=== PATIENT | female | born 1990 | race Hispanic/Latino ===

== ENCOUNTER 2020-07-18 09:59 | Emergency (ER) | payer OTHER, SELFPAY ==
--- OUTSIDE RECORDS SUMMARY | 2020-07-18 10:01 | XMS REPORT | Summary of Care ---
:1990 Author Organization [facility] - Health Address [address] [place] [address] Care Team Providers Name Role Phone Pcp, Patient Does Not Have A Primary Care Provider [id number] Encounter Details Date Type Department Care Team Description 06/30/2020 Orders Only [facility] Doctor Unassigned, No [address] [facility] Name [place] [id number] [address] [place] [phone] Allergies No Known Allergiesdocumented as of this encounter (statuses as of 06/30/2020) Medications No known medicationsdocumented as of this encounter (statuses as of 06/30/2020) Active Problems Not on filedocumented as of this encounter (statuses as of 06/30/2020) Social History Tobacco Use Types Packs/Day Years Used Date Never Assessed Sex Assigned at Date Recorded Not on file documented as of this encounter Last Filed Vital Signs Not on filedocumented in this encounter Plan of Treatment Date Type Specialty Care Team Description 06/30/2020 [facility] Visit [facility] [address] [place], [place] [address] [phone] Health Maintenance Due Date Last Done Comments VARICELLA VACCINES (1 of 2 - 1991 2-dose childhood series) Depression Screening 2002 DTaP,Tdap,and Td Vaccines (1 - 2009 Tdap) PAP SMEAR 2011 INFLUENZA VACCINE (#1) 2020 PNEUMOCOCCAL 0-64 YEARS COMBINED Aged Out No longer eligible based on SERIES patient's age to complete this topic documented as of this encounter Procedures Procedure Name Priority Date/Time Associated Diagnosis Comme nts ASSIGNMENT OF BENEFITS Routine 06/30/2020 2:23 PM CDT documented in this encounter Results Not on filedocumented in this encounter Insurance Payer Benefit Plan Subscriber ID Effective Phone Address Typ e / Group Dates [facility] [place] [id number] 2020-Prese [phone] Medicaid WOMEN nt [address] [place] [address] documented as of this encounter
--- OUTSIDE RECORDS SUMMARY | 2020-07-18 10:02 | XMS REPORT | Summary of Care ---
:1990 Author Organization [facility] Address [address] [place] [id number] Care Team Providers Name Role Phone [facility] [phone] Reason for Visit Reason Comments TRICHOMONIASIS BACTERIAL VAGINOSIS Encounter Details Date Type Department Care Team Description 07/02/2020 Telephone [facility]- Claudia Mendez CHOMONIASIS; Sanjay Rousseau [facility] BACTERIAL VAGINOSIS [address] [facility] [address] [place], [place] [phone] Allergies No Known Allergiesdocumented as of this encounter (statuses as of 07/02/2020) Medications Medication Sig Dispensed Refills Start Date End Date Status metroNIDAZOLE 500 mg Take 4 tablets 4 tablet 0 07/02/202010/2020 Active tabletIndications: by mouth once Trichomonal now for 1 dose. vulvovaginitis, BV (bacterial vaginosis) documented as of this encounter (statuses as of 07/02/2020) Active Problems Problem Noted Date Trichomonal vulvovaginitis 07/02/2020 Bacterial vaginosis 07/02/2020 Well woman exam 06/30/2020 Other general counseling and advice for contraceptive management 06/30/2020 History of tubal ligation 06/30/2020 Tobacco use disorder 06/30/2020 Over weight 06/30/2020 documented as of this encounter (statuses as of 07/02/2020) Social History Tobacco Use Types Packs/Day Years Used Date Current Some Day Smoker 0.1 Smokeless Tobacco: Never Used Alcohol Use Drinks/Week oz/Week Comments Not Currently Sex Assigned at Date Recorded Not on file COVID-19 Exposure Response Date Recorded In the last month, have you been in contact with No / Unsure 06/30/2020 2:54 PM CDT someone who was confirmed or suspected to have Coronavirus / COVID-19? documented as of this encounter Last Filed Vital Signs Not on filedocumented in this encounter Miscellaneous Notes Telephone Encounter - Marc Welsh RN - 07/02/2020 11:16 AM CDTCalled patient, no answer. Left vm. MARC WELSH RN 07/02/2020 11:17 AM Telephone Encounter - Claudia Mendez WHCNP - 07/02/2020 9:26 AM CDT Please notify the patient of her positive STI results. Trich/bv.Please notify the patient her medication has been sent to her pharmacy on file. She should complete the entire course.Please advise her on safe sex practices and to remain abstinent for at least 1-2 weeks post treatment. Her partner can be treated and tested per protocol. If she is not she will need a ANTHONY in 3 months, and adviseher on HIV testing if she has not recently been tested. JUDY Clemons 07/02/2020 9:26 AM documented in this encounter Plan of Treatment Health Maintenance Due Date Last Done Comments PNEUMOCOCCAL 0-64 YEARS COMBINED 02/04/1996 SERIES (1 of 1 - PPSV23) INFLUENZA VACCINE (#1) 2020 DTaP,Tdap,and Td Vaccines (1 - 06/30/2021 P ostponed from 2009 Tdap) (Alternative Chas delines) Depression Screening 06/30/2021 06/30/2020 VARICELLA VACCINES (1 of 2 - 06/30/2021 Pos tponed from 1991 2-dose childhood series) (Altern ative Guidelines) PAP SMEAR 06/30/2023 06/30/2020 documented as of this encounter Results Not on filedocumented in this encounter Visit Diagnoses Diagnosis Trichomonal vulvovaginitis - Primary BV (bacterial vaginosis) Vaginitis and vulvovaginitis, unspecifie d documented in this encounter Insurance Payer Benefit Plan Subscriber ID Effective Phone Address Typ e / Group Dates [facility] [id number] 2020-Rochelle [phone] Medicaid WOMEN nt [address] [place] [address] documented as of this encounter
--- OUTSIDE RECORDS SUMMARY | 2020-07-18 10:02 | XMS REPORT | Summary of Care ---
:1990 Author Organization [facility] Address [address] [place] [id number] Care Team Providers Name Role Phone [facility] Reason for Visit Reason Comments Well Woman Exam Encounter Details Date Type Department Care Team Description 06/30/2020 Office Visit [facility]- Claudia Mendez Ot er general counseling and advice for contraceptive management (Primary Dx); JUDY Dinero History of tubal ligation; [address] [place] [address] Well woman exam; Street [address] A Tobacco use disorder; [place], [place] [address] Over weight; [id number] Vaginal discharge [phone] Allergies No Known Allergiesdocumented as of this encounter (statuses as of 06/30/2020) Medications No known medicationsdocumented as of this encounter (statuses as of 06/30/2020) Active Problems Problem Noted Date Well woman exam 06/30/2020 Other general counseling [...] of this encounter Last Filed Vital Signs Vital Sign Reading Time Taken Comments Blood Pressure 99/70 06/30/2020 2:54 PM CDT Pulse 76 06/30/2020 2:54 PM CDT Temperature 37.2 C (98.9 F) 06/30/2020 2:54 PM CDT Respiratory Rate 16 06/30/2020 2:54 PM CDT Oxygen Saturation - - Inhaled Oxygen Concentration - - Weight 73.1 kg (161 lb 4 oz) 06/30/2020 2:54 PM CDT Height 160 cm (5' 3") 06/30/2020 2:54 PM CDT Body Mass Index 28.56 06/30/2020 2:54 PM CDT documented in this encounter Patient Instructions Patient InstructionsRosalina Davidson LVN - 06/30/2020 2:45 PM CDT Patient Education Clinical Breast Exam Many health organizations recommend a yearly clinical breast exam. This exam may be done by a park warden, family healthcare provider, nurse practitioner, nurse net lead developer, or specially trained nurse. Yearly breast exams help tomake surethat breast conditions are found early. Your healthcare providers role A healthcare professional knows the tests and follow-up care needed if a problem is found. Your clinical exam is also a great time to ask questions about breast self-exams. You can find out if yourechecking your breasts in the best way. Or you may want to ask how , breast implants, or breast reduction surgery affect the way you should check your breasts. Diagnostic tests If a clinical exam reveals a breast change, you may have other tests to find out more. These tests may include: Mammography. A low-dose X-ray of your breast tissue. Ultrasound. An imaging test that uses sound waves to create images of your breast. Biopsy. A small amount of breast tissue is removed by needle or by a cut (incision). The tissue is then checked under a microscope. Guidelines for having clinical breast exams The [place] [employer] recommends that starting at age 29, you should have a clinical breast exam every 1 to 3 years. After age 40, have a clinical breast exam each year. If youre at higher risk for breast cancer, you may need exams more often. Risk factors for breast cancer may include: Being over 50 or postmenopausal Having a family history of breast cancer Having the BRCA1 or BRCA2 gene mutation or certain other gene mutations Having more menstrual periods due to starting menstruation early(before age 12) or having a late menopause (after age 55) Having no pregnancies Having a first after age 30 Being obese Having a history of radiation treatment to your chest area Exposure to CONSTANZA during your mother's Not being active Drinking too much alcohol Having dense breast tissue Taking hormone therapy after menopause Other health organizations have different recommendations. Talk with your healthcare provider about what is best for you. [employer] reviewed this educational content on 06/21/201719995155-1557 [employer]. [address] [place] [address]. All rights reserved. This information is not intended as a substitute for professional medical care. Always follow your healthcare professional's instructions. Patient Education Breast Health: Breast Self-Awareness What is breast self-awareness? Breast self-awareness is knowing how your breasts normally look and feel. Your breasts change as yougo through different stages of your life. So its important to learn what is normal for your breasts. Knowing about your breasts helps you spot any changes in them right away. Tell your healthcare provider about any changes. Why is breast self-awareness important? Many experts now say that women should focus on breast self-awareness instead of doing a breast self-examination (BSE). These experts include the [place] [employer] and the [place] [employer]. Some experts even advise not teaching women to do a BSE. Thats because research hasnt shown a clear benefit to doing BSEs. Breast self-awareness is different than a BSE. It isnt about following a certain method and schedule. Its about knowing what's normal for your breasts. That way you can spot even small changes right away. If you see any changes, tell your healthcare provider. Changes to look for Call your healthcare provider if you find any changes in your breasts that worry you. These changes may be: A lump Nipple discharge other than breastmilk, especially if it's bloody Swelling A change in size or shape Skin changes, such as redness, thickening, or dimpling of the skin Swollen lymph nodes in the armpit Nipple problems, such as pain or redness If you find a lump Call your provider if you find lumpiness in one breast. Also call if you feel something different inthe tissue or feel a definite lump. Sometimes lumpiness may be due to menstrual changes. But there may be reason for concern. Your provider may want to see you right away if you have: Nipple discharge that is bloody Skin changes on your breast, such as dimpling or puckering Its okay to be upset if you find a lump. Be sure to call your provider right away. Remember that most breast lumps are benign. This means they are not cancer. [employer] last reviewed this educational content on 06/21/201719995811-1800 [employer]. [address] [place] [address], [place] [address]. All rights reserved. This information is not intended as a substitute for professional medical care. Always follow your healthcare professional's instructions. Patient Education Prevention Guidelines,Women Ages 18 to 39 Screening tests and vaccines are an important part of managing your health. A screening test is doneto find possible disorders or diseases in people who don't have any symptoms. The goal is to find a disease early so lifestyle changes can be made and you can be watched more closely to reduce the riskof disease, or to detect it early enough to treat it most effectively. Screening tests are not considered diagnostic, but are used to determine if more testing is needed. Health counseling is essential, too. Below are guidelines for these, for women ages 18 to 39. Talk with your healthcare provider tomake sure youre up-to-date on what you need. Screening Who needs it How often Alcohol misuse All women in this age group At routine exams Blood pressure All women in this age group Yearly checkup if your blood pressure is normal Normal blood pressure is less than 120/80 mm Hg If your blood pressure reading is higher than normal, follow the advice of your healthcare provider Breast cancer All women in this age group should talk with their healthcare providers about the needfor clinical breast exams (CBE)1 Clinical breast exam every 3 years1 Cervical cancer Women ages 21 and older Women between ages 21 and 29 should have a Pap test every 3 years; women between ages 30 and 65 are advised to have a Pap test plus an HPV test every 5 years Chlamydia Sexually active women ages 25 and younger, and women at increased risk for infection (suchas having multiple sex partners) Every year if you're at risk or have symptoms Depression All women in this age group At routine exams Type 2 diabetes, prediabetes All women with no symptoms who are overweight or obese and have 1 or more other risk factors for diabetes At least every 3 years. Also, testing for diabetes during after the 24th week. Type 2 diabetes, prediabetes All women diagnosed with gestational diabetes Lifelong testing every 3 years Type 2 diabetes All women with prediabetes Every year Gonorrhea Sexually active women at increased risk for infection At routine exams Hepatitis C Anyone at increased risk At routine exams HIV All women should be tested at least once for HIV between the ages of 13 and 64 At routine exams.Those with risk factors for HIV should be tested at least annually. Obesity All women in this age group At routine exams Syphilis Women at increased risk for infection should talk with their healthcare provider At routineexams Tuberculosis Women at increased risk for infection should talk with their healthcare provider Ask your healthcare provider Vision All women in this age group At least 1 complete exam in your 20s, and 2 in your 30s Vaccine2 Who needs it How often Chickenpox (varicella) All women in this age group who have no record of this infection or vaccine 2doses; the second dose should be given 4 to 8 weeks after the first dose Hepatitis A Women at increased risk for infection should talk with their healthcare provider 2 dosesgiven at least 6 months apart Hepatitis B Women at increased risk for infection should talk with their healthcare provider 3 dosesover 6 months; second dose should be given 1 month after the first dose; the third dose should be given at least 2 months after the second dose and at least 4 months after the first dose Haemophilus influenzaeType B (HIB) Women at increased risk for infection should talk with their healthcare provider 1 to 3 doses Human papillomavirus (HPV) All women in this age group up to age 26 3 doses; the second dose should be given 1 to 2 months after the first dose and the third dose given 6 months after the first dose Influenza (flu) All women in this age group Once a year Measles, mumps, rubella (MMR) All women in this age group who have no record of these infections or vaccines 1 or 2 doses Meningococcal Women at increased risk for infection should talk with their healthcare provider 1 or more doses Pneumococcal conjugate vaccine (PCV13)and pneumococcal polysaccharidevaccine(PPSV23) Women at increased risk for infection should talk with their healthcare provider PCV13: 1 dose ages 19 to 65 (protects against 13 types of pneumococcal bacteria) PPSV23: 1 to2 doses through age 64, or 1 dose at 65 or older (protects against 23 types of pneumococcal bacteria) Tetanus/diphtheria/pertussis (Td/Tdap) booster All women in this age group Td every 10 years, or a one-time dose of Tdap instead of a Td booster after age 18, then Td every 10 years Counseling Who needs it How often BRCA gene mutation testing for breast and ovarian cancer susceptibility Women with increased risk for having gene mutation When your risk is known Breast cancer and chemoprevention Women at high risk for breast cancer When your risk is known Diet and exercise Women who are overweight or obese When diagnosed, and then at routine exams Domestic violence Women at the age in which they are able to have children At routine exams Sexually transmitted infection prevention Women who are sexually active At routine exams Skin cancer Prevention of skin cancer in fair-skinned adults At routine exams Use of tobacco and the health effects it can cause All women in this age group Every visit 1 According to the ACS, women ages 20 to 39 years should have a clinical breast exam (CBE) as part of their routine health exam every 3 years. Breast self-exams are an option for women starting in their 20s.But the USPSTF does not recommend CBE. [employer] last reviewed this educational content on 08/21/201719995249-2674 [employer]. [address] [place] [address]. All rights reserved. This information is not intended as a substitute for professional medical care. Always follow your healthcare professional's instructions. Patient Education Understanding STIs When it comes to sex, nothing is risk-free. Any sexual contact with the penis, vagina, anus, or mouth can spread a sexually transmitted infection (STI). These include chlamydia, gonorrhea, herpes, HIV,and genital warts. STIs are also known as sexually transmitted diseases (STDs). The only sure way toprevent STIs is not having sex (abstinence). But there are ways to make sex safer. Use a latex condom each time you have sex. And choose your partner wisely. Use condoms for safer sex If you have sex, latex condoms provide the best protection against STIs. Latex condoms stop the exchange of body fluids that carry certain STIs. They also limit contact with affected skin. Be aware that a condom doesnt cover all skin. So affected skin that isn't covered can still transfer disease. But youre safer with a condom than without one. Use a condom even if you use other control. control methods such as the pill or IUD help prevent , but they don't protect against STIs. Choose the right condom Condoms made of latex prevent disease best. If youre allergic to latex, use polyurethane condoms instead. Male condoms fit over the penis. Female condoms line the vagina. Before buying a condom, read the label to be sure it prevents disease. Some novelty condoms dont. The right lubricant helps Buy lubricated condoms or use lubricant. This provides greater comfort and reduces the risk for condom breakage. Use only water-based lubricants. Dont use oil, lotion, or petroleum jelly. They can weaken the condom, causing breakage. Also, you may want to choose lubricants without nonoxynol-9. This spermicide may cause irritation. It can raise the risk for certain STIs. Use condoms correctly For condoms to work, they must be used the right way. Keep these tips in mind: Use a new latex condom each time you have sex. Slip the condom on the penis before any contact ismade. When ready to withdraw, hold the rim of the condom as the penis pulls out. This prevents the condom from slipping off. Check the expiration date before using a condom. Dont store condoms in places that can get hot, such as a car or a wallet that is carried in a back pocket. Get to know your partner Safer sex is a process. It involves getting to know your partner and making informed choices. Ask each other how many partners you have had in the past, and how many you have now. Find out if either ofyou has HIV or any other STI. If you decide to have sex, use a condom each time. Dont stop using condoms unless youre sure neither of you has other partners and youve both been tested to confirm you dont have HIV or other STIs. Then stay free of disease by having sex only with each other (monogamy). Keep your cool Dont let alcohol or drugs cloud your judgment. They could lead you to have sex with someone you wouldnt have chosen if you were sober. Or you might forget to use a condom. If you do plan to have sex, keep a latex condom with you. Dont wait until youre in the heat of passion to try to find one. Consider abstinence The only way to be sure you wont get an STI is to abstain from sex. Abstinence is a choice that many people make at some point in their life. Maybe you want to wait until you are sure youre readybefore you have sex. Maybe youd like a break from the responsibilities of sex for a while. Or maybe you just want to know your partner better before taking the next step. Abstinence is a choice you can make now to protect your future. [employer] last reviewed this educational content on 10/21/201819999092-7216 [employer]. [address] [place] [address], [place] [address]. All rights reserved. This information is not intended as a substitute for professional medical care. Always follow your healthcare professional's instructions. Patient Education Understanding HIV and AIDS It's important to know how HIV can get into your body and what happens once its there. Then youll be better prepared to protect yourself or others against this virus. A person with HIV can look and feel perfectly healthy. But that person can give HIV to others as soon as he or she is infected with the virus. Having unsafe or unprotected sex or sharing needles puts you at risk for HIV. Talk with your healthcare provider about ways to protect yourself or a loved one from getting HIV. How HIV infection progresses After HIV enters the body, it attacks the immune system in the stages below. A person with HIV can infect others once the virus gets into the blood. HIV with no symptoms. A person with HIV may have no symptoms for years. The only sign of infection may be a positive blood test for HIV 2 weeks to 3 months or later after HIV enters the body. HIV with symptoms. Some people develop an illness similar to mono (mononucleosis) 2 to 4 weeks after the virus enters the body. This is called acute retroviral syndrome. Symptoms may include swollen lymph glands, chills, fever, night sweats, weakness, weight loss, skin rashes, mouth ulcers, or sore t hroat. Symptoms may be mild or the person can feel quite sick. Even without treatment the symptoms almost always go away in a few days or up to 2 to 3 weeks. Then the person has no symptoms, often for years. But over time the immune system starts to get weaker and symptoms start appearing. People at this stage may have a yeast infection in the mouth (oral thrush), shingles, skin problems, pneumonia, diarrhea that keeps coming back, or weight loss. AIDS. AIDS is the most advanced stage of HIV infection, when the immune system is severely weakened.Certain rare diseases and cancers that normally would not occur, now can occur because the body can no longer fight them well enough. It is often these diseases that cause in people with AIDS. HIV may also directly attack the brain and nervous system. This causes seizures and loss of memory and body movement. It also affects many other parts of the body. This leads to problems such as anemia, low white blood cell count, diarrhea, belly pain, skin problems, and many others. How HIV enters the body HIV is carried in semen, vaginal fluid, blood, and breastmilk. During sex, HIV can enter the body. It gets in through the fragile tissue and linings, sores, or cuts in or around the vagina, penis, anus, and mouth. During drug use, tattooing, or body piercing, the virus can enter the blood through an infected needle. A mother who has HIV can infect her child during , childbirth, and . [employer] last reviewed this educational content on 04/21/201919998440-5054 [employer]. [address] [place] [address], [place] [address]. All rights reserved. This information is not intended as a substitute for professional medical care. Always follow your healthcare professional's instructions. Patient Education Eating Heart-Healthy Foods Eating has a big impact on your heart health. In fact, eating healthier can improve several of your heart risks at once. For instance, it helps you manage weight, cholesterol, and blood pressure. Here are ideas to help you make heart- healthy changes without giving up allthe foods and flavors you love. Getting started Talk with your healthcare provider about eating plans, such as the DASH or Mediterranean diet. You may also be referred to a dietitian. Change a few things at a time. Give yourself time to get used to a few eating changes before adding more. Work to create a tasty, healthy eating plan that you can stick to for the rest of your life. Goals for healthy eating Below are some tips to improve your eating habits: Limit saturated fats and trans fats. Saturated fats raise your levels of cholesterol, so keep these fats to a minimum. They are found in foods such as fatty meats, whole milk, cheese, and palm and coconut oils. Avoid trans fats because they lower good cholesterol as well as raise bad cholesterol. Trans fats are most often found in processed foods. Reduce sodium (salt) intake. Eating too much salt may increase your blood pressure. Limit your sodium intake to 2,300 milligrams (mg) per day(the amount in 1 teaspoon of salt), or less if your healthcare provider recommends it. Dining out less often and eating fewer processed foods are two great ways to decrease the amount of salt you consume. Managing calories. A calorie is a unit of energy. Your body darnell calories for fuel, but if you eat more calories than your body darnell, the extras are stored as fat. Your healthcare provider can help you create a diet plan to manage your calories. This will likely include eating healthier foods as well as exercising regularly. To help you track your progress, keep a diary to record what you eat and how often you exercise. Choose the right foods Aim to make these foods benny of your diet. If you have diabetes, you may have different recommendations than what is listed here: Fruits and vegetables provide plenty of nutrients without a lot of calories. At meals, fill half your plate with these foods. Split the other half of your plate between whole grains and lean protein. Whole grains are high in fiber and rich in vitamins and nutrients. Good choices include whole-wheat bread, pasta, and brown rice. Lean proteins give you nutrition with less fat. Good choices include fish, skinless chicken, and beans. Low-fat or nonfat dairy provides nutrients without a lot of fat. Try low-fat or nonfat milk, cheese, or yogurt. Healthy fats can be good for you in small amounts. These are unsaturated fats, such as olive oil,nuts, and fish. Try to have at least 2 servings per week of fatty fish, such as salmon, sardines, mackerel, rainbow trout, and albacore tuna. These contain omega-3 fatty acids, which are good for your heart. Flaxseed is another source of a heart-healthy fat. More on heart-healthy eating Read food labels Healthy eating starts at the grocery store. Be sure to pay attention to food labels on packaged foods. Look for products that are high in fiber and protein, and low in saturated fat, cholesterol, and sodium. Avoid products that contain trans fat. And pay close attention to serving size. For instance, if you plan to eat two servings, double all the numbers on the label. Prepare food right A alan part of healthy cooking is cutting down on added fat and salt. Look on the internet for lower-fat, lower-sodium recipes. Also, try these tips: Remove fat from meat and skin from poultry before cooking. Skim fat from the surface of soups and sauces. Broil, boil, bake, steam, grill, and microwave food without added fats. Choose ingredients that spice up your food without adding calories, fat, or sodium. Try these items: horseradish, hot sauce, lemon, mustard, nonfat salad dressings, and vinegar. For salt-free herbs and spices, try basil, cilantro, cinnamon, pepper, and ranjan. [employer] last reviewed this educational content on 08/21/201719991283-6555 [employer]. [address] [place] [address]. All rights reserved. This information is not intended as a substitute for professional medical care. Always follow your healthcare professional's instructions. Patient Education Understanding USDA MyPlate The USDA (U.S. Department of Agriculture) has guidelines to help you make healthy food choices. These are called MyPlate. MyPlate shows the food groups that make up healthy meals using the image of a place setting. Before you eat, think about the healthiest choices for what to put onto your plate or into your cup or bowl. To learn more about building a healthy plate, visit www.choosemyplate.gov. The food groups Fruits. Any fruit or 100% fruit juice counts as part of the Fruit Group. Fruits may be fresh, canned, frozen, or dried, and may be whole, cut-up, or pureed. Make half your plate fruits and vegetables. Vegetables. Any vegetable or 100% vegetable juice counts as a member of the Vegetable Group. Vegetables may be fresh, frozen, canned, or dried. They can be served raw or cooked and may be whole, cut-up, or mashed. Make half your plate fruits and vegetables. Grains. All foods made from grains are part of the Grains Group. These include wheat, rice, oats,cornmeal, and barley such as bread, pasta, oatmeal, cereal, tortillas, and grits. Grains should be no more than a quarter of your plate. At least half of your grains should be whole grains. Protein. This group includes meat, poultry, seafood, beans and peas, eggs, processed soy products(like tofu), nuts (including nut butters), and seeds. Make protein choices no more than a quarter ofyour plate. Meat and poultry choices should be lean or low fat. Dairy. All fluid milk products and foods made from milk that contain calcium, like yogurt and cheese, are part of the Dairy Group. (Foods that have little calcium, such as cream, butter, and cream cheese, are not part of the group.) Most dairy choices should be low-fat or fat-free. Oils. These are fats that are liquid at room temperature. They include canola, corn, olive, soybean, and sunflower oil. Foods that are mainly oil include mayonnaise, certain salad dressings, and soft margarines. You should have only 5 to 7 teaspoons of oils a day. You probably already get this muchfrom the food you eat. [employer] last reviewed this educational content on 06/21/201719999033-2118 [employer]. [address] [place] [address]. All rights reserved. This information is not intended as a substitute for professional medical care. Always follow your healthcare professional's instructions. documented in this encounter Progress Notes Claudia Mendez WHALYSSIA - 06/30/2020 2:45 PM CDT Chief complaint: Chief Complaint Patient presents with Well Woman Exam [employer] Exam Patient is here for well woman visit. The patient's primary symptoms include vaginal discharge. Thisis a new problem. The current episode started more than 1 month ago. The problem occurs constantly. The problem has been unchanged. The patient is experiencing no pain. She is not . She wears cotton underwear. The vaginal discharge was white. The vaginal bleeding is none. Nothing aggravates the symptoms. She has tried nothing for the symptoms. It is unknown whether or not her partner has an STD. She uses tubal ligation for contraception. Patient reports that prior to today's visit, her form of control was sterilization. After this visit, patient's form of control will be sterilization. Her menstrual history has been regular. Patient reports not sexually active. HPI: the patient is here for WWE and contraceptive management. She reports she is doing well for themost part. She declines the need for STI testing today reporting she has not been sexual active in about 6 months. She does reports vaginal discharge for the past 3 months, associated symptoms include vaginal odor. She reports tubal ligation for control and is pleased with her method. Pt (denies) current or past physical, sexual or emotional abuse. Histories OB History Para Term AB Living 3 3 3 3 SAB TAB Ectopic Multiple Live Births 3 # Outcome Date GA Lbr Tyrese/2nd Weight Sex Delivery Anes PTL Lv 3 Term 05/20/16 40w0d 8 lb (3.629 kg) M CS-Unspec SARITA 2 Term 07/02/14 39w0d 7 lb 2 oz (3.232 kg) F NORMAL SPONT N SARITA 1 Term 05/11/11 39w0d 6 lb 2 oz (2.778 kg) M NORMAL SPONT SARITA Past Medical History: Diagnosis Date Anemia 1998 not on iron Anxiety 2010 not on meds Genital warts 2014 TCA treatment per pt report Family History Problem Relation Age of Onset Diabetes Mother Family Status Relation Name Status Mo Alive Fa Alive Past Surgical History: Procedure Laterality Date ABDOMEN SURGERY PROC UNLISTED 2014 removed benign tumor laproscopically SECTION 2016 TUBAL LIGATION 2016 Social History Socioeconomic History Marital status: Single Spouse name: Not on file Number of children: Not on file Years of education: Not on file Highest education level: Not on file Occupational History Not on file Social Needs Financial resource strain: Not on file Food insecurity Worry: Not on file Inability: Not on file Transportation needs Medical: Not on file Non-medical: Not on file Tobacco Use Smoking status: Current Some Day Smoker Packs/day: 0.10 Smokeless tobacco: Never Used Substance and Sexual Activity Alcohol use: Not Currently Drug use: Not Currently Sexual activity: Yes control/protection: Surgical Comment: Last intecourse 6+ months ago Lifestyle Physical activity Days per week: Not on file Minutes per session: Not on file Stress: Not on file Relationships Social connections Talks on phone: Not on file Gets together: Not on file Attends faith service: Not on file Active member of club or organization: Not on file Attends meetings of clubs or organizations: Not on file Relationship status: Not on file Intimate partner violence Fear of current or ex partner: Not on file Emotionally abused: Not on file Physically abused: Not on file Forced sexual activity: Not on file Other Topics Concern Not on file Social History Narrative Patient lives with roommate, patient feels safe at home. Social History Substance and Sexual Activity Sexual Activity Yes control/protection: Surgical Comment: Last intecourse 6+ months ago Labs Labs are pending. and No visits with results within 1 Month(s) from this visit. Latest known visit with results is: Admission on 12/04/2018, Discharged on 12/05/2018 Component Date Value Streptococcus pyogenes (* 12/04/2018 Negative Influenza A 12/04/2018 Negative Influenza B 12/04/2018 Negative APPEARANCE 12/04/2018 Slightly Cloudy* COLOR 12/04/2018 Yellow PH 12/04/2018 6.0 SP GRAVITY 12/04/2018 1.020 GLU U QUAL 12/04/2018 Negative BLOOD 12/04/2018 Small* KETONES 12/04/2018 Negative PROTEIN 12/04/2018 Negative UROBILIN 12/04/2018 0.2 mg/dL BILIRUBIN 12/04/2018 Negative NITRITE 12/04/2018 Positive* LEUK MICHELLE 12/04/2018 Trace* RBC/HPF 12/04/2018 3-5* WBC/HPF 12/04/2018 10-20* BACTERIA 12/04/2018 Many* SQ EPITH 12/04/2018 Few* Throat Culture 12/04/2018 No Beta-Hemolytic Streptococcus isolated URINE CULTURE 12/04/2018 >100,000 CFU/mL Escherichia coli POCT PREG 12/05/2018 negative On board controls accept* 12/05/2018 yes POCT PREG LOT # 12/05/2018 [id number] POCT PREG TEST DA* 12/05/2018 07/21/2020 NA 12/05/2018 138 K 12/05/2018 3.5 CL 12/05/2018 105 CO2 TOTAL 12/05/2018 23 AGAP 12/05/2018 10 BUN 12/05/2018 7 GLUCOSE 12/05/2018 101 CREATININE 12/05/2018 0.60 TOTAL BILI 12/05/2018 0.5 CALCIUM 12/05/2018 9.1 T PROTEIN 12/05/2018 7.1 ALBUMIN 12/05/2018 4.1 ALK PHOS 12/05/2018 79 ALT(SGPT) 12/05/2018 17 AST(SGOT) 12/05/2018 16 eGFR Calculation (Non-Af* 12/05/2018 119.0 eGFR Calculation (Kimberly* 12/05/2018 144.3 WBC 12/05/2018 12.43* RBC 12/05/2018 4.51 HGB 12/05/2018 13.3 HCT 12/05/2018 39.4 MCV 12/05/2018 87.4 MCH 12/05/2018 29.5 MCHC 12/05/2018 33.8 RDW-SD 12/05/2018 38.8* RDW-CV 12/05/2018 12.0 PLT 12/05/2018 271 MPV 12/05/2018 10.4 NRBC/100 WBC 12/05/2018 0.0 NRBC x10^3 12/05/2018 <0.01 GRAN MAT (NEUT) % 12/05/2018 83.0 IMM GRAN % 12/05/2018 0.30 LYMPH % 12/05/2018 11.1 MONO % 12/05/2018 4.4 EOS % 12/05/2018 0.6 BASO % 12/05/2018 0.6 GRAN MAT x10^3(ANC) 12/05/2018 10.31* IMM GRAN x10^3 12/05/2018 0.04 LYMPH x10^3 12/05/2018 1.38 MONO x10^3 12/05/2018 0.55 EOS x10^3 12/05/2018 0.08 BASO x10^3 12/05/2018 0.07 Radiology No new radiology. Allergies Miller has No Known Allergies. Medications Miller currently has no medications in their medication list. Review of Systems Constitutional: Negative. HENT: Negative. Eyes: Negative. Respiratory: Negative. Breasts: Negative. Cardiovascular: Negative. Gastrointestinal: Negative. Genitourinary: Positive for vaginal discharge. Musculoskeletal: Negative. Skin: Negative. Neurological: Negative. Psychiatric/Behavioral: Negative. Endocrine: Endocrine negative BP 99/70 (BP Location: Right arm, Patient Position: Sitting, BP CUFF SIZE: Adult Medium) | Pulse 76 | Temp 37.2 C (98.9 F) (Oral) | Resp 16 | Ht 5' 3" (1.6 m) | Wt 161 lb 4 oz (73.1 kg) | LMP05/28/2020 (Approximate) | BMI 28.56 kg/m Pregravid BMI: Could not be calculated Physical Exam Vitals reviewed. Constitutional: She is oriented to person, place, and time. She appears well- developed. Her body habitus is normal. Neck: No tenderness and no mass. No thyroid nodules and no thyromegaly palpated. No neck adenopathy. Cardiovascular: Regular rate and rhythm. No gallop, no friction rub and no murmur auscultated. No peripheral edema present. Pulmonary/Chest: Breath sounds clear to auscultation. Normal inspiratory effort. Abdominal: Abdomen is soft. No mass palpated. No tenderness present. There is no hepatosplenomegaly,splenomegaly or hepatomegaly. There is no rigidity. No hernia palpated or inspected. Neuro/Psychiatric: She has a normal mood and affect. She is oriented to person, place, and time. Skin: No lesion, no rash and no ulceration present. Lymphadenopathy: No neck adenopathy present. No axillary adenopathy present. No inguinal adenopathy present. Breast: Right breast exhibits no mass, no nipple discharge and no tenderness. Left breast exhibits no mass, no nipple discharge and no tenderness. Breasts are symmetrical. Normal left breast and normalright breast Rectal: Rectal exam with normal anal tone. No mass, no external hemorrhoid and no internal hemorrhoid palpated or inspected. External genitalia: Normal external genitalia appropriate for age. Normal hair distribution. No labial lesion. Urethral meatus: Normal urethral meatus size, location and no lesion. No prolapse present. Normal urethral meatus Urethra: Normal urethra. No urethral tenderness, no mass and no urethral scarring palpated. Bladder: Bladder has no fullness, no mass palpated and no tenderness. Normal bladder Vagina:Normal vagina. No lesion inspected. Normal estrogen effect. Normal support. No abnormal vaginal discharge found. No lesions in the vagina. Cervix: Normal cervix. No lesion. No tenderness and no discharge present. Uterus: Uterus is normal size, normal contour, normal position and non-tender. Normal uterus Adnexa: Right adnexa without tenderness, ovary enlargement or mass. Left adnexa without tenderness, ovary enlargement or mass. Normal left adnexa and normal right adnexa Anus/perineum: Normal perineum and normal anus. Assessment/Plan Return to clinic in 1 year for WWE or sooner as needed Rubella/VZV: pending BMI: 28 Td: pending Pap Smear; today Gardasil: na Mammogram/Guaiac/Colonoscopy:na Other general counseling and advice for contraceptive management (primary encounter diagnosis) History of tubal ligation Comment: pleased Plan: as needed mgmt Well woman exam Comment: routine Plan: PAP Smear-Liquid Based, HIGH RISK HPV-THIN PREP Tobacco use disorder Comment: reports Plan: smoking cessation encouraged Over weight Comment: see bmi Plan: BMI discussed, appropriate weight gain, sensible diet, and exercise, increased fiber and waterintake and protein low in fat. Encouraged exercise for 30 min everyday; begin regimen with caution to prevent injury. Encouraged to decrease BMI to <25. Vaginal discharge Comment: repots Plan: [facility] ONLY - VAGINAL PATHOGENS BY NUCLEIC ACID TESTING This visit did not involve counseling and coordination that comprised more than 50% of the visit time JUDY Clemons 06/30/2020 3:59 PM . Marc Welsh RN - 06/30/2020 2:45 PM CDT30 year old presents to the clinic for wwe. 1) Previous BCM: BTL 2) Desired BCM: BTL 3) LMP: 05/28/2020 4) Last [place]: 6+ months 5) Last Pap: 4+ years Results: negative 6) Tdap: N/A 7) Gardasil: N/A 8) C/O: Patient denies any complaints 9) Patient denies history of physical, emotional, or sexual abuse. Patient states that she currently feels safe at home. MARC WELSH RN 06/30/2020 3:14 PM documented in this encounter Plan of Treatment Name Type Priority Associated Diagnoses Order S chedule PAP Smear-Liquid Based LAB Routine Well woman exam Ex pected: 06/30/2020, Expires: 2020 HIGH RISK HPV-THIN PREP LAB Routine Well woman exam E xpected: 06/30/2020, Expires: 2020 [facility] ONLY - VAGINAL LAB Routine Vaginal discharge Ord ered: 06/30/2020 PATHOGENS BY NUCLEIC ACID TESTING Health Maintenance Due Date Last Done Comments INFLUENZA VACCINE (#1) 2020 DTaP,Tdap,and Td Vaccines (1 - 06/30/2021 P ostponed from 2009 Tdap) (Alternative Chas delines) Depression Screening 06/30/2021 06/30/2020 VARICELLA VACCINES (1 of 2 - 06/30/2021 Pos tponed from 1991 2-dose childhood series) (Altern ative Guidelines) PAP SMEAR 06/30/2023 06/30/2020 PNEUMOCOCCAL 0-64 YEARS COMBINED Aged Out No longer eligible based on SERIES patient's age to complete this topic documented as of this encounter Results Not on filedocumented in this encounter Visit Diagnoses Diagnosis Other general counseling and advice for contraceptive management - Primary History of tubal ligation Tubal ligation status Well woman exam Routine general medical examination at a health care facility Tobacco use disorder Over weight Overweight Vaginal discharge Leukorrhea, not specified as infective documented in this encounter Insurance Payer Benefit Plan Subscriber ID Effective Phone Address Typ e / Group Dates [facility] [id number] 2020-Prese [phone] [address] Medicaid WOMEN nt 00 [id number] [place] [address] Guarantor Name Account Type Relation to Date of Phone Billing Address Patient Miller Ferguson [facility] Self 1990 [address] (Home) [address] [place], [place] [address] documented as of this encounter
--- OUTSIDE RECORDS SUMMARY | 2020-07-18 10:02 | XMS REPORT | Summary of Care ---
:1990 Author Organization [facility] Address [address] [place] [address] Care Team Providers Name Role Phone Claudia Mendez [facility] Primary [facility] Provider [phone] Reason for Visit Reason Comments TRICHOMONIASIS BACTERIAL VAGINOSIS Encounter Details Date Type Department Care Team Description 07/02/2020 Telephone [facility]- Claudia Mendez CHOMONIASIS; Sanjay Rousseau [facility] BACTERIAL VAGINOSIS [address] [facility] [place] [address] [place], [place] [phone] Allergies No Known [...] Encounter - Marc Welsh RN - 07/02/2020 3:50 PM CDTCalled patient, no answer. Left vm to clarify preference for flagyl. MARC WELSH RN 07/02/2020 3:50 PM Telephone Encounter - Claudia Mendez WHCNP - 07/02/2020 2:59 PM CDTThe flagyl sent to the pharmacy should treat both, if she desires the 7 day treatment i can send that JUDY Clemons 07/02/2020 3:00 PM Telephone Encounter - Rosalina Davidson LVN - 07/02/2020 2:50 PM CDTNotified the patient of her positive STI results trichomonas. Notified the patient her medication has been sent to her pharmacy on file. Educated patient she should complete the entire course, advised patient to practice safe sex practices and to remain abstinent for at least 1-2 weeks post treatment. Patient declines partner at this time. Informed patient of results for BV, verbalized understanding. elephone Encounter - Marc Welsh RN - 07/02/2020 [...] Address Typ e / Group Dates [facility] [id number] 2020-Prese [phone] Medicaid WOMEN nt [address] [place] [address] documented as of this encounter
--- OUTSIDE RECORDS SUMMARY | 2020-07-18 10:02 | XMS REPORT | Summary of Care ---
:1990 Author Organization [facility] Address [address] [place] [address] Care Team Providers Name Role Phone Claudia Mendez [facility] Primary Care Provider [phone] Reason for Visit Reason Comments Well Woman Exam Encounter Details Date Type Department Care Team Description 06/30/2020 Office Visit [facility]- Claudia Mendez Ot er general counseling and advice for contraceptive management (Primary Dx); JUDY Dinero History of tubal ligation; [address] Well woman exam; [address] Tobacco use disorder; [place], [place] [address] Over weight; [id number] Vaginal discharge [phone] Allergies No Known Allergiesdocumented as of this [...] This exam may be done by a material spreader, family healthcare provider, nurse practitioner, nurse comic book artist, or specially trained nurse. Yearly breast exams [...] Guidelines for having clinical breast exams The [place] [employer]nec[employer] recommends that [...] provider about what is best for you. [employer] reviewed this educational content on 06/21/201719993684-7263 [employer]. [address] [place] [address]. All rights reserved. This information is not [...] breast self-examination (BSE). These experts include the [place] [employer] and the [place] [employer]ians and Gynecologists. Some experts [...] benign. This means they are not cancer. [employer] last reviewed this educational content on 06/21/201719994981-2725 [employer]. [address] [place] [address], [place] [address]. All rights reserved. This information is not [...] 20s.But the USPSTF does not recommend CBE. [employer] last reviewed this educational content on 08/21/201719999476-0453 [employer]. [address] [place] [address]. All rights reserved. This information is not [...] can make now to protect your future. [employer] last reviewed this educational content on 10/21/201819996089-3276 [employer]. [address] [place] [address], [place] [address]. All rights reserved. This information is not [...] her child during , childbirth, and . [employer] last reviewed this educational content on 04/21/201919996792-7821 [employer]. [address] [place] [address], [place] [address]. All rights reserved. This information is not [...] try basil, cilantro, cinnamon, pepper, and ranjan. [employer] last reviewed this educational content on 08/21/201719991301-2503 [employer]. [address] [place] [address]. All rights reserved. This information is not [...] get this muchfrom the food you eat. [employer] last reviewed this educational content on 06/21/201719992973-0689 [employer]. [address] [place] [address]. All rights reserved. This information is not intended as a substitute for professional medical care. Always follow your healthcare professional's instructions. documented in this encounter Progress Notes Claudia Mendez WHALYSSIA - 06/30/2020 2:45 PM CDT Chief complaint: Chief Complaint Patient presents with Well Woman Exam [employer] Exam Patient is here for well woman [...] file Gets together: Not on file Attends jewish service: Not on file Active member of [...] 12/05/2018 yes POCT PREG LOT # 12/05/2018 [id number] POCT PREG TEST DA* 12/05/2018 07/21/2020 NA [...] BCM: BTL 3) LMP: 05/28/2020 4) Last [place]: 6+ months 5) Last Pap: 4+ years [...] Address Typ e / Group Dates [facility] [id number] 2020-Prese [phone] Medicaid WOMEN nt 00 [id number] [place] [address] Guarantor Name Account Type Relation to Date of Phone Billing Address Patient Miller Ferguson [facility] Self 1990 [address] ([address]) [address] [place], [place] [address] documented as of this encounter
--- OUTSIDE RECORDS SUMMARY | 2020-07-18 10:02 | XMS REPORT | Summary of Care ---
:1990 Author Organization [facility] Address [address] [place] [address] Care Team Providers Name Role Phone [facility] Primary [facility] Provider [phone] Reason for Visit Reason Comments TRICHOMONIASIS BACTERIAL VAGINOSIS Encounter Details Date Type Department Care Team Description 07/02/2020 Telephone [facility]- Claudia Mendez CHOMONIASIS; Sanjay Rousseau [facility] BACTERIAL VAGINOSIS [address] [facility] [place] [address] [place], [place] [phone] Allergies No Known [...] this encounter Miscellaneous Notes Telephone Encounter - Rosalina Davidson LVN - [...] Address Typ e / Group Dates [facility] [id number] 2020-Prese [phone] [address] Medicaid WOMEN nt [address] [place] [address] documented as of this encounter
--- OUTSIDE RECORDS SUMMARY | 2020-07-18 10:02 | XMS REPORT | Summary of Care ---
:1990 Author Organization [facility] Address [address] [place] [address] Care Team Providers Name Role Phone Claudia Mendez [facility] Primary Care Provider [phone] Reason for Visit Reason Comments TRICHOMONIASIS BACTERIAL VAGINOSIS Encounter Details Date Type Department Care Team Description 07/02/2020 Telephone [facility]- Claudia Mendez CHOMONIASIS; Sanjay Rousseau [facility] BACTERIAL VAGINOSIS 110[address] [facility] [address] [place], [place] [phone] Allergies No Known [...] this encounter Miscellaneous Notes Telephone Encounter - Claudia Mendez WHCNP - [...] Address Typ e / Group Dates [facility] [id number] 2020-Prese [phone] [address] Medicaid WOMEN nt [address] [place] [address] documented as of this encounter
--- OUTSIDE RECORDS SUMMARY | 2020-07-18 10:02 | XMS REPORT | Summary of Care ---
:1990 Author Organization [facility] Address [address] [place] [address] Care Team Providers Name Role Phone Claudia Mendez [facility] Primary Care Provider Reason for Visit Reason Comments Well Woman Exam Encounter Details Date Type Department Care Team Description 06/30/2020 Office Visit [facility]- Claudia Mendez Ot er general counseling and advice for contraceptive management (Primary Dx); JUDY Dinero History of tubal ligation; [address] Well woman exam; Street ADELINA A Tobacco use disorder; [place], [place] [address] Over weight; [address] Vaginal discharge [phone] Allergies No Known Allergiesdocumented as of this [...] This exam may be done by a search engine optimization analyst, family healthcare provider, nurse practitioner, nurse director of testing, or specially trained nurse. Yearly breast exams [...] Guidelines for having clinical breast exams The [place] [employer]stetricians and Gynecologists recommends that [...] provider about what is best for you. [employer] reviewed this educational content on 06/21/201719999625-7502 [employer]. [address] [place] [address]. All rights reserved. This information is not [...] breast self-examination (BSE). These experts include the [place] [employer] and the [place] Congress of Obstetricians and Gynecologists. Some experts [...] benign. This means they are not cancer. [employer] last reviewed this educational content on 06/21/201719994247-1034 [employer]. [address] [place] [address], [place] [address]. All rights reserved. This information is not [...] 20s.But the USPSTF does not recommend CBE. [employer] last reviewed this educational content on 08/21/201719993642-0511 [employer]. [address] [place] [address]. All rights reserved. This information is not [...] can make now to protect your future. [employer] last reviewed this educational content on 10/21/201819990427-7211 [employer]. [address] [place] [address], [place] [address]. All rights reserved. This information is not [...] her child during , childbirth, and . [employer] last reviewed this educational content on 04/21/201919998373-2005 [employer]. [address] [place] [address], [place] [address]. All rights reserved. This information is not [...] try basil, cilantro, cinnamon, pepper, and ranjan. [employer] last reviewed this educational content on 08/21/201719996676-8555 [employer]. [address] [place] [address]. All rights reserved. This information is not [...] get this muchfrom the food you eat. [employer] last reviewed this educational content on 06/21/201719992659-5700 [employer]. [address] [place] [address]. All rights reserved. This information is not intended as a substitute for professional medical care. Always follow your healthcare professional's instructions. 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 Patient states that she currently feels safe at home. MARC WELSH RN 06/30/2020 3:14 PM documented in this encounter Plan of Treatment Name Type Priority Associated Diagnoses Date/Ti me PAP Smear-Liquid Based LAB Routine Well woman exam 4:28 PM CDT HIGH RISK HPV-THIN PREP LAB Routine Well woman exam 0 06/30/2020 4:28 PM CDT GALV ONLY - VAGINAL LAB Routine Vaginal discharge 08/2020 4:28 PM CDT PATHOGENS BY NUCLEIC ACID TESTING Name Type Priority Associated Diagnoses Order S chedule PAP Smear-Liquid Based LAB Routine Well woman exam Ex pected: 06/30/2020, Expires: 2020 HIGH RISK HPV-THIN PREP LAB Routine Well woman exam E xpected: 06/30/2020, Expires: 2020 Health Maintenance Due Date Last Done Comments [...] Address Typ e / Group Dates [facility] [id number] 2020-Prese [phone] Medicaid WOMEN nt [address] [place] [address] Guarantor Name Account Type Relation to Date of Phone Billing Address Patient Miller Ferguson [facility] Self 1990 [address] [place] [address] documented as of this encounter
--- OUTSIDE RECORDS SUMMARY | 2020-07-18 10:02 | XMS REPORT | Summary of Care ---
:1990 Author Organization [facility] Address [address] [place] [address] Care Team Providers Name Role Phone Claudia Mendez [facility] Primary Care Provider [phone] Reason for Visit Reason Comments Assessment Encounter Details Date Type Department Care Team Description 07/02/2020 [facility] Claud[facility]bar[facility], Assessment [address] [place] [address] [phone] ADELINA A [place], [place] [address] [phone] Allergies No Known Allergiesdocumented as of this [...] Encounter - Rosalina Davidson LVN - 07/02/2020 2:44 PM CDTDuplicate encounter. elephone Encounter - Orquidea Sheehan - 07/02/2020 2:15 PM CDTGleomarcial Ferguson is a 30 year old female Wants to speak to nurse about test results documented in this encounter Plan of Treatment [...] Address Typ e / Group Dates [facility] [id number] 2020-Prese [phone] [address] Medicaid WOMEN nt [address] [place] [address] documented as of this encounter
--- OUTSIDE RECORDS SUMMARY | 2020-07-18 10:02 | XMS REPORT | Summary of Care ---
:[address] [facility] Address [address] [place] [address] Care Team Providers Name Role Phone Claudia [facility]endez [facility] Primary Care Provider [phone] Reason for Visit Reason Comments TRICHOMONIASIS BACTERIAL VAGINOSIS Encounter Details Date Type Department Care Team Description 07/02/2020 Telephone [facility]- Claudia Mendez CHOMONIASIS; Sanjay Rousseau [facility] BACTERIAL VAGINOSIS [address] [facility] [place] [address] [place], [place] [phone] Allergies No Known [...] flagyl sent to the pharmacy should treat both. JUDY Clemons 07/02/2020 3:00 PM Telephone Encounter [...] Phone Address Typ e / Group Dates [facility] [id number] 2020-Prese [phone] [address] Medicaid WOMEN nt [address] [place] [address] documented as of this encounter
--- OUTSIDE RECORDS SUMMARY | 2020-07-18 10:03 | XMS REPORT | Summary of Care ---
:1990 Author Organization [facility] Address [address] [place] [address] Care Team Providers Name Role Phone [facility] Primary Care Provider Reason for Visit Reason Comments TRICHOMONIASIS BACTERIAL VAGINOSIS Encounter Details Date Type Department Care Team Description 07/02/2020 Telephone [facility]- Claudia Mendez CHOMONIASIS; Sanjay Rousseau [facility] BACTERIAL VAGINOSIS [address] [facility] [place] [address] [place], [place] [phone] Allergies No Known Allergiesdocumented as of this encounter (statuses as of 07/03/2020) Medications Medication Sig Dispensed Refills Start Date End Date Status metroNIDAZOLE 500 mg Take 4 tablets 4 tablet 0 07/02/202010/2020 tabletIndications: by mouth once Trichomonal now for 1 dose. vulvovaginitis, BV (bacterial vaginosis) documented as of this encounter (statuses as of 07/03/2020) Active Problems Problem Noted Date Trichomonal vulvovaginitis 07/02/2020 Bacterial vaginosis 07/02/2020 Well woman exam 06/30/2020 Other general counseling and advice for contraceptive management 06/30/2020 History of tubal ligation 06/30/2020 Tobacco use disorder 06/30/2020 Over weight 06/30/2020 documented as of this encounter (statuses as of 07/03/2020) Social History Tobacco Use Types Packs/Day Years [...] Telephone Encounter - Rosalina Davidson LVN - 07/03/2020 1:26 PM CDTGeloy Ferguson is a 30 year old female Informed patient of options for treatment, stated she would do 1 dose treatment. Informed medicationwas already at pharmacy, verbalized understanding. Telephone Encounter - Marc Welsh RN - 07/03/2020 9:17 AM CDT2nd attempt to call patient, no answer. Left vm. MARC WELSH RN 07/03/2020 9:18 AM Telephone Encounter - Marc Welsh RN - [...] Phone Address Typ e / Group Dates [facility] [id number] 2020-Prese [phone] [address] Medicaid WOMEN nt [address] [place] [address] documented as of this encounter
--- OUTSIDE RECORDS SUMMARY | 2020-07-18 10:03 | XMS REPORT | Summary of Care ---
:1990 Author Organization [facility] Address [address] [place] [address] Care Team Providers Name Role Phone Claudia Mendez [facility] Primary Care Provider [phone] Reason for Visit Reason Comments ABNORMAL PAP Encounter Details Date Type Department Care Team Description 07/11/2020 [facility] Claudia Ibarra, ABNORMAL PAP [address] [place] [address] [phone] ADELINA A [place], [place] [address] [phone] Allergies No Known Allergiesdocumented as of this encounter (statuses as of 07/15/2020) Medications Medication Sig Dispensed Refills Start Date End Date Status metroNIDAZOLE 500 mg Take 4 4 tablet 0 07/11/2020 07/11/20 20 Discontinued tabletIndications: tablets by Trichomonal mouth once vulvovaginitis now for 1 dose. documented as of this encounter (statuses as of 07/15/2020) Active Problems Problem Noted Date HGSIL (high grade squamous intraepithelial lesion) on Pap smear of cervix 07/11/2020 Overview: +hpv Trichomonal vulvovaginitis 07/02/2020 Bacterial vaginosis 07/02/2020 Well woman exam 06/30/2020 Other general counseling and advice for contraceptive management 06/30/2020 History of tubal ligation 06/30/2020 Tobacco use disorder 06/30/2020 Over weight 06/30/2020 documented as of this encounter (statuses as of 07/15/2020) Social History Tobacco Use Types Packs/Day Years [...] Telephone Encounter - Marc Welsh RN - 07/15/2020 9:14 AM CDTPatient scheduled for colpo on 08/14/2020 @ 10 am. Called patient, no answer. Left vm. MARC WELSH RN 07/15/2020 9:16 AM Telephone Encounter - Claudia Mendez WHCNP - 07/11/2020 4:44 PM CDT Called and notifed the patient of her pap results, called transferred to nurse to schedule for colp clinic Please notify the patient her pap results are HGSIL +hpv JUDY Clemons 07/11/2020 4:51 PM' documented in this encounter Plan of Treatment Date Type Specialty Care Team Description 08/14/2020 Office Visit [facility] Health Maintenance Due Date Last Done Comments PNEUMOCOCCAL 0-64 YEARS 02/04/1996 COMBINED SERIES (1 of 1 - PPSV23) INFLUENZA VACCINE (#1) 2020 DTaP,Tdap,and Td Vaccines (1 06/30/2021 Pos tponed from 2009 - Tdap) (Alternative Chas delines) Depression Screening 06/30/2021 06/30/2020 VARICELLA VACCINES (1 of 2 - 06/30/2021 Pos tponed from 1991 2-dose childhood series) (Altern ative Guidelines) PAP SMEAR 06/30/2023 06/30/2020, 06/30/2020 documented as of this encounter Results Not on filedocumented in this encounter Visit Diagnoses Diagnosis Trichomonal vulvovaginitis - Primary documented in this encounter Insurance Payer Benefit Plan Subscriber ID Effective Phone Address Typ e / Group Dates [facility] [id number] 2020-Prese [phone] [address] Medicaid WOMEN nt [address] [place] [address] documented as of this encounter
--- OUTSIDE RECORDS SUMMARY | 2020-07-18 10:03 | XMS REPORT | Summary of Care ---
:1990 Author Organization [facility] Address [address] [place] [address] Care Team Providers Name Role Phone Claudia Mendez [facility] Primary Care Provider [phone] Reason for Visit Reason Comments ABNORMAL PAP Encounter Details Date Type Department Care Team Description 07/11/2020 [facility], ABNORMAL PAP [address] [place] [address] [address] [phone] ADELINA A [place], [place] [address] [phone] Allergies No Known Allergiesdocumented as of this encounter (statuses as of 07/14/2020) Medications Medication Sig Dispensed Refills Start Date End Date Status metroNIDAZOLE 500 mg Take 4 4 tablet 0 07/11/2020 07/11/20 20 Discontinued tabletIndications: tablets by Trichomonal mouth once vulvovaginitis now for 1 dose. documented as of this encounter (statuses as of 07/14/2020) Active Problems Problem Noted Date HGSIL (high grade squamous intraepithelial lesion) on Pap smear of cervix 07/11/2020 Overview: +hpv Trichomonal vulvovaginitis 07/02/2020 Bacterial vaginosis 07/02/2020 Well woman exam 06/30/2020 Other general counseling and advice for contraceptive management 06/30/2020 History of tubal ligation 06/30/2020 Tobacco use disorder 06/30/2020 Over weight 06/30/2020 documented as of this encounter (statuses as of 07/14/2020) Social History Tobacco Use Types Packs/Day Years [...] Address Typ e / Group Dates [facility] [id number] 2020-Prese [phone] [address] Medicaid WOMEN nt [address] [place] [address] documented as of this encounter
--- OUTSIDE RECORDS SUMMARY | 2020-07-18 10:03 | XMS REPORT | Summary of Care ---
:1990 Author Organization [facility] Address [address] [place] [address] Care Team Providers Name Role Phone Claudia Mendez [facility] Primary Care Provider [phone] Reason for Visit Reason Comments ABNORMAL PAP Encounter Details Date Type Department Care Team Description 07/11/[address], ABNORMAL PAP [address] [place] [address] [phone] ADELINA A [place], [place] [address] [phone] Allergies No Known Allergiesdocumented as of this encounter (statuses as of 07/11/2020) Medications Medication Sig Dispensed Refills Start Date End Date Status metroNIDAZOLE 500 mg Take 4 4 tablet 0 07/11/2020 07/11/20 20 Discontinued tabletIndications: tablets by Trichomonal mouth once vulvovaginitis now for 1 dose. documented as of this encounter (statuses as of 07/11/2020) Active Problems Problem Noted Date HGSIL (high grade squamous intraepithelial lesion) on Pap smear of cervix 07/11/2020 Overview: +hpv Trichomonal vulvovaginitis 07/02/2020 Bacterial vaginosis 07/02/2020 Well woman exam 06/30/2020 Other general counseling and advice for contraceptive management 06/30/2020 History of tubal ligation 06/30/2020 Tobacco use disorder 06/30/2020 Over weight 06/30/2020 documented as of this encounter (statuses as of 07/11/2020) Social History Tobacco Use Types Packs/Day Years [...] Address Typ e / Group Dates [facility] [id number] 2020-Prese [phone] [address] Medicaid WOMEN nt [address] [place] [address] documented as of this encounter
--- OUTSIDE RECORDS SUMMARY | 2020-07-18 10:03 | XMS REPORT | Summary of Care ---
:1990 Author Organization [facility] Address [address] [place] [address] Care Team Providers Name Role Phone [facility] Primary Care Provider [phone] Reason for Visit Reason Comments TRICHOMONIASIS BACTERIAL VAGINOSIS Encounter Details Date Type Department Care Team Description 07/02/2020 Telephone [facility]- Claudia Mendez CHOMONIASIS; Sanjay Rousseau [facility] BACTERIAL VAGINOSIS [address] [facility] [place] [address] [place], [place] [phone] Allergies No Known [...] Typ e / Group Dates [facility] [id number] 2020-Prese [phone] [address] Medicaid WOMEN nt [address] [place] [address] documented as of this encounter
--- OUTSIDE RECORDS SUMMARY | 2020-07-18 10:03 | XMS REPORT | Summary of Care ---
:1990 Author Organization [facility] Address [address] [place] [address] Care Team Providers Name Role Phone Claudia Mendez [facility] Primary Care Provider [phone] Reason for Visit Reason Comments ABNORMAL PAP Encounter Details Date Type Department Care Team Description 07/11/2020 [facility], ABNORMAL PAP [address] [place] [address] [phone] ADELINA A [place], [place] [address] [phone] Allergies No Known Allergiesdocumented as of this [...] am. Called patient, no answer. Left vm. Patient needs financial screening appointment in [place], route to [facility] when patient calls back. MARC WELSH RN 07/15/2020 9:16 AM Telephone [...] Description 08/14/2020 Office Visit [facility]ell[facility]-Colpo/[facility], [facility] Health Maintenance Due Date Last Done Comments [...] Phone Address Typ e / Group Dates [facility] [id number] 2020-Prese [phone] [address] Medicaid WOMEN nt [address] [place] [address] documented as of this encounter
--- OUTSIDE RECORDS SUMMARY | 2020-07-18 10:04 | XMS REPORT | Continuity of Care Document ---
:1990 Author Organization [facility] Address [address] [place] [address] Care Team Providers Name Role Phone Soham Garcia Attending Clinician Problems This patient has no known problems. Allergies, Adverse Reactions, Alerts This patient has no known allergies or adverse reactions. Medications This patient has no known medications. Procedures This patient has no known procedures. Encounters Start End Encounter Admission Attending Care Care Encounter Source Date/Time Date/Time Type Type Clinicians Facility Department ID 2020-07-11 2020-07-11 Telephone MARISEL Mendez [id number] 00:00:00 00:00:00 Claudia Rousseau EXTRACTION OPERATOR [id number] [facility] [id number] MATERNAL [id number] & CHILD [address] [place] [address] Results This patient has no known results.
--- OUTSIDE RECORDS SUMMARY | 2020-07-18 10:04 | XMS REPORT | Summary of Care ---
:1990 Author Organization [facility] Address [address] [place] [address] Care Team Providers Name Role Phone Claudia Mendez [facility] Primary Care Provider [phone] Reason for Visit Reason Comments ABNORMAL PAP Encounter Details Date Type Department Care Team Description 07/11/2020 [facility]phone [facility] Claudia [facility]bar[facility], ABNORMAL PAP [address] [place] [address] [phone] ADELINA A [place], [place] [address] [phone] Allergies No Known Allergiesdocumented as of this [...] Encounter - Marc Welsh RN - 07/15/2020 11:46 AM CDTCalled patient, advised apt scheduled for colpo. Encounter routed to front staff for financial screening. MARC WELSH RN 07/15/2020 11:47 AM Telephone Encounter - Marc Welsh RN - 07/15/2020 9:14 AM CDTPatient scheduled for colpo on 08/14/2020 @ 10 am. Called patient, no answer. Left vm. Patient needs financial screening appointment in [place], route to [facility] when patient calls back. MARC WELSH RN [...] Description 08/14/2020 Office Visit [facility] Health Maintenance Due Date Last Done Comments [...] Address Typ e / Group Dates [facility] [id number] 2020-[place] [phone] [address] Medicaid WOMEN nt [address] [place] [address] documented as of this encounter
[2020-07-18] MEDS ORDERED: KETOROLAC 30 MG/ML INJ ONE (10:32)
[2020-07-18] MEDS ORDERED: DIAZEPAM 10 MG/2 ML INJ SYRINGE ONE (10:32)
[2020-07-18 10:49] LABS: Urine Blood NEGATIVE (NEG); Urine Glucose NEGATIVE (NEG); Urine Protein NEGATIVE (NEG); Urine Specific Gravity 1.025 (1.005-1.030); Urine pH 5.5 (5.0-7.0)
--- NOTE | 2020-07-18 10:55 | RAD REPORT ---
EXAM DESCRIPTION: CT - Neck Angio - 07/18/2020 10:42 am CLINICAL HISTORY: left sided neck pain, arm weakness TECHNIQUE: During dynamic enhancement using nonionic IV contrast, axial 2 mm thick images of the nec k were obtained. Sagittal and axial reconstruction images were generated using MIP technique and revi ewed. All CT scans are performed using dose optimization technique as appropriate and may include automated exposure control or mA/KV adjustment according to patient size. COMPARISON: None FINDINGS: No aneurysm or vascular malformation identified. No carotid or vertebral dissection. No aortic arch or great vessel origin abnormality seen. Vertebral artery origins unremarkable as well . No stenosis, vasculitis or other significant carotid artery finding. No focal abnormality of either vertebral artery. Basilar artery is normal. Soft tissues of the neck show no mass or hematoma. No abnormal lymphadenopathy. Parotid, submandibula r and thyroid gland tissues without suspicious finding. No acute bone finding identified. Central can al detail is inherently limited. No gross evidence for cervical disc herniation. IMPRESSION: No dissection or other acute vascular finding. CT angio neck examination shows no significant or suspicious finding.
--- NOTE | 2020-07-18 11:17 | EDPHYS ---
Physician Documentation [facility] Name: Miller Ferguson Age: 30 yrs Sex: Female : 1990 Arrival Date: 07/18/2020 Time: 10:02 Bed 6 Private MD: None, None ED Physician Antonio Washburn HPI: 07/18 10:13 This 30 yrs old Female presents to ER via Ambulatory with complaints of Neck jmm Problem. 10:13 The patient or guardian complains of pain, that is acute. Onset: The symptoms/episode jmm began/occurred acutely, just prior to arrival. This is a 30 year old female with no chronic medical conditions that presents to the ED with complaints of acute onset left sided neck pain with arm weakness which occurred after attempting to crack her neck. . 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 - Social history:: Smoking status: Patient denies any tobacco usage or history of. ROS: 10:13 Constitutional: Negative for fever, chills, and weight loss, Cardiovascular: Negative jmm for chest pain, palpitations, and edema, Respiratory: Negative for shortness of breath, cough, wheezing, and pleuritic chest pain. 10:13 Neck: Positive for pain with movement. 10:13 All other systems are negative. Exam: 10:13 Constitutional: This is a well developed, well nourished patient who is awake, alert, jmm and in no acute distress. Head/Face: atraumatic. Eyes: EOMI, no conjunctival erythema appreciated ENT: Moist Mucus Membranes 10:13 Chest/axilla: Normal chest wall appearance and motion. Cardiovascular: Regular rate and rhythm. No edema appreciated Respiratory: Normal respirations, no respiratory distress appreciated Abdomen/GI: Non distended, soft Back: Normal ROM Skin: General appearance color normal MS/ Extremity: Moves all extremities, no obvious deformities appreciated, no edema noted to the lower extremities Neuro: Awake and alert, normal gait Psych: Behavior is normal, Mood is normal, Patient is cooperative and pleasant 10:13 Neck: ROM/movement: pain, that is moderate, with any movement, left paraspinal tenderness. Vital Signs: 10:06 Weight 73.03 kg; Height 5 ft. 2 in. (157.48 cm); Pain 6/10; ss 10:12 Temp 98.5(TE); ss 10:12 BP 121 / 60; Pulse 79; Resp 17; Pulse Ox 99% on R/A; tw2 11:23 BP 114 / 83; Pulse 82; Resp 17; Pulse Ox 99% on R/A; tw2 10:06 Body Mass Index 29.45 (73.03 kg, 157.48 cm) ss MDM: 10:11 Patient medically screened. [facility] 11:12 Data reviewed: vital signs, nurses notes. Counseling: I had a detailed discussion with jacquelyn the patient and/or guardian regarding: the historical points, exam findings, and any diagnostic results supporting the discharge/admit diagnosis, radiology results, the need for outpatient follow up, to return to the emergency department if symptoms worsen or persist or if there are any questions or concerns that arise at home. ED course: imaging studies negative. patient advised to follow up with pcp and otherwise given strict return precautions. patient understood and agrees with the plan of care. . 07/18 10:36 Order name: Urine Dipstick--Ancillary (enter results); Complete Time: 10:55 07/18 10:36 Order name: Urine --Ancillary (enter results); Complete Time: 10:55 07/18 10:13 Order name: Saline Lock; Complete Time: 10:29 [facility] 07/18 10:13 Order name: Neck Angio CT; Complete Time: 10:57 [facility] 07/18 10:13 Order name: Urine Test (obtain specimen); Complete Time: 10:29 [facility] Administered Medications: 10:29 Drug: Valium 5 mg Route: IVP; Site: right antecubital; hb 10:53 Follow up: Response: No adverse reaction hb 10:29 Drug: Ketorolac 30 mg Route: IVP; Site: right antecubital; hb 10:52 Follow up: Response: No adverse reaction hb Disposition: 12:02 Co-signature as Attending Physician, Antonio Washburn MD I agree with the assessment and kdr plan of care. Disposition: 07/18/20 11:16 Discharged to Home. Impression: Strain of muscle, fascia and tendon at neck level. - Condition is Stable. - Discharge Instructions: Muscle Strain. - Prescriptions for Zanaflex 4 mg Oral Tablet - take 1 tablet by ORAL route every 8 hours As needed; 20 tablet. - Medication Reconciliation Form, Thank You Letter, Antibiotic Education, Prescription Opioid Use, Work release form form. - Follow up: Private Physician; When: 2 - 3 days; Reason: Recheck today's complaints, Continuance of care, Re-evaluation by your physician. Signatures: Dispatcher [employer] EDMS Antonio Washburn MD MD kdr Mickail, Joel, PA PA jmm Smirch, Shelby, RN RN Sharon Salguero RN RN hb Wise, Tara, RN RN tw2 Corrections: (The following items were deleted from the chart) 11:16 11:12 ED course: imaging studies negative. patient advised to follow up with pcp and jmm otherwise given strict. wesley 11:24 11:16 07/18/2020 11:16 Discharged to Home. Impression: Strain of muscle, fascia and tw2 tendon at neck level. Condition is Stable. Forms are Work release form, Medication Reconciliation Form, Thank You Letter, Antibiotic Education, Prescription Opioid Use. Follow up: Private Physician; When: 2 - 3 days; Reason: Recheck today's complaints, Continuance of care, Re-evaluation by your physician. wesley 11:57 11:24 07/18/2020 11:16 Discharged to Home. Impression: Strain of muscle, fascia and hb tendon at neck level. Condition is Stable. Discharge Instructions: Muscle Strain. Prescriptions for Zanaflex 4 mg Oral Tablet - take 1 tablet by ORAL route every 8 hours As needed; 20 tablet. and Forms are Work release form, Medication Reconciliation Form, Thank You Letter, Antibiotic Education, Prescription Opioid Use. Follow up: Private Physician; When: 2 - 3 days; Reason: Recheck today's complaints, Continuance of care, Re-evaluation by your physician. tw2
--- NOTE | 2020-07-18 11:17 | ER ---
Nurse's Notes [facility] Name: Mliler Ferguson Age: 30 yrs Sex: Female : 1990 Arrival Date: 07/18/2020 Time: 10:02 Bed 6 Private MD: None, None Diagnosis: Strain of muscle, fascia and tendon at neck level Presentation: 07/18 10:06 Chief complaint: Patient states: neck pain that began this morning upon waking up. ss Coronavirus screen: Client denies travel out of the [place] in the last 14 days. Ebola Screen: Patient denies exposure to infectious person. Patient denies travel to an Ebola-affected area in the 21 days before illness onset. Initial Sepsis Screen: Does the patient meet any 2 criteria? No. Patient's initial sepsis screen is negative. Does the patient have a suspected source of infection? No. Patient's initial sepsis screen is negative. Risk Assessment: Do you want to hurt yourself or someone else? Patient reports no desire to harm self or others. Onset of symptoms was July 18, 2020. 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 - Social history:: Smoking status: Patient denies any tobacco usage or history of. Screenin:09 Abuse screen: Denies threats or abuse. Nutritional screening: No deficits noted. tw2 Tuberculosis screening: No symptoms or risk factors identified. Fall Risk None identified. Assessment: 10:11 General: Appears in no apparent distress. Behavior is calm, cooperative, appropriate tw2 for age. Pain: Complains of pain in neck, left side. Neuro: Level of Consciousness is awake, alert, obeys commands, Oriented to person, place, time, situation. Cardiovascular: Capillary refill < 3 seconds Patient's skin is warm and dry. Respiratory: Airway is patent Respiratory effort is even, unlabored, Respiratory pattern is regular, symmetrical, Breath sounds are clear bilaterally. GI: No signs and/or symptoms were reported involving the gastrointestinal system. : No signs and/or symptoms were reported regarding the genitourinary system. EENT: No signs and/or symptoms were reported regarding the EENT system. Derm: No signs and/or symptoms reported regarding the dermatologic system. Musculoskeletal: Circulation, motion, and sensation intact. Range of motion: limited in "turning to the left side". 11:23 Reassessment: Patient appears in no apparent distress at this time. Patient and/or tw2 family updated on plan of care and expected duration. Pain level reassessed. Patient is alert, oriented x 3, equal unlabored respirations, skin warm/dry/pink. Patient states feeling better. 11:29 Reassessment: Discharge ordered, awaiting transportation at this time. hb Vital Signs: 10:06 Weight 73.03 kg; Height 5 ft. 2 in. (157.48 cm); Pain 6/10; ss 10:12 Temp 98.5(TE); ss 10:12 BP 121 / 60; Pulse 79; Resp 17; Pulse Ox 99% on R/A; tw2 11:23 BP 114 / 83; Pulse 82; Resp 17; Pulse Ox 99% on R/A; tw2 10:06 Body Mass Index 29.45 (73.03 kg, 157.48 cm) ED Course: 10:02 Patient arrived in ED. mr 10:03 None, None is Private Physician. mr 10:03 Hayden Colvin PA is PHCP. [facility] 10:03 Antonio Washburn MD is Attending Physician. [facility] 10:09 Triage completed. ss 10:09 Matilde Hilliard, CANDELARIA is Primary Nurse. tw2 10:09 Arm band placed on. tw2 10:09 Arm band placed on right wrist. ss 10:09 Bed in low position. Call light in reach. tw2 10:28 Inserted saline lock: 20 gauge in right antecubital area, using aseptic technique. hb Blood collected. 10:[address] In Process Unspecified. EDMS 11:23 No provider procedures requiring assistance completed. IV discontinued, intact, tw2 bleeding controlled, No redness/swelling at site. Pressure dressing applied. Administered Medications: 10:29 Drug: Valium 5 mg Route: IVP; Site: right antecubital; hb 10:53 Follow up: Response: No adverse reaction hb 10:29 Drug: Ketorolac 30 mg Route: IVP; Site: right antecubital; hb 10:52 Follow up: Response: No adverse reaction hb Outcome: 11:16 Discharge ordered by . wesley 11:23 Discharged to home ambulatory. tw2 11:23 Condition: stable 11:23 Discharge instructions given to patient, Instructed on discharge instructions, follow up and referral plans. no drinking with medication, no driving heavy equipment, medication usage, Demonstrated understanding of instructions, follow-up care, medications, Prescriptions given X 1. 11:24 Patient left the ED. tw2 11:57 Patient left the ED. hb Signatures: Dispatcher [employer] EDMS Hayden Colvin PA PA jmm Rivera, Mary mr Linda Pitt, RN RN Sharon Salguero RN RN hb Wise, Tara, RN RN tw2
[2020-07-22 10:51] VITALS: TEMP 98.5; O2SAT 99
[2020-07-22 10:52] VITALS: BP 114/83
== END 2020-07-18 11:57 | disposition home or self-care (01) ==
LOC: ER 09:59
DX: S16.1XXA Strain of muscle, fascia and tendon at neck level, initial encounter (principal); Z88.8 Allergy status to other drugs, medicaments and biological substances
CPT/HCPCS: 70498; 81003; 81025; 82565; 96374; 96375; 99284; J3360; Q9967

== ENCOUNTER 2020-07-21 17:06 | Emergency (ER) | payer SELFPAY ==
--- OUTSIDE RECORDS SUMMARY | 2020-07-21 17:10 | XMS REPORT | Continuity of Care Document ---
:1990 Author Organization [facility] t Address [address] [place] [address] [address] [place] [address] Care Team Providers Name Role Phone Soham [...] 2020-07-11 2020-07-11 Telephone MARISEL Mendez [id number] 00:00:00 00:00:00 Claudia Rousseau HIGH FREQUENCY MILL OPERATOR [id number] [facility] [id number] MATERNAL [phone] & CHILD [address] [place] [address] Results This patient has no known results.
[2020-07-21] MEDS ORDERED: dexAMETHasone 10 MG/ML VIAL ONE (17:41)
[2020-07-21] MEDS ORDERED: LIDOCAINE 4% PATCH ONE (17:42)
[2020-07-21] MEDS ORDERED: KETOROLAC 30 MG/ML INJ ONE (17:42)
[2020-07-21] MEDS ORDERED: HYDROCODONE/APAP 10/325 TAB ONE (18:39)
--- NOTE | 2020-07-21 18:56 | ER ---
Nurse's Notes [facility] Name: Miller Ferguson Age: 30 yrs Sex: Female : 1990 Arrival Date: 07/21/2020 Time: 17:07 Bed 19 Private MD: Diagnosis: Strain of muscle, fascia and tendon at neck level Presentation: 07/21 17:12 Chief complaint: Patient states: "I came here for neck pain and it was getting better aa5 but today I was taking a shower to get ready for work and I felt a sharp pain on my neck and now it's going down my left arm and I can't move my left arm". Coronavirus screen: Client denies travel out of the [place] in the last 14 days. At this time, the client does not indicate any symptoms associated with coronavirus-19. Ebola Screen: Patient negative for fever greater than or equal to 101.5 degrees Fahrenheit, and additional compatible Ebola Virus Disease symptoms. Initial Sepsis Screen: Does the patient meet any 2 criteria? No. Patient's initial sepsis screen is negative. Does the patient have a suspected source of infection? No. Patient's initial sepsis screen is negative. Risk Assessment: Do you want to hurt yourself or someone else? Patient reports no desire to harm self or others. Onset of symptoms was July 21, 2020. 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 - Social history:: Smoking status: Patient reports the use of cigarette tobacco products, denies chronic smoking, but will smoke occasionally. Screenin:17 Abuse screen: Denies threats or abuse. Nutritional screening: No deficits noted. tw2 Tuberculosis screening: No symptoms or risk factors identified. Fall Risk None identified. Assessment: 17:19 Reassessment: provider at bedside. tw2 17:20 General: Appears in no apparent distress. uncomfortable, Behavior is calm, cooperative, tw2 appropriate for age. Pain: Complains of pain in neck and left shoulder blade area. Neuro: Level of Consciousness is awake, alert, obeys commands, Oriented to person, place, time, situation. Cardiovascular: Patient's skin is warm and dry. Respiratory: Airway is patent Respiratory effort is even, unlabored, Respiratory pattern is regular, symmetrical. GI: No signs and/or symptoms were reported involving the gastrointestinal system. Abdomen is flat. : No signs and/or symptoms were reported regarding the genitourinary system. EENT: No signs and/or symptoms were reported regarding the EENT system. Derm: No signs and/or symptoms reported regarding the dermatologic system. Musculoskeletal: Circulation, motion, and sensation intact. Range of motion: limited in left arm and left side of neck. 18:24 Reassessment: Patient appears in no apparent distress at this time. No changes from tw2 previously documented assessment. Patient and/or family updated on plan of care and expected duration. Pain level reassessed. Patient is alert, oriented x 3, equal unlabored respirations, skin warm/dry/pink. provider notified. Patient states symptoms have not improved. Vital Signs: 17:12 BP 107 / 80; Pulse 95; Resp 18 S; Temp 98.5(O); Pulse Ox 100% on R/A; Weight 73.03 kg aa5 (R); Height 5 ft. 2 in. (157.48 cm) (R); Pain 7/10; 18:24 BP 119 / 84; Pulse 96; Resp 17; Pulse Ox 100% on R/A; tw2 17:12 Body Mass Index 29.45 (73.03 kg, 157.48 cm) aa5 ED Course: 17:07 Patient arrived in ED. ag5 17:12 Arm band placed on. aa5 17:13 Triage completed. aa5 17:16 Kendall Parham NP is PHCP. pm1 17:16 Kirill Aranda MD is Attending Physician. pm1 17:16 Matilde Hilliard RN is Primary Nurse. tw2 17:17 Bed in low position. Call light in reach. tw2 19:00 Report given to CANDELARIA Reese. tw2 19:17 No provider procedures requiring assistance completed. Patient did not have IV access mt2 during this emergency room visit. Administered Medications: 17:32 Drug: Decadron 10 mg Route: IM; Site: right ventrogluteal; tw2 18:24 Follow up: Response: No adverse reaction tw2 17:33 Drug: TORadol 60 mg Route: IM; Site: left ventrogluteal; tw2 18:24 Follow up: Response: No adverse reaction; No change in condition; Pain is unchanged, tw2 physician notified 17:37 Drug: Lidoderm 5 % (700 mg/patch) 1 patches Route: Topical; Site: affected area; tw2 18:31 Drug: [place] 10 mg-325 mg 1 tabs Route: PO; tw2 19:07 Follow up: Response: No adverse reaction; Pain is decreased; RASS: Alert and Calm (0) tw2 Outcome: 18:55 Discharge ordered by MD. pm1 19:17 Discharged to home ambulatory. mt2 19:17 Condition: good 19:17 Discharge instructions given to patient, Instructed on discharge instructions, follow up and referral plans. medication usage, Demonstrated understanding of instructions, follow-up care, medications, Prescriptions given X 3. 19:18 Patient left the ED. mt2 Signatures: Corrie Angela RN RN aa5 Kendall Parham FOREIGN EXCHANGE TRADER FOREIGN EXCHANGE TRADER pm1 Matilde Hilliard RN RN tw2 Anitha Beck ag5 Mary Ann Gilbert RN RN mt2 Corrections: (The following items were deleted from the chart) 17:14 17:12 Pulse 95bpm; Resp 18bpm; Spontaneous; Pulse Ox 100% RA; Temp 98.5F Oral; 73.03 kg aa5 Reported; Height 5 ft. 2 in. Reported; BMI: 29.4; Pain 7/10; aa5
--- NOTE | 2020-07-21 18:56 | EDPHYS ---
Physician Documentation [facility] Name: Miller Ferguson Age: 30 yrs Sex: Female : 1990 Arrival Date: 07/21/2020 Time: 17:07 Bed 19 Private MD: ED Physician Kirill Aranda HPI: 07/21 17:42 This 30 yrs old Female presents to ER via Ambulatory with complaints of Neck pm1 Pain, >24Hrs Old, Left Arm Pain. 17:42 The patient or guardian complains of pain. The symptoms are located on the left pm1 trapezius. 17:42 Onset: The symptoms/episode began/occurred 3 day(s) ago. Context: The problem was pm1 sustained at home, at a Patient was seen here three days ago for the same complaint. Patient reports that her neck pain has been improving since being seen here 3 days ago. However, as she was reaching for a towel with her left hand after showering, her neck pain returned. Associated signs and symptoms: Pertinent negatives: fever, headache, numbness, tingling, weakness. Modifying factors: The symptoms are alleviated by remaining still, the symptoms are aggravated by movement. Severity of symptoms: in the emergency department the symptoms have improved. The patient has not experienced similar symptoms in the past. The patient has been recently seen at the [facility] Emergency Department, for similar complaints Neck Angio CT performed and discharged home with zanaflex. 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 - Social history:: Smoking status: Patient reports the use of cigarette tobacco products, denies chronic smoking, but will smoke occasionally. ROS: 17:42 Constitutional: Negative for fever, chills, and weight loss. pm1 17:42 Cardiovascular: Negative for chest pain, palpitations, and edema, Respiratory: Negative for shortness of breath, cough, wheezing, and pleuritic chest pain, Abdomen/GI: Negative for abdominal pain, nausea, vomiting, diarrhea, and constipation, Back: Negative for injury and pain, MS/Extremity: Negative for injury and deformity, Skin: Negative for injury, rash, and discoloration. 17:42 Neck: Positive for pain with movement. 17:42 Neuro: Negative for headache, numbness, tingling, weakness. Exam: 17:42 Constitutional: This is a well developed, well nourished patient who is awake, alert, pm1 and in no acute distress. Head/Face: Normocephalic, atraumatic. 17:42 Chest/axilla: Normal chest wall appearance and motion. Nontender with no deformity. No lesions are appreciated. 17:42 Back: No spinal tenderness. No costovertebral tenderness. Full range of motion. Skin: Warm, dry with normal turgor. Normal color with no rashes, no lesions, and no evidence of cellulitis. MS/ Extremity: Pulses equal, no cyanosis. Neurovascular intact. Full, normal range of motion. 17:42 Neck: tenderness present to left trapezius muscle insertion points. left occipital, left scapular area, and left mid back.. 17:42 Cardiovascular: Exam negative for acute changes, Rate: normal, Rhythm: regular, Pulses: no pulse deficits are appreciated. 17:42 Respiratory: Exam negative for acute changes, respiratory distress, shortness of breath. 17:42 Neuro: Exam negative for acute changes, Orientation: is normal, Motor: is normal, moves all fours. Vital Signs: 17:12 BP 107 / 80; Pulse 95; Resp 18 S; Temp 98.5(O); Pulse Ox 100% on R/A; Weight 73.03 kg aa5 (R); Height 5 ft. 2 in. (157.48 cm) (R); Pain 7/10; 18:24 BP 119 / 84; Pulse 96; Resp 17; Pulse Ox 100% on R/A; tw2 17:12 Body Mass Index 29.45 (73.03 kg, 157.48 cm) aa5 MDM: 17:16 Patient medically screened. pm1 18:54 Data reviewed: vital signs. Data interpreted: Pulse oximetry: on room air is 100 %. pm1 Interpretation: normal. Counseling: I had a detailed discussion with the patient and/or guardian regarding: the historical points, exam findings, and any diagnostic results supporting the discharge/admit diagnosis, the need for outpatient follow up, to return to the emergency department if symptoms worsen or persist or if there are any questions or concerns that arise at home. 07/21 17:24 Order name: Sling; Complete Time: 17:52 pm1 Administered Medications: 17:32 Drug: Decadron 10 mg Route: IM; Site: right ventrogluteal; tw2 18:24 Follow up: Response: No adverse reaction tw2 17:33 Drug: TORadol 60 mg Route: IM; Site: left ventrogluteal; tw2 18:24 Follow up: Response: No adverse reaction; No change in condition; Pain is unchanged, tw2 physician notified 17:37 Drug: Lidoderm 5 % (700 mg/patch) 1 patches Route: Topical; Site: affected area; tw2 18:31 Drug: [place] 10 mg-325 mg 1 tabs Route: PO; tw2 19:07 Follow up: Response: No adverse reaction; Pain is decreased; RASS: Alert and Calm (0) tw2 Disposition: 07/22 07:12 Co-signature as Attending Physician, Kirill Aranda MD. rn Disposition: 07/21/20 18:55 Discharged to Home. Impression: Strain of muscle, fascia and tendon at neck level. - Condition is Stable. - Discharge Instructions: Muscle Strain. - Prescriptions for Diclofenac Sodium 75 mg Oral Tablet Sustained Release - take 1 tablet by ORAL route 2 times per day; 30 tablet. Medrol (Saw) 4 mg Oral Tablets, Dose Pack - take 1 tablet by ORAL route as directed - follow package instructions; 1 packet. Tylenol- Codeine #3 300-30 mg Oral Tablet - take 2 tablets by ORAL route every 6 hours As needed; 20 tablet. - Medication Reconciliation Form, Thank You Letter, Antibiotic Education, Prescription Opioid Use, Work release form form. - Follow up: Emergency Department; When: As needed; Reason: Worsening of condition. Follow up: Private Physician; When: 2 - 3 days; Reason: Recheck today's complaints, Continuance of care, Re-evaluation by your physician. - Problem is new. - Symptoms have improved. Signatures: Kirill Aranda MD MD rn Calderon, Audri, RN RN aa5 Kendall Parham, CONFERENCE RESERVATIONIST CONFERENCE RESERVATIONIST pm1 Matilde Hilliard RN RN tw2 Mary Ann Gilbert RN RN mt2 Corrections: (The following items were deleted from the chart) 07/21 19:18 18:55 07/21/2020 18:55 Discharged to Home. Impression: Strain of muscle, fascia and mt2 tendon at neck level. Condition is Stable. Forms are Work release form, Medication Reconciliation Form, Thank You Letter, Antibiotic Education, Prescription Opioid Use. Follow up: Emergency Department; When: As needed; Reason: Worsening of condition. Follow up: Private Physician; When: 2 - 3 days; Reason: Recheck today's complaints, Continuance of care, Re-evaluation by your physician. Problem is new. Symptoms have improved. pm1
== END 2020-07-21 19:18 | disposition home or self-care (01) ==
LOC: ER 17:06
DX: S16.1XXA Strain of muscle, fascia and tendon at neck level, initial encounter (principal); F17.210 Nicotine dependence, cigarettes, uncomplicated; Z88.8 Allergy status to other drugs, medicaments and biological substances
CPT/HCPCS: 96372; 99283; J1100

== ENCOUNTER 2020-10-21 17:55 | Emergency (ER) | payer SELFPAY ==
--- OUTSIDE RECORDS SUMMARY | 2020-10-21 18:09 | XMS REPORT | Continuity of Care Document ---
:1990 Author Organization [facility] t Address [address] [place] [address] Rodney. [address] [place] [address] Care Team Providers Name Role Phone Garrett CROOK Attending Clinician Eben Ashley Attending Clinician Problems This patient has no known problems. Allergies, Adverse Reactions, Alerts This patient has no known allergies or adverse reactions. Medications This patient has no known medications. Procedures This patient has no known procedures. Encounters Start End Encounter Admission Attending Care Care Encounter Source Date/Time Date/Time Type Type Clinicians Facility Department ID 2020-09-22 2020-09-22 Case Garrett JÚNIORARTI [id number] 00:00:00 00:00:00 Management [facility] [id number] [facility] [id number] 2020-09-11 2020-09-11 Office MARISEL Monterroso [id number] 13:31:39 13:46:39 Visit Cassy Treadwell [employer]ECH COMMUNICATION PROFESS[employer] [id number] [facility] [id number] MATERNAL [id number] & CHILD [facility] Results This patient has no known results.
--- OUTSIDE RECORDS SUMMARY | 2020-10-21 18:10 | XMS REPORT | Summary of Care ---
:1990 Author Organization [facility] - Health Address [address] [place] [address] Care Team Providers Name Role Phone Claudia Mendez [facility] Primary Care Provider [phone] Encounter Details Date Type Department Care Team Description 08/08/2020 Orders Only [facility] Doctor Unassigned, No 301 [facility] Name [place] [id number] [address] [place] [id number] Allergies No Known Allergiesdocumented as of this encounter (statuses as of 08/11/2020) Medications No known medicationsdocumented as of this encounter (statuses as of 08/11/2020) Active Problems Problem Noted Date HGSIL (high grade squamous intraepithelial lesion) on Pap smear of cervix 07/11/2020 Overview: +hpv Trichomonal vulvovaginitis 07/02/2020 Bacterial vaginosis 07/02/2020 Well woman exam 06/30/2020 Other general counseling and advice for contraceptive management 06/30/2020 History of tubal ligation 06/30/2020 Tobacco use disorder 06/30/2020 Over weight 06/30/2020 documented as of this encounter (statuses as of 08/11/2020) Social History Tobacco Use Types Packs/Day Years Used Date Current Some Day Smoker 0.1 Smokeless Tobacco: Never Used Alcohol Use Drinks/Week oz/Week Comments Not Currently Sex Assigned at Date Recorded Not on file documented as of this encounter Last Filed Vital Signs Not on filedocumented in this encounter Plan of Treatment Date Type Specialty Care Team Description 08/14/2020 Office Visit [facility] Res-Colpo/Leep, [facility] Health Maintenance Due Date [...] 06/30/2020, 06/30/2020 documented as of this encounter Procedures Procedure Name Priority Date/Time Associated Diagnosis Comme nts BCCS-RELATED Routine 08/08/2020 12:01 AM DOCUMENTATION CDT documented in this encounter Results Not on filedocumented in this encounter Insurance Payer Benefit Plan Subscriber ID Effective Phone Address Typ e / Group Dates [facility] [id number] 2020-Prese [phone] Medicaid WOMEN nt [address] [place] [address] documented as of this encounter
--- OUTSIDE RECORDS SUMMARY | 2020-10-21 18:10 | XMS REPORT | Summary of Care ---
:1990 Author Organization [facility] Address [address] [place] [address] Care Team Providers Name Role Phone Claudia Mendez [facility] Primary Care Provider [phone] Reason for Referral (Routine) Status Reason Specialty Diagnoses / Referred By Referred To Procedures Contact Contact New Request Diagnoses examination or test, negative result Teresa Garrett, Procedures CONIZATION CERVIX,LOOP ELECTRD [facility] [address] [facility] [id number] [place] [address] Reason for Visit Reason Comments ABNORMAL PAP Encounter Details Date Type Department Care Team Description 08/14/2020 Office Visit [facility] Jerome Tinajero MD [address] [place] [address] Papanicolaou smear of cervix with high g rade squamous intraepithelial lesion (HGSIL) (Primary Dx); [facility] Res-Colpo/Leep, [facility] Exposure to SARS-associated coronavirus; [facility] Clinics examination or brett t, negative result [address], [address] [place] [address] Allergies No Known Allergiesdocumented as of this encounter (statuses as of 09/05/2020) Medications Medication Sig Dispensed Refills Start Date End Date Status ibuprofen 200 mg Take 3 tablets 0 08/14/2020 020 tabletIndications: by mouth every 6 examination (six) hours as or test, negative needed for Pain result (scale 4-6) for up to 3 days. documented as of this encounter (statuses as of 09/05/2020) Active Problems Problem Noted Date HGSIL (high grade squamous intraepithelial lesion) on Pap smear of cervix 07/11/2020 Overview: +hpv 08/14/2020 LEEP Trichomonal vulvovaginitis 07/02/2020 Bacterial vaginosis 07/02/2020 Well woman exam 06/30/2020 Other general counseling and advice for contraceptive management 06/30/2020 History of tubal ligation 06/30/2020 Tobacco use disorder 06/30/2020 Over weight 06/30/2020 documented as of this encounter (statuses as of 09/05/2020) Social History Tobacco Use Types Packs/Day Years Used Date Current Some Day Smoker 0.1 Smokeless Tobacco: Never Used Alcohol Use Drinks/Week oz/Week Comments Not Currently Sex Assigned at Date Recorded Not on file COVID-19 Exposure Response Date Recorded In the last month, have you been in contact with No / Unsure 08/14/2020 8:51 AM CDT someone who was confirmed or suspected to have Coronavirus / COVID-19? documented as of this encounter Last Filed Vital Signs Vital Sign Reading Time Taken Comments Blood Pressure 115/64 08/14/2020 8:50 AM CDT Pulse 82 08/14/2020 8:50 AM CDT Temperature 36.7 C (98.1 F) 08/14/2020 8:50 AM CDT Respiratory Rate 18 08/14/2020 8:50 AM CDT Oxygen Saturation - - Inhaled Oxygen Concentration - - Weight 72.8 kg (160 lb 8 oz) 08/14/2020 8:50 AM CDT Height 157.5 cm (5' 2") 08/14/2020 8:50 AM CDT Body Mass Index 29.36 08/14/2020 8:50 AM CDT documented in this encounter Progress Notes Teresa Garrett, BEP - 08/14/2020 10:00 AM CDT30 year old No LMP recorded. using btl for contraception presents for evaluation of abnormalpap. Her last pap was 06/30/2020 and was HGSIL Other complaints: none LEEP CONIZATION PROCEDURE NOTE Preoperative Diagnoses: hgsil The risks, benefits and alternatives were discussed. The patient voiced her understanding. She wished to proceed and an informed consent was obtained. Patient has been identified by name and and will be undergoing a LEEP. Patient, procedure and site have been confirmed by the following clinicians: JUDY MCLAUGHLIN. Timeout performed by JUDY MCLAUGHLIN at 1015. Procedure: The patient was placed into dorsal lithotomy position in the procedure room. The grounding pad is placed on her thigh. A speculum was inserted into the vagina to visualize the cervix. The vacuum tubing was secured. The cervix was sprayed with acetic acid solution and the lesion identified.The cervix was sprayed with Hurricane spray then infiltrated with xylocaine 25 with epinephrine in a circumferential fashion creating a wheal under the mucosa. The correct size loop electrode was selected and a sweeping motion was used to remove the entire circumference of lesion and squamocolumnar junction of the cervix. The specimen was removed and submitted to the lab. For hemostasis, the ball tip electrode was then attached and the unit set to coagulate and the base of the cervix and endocervixwere cauterized. Additional hemostasis was provided with application of Monsel's solution to the cervix. The patient had all instruments removed and was returned to the upright position. The patient tolerated the procedure well and there were no complications. Post-procedure instructions given. Patient verbalized understanding. Findings Suspect SHIRA 2 Plan Papanicolaou smear of cervix with high grade squamous intraepithelial lesion (HGSIL) (primary encounter diagnosis) Comment: satisfactory colpo. Large white lesion 5-7 Plan: LEEP today, surg path, ibuprofen Exposure to SARS-associated coronavirus Comment: Plan: COVID-19 (ID NOW RAPID TESTING), COVID-19 (ID NOW RAPID TESTING) examination or test, negative result Comment: Plan: POCT TEST, SURGICAL PATHOLOGY EXAM, CONIZATION CERVIX,LOOP ELECTRD, ibuprofen 200 mg tablet Return to [facility] in 4 weeks for os check and 6 months for cotesting. . Discussed treatment options. Medications as ordered. Reviewed patient instructions and provided printed copy. JUDY Mclaughlin 08/14/2020 12:36 PM documented in this encounter Plan of Treatment Date Type Specialty Care Team Description 09/11/2020 Office Visit [facility] Cassy Monterroso, [employer] [address] [place], [place] [address] [phone] 02/17/2021 Office Visit [facility] Cassy Monterroso, [employer] [address] [place], [place] [address] [phone] Name Type Priority Associated Diagnoses Order S chedule CONIZATION CERVIX,LOOP PROCEDURES Routine examinat ion Ordered: 08/14/2020 ELECTRD or test, negative result Health Maintenance Due Date Last Done Comments [...] Name Priority Date/Time Associated Diagnosis Comme nts SURGICAL PATHOLOGY Routine 08/14/2020 12:08 PM Re sults for this EXAM CDT examination or test, procedu re are in negative result the results section. COVID-19 (ID NOW STAT 08/14/2020 8:49 AM Exposure to Resu lts for this RAPID TESTING) CDT SARS-associated procedure are in coronavirus the results section. POCT TEST Routine 08/14/2020 Results for this examination or test, procedu re are in negative result the results section. documented in this encounter Results SURGICAL PATHOLOGY EXAM (08/14/2020 12:08 PM CDT) Case Report Surgical Pathology Case: [id number] [facility] Authorizing Provider: Teresa Giordano WHCNP Collected: 08/14/2020 1208 SERVICES Ordering Location: [facility] Received: 08/14/2020 1326 [facility] Pathologist: Stacie Muro MD Specimens: A) - ENDOCERVI ADRIANO B) - CERV IX, LEEP Final Diagnosis [facility] Electroni chloe A. ENDOCERVIX, CURETTAGE: SERVICES si gned by Bhaskar, - FRAGMENTS OF BENIGN ENDOCERVICAL GLANDULAR EPIT HELIUM MD Stacie on 08/19/2020 at 3 :38 B. CERVIX, LOOP EXCISION: PM - FOCAL HIGH GRADE SQUAM OUS INTRAEPITHELIAL LESION (SHIRA II) IN A BACKGROUND OF EXTENSIVE LOW GRADE DYSPLASIA (SHIRA I) - FOLLICULAR CERVICITIS - LOW GRADE DYSPLASIA PRESENT AT THE ECTOCERVICAL RESECTION MARGIN - ADDITIONAL LEVELS EXAMINED MD Gayathri Sanchez, DO Stacie Muro MD 08/19/2020 3:37 PM I have personally reviewed a ll specimens/slides and agree with all statements made by residents, fellows or pathologist assistants whose name(s) may appear on this report. Clinical Clinical History: 30 [facility] Information year-old with HGSIL SERVICES Gross Description Specimen A is received in [facility] labelled with the patient s name, number "endocervical and consists of an aggregate of multiple hemorrhagic miller-pink mucinous irregular soft tissue fragments ( [facility] 1.0 x 1.0 x 0.1 cm in aggreg ate). The specimen is filtered through a biopsy bag and entirely submitted in toto in A1. SERVICES Specimen B is received in [facility] labeled with the patient's name, number, "LEEP" and consists of an unoriented miller-pink opened LEEP specimen (1.5 x 1.2 x 0.5 cm). The ectocervix is miller and granula r with an eccentrically plac ed slit-like os (0.6 cm in diameter). The specimen is quadrisected and each quadrant is radially sectioned to reveal miller-pink, homogenous cut surfaces. Also in the containe r is an irregular pink-miller L EEP fragment (1.5 x 1.0 x 0.7 cm). The specimen is entirely and sequentially submitted on edge in B1-B9. Ink Code: Blue - endocervical resection margin. Black - ectocervical resection margin. Section Code: B1-B2: One quadrant, radially sectioned, entirely B3-B4: One quadrant, radially sectioned, entirely B5-B6: One quadrant, radially sectioned, entirely B7-B9: LEEP fragment, serially sectioned, entirely RUFINO De Leon Embedded Images [facility] SERVICES Specimen Tissue - CERVIX Tissue specimen (specimen) - CERVIX Performing Organization Address City/[facility]/Zipcode Phone Number [facility] CLIA: [id number] [place] [address] [phone] 301 [facility] COVID-19 (ID NOW RAPID TESTING) (08/14/2020 8:49 AM CDT) SARS-CoV-2 Rapid ID Not Detected Not Detected [facility] NOW SERVICES Specimen Swab - NASOPHARYNGEAL SWAB Narrative Performed At ID NOW COVID-19 Assay is an isothermal nucleic acid [facility] amplification test intended for the qualitative detect ion of nucleic acid from SARS-CoV-2 viral RNA in nasopharynge al (BROADCAST METEOROLOGIST) specimens. It is used under Emergency Use Authori zation (EUA) by FDA. The limit of detection (LOD) of the assa y is 125 Genome Equivalents/mL. A positive result is indicative of the presence of SARS-CoV-2 RNA. Clinical correlation with patient hi story and other diagnostic information is necessary to deter mine patient infection status. A negative (Not Detected) result does not preclude SARS-CoV-2 infection. In patients with clinical sympto ms and other tests that are consistent with SARS-CoV-2 infect ion, negative results should be treated as presumptive nega tive and a new specimen should be tested with alternative P CR molecular test. Invalid: Please collect a new specimen for repeat thomas ent testing if clinically indicated. Performing Organization Address City/[facility]/Zipcode Phone Number [facility] CLIA: [id number] [place] [address] [place] [address] POCT TEST (08/14/2020) Pathologist Sig nature POCT PREG Negative On board controls acceptable Yes with C Line POCT PREG LOT # POCT PREG TEST DATE Specimen Urine - URINE, CLEAN CATCH documented in this encounter Visit Diagnoses Diagnosis Papanicolaou smear of cervix with high g rade squamous intraepithelial lesion (HGSIL) - Primary Exposure to SARS-associated coronavirus examination or test, negative result documented in this encounter Additional Health Concerns Infection Onset Date Last Indicated Resolved Time COVID-19 Rule Out 08/14/2020 08/14/202008/1408/14/2020 9: 36 AM CDT documented as of this encounter
--- OUTSIDE RECORDS SUMMARY | 2020-10-21 18:10 | XMS REPORT | Summary of Care ---
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 cervix with high grade [address] [place] lesion (HGSIL) (Primary [place], [place] Dx) [id number] [phone] Allergies No Known Allergiesdocumented as of this encounter (statuses as of 09/11/2020) Medications No known medicationsdocumented as of this encounter (statuses as of 09/11/2020) Active Problems Problem Noted Date HGSIL (high grade squamous intraepithelial lesion) on Pap smear of cervix 07/11/2020 Overview: +hpv 08/14/2020 LEEP Trichomonal vulvovaginitis 07/02/2020 Bacterial vaginosis 07/02/2020 Well woman exam 06/30/2020 Other general counseling and advice for contraceptive management 06/30/2020 History of tubal ligation 06/30/2020 Tobacco use disorder 06/30/2020 Over weight 06/30/2020 documented as of this encounter (statuses as of 09/11/2020) Social History Tobacco Use Types Packs/Day Years Used Date Current Some Day Smoker 0.1 Smokeless Tobacco: Never Used Alcohol Use Drinks/Week oz/Week Comments Not Currently Sex Assigned at Date Recorded Not on file COVID-19 Exposure Response Date Recorded In the last month, have you been in contact with No / Unsure 09/11/2020 1:37 PM CDT someone who was confirmed or suspected to have Coronavirus / COVID-19? documented as of this encounter Last Filed Vital Signs Vital Sign Reading Time Taken Comments Blood Pressure 109/79 09/11/2020 1:38 PM CDT Pulse 80 09/11/2020 1:38 PM CDT Temperature 37.1 C (98.8 F) 09/11/2020 1:38 PM CDT Respiratory Rate 16 09/11/2020 1:38 PM CDT Oxygen Saturation - - Inhaled Oxygen Concentration - - Weight 73.1 kg (161 lb 3.2 oz) 09/11/2020 1:38 PM CDT Height 157.5 cm (5' 2") 09/11/2020 1:38 PM CDT Body Mass Index 29.48 09/11/2020 1:38 PM CDT documented in this encounter Progress Notes Cassy Monterroso, ARMAAN - 09/11/2020 1:15 PM CDT Chief complaint: Chief Complaint Patient presents with Follow-up HPI Patient present for follow up from [facility] on 08/14/2020 . Patient denies any complaint presently. Patient report she was bleeding heavy after procedure. Patient has BTL for BCM. Provider followed planof care from note 08/14/2020. Histories OB History Para Term AB Living [...] SARITA Past Medical History: Diagnosis Date Anemia 1997 not on iron Anxiety 2010 not on meds Genital warts 2013 TCA treatment per pt report HGSIL (high grade squamous intraepithelial lesion) on Pap smear of cervix 07/11/2020 Trichomonal vulvovaginitis 07/02/2020 Family History Problem Relation Age of Onset Diabetes Mother Family Status Relation Name Status Mo Alive Fa Alive Past Surgical History: Procedure Laterality Date ABDOMEN SURGERY PROC UNLISTED 2015 removed benign tumor laproscopically SECTION 2016 CONIZATION CERVIX,LOOP ELECTRD 08/14/2020 TUBAL LIGATION 2016 Social History Socioeconomic History [...] file Gets together: Not on file Attends quaker service: Not on file Active member of [...] Comment: Last intecourse 6+ months ago Labs No new labs Radiology No new radiology. Allergies Miller has No Known Allergies. Medications Miller currently has no medications in their medication list. Review of Systems Constitutional: Negative for activity change, appetite change, fatigue, unexpected weight change, weight gain and weight loss. HENT: Negative for sore throat. Eyes: Negative for visual disturbance. Respiratory: Negative for cough and shortness of breath. Breasts: Negative for discharge, mass, pain and unequal size. Cardiovascular: Negative for chest pain, palpitations and leg swelling. Gastrointestinal: Negative. Negative for abdominal pain, anal bleeding, blood in stool, constipation, diarrhea, nausea, rectal pain and vomiting. Genitourinary: Negative for bladder incontinence, dysuria, urgency, flank pain, vaginal bleeding, vaginal discharge, genital sores, vaginal pain and pelvic pain. Skin: Negative for color change and rash. Neurological: Negative. Negative for dizziness, syncope and headaches. Psychiatric/Behavioral: Negative for confusion, self-injury and sleep disturbance. The patient is not nervous/anxious. Hematological: Negative for cold intolerance and heat intolerance. Endocrine: Negative for hair loss, cold intolerance, heat intolerance, weight gain and weight loss. BP 109/79 (BP Location: Right arm, Patient Position: Sitting, BP CUFF SIZE: Adult Medium) | Pulse 80 | Temp 37.1 C (98.8 F) (Oral) | Resp 16 | Ht 5' 2" (1.575 m) | Wt 161 lb 3.2 oz (73.1 kg) | BMI 29.48 kg/m Pregravid BMI: Could not be calculated Physical Exam Vitals reviewed. Constitutional: She is oriented to person, place, and time. She appears well- developed and well-nourished. Her body habitus is normal. Cardiovascular: Regular rate and rhythm. No peripheral edema present. Pulmonary/Chest: Normal inspiratory effort. Neuro/Psychiatric: Inappropriate mood and affect. She is oriented to person, place, and time. Skin: Skin normal. No lesion, no rash and no ulceration present. Assessment/Plan Papanicolaou smear of cervix with high grade squamous intraepithelial lesion (HGSIL) (primary encounter diagnosis) Comment: Os check done today Plan: Return to [facility] in 4 weeks for os check (Done 09/11/2020) and 6 months for cotesting(01/2021) [er note on 08/14/2020. Return to clinic in 4-5 months or PRN. Discussed treatment options. Medications as ordered. Reviewed patient instructions and provided printed copy. This visit did not involve counseling and coordination that comprised more than 50% of the visit time. ARMAAN Ho 09/11/2020 1:51 PM documented in this encounter Plan of Treatment Date Type Specialty Care Team Description 02/17/2021 Office Visit [facility] Cassy Monterroso FNP [address] [place] [address] [phone] Health Maintenance Due Date Last Done Comments [...] filedocumented in this encounter Visit Diagnoses Diagnosis Papanicolaou smear of cervix with high g rade squamous intraepithelial lesion (HGSIL) - Primary documented in this encounter Insurance Payer Benefit Plan Subscriber ID Effective Phone Address Typ e / Group Dates [facility] [id number] 2020-Prese [phone] Medicaid WOMEN nt 00 [id number] [place] [address] Guarantor Name Account Type Relation to Date of Phone Billing Address Patient MartyMiller [facility] Self 1990 [address] ([place]) [address] [place], [place] [address] documented as of this encounter
--- OUTSIDE RECORDS SUMMARY | 2020-10-21 18:10 | XMS REPORT | Summary of Care ---
:1990 Author Organization [facility] Address [address] [place] [address] Care Team Providers Name Role Phone Claudia Mendez [facility] Primary Care Provider [phone] Reason for Referral (Routine) Status Reason Specialty Diagnoses / Referred By Referred To Procedures Contact Contact New Request Diagnoses examination or test, negative result Teresa Garrett, Procedures CONIZATION CERVIX,LOOP ELECTRD [facility] [address] [facility] PH5438 [place] [address] Reason for Visit Reason Comments ABNORMAL PAP Encounter Details Date Type Department Care Team Description 08/14/2020 Office Visit [facility] Jerome Tinajero MD [address] [place] [address] Papanicolaou smear of cervix with high g rade squamous intraepithelial lesion (HGSIL) (Primary Dx); [facility] Res-Colpo/Leep, [facility] Exposure to SARS-associated coronavirus; [facility] Clinics examination or brett t, negative result [address], 7[address] [place] [address] Allergies No Known Allergiesdocumented as of this encounter (statuses as of 08/14/2020) Medications Medication Sig Dispensed Refills Start Date End Date Status ibuprofen 200 mg Take 3 tablets by 0 08/14/202007/23 Active tabletIndications: mouth every 6 examination (six) hours as or test, negative needed for Pain result (scale 4-6) for up to 3 days. documented as of this encounter (statuses as of 08/14/2020) Active Problems Problem Noted Date HGSIL (high grade squamous intraepithelial lesion) on Pap smear of cervix 07/11/2020 Overview: +hpv 08/14/2020 LEEP Trichomonal vulvovaginitis 07/02/2020 Bacterial vaginosis 07/02/2020 Well woman exam 06/30/2020 Other general counseling and advice for contraceptive management 06/30/2020 History of tubal ligation 06/30/2020 Tobacco use disorder 06/30/2020 Over weight 06/30/2020 documented as of this encounter (statuses as of 08/14/2020) Social History Tobacco Use Types Packs/Day Years [...] ELECTRD, ibuprofen 200 mg tablet Return to [facility] in 4 weeks for os check and 6 months for cotesting. . Discussed treatment options. Medications as ordered. Reviewed patient instructions and provided printed copy. JUDY Mclaughlin 08/14/2020 12:36 PM documented in this encounter Plan of Treatment Date Type Specialty Care Team Description 09/11/2020 Office Visit [facility] Cassy Monterroso, ACQUISITION PROFESSIONAL [address] [place], [place] [address] [phone] Name Type Priority Associated Diagnoses Order S [facility] SURGICAL PATHOLOGY LAB Routine examination Ordered: 08/14/2020 EXAM or test, negative result CONIZATION CERVIX,LOOP PROCEDURES Routine examinat ion Ordered: [...] Name Priority Date/Time Associated Diagnosis Comme nts COVID-19 (ID NOW STAT 08/14/2020 8:49 AM Exposure to Resu lts for this RAPID TESTING) CDT SARS-associated procedure are in coronavirus the results section. POCT TEST Routine 08/14/2020 Results for this examination or test, procedu re are in negative result the results section. documented in this encounter Results COVID-19 (ID NOW RAPID TESTING) (08/14/2020 8:49 AM CDT) SARS-CoV-2 Rapid ID Not Detected Not Detected [facility] NOW SERVICES Specimen Swab - NASOPHARYNGEAL SWAB Narrative Performed At ID NOW COVID-19 Assay is an isothermal nucleic acid [facility] SERVICES amplification test intended for the qualitative detect ion of nucleic acid from SARS-CoV-2 viral RNA in nasopharynge al (CIRCULATION CREW LEADER) specimens. It is used under Emergency Use [...] testing if clinically indicated. Performing Organization Address City/State/Zipcode Phone Number [facility] CLIA: [id number] [place] [address] [place] [address] POCT TEST (08/14/2020) Pathologist Sig nature POCT [...] Indicated Resolved Time COVID-19 Rule Out 08/14/2020 08/14/2020 08/14/2020 9: 36 AM CDT documented as of this encounter
--- OUTSIDE RECORDS SUMMARY | 2020-10-21 18:10 | XMS REPORT | Summary of Care ---
:1990 Author Organization [address] [address] Care Team Providers Name Role Phone Claudia Mendez [facility] Primary Care Provider [phone] Reason for Visit Reason Comments Follow-up Forms Encounter Details Date Type Department Care Team Description 09/22/[address] [facility] Tita Tucker FN P Follow-up; Forms [facility] [place], [place] [id number] [address], 7th floor [phone] [place] [address] Allergies No Known Allergiesdocumented as of this encounter (statuses as of 09/22/2020) Medications No known medicationsdocumented as of this encounter (statuses as of 09/22/2020) Active Problems Problem Noted Date HGSIL (high grade squamous intraepithelial lesion) on Pap smear of cervix 07/11/2020 Overview: +hpv 08/14/2020 LEEP Trichomonal vulvovaginitis 07/02/2020 Bacterial vaginosis 07/02/2020 Well woman exam 06/30/2020 Other general counseling and advice for contraceptive management 06/30/2020 History of tubal ligation 06/30/2020 Tobacco use disorder 06/30/2020 Over weight 06/30/2020 documented as of this encounter (statuses as of 09/22/2020) Social History Tobacco Use Types Packs/Day Years [...] Signs Not on filedocumented in this encounter Progress Notes Aleena Cobb, RN - 09/22/2020 4:31 PM CSTPatient was informed of dysplasia results on 08/19/20 via MyChart by provider by. F/U appointment scheduled for 02/17/21. D19C and D24 completed and taken to first front ventilator for processing. 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 documented in this encounter Plan of Treatment Date Type Specialty Care Team Description 02/17/2021 Office Visit [facility] Cassy Monterroso, HEALTH CENTER MANAGER [address] [place] [address] [phone] Health Maintenance Due Date Last Done Comments PNEUMOCOCCAL 0-64 YEARS 09/29/2020 Postpone d from 02/04/1996 COMBINED SERIES (1 of 1 - ([place] Guidelines) PPSV23) INFLUENZA VACCINE (#1) 2021 Postponed from 07/22/2020 (Refused) DTaP,Tdap,and Td Vaccines (1 06/30/2021 Pos tponed [...] Address Typ e / Group Dates [facility] [id number] 2020-Prese [phone] [address] Medicaid WOMEN nt [address] [place] [address] documented as of this encounter
--- OUTSIDE RECORDS SUMMARY | 2020-10-21 18:10 | XMS REPORT | Summary of Care ---
:1990 Author Organization [facility] Address [address] [place] [address] Care Team Providers Name Role Phone Claudia Mendez [facility] Primary Care Provider [phone] Reason for Referral (Routine) Status Reason Specialty Diagnoses / Referred By Referred To Procedures Contact Contact New Request Diagnoses examination or test, negative result Teresa Garrett, Procedures CONIZATION CERVIX,LOOP ELECTRD [facility] [address] [facility] [address] [place] [address] Reason for Visit Reason Comments ABNORMAL PAP Encounter Details Date Type Department Care Team Description 08/14/2020 Office Visit [facility] Jerome Tinajero MD [address] [place] [address] Papanicolaou smear of cervix with high g rade squamous intraepithelial lesion (HGSIL) (Primary Dx); [facility] Res-Colpo/Leep, [facility] Exposure to SARS-associated coronavirus; [facility] Clinics examination or brett t, negative result [address], [address]th [place] [address] Allergies No Known Allergiesdocumented as [...] ELECTRD, ibuprofen 200 mg tablet Return to [facility] in 4 weeks for os check and 6 months for cotesting. . Discussed treatment options. Medications as ordered. Reviewed patient instructions and provided printed copy. JUDY Mclaughlin 08/14/2020 12:36 PM documented in this encounter Plan of Treatment Date Type Specialty Care Team Description 09/11/2020 Office Visit [facility] Cassy Monterroso, GIFT MANAGER [address] [place], [place] [address] [phone] Name Type Priority Associated Diagnoses Order S [facility] SURGICAL PATHOLOGY LAB Routine examination Ordered: 08/14/2020 [...] SARS-CoV-2 Rapid ID Not Detected Not Detected [facility] NOW SERVICES Specimen Swab - NASOPHARYNGEAL SWAB Narrative Performed At [facility] NOW COVID-19 Assay is an isothermal nucleic acid [facility] amplification test intended for the qualitative detect ion of nucleic acid from SARS-CoV-2 viral RNA in nasopharynge al (KNOCKOUT MAN) specimens. It is used under Emergency Use [...] indicated. Performing Organization Address City/State/Zipcode Phone Number [facility] CLIA: [id number] [place] [address] [place] [address] POCT TEST (08/14/2020) Pathologist Sig nature POCT [...]
--- OUTSIDE RECORDS SUMMARY | 2020-10-21 18:10 | XMS REPORT | Summary of Care ---
:[address] [facility] Address [address] [place] [address] Care Team Providers Name Role Phone Claudia Mendez [facility] Primary Care Provider [phone] Reason for Visit Reason Comments Follow-up Encounter Details Date Type Department Care Team Description 09/11/2020 Office Visit [facility] RMP- Cassy Monterroso Papan icolaou smear of Sare[place] R, LATHE MECHANIC cervix with high grade [address] [place] [address] [place] lesion (HGSIL) (Primary [place], [place] Dx) [id number] [phone] Allergies No Known Allergiesdocumented as of this [...] HPI Patient present for follow up from [facility] on 08/14/2020 . Patient denies any [...] file Gets together: Not on file Attends yarsanism service: Not on file Active member of [...] Os check done today Plan: Return to [facility] in 4 weeks for os check (Done [...] [facility] Cassy Monterroso FNP [address] [place] [address] [phone] Health Maintenance Due Date Last Done Comments [...] Typ e / Group Dates [facility] [id number] 2020-Prese [phone] [address] Medicaid WOMEN nt [address] [id number] [place] [address] Guarantor Name Account Type Relation to Date of Phone Billing Address Patient MartyMiller [facility] Self 1990 [address] ([place]) [address] [place], [place] [address] documented as of this encounter
--- OUTSIDE RECORDS SUMMARY | 2020-10-21 18:10 | XMS REPORT | Summary of Care ---
:1990 Author Organization [facility] Address [address] [place] [address] Care Team Providers Name Role Phone Claudia Mendez [facility] Primary Care Provider [phone] Reason for Visit Reason Comments Appointment Encounter Details Date Type Department Care Team Description [facility]/29[facility], [facility] [address] [place] [address] [phone] [address] [place], [place] [address] [phone] Allergies No Known Allergiesdocumented as of this encounter (statuses as of 09/01/2020) Medications No known medicationsdocumented as of this encounter (statuses as of 09/01/2020) Active Problems Problem Noted Date HGSIL (high grade squamous intraepithelial lesion) on Pap smear of cervix 07/11/2020 Overview: +hpv 08/14/2020 LEEP Trichomonal vulvovaginitis 07/02/2020 Bacterial vaginosis 07/02/2020 Well woman exam 06/30/2020 Other general counseling and advice for contraceptive management 06/30/2020 History of tubal ligation 06/30/2020 Tobacco use disorder 06/30/2020 Over weight 06/30/2020 documented as of this encounter (statuses as of 09/01/2020) Social History Tobacco Use Types Packs/Day Years [...] this encounter Miscellaneous Notes Telephone Encounter - Emelyn Persaud - 09/01/2020 3:36 PM CDTCalled, no answer. Left message to call back to schedule appointment. elephone Encounter - Rosalina Davidson LVN - 09/01/2020 9:02 AM CDPrasanthmarcial Ferguson is a 30 year old female Patient informed of recommendations, stated she would like to have an appointment. Informed pss willcall to schedule appointment, ER warnings given, verbalized understanding. elephone Encounter - Wanda Franklin RN - 08/29/2020 2:38 PM CDTGleomarcial Ferguson is a 30 year old female Attempted to call patient, to provider her with an appointment, patient not available. Left message on voicemail. elephone Encounter - Cristi Leal RN - 08/29/2020 2:35 PM CDT Sugey Taylor RN You 54 minutes ago (1:40 PM) irregular bleeding is very common after the LEEP, sounds like shes not having anymore heavy bleedingwhich is good. I would have her schedule an appointment with a provider to check for BV or infection Routing comment Telephone Encounter - Cristi Leal RN - 08/29/2020 11:48 AM CDTPt states she had LEEP procedure 08/14/2020. She states on 08/16/2020 she started spotting. Then, shestarted bleeding like a heavy period. She was changing her pad every 45 minutes to 1 hour and passing silver dollar size clots that last 2 days and resolved by Tuesday08/18/2020. Then patient started bleeding again 08/28/2020 and is changing a pad every 2 hours, has vaginal discharge with strong odor and mild cramping. Pt denies fever and denies abdominal pain. Please advise. documented in this encounter Plan of Treatment Date Type Specialty Care Team Description 09/11/2020 Office Visit OB Cassy Mccormick, ARMAAN [address] [place], [place] [address] [phone] 02/17/2021 Office Visit OB Cassy Mccormick FNP [address] [place], [place] [address] [phone] Health Maintenance Due Date Last Done Comments [...] Typ e / Group Dates [facility] [place] [facility] [id number] 2020-Prese [phone] [address] Medicaid WOMEN nt [address] [place] [address] documented as of this encounter
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
== END 2020-10-21 20:53 | disposition home or self-care (01) ==
LOC: ER 17:55
DX: S00.83XA Contusion of other part of head, initial encounter (principal); W50.0XXA Accidental hit or strike by another person, initial encounter; Y93.89 Activity, other specified; Y92.009 Unspecified place in unspecified non-institutional (private) residence as the place of occurrence of the external cause; Z88.8 Allergy status to other drugs, medicaments and biological substances; F17.210 Nicotine dependence, cigarettes, uncomplicated
CPT/HCPCS: 70486; 76377; 99282

== ENCOUNTER 2022-02-28 14:06 | Emergency (ER) | payer SELFPAY ==
--- OUTSIDE RECORDS SUMMARY | 2022-02-28 14:10 | XMS REPORT | Continuity of Care Document ---
:1990 Author Organization [facility] t Address [address] [place] [address] Dr. [address] [place] [address] Care Team Providers Name Role Phone Eben MCCALL Attending Clinician Unavailable Singer BLACK Attending Clinician Garrett SKELP PROCESSOR Attending Clinician Cal CROOK R Attending Clinician Res-Colpo/Leep Attending Clinician Unavailable Lior MARTI W Attending Clinician Akinsipe WHCNP, C Attending Clinician AKINBERTHA C Attending Clinician Unavailable Doctor Unassigned, Name Attending Clinician Unavailable Payers Payer Name Policy Type Policy Number Effective Date Expiration Date S ource Problems Condition Condition Condition Status Onset Resolution Last Treating Co mments Source Name Details Category Date Date Treatment Clinician Date 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 (high 8-21 +hpv9/24/ ity of grade grade 00:00: 2019 LEEP [place] squamous squamous 00 Medica l intraepith intraepith Br anch elial elial lesion) on lesion) on Pap smear Pap smear of cervix of cervix Trichomona Trichomona Disease Active 2020- U nivers l l 8-12 ity of vulvov[place] [facility] [place] Bacterial Bacterial Disease Active 2020-0 Uni vers vaginosis vaginosis 8-12 ity of 00:00: [place] [address] Medical Branch Other Other Disease Active 2020-0 [facility] general general 8-10 ity of counseling counseling [place] and advice and advice 00 Me dical for for Branch contracept contracept ese ese management management History of History of Disease Active U nivers tubal tubal 8-10 ity of ligation ligation 00:00: [address] Tobacco Tobacco Disease Active Univers use use 8-10 ity of disorder disorder 00:00: [place] [facility] Over Over Disease Active Univers weight weight 8-10 ity of 00:00: [place] [facility] Allergies, Adverse Reactions, Alerts Allergy Allergy Status Severity Reaction(s) Onset Inactive Treating Comm ents Source Name Type Date Date Clinician NO KNOWN Drug Active Univers ALLERGIE Class ity of S [facility] Social History Social Habit Start Date Stop Date Quantity Comments Source Sex Assigned At [facility] y of [facility] Exposure to Not sure [facility] SARS-CoV-2 (event) [facility] Cigarettes smoked 2020-08-14 2020-08-14 Univers ity of current (pack per 00:00:00 00:00:00 ) - Reported [place] Tobacco use and 2020-08-14 2020-08-[address] [facility] y of exposure 00:00:00 00:00:00 [facility] Alcohol intake 2020-08-14 2020-08-14 Ex-drinker [facility] 00:00:00 00:00:00 (finding) [facility] Smoking Status Start Date Stop Date Source Unknown if ever smoked [facility] Current some day smoker 2020-08-14 00:00:00 [facility] Medications Ordered Filled Start Stop Current Ordering Indication Dosage Frequency Signature Comments Components Source Medication Medication Date Date Medication? Clinician (SIG) Name Name chlorhexidi 2019-11 Yes [id number] 15mL Swish and Univers ne 0.12 % 2-04 spit out ity of mouthwash 00:00: 15 mL 2 (two) Medical times [place] daily. methylPREDN 2019-11 Yes [id number] Take by Univers ISolone 2-04 mouth ity of (MEDROL, 00:00: SEE-INSTRU [place] as NITO,) 4 mg 00 CTIONS. Medica l tablets follow [place] package directions acetaminoph 2019-11 Yes [id number] 1{tbl} Take 1 Un shilo en-codeine 2-04 tablet by ity of (TYLENOL-CO 00:00: mouth [place] DEINE #3) 00 every 4 Medical 300-30 mg (four) Branch tablet hours as needed for Pain (scale 7-10). Indication s: acute pain ondansetron 2019- Yes [id number] 4mg Take 1 Univers 4 mg 2-04 tablet by ity of disintegrat 00:00: mouth [place] ing tablet 00 every 8 Medica l (eight) Branch hours as needed for Nausea and Vomiting (N/V). clindamycin 2019-11 2020- No [id number] 300mg Take 2 Univers 150 mg 2-04 12-12 capsules ity of capsule 00:00: 05:59 by mouth 4 [place] as 00 :00 (four) Medical times Branch daily for 7 days. ibuprofen 2020- No [id number] 600mg Take 3 Univers 200 mg 9-24 09-28 tablets by ity of tablet 00:00: 04:59 mouth [place] 00 :00 every 6 Medical (six) Branch hours as needed for Pain (scale 4-6) for up to 3 days. ibuprofen 2019- 2020- No [id number] 600mg Take 3 Univers 200 mg 9-24 09-28 tablets by ity of tablet 00:00: 04:59 mouth [place] 00 :00 every 6 Medical (six) Branch hours as needed for Pain (scale 4-6) for up to 3 days. ibuprofen 2020- No [id number] 600mg Take 3 Univers 200 mg 9-24 09-28 tablets by ity of tablet 00:00: 04:59 mouth [place] 00 :00 every 6 Medical (six) Branch hours as needed for Pain (scale 4-6) for up to 3 days. metroNIDAZO 2019-0 2020- No [id number] 2000mg Take 4 Univers LE 500 mg 8-21 08-21 tablets by ity of tablet 00:00: 00:00 [place] 00 [place] now for 1 Medical dose. Branch metroNIDAZO 2020-0 2020- No [id number] 2000mg Take 4 Univers LE 500 mg 8-21 08-21 tablets by ity of tablet 00:00: 00:[place] 00 [place] now for 1 Medical dose. Branch metroNIDAZO 2019-0 2020- No [id number] 2000mg Take 4 Univers LE 500 mg 8-21 08-21 tablets by ity of tablet 00:00: 00:[place] now for 1 Medical dose. Branch metroNIDAZO 2019-0 2020- No [id number] 2000mg Take 4 Univers LE 500 mg 8-21 08-21 tablets by ity of tablet 00:00: 00:[place] now for 1 Medical dose. Branch metroNIDAZO 2019- No [id number] 2000mg Take 4 Univers LE 500 mg 8-21 08-21 tablets by ity of tablet 00:00: 00:[place] 00 [place] now for 1 Medical dose. Branch metroNIDAZO 2019-2019- No [id number] 2000mg Take 4 Univers LE 500 mg 8-12 08-13 tablets by ity of tablet 00:00: 04:59 [place] now for 1 Medical dose. Branch metroNIDAZO 2019- No [id number] 2000mg Take 4 Univers LE 500 mg 8-12 08-13 tablets by ity of tablet 00:00: 04:59 [place] 00 :[place] now for 1 Medical dose. Branch metroNIDAZO 2019- No [id number] 2000mg Take 4 Univers LE 500 mg 8-12 08-13 tablets by ity of tablet 00:00: 04:59 [place] 00 :[place] now for 1 Medical dose. Branch metroNIDAZO 2019- No [id number] 2000mg Take 4 Univers LE 500 mg 8-12 08-13 tablets by ity of tablet 00:00: 04:59 [place] 00 [place] now for 1 Medical dose. Branch metroNIDAZO 2019-0 2019- No [id number] 2000mg Take 4 Univers LE 500 mg 8-12 08-13 tablets by ity of tablet 00:00: 04:59 [place] 00 :[place] now for 1 Medical dose. Branch metroNIDAZO 2020-2019- No [id number] 2000mg Take 4 Univers LE 500 mg 8-12 08-13 tablets by ity of tablet 00:00: 04:59 [place] 00 :[place] now for 1 Medical dose. Branch metroNIDAZO 2020-2019- No [id number] 2000mg Take 4 Univers LE 500 mg 8-12 08-13 tablets by ity of tablet 00:00: 04:59 [place] 00 :[place] now for 1 Medical dose. Branch metroNIDAZO 2020- No [id number] 2000mg Take 4 Univers LE 500 mg 07-02 tablets by ity of tablet 00:00: 04:59 [place] 00 :[place] now for 1 Medical dose. Branch No known No Univers medications ity of [facility] No known No Univers medications ity of [facility] No known No Univers medications ity [facility] No known No Univers medications ity [facility] No known No Univers medications ity [facility] No known No Univers medications [facility] No known No Univers medications ity [facility] No known No Univers medications [facility] No known No Univers medications [facility] Vital Signs Vital Name Observation Time Observation Value Comments Source Systolic blood 2020-10-24 17:27:00 119 mm[Hg] Univer sity of [facility] Diastolic blood 2020-10-24 17:27:00 80 mm[Hg] [facility] Heart rate 2020-10-24 17:25:00 87 [facility] Body temperature 2020-10-24 17:25:00 36.56 Peggy [facility] Respiratory rate 2020-10-24 17:25:00 18 /min [facility] Body weight 2020-10-24 17:25:00 72.576 [facility] BMI 2020-10-24 17:25:00 29.26 kg/m2 General acute hospital Oxygen saturation in 2020-10-24 17:25:00 100 /min [facility] Arterial blood by [facility] Pulse oximetry Branch Systolic blood 2020-09-11 18:38:00 109 mm[Hg] Univer sity of [facility] Diastolic blood 2020-09-11 18:38:00 79 mm[Hg] [facility] rate 2020-09-11 18:38:00 80 /min Universi ty [facility] Body temperature 2020-09-11 18:38:00 37.11 Peggy [facility] Respiratory rate 2020-09-11 18:38:00 16 /min [facility] Body height 2020-09-11 18:38:00 157.5 cm Universi ty of [place] [facility] Body weight 2020-09-11 18:38:00 73.12 kg Universi ty of [place] [facility] BMI 2020-09-11 18:38:00 29.48 kg/m2 Universi ty of [place] [facility] Systolic blood 2020-09-11 18:38:00 109 mm[Hg] Univer sity of pressure [place] [facility] Diastolic blood 2020-09-11 18:38:00 79 mm[Hg] Unive rsity of pressure [place] [facility] Heart rate 2020-09-11 18:38:00 80 /min Universi ty of [place] [facility] Body temperature 2020-09-11 18:38:00 37.11 Peggy Univ ersity of [place] [facility] Respiratory rate 2020-09-11 18:38:00 16 /min Univ ersity of [place] [facility] Body height 2020-09-11 18:38:00 157.5 cm Universi ty of [place] [facility] Body weight 2020-09-11 18:38:00 73.12 kg Universi ty of [place] [facility] BMI 2020-09-11 18:38:00 29.48 kg/m2 Universi ty of [place] [facility] Systolic blood 2020-08-14 13:50:00 115 mm[Hg] Univer sity of pressure [place] [facility] Diastolic blood 2020-08-14 13:50:00 64 mm[Hg] Unive rsity of pressure [place] [facility] Heart rate 2020-08-14 13:50:00 82 /min Universi ty of [place] [facility] Body temperature 2020-08-14 13:50:00 36.72 Pgegy Univ ersity of [place] [facility] Respiratory rate 2020-08-14 13:50:00 18 /min Univ ersity of [place] [facility] Body height 2020-08-14 13:50:00 157.5 cm Universi ty [facility] [place] [facility] Body weight 2020-08-14 13:50:00 72.802 kg Universi ty [facility] [place] [facility] BMI 2020-08-14 13:50:00 29.36 kg/m2 Universi ty [facility] [place] [facility] Systolic blood 2020-06-30 19:54:00 99 mm[Hg] Univer sity of pressure [place] [facility] Diastolic blood 2020-06-30 19:54:00 70 mm[Hg] Unive rsity of pressure [place] [facility] Heart rate 2020-06-30 19:54:00 76 /min General acute hospital Body temperature 2020-06-30 19:54:00 37.17 Peggy [facility] Respiratory rate 2020-06-30 19:54:00 16 /min [facility] Body height 2020-06-30 19:54:00 160 cm General acute hospital Body weight 2020-06-30 19:54:00 73.143 kg General acute hospital BMI 2020-06-30 19:54:00 28.56 kg/m2 General acute hospital Procedures Procedure Date / Time Performing Clinician Source Performed [place] [facility] MOUTH/TONG 2020-10-24 17:58:00 Matthew Rivera [facility] INTRA,SUBMANDIBULAR Medical Bran ch NOTICE OF PRIVACY 2020-10-24 16:55:13 Doctor Unassigned, No [facility] PRACTICES Name [facility] CONSENT/REFUSAL FOR 2020-10-24 16:54:59 Doctor Unassigned, No [facility] DIAGNOSIS AND TREATMENT Name [facility] SURGICAL PATHOLOGY EXAM 2020-08-14 17:08:00 Teresa Garrett [facility] COVID-19 (ID NOW RAPID 2020-08-14 13:49:00 Teresa Garrett [facility] TESTING) [facility] POCT TEST 2020-08-14 00:00:00 Teresa Garrett [facility] acute hospital BCCS-RELATED 2020-08-08 05:01:00 Doctor Unassigned, No [facility] DOCUMENTATION Name [facility] ASSIGNMENT OF BENEFITS 2020-06-30 19:23:29 Doctor Unassigned, No [facility] Name [facility] Branch Encounters Start End Encounter Admission Attending Care Care Encounter Source Date/Time Date/Time Type Type Clinicians Facility Department ID 2021-09-19 Emergency [facility] [id number] Univers 09:16:00 [facility] 2021-02-26 2021-02-26 Outpatient R [facility] [id number] Univers 11:40:00 11:40:00 [id number] [facility] 2021-02-17 2021-02-17 Outpatient R CAL [facility] [id number] Univers 10:15:00 10:15:00 JARVIS [id number] ity o f [facility] 2021-02-17 2021-02-17 Outpatient R MCCALL, [facility] [id number] Univers 10:15:00 10:15:00 FELIZA ity o f [facility] 2020-10-24 2020-10-24 Emergency [facility] [id number] Univers 11:27:00 12:28:00 Matthewedmund Grace [id number] i ty of [place] [id number] [facility] 084 Branch 2020-09-22 2020-09-22 JÚNIOR ChildersIT [id number] 00:00:00 00:00:00 Management [facility] HEALTH [id number] CLINICS 4.2.7.2.686 [id number] [facility] 2020-09-22 2020-09-22 Arnulfo Tucker [facility] [id number] Univers 00:00:00 00:00:00 Management [facility] HEALTH [id number] ity of CL[place] [phone] [facility] 113 Branch 2020-09-11 2020-09-11 Office Cal [facility] [id number] 13:31:39 13:46:39 Visit Wendyjosé miguela R COAL MINE INSPECTOR [id number] REGIONAL 4.2.7.2.686 MATERNAL [id number] & CHILD 107 [facility] 2020-09-11 2020-09-11 Office [facility] [id number] Univers 13:31:39 13:46:39 Visit Wendyjosé miguela R COAL MINE INSPECTOR [id number] ity of REGIONAL 4.2.7.2.686 [place] MATERNAL [phone] Med ical & CHILD 107 [facility] 2020-09-11 2020-09-11 Outpatient Eben MCCALL [facility] [id number] Univers 13:15:00 13:15:00 JARVIS [id number] ity o f [facility] 2020-09-11 2020-09-11 Outpatient R CAL [facility] [id number] Univers 13:15:00 13:15:00 JARVIS ity o f [facility] 2020-08-14 2020-09-05 Office Res-Colpo/Leep, [facility] UNIVERSI T [id number] Univers 08:30:54 10:31:26 Visit Abraham Tinajeroo [facility] [id number] ity of CLINICS [place] [id number] [address] 2020-08-29 2020-08-29 Telephone [facility] [id number] Univers 00:00:00 00:00:00 Claudia Rousseau COAL MINE INSPECTOR [id number] [facility] 4.2.7.2.686 [place] MATERNAL [phone] Med ical & CHILD [address] [place] [address] 2020-08-14 2020-08-14 Outpatient R [facility] [id number] Univers 10:00:00 10:00:00 [id number] ity of [facility] 2020-08-14 2020-08-14 Outpatient R [facility] [id number] Univers 10:00:00 10:00:00 ity of [facility] 2020-08-08 2020-08-08 Outpatient R [facility] [id number] Univers 14:30:00 14:30:00 CLAUDIA bruno [facility] 2020-08-08 2020-08-08 Outpatient R [facility] [id number] Univers 10:00:00 10:00:00 [id number] ity of [facility] 2020-08-08 2020-08-08 Outpatient R [facility] [id number] Univers 10:00:00 10:00:00 ity of [facility] 2020-08-08 2020-08-08 Orders Doctor RICK [id number] Univers 00:00:00 00:00:00 Only Unassigned, GIOVANA 350.1.13.10 ity of [place] [facility] 4.2.7.2.686 [place] [phone] [address] 2020-07-11 2020-07-11 Telephone [facility] [id number] Univers 00:00:00 00:00:00 Claudia C COAL MINE INSPECTOR 350.1.13.10 ity of REGIONAL 4.2.7.2.686 [place] MATERNAL [phone] [facility] & CHILD [address] [place] [address] 2020-07-02 2020-07-02 Telephone [facility] [id number] Univers 00:00:00 00:00:00 Caludia C COAL MINE INSPECTOR 350.1.13.10 ity of REGIONAL 4.2.7.2.686 [place] MATERNAL [phone] [address] 2020-07-02 2020-07-02 Telephone [facility] 1.2.840.114 [id number] Univers 00:00:00 00:00:00 Claudia C COAL MINE INSPECTOR 350.1.13.10 ity of REGIONAL 4.2.7.2.686 [place] MATERNAL [phone] [facility] & CHILD [address] [place] [address] 2020-06-30 2020-06-30 Office [facility] [id number] Univers 14:34:13 16:28:45 Visit Claudia C COAL MINE INSPECTOR 350.1.13.10 ity of REGIONAL 4.2.7.2.686 [place] MATERNAL [id number] [facility] & [address] 2020-06-30 2020-06-30 Outpatient R AKINSIPE, [facility] [id number] Univers 14:45:00 14:45:00 CLAUDIA ity o f [facility] 2020-06-30 2020-06-30 [facility] [id number] Univers 14:45:00 14:45:00 CLAUDIA ity o f [facility] 2020-06-30 2020-06-30 Orders Doctor RICK [id number] Univers 00:00:00 00:00:00 Only Unassigned, GIOVANA 350.1.13.10 ity of [facility] 4.2.7.2.686 [place] [phone] Medi hali 009 Branch Results Test Description Test Time Test Comments Results Result [facility] e Comments Incision and Matthew Rivera DO ? U niversity of Drainage 4 ? 10/24/2020 12:04 Jairo Barker edical 17:58:00 PMIncision and Branch DrainagePerformed by: Matthew Rivera DOAuthorized by: Matthew Rivera DO Consent: ?Consent obtained: ?Verbal ?Consent given by: ?Patient ?Risks discussed: ?Bleeding, incomplete drainage, infection and pain ?Alternatives discussed: ?No treatmentLocation: ?Type: ?Abscess ?Location: ?Mouth ?Mouth location: ?Submandibular spaceAnesthesia (see MAR for exact dosages): ?Anesthesia method: ?Nerve block ?Block location: ?Inferior alveolar, lingual , long buccal. ?Block needle gauge: ?27 G ?Block anesthetic: ?Lidocaine 1% WITH epi and bupivacaine 0.5% w/o epi ?Block injection procedure: ?Anatomic landmarks identified, introduced needle, negative aspiration for blood and incremental injection ?Block outcome: ?Anesthesia achievedProcedure type: ?Complexity: ?ComplexProcedure details: ?Incision types: ?Stab incision ?Incision depth: ?Submucosal ?Scalpel blade: ?11 ?Wound management: ?Probed and deloculated ?Drainage: ?Purulent ?Drainage amount: ?Moderate ?Wound treatment: ?Wound left open ?Packing materials: ?NonePost-procedure details: ?Patient tolerance of procedure: ?Tolerated well, no immediate complications SURGICAL PATHOLOGY EXAM 2020-08-19 20:38:00 Test Item Value Reference Range Interpretation Comme [facility] Case Report (test code = [id number]) Surgical Pathology ?Case: [id number] ? Authorizing Provider: ?Teresa Garrett WHCNP ? ? Collected: ? 08/14/2020 1208 ?Ordering Location: ? ? [facility] ?Received: ?08/14/2020 1326 ? [facility] ?Pathologist: ? Stacie Muro MD ? Specimens: ? A) - ENDOCERVICAL ? B) - CERVIX, LEEP ? Final Diagnosis (test code = [id number] [facility] [id number]) ZEyMClducHwWUpms3VcD7UxFuEsCZdqgwUkEOQcZi ybccafWSGeGGF2ppAlVAJeZKxsXQHqAOeeLn3rcOM nfOawHnHbLDEmn4muuuFTprbmzRc7n1sgHDUsCyJ4 qPRcCBgcO0sskyFyvGAxBDCxZQw1aY25UKYzvX1kv BJhTExgzzDkEKjzyoPceyOeJms0GJLdF0nlGHTgKB IlV6LbTK1hCLJaEry1JVA6VBU6nTfyv3X5lQUwaYX ypVlvTlEsQxKsPTRXj8UfOLu1yOneX2GeUSXxEqO8 lKYlOBGzWSbkRIEcWDOeyaS0yA87ZNxemhY8jNQfa 0Okr44mu236fV6euEDaENX0ISLwAMWhiUEdGZAiAR X3VCZxrSPnH6yhSJhvDT9oupueNTM8TJifWWLhhMj gMFmgUHApCwCdoOCuJWOxzVlzBDtuc476JTB3OoCr FX7hY8Gsa4Z1vU2nrRLiQCNgxEGwIdQhCVBfqt2yj MBpEUsfs5EbCRC6snE6rTTxwPBtRJQgAV05Kcpjg5 MeGptsWCX0FHYexwSwu1Mue6emQoFuzqExE9eaE8P uUQXtQDLqDVIzTdGdfqFmc6Vwh4PrtLWkbMb5p5zo VFJiHRWgjHtcl6bfNQY0GSRtJ3I7pIUxe8hnJAdwJ URbfML1qqQhBABcuSZmQ3AmqN7aNCcsBO4efdn4q9 zlLlRyQF5smjknb2jmOQeaOLByWXM1SmByBHVim3F ztpfoSpMgn7LmhYWrLXigY52xh247FXExlsLpO0qe bGFpblxwbGFpblxmMFxmczIyXHFsXHBsYWluXGYwX RDcVbEeyUmqnD5wPcIkOtOkXEguOU9mWDBeR4kilE TpGFEtJVSrL8rtGmUbaQ5mbTwsSIacjgLdQECuczY HGbUAQwHHF7FWWiyPDDFQAKDXRSDIX7P1XPYmseHx LZRqAY8wAzQAA65KEpHSOE6UDJPZEktIQcHPUbPZA 5UAGidOFObxC8hERkPNWUIXWAAOLETHABtBER4lsD JjAIComvUKAuFBEKFCDMomXLqOS5DfQGtKAPYFR88 2JZIjhunlsA1lCfIaaWjaAaMisCzvuV6gDuKgWlOd UounpOApdiytSQokaoGvEGhwjgqdHFNcWQvtO5yhY eXdGRDhcAlnNXkms6NyMWDwVOReYxAlHDBfKE2sEi 6DOKteIYiYSQJWHdIDXZAZHVJLSM2ONaYHShPELHH IVJBYMPbBRVuhOFNUIB7EGDjAGU2qNPnrRBlOWTOz ZuCEI2vMO8UBPNWVZjecJKCcRVAfMZPyWMyGZV1ME VZFIExPVyBHUkFERSBEWVNQTEFTSUEgKENJTiBJKV xwYXJccGFyZFxwbGFpblxmMFxmczIyXHBsYWluXGY xXGZzMjBcbGFuZzEwMzNcaGljaFxmMVxkYmNoXGYx JQerM9jhPbPiZzPpBTCkMAYxZWQMN0rBRRBULIHXR NIOZtEGF5zORHCaoHMvZLDyILSoQDqOZgTCRhFCTG SGKYXQRGYURNYyFSMYY2BPAFRULULUMPVgCYWXY3C KEvQGR6MWPMOIC1LRUWqMPoEDBOGCKU1wOHBbsfRa BHIrVIAXHLCCDRgBNjZHRWjUAbNFGjQYGOQTGG1WU FxwYXJccGFyXHFsXHBsYWluXGYwXGZzMjJccGxhaW 5cZjFcZnMyMiBYaWFvdGFuZyBEdSwgTUQgXHBsYWl uXGYxXGZzMjBcbGFuZzEwMzNcaGljaFxmMVxkYmNo [file] WvyhfRJslwqmTzpoyiZ6QCyboxguRLNkPLhbC9fxE oUhRMVqgAqrEfuyr7XoNPHnXLRlMxailBXasZ1= Clinical Information (test code = Clinical History: 30 year-old wi [facility] [id number]) Gross Description (test code = [id number]Qpw9pyIVAr bGFuZ [id number]) eQcLnEfVeOrStgobBPpVTJlIkKax0apf784bMFsv1 kfRZPtYsO9tEEdKVFnlDTzP533CPOaLDsmh8dnb6N aMGBrbUUpn4V6YZAGdxsqpAl2uKgzZ65st2P9Jqla Y7zfEKNtCVcfSRWzZPkirZUyFYQ3RDVqZJZ2XCorz aFwyzQ1PKlzmKFqGiY7XJj7q0edqSywXBBoEKR5w0 sdEGqowhCoKA0jhv8axTe0x3nqvgBwVFUxHHHewWW REJGjJ2AutSdtSb3kgHq8pQifMmdnXAZ6Bha1DQ4y if92spe9cAhxSLXrjzfdShI5ARlyVGKgcskfDTt1C KnhHTLxqUHaZIIdlOOoB5FeMQrbWI3xedr5VfUuOW 5yuqeyCLmwEJWdKBL4MdNrSAAkm5ItrufiIvWmio1 zoi52FMB9o1YjsGxdOJD8YZQ5LnWyOs7qoYLyZYWs OY1kCtAzeQBfWLSzda16bMpaTVtbnhEbxX8qSbAeM QIraYGdMAWmXX4nnJIcFBAhgX8szkfxERKrTzMnta dzBNCtuRhkwlBkUk9ogEioDHV5MTvpV1qsqI0pRqX 1EEfjD6zjbI5cAXj7OYgcuQH2ZCErbQ1wKP2oypnk v4oeQWD3SCmwTBWnhcI1jlFbTXUyvHSgX6RbsC93B vFvtEHiM6IilR0lPBikQAAbsdo6MpFgSz7znKWxgD P8PBqbWiwbQFxrPDOrjrHsedGypXcaWGTqCMXvBHm tPTYeYAxgGQRwBQSiWrHbz8MiSDNma5ogBiRlv6dx sEy7FIschKuhcNGvyedtRPjwvjVnGLUyWUlrACRxC JNaPdIdU1ZjD8ftCA1hIRDhfuGaDTSpqQPkUUTsbe Pqb3VkDJxzseAjBZLupYjdLMP2wLQqZTMzMIHzLYY wIA88IYJjPMabMICiKCBnGgQszPbkTMkkIPo9Pdxe bGFpblxmMVxmczIwIHMgbmFtZSwgVUggbnVtYmVyI MGtycXzK0ThgxbqANsmyOtfzS2dYsDtXxEyPGf3AI EaVYQpTbm6EXXhNXqwTUCgPSDfOvRnTQEqIRMvn59 lcPY7jpBeZuIdiiQfH4ciWIkohEUjy9RgrOZoxIvo oFIijSZcs3TycJGmfCLucDDxIHBnzenorSSoxB3vc ALitFWrQTz9vGJzWOAgNtZpbCleg4DuIEBvLRirIR 05mqGjRS7tYTypCB7oNTzhXQ2bXXJpPEmsAWYrR8D yB8G2QTnnSGDcTIWsvODpwZ3iemTkusSskLj2CGCr SQF7vOWzbNtlUJYnGhrjbOK7IBIlArVmgmKhFM69m XNmzNmtw6DliRh9pJKgHQutIQFmeB7vaF8kWBZgSR FjyxnnHKDcQUFuLLpfGNHyCZInCvHsmMzalM2dJuF gMkReOLWIxPZhoA7tunOCNNymFFDlC8TitwZnXHpz MYTfqf8rhIadTUutLjFkZRRbt7t0eJF9lLSlrGE2l IOiuRklCG9eoFAbKZMDYG90bNDpamxgQtuGQYPaUS XvAUQtk01ovOD9rsIyFxVearG4ek1rvETskMQpLJZ szc2saI4rWM8cYP6cYALRKEFJDCSxYICagQWwBAwg NnBlcBElYjRcbGLwRyCaE12yTrCzRVykZCAejW0dZ SS6nNodwYQwnCAjGMHpEKTuenYwuFpqkfV4iSNcWY PpDEWvP7NhpZXaP0QhqUrhuPceN1AlSOHwcOJqgKh cQHQbezImYA39FBAqOZcmVVNqCB1hvWCaEA4lIDTa QNMawCYcnM8angZfffNgzEUcavvfQEX3VZZyXP3yC PTxC1xdmAOhVJGhvmLjbDHwoeFszJMnwLzfj3NybY dkenZyTPHpHGYnqwKvtWH0UB8loXliaohtcX1eg2y twh67vqAdzMHzr1DgQfAhIZNeZWEZsKLuCPhqOWAm GXAes979KPsmPNBzgUPkDI1eoTOoVZn8tDNyJDRzd pbpgDShVVdQLKJoKsEjY60ytbCuTYAuKQY4ROWhYA E3BUSsGqWveFqqXZYtNMVxtCKzmS2vfbJnarAxqvO dpaCtuJWqvrOav4DrnVYweWnpdAn7EGP4Sv2wdHVa XCSbyaSsJKurXZqmBNWqTYY7PnafNXRhqRKhEHnen tECu3MyKlhkRPAmInl0KIJfHCAsRQ1jOSG5vCEdnB PiPQCiB1Bcd62qcXPmV2mnVajjYPUmXnwlJ2djJMV hC4SyD9LwejlmVVdmsuSlGVB4aX7xDF7mlhnhbs6o qIAxQDXoilWYZKX1yV5qCZVrEBO7ICSihzXQLT8HX lrbKZAKboJrqZNiXBQwrwYgWONeWKscqIq4FWUxQ1 Mex66jZFcqFM28tQUnsMzbaWObTZCgDQT3FzJeTZ1 gDLGypOWhtkCfmDishrZhePJcsUldi5SogYsgoiFa XUCowfCcktOioPaoXJVjAyXzBdY6SRIPbhTegUPqN SSqtfPyPYYpYUrtxQf9QJYyN9Fcz00xRHryLO70cZ WsqRjfpYGtILV3OFR5RdRXQVFCQNWtDJbrTS50QOH fMYQsZPcwpZRdALH1mB5vZDIwQFBjnNesXIg4MPAd kzclSRTwOkZqaWRyEGHNsKvbsmZ7FNSOVRoatMCeh myaKJsstcXbKWfyyjrcLUGgTCcgY8xeKiJjWBJohC jcJXzzv0AiWPCpOXOjUHeyckApDSK4aKAvBEIgkas wbGFpblxmMVxmczIwXHBhclxwbGFpblxmMVxmczIy TVofwmmpMZBvUXtrU5uzNmWxEDAokWxxGUija4OaQ SIlGQUrUKzichCjCTSmksvzSLUuiLymhY3oMfHoOe CuKThjUU2tUAPiE4hnqZNeQXRpPROeK6yrWfLifF1 jaFxmMVxjZjFcZnMyMFxiXHBhclxwbGFpblxmMVxm ppZoJZcyxnutDUJkGOlaK0gjVjZaIEYumKeeBUouc 8ZxARYcZGRqKNwbosYjACH6cSZoOYTscmsgsEfrdH FpblxmMFxmczIwXHBsYWluXGYxXGZzMjBccGFyfQ= = Embedded Images (test code = 6391797061) [facility]2020-08-14 14:36:00 Test Item Value Reference Range Interpretation Comments SARS-CoV-2 Rapid ID NOW Not Detected Not Detected (test code = 51530-4) VIRGEN (test code = VIRGEN) ID NOW COVID-19 Assay is an isothermal nucleic acid amplification test intended for the qualitative detection of nucleic acid from SARS-CoV-2 viral RNA in nasopharyngeal (PRIVATE BRANCH EXCHANGE OPERATOR) specimens. It is used under Emergency Use Authorization (EUA) by FDA. The limit of detection (LOD) of the assay is 125 Genome Equivalents/mL. A positive result is indicative of the presence of SARS-CoV-2 RNA. ?Clinical correlation with patient history and other diagnostic information is necessary to determine patient infection status. A negative (Not Detected) result does not preclude SARS-CoV-2 infection. In patients with clinical symptoms and other tests that are consistent with SARS-CoV-2 infection, negative results should be treated as presumptive negative and a new specimen should be tested with alternative PCR molecular test. Invalid: Please collect a new specimen for repeat patient testing if clinically indicated. Lab Interpretation Normal (test code = 45927-8) [facility]2020-08-14 14:36:00 Test Item Value Reference Range Interpretation Comments SARS-CoV-2 Rapid ID NOW Not Detected Not Detected (test code = 27420-5) VIRGEN (test code = VIRGEN) ID NOW COVID-19 Assay is an isothermal nucleic acid amplification test intended for the qualitative detection of nucleic acid from SARS-CoV-2 viral RNA in nasopharyngeal (PRIVATE BRANCH EXCHANGE OPERATOR) specimens. It is used under Emergency Use Authorization (EUA) by FDA. The limit of detection (LOD) of the assay is 125 Genome Equivalents/mL. A positive result is indicative of the presence of SARS-CoV-2 RNA. ?Clinical correlation with patient history and other diagnostic information is necessary to determine patient infection status. A negative (Not Detected) result does not preclude SARS-CoV-2 infection. In patients with clinical symptoms and other tests that are consistent with SARS-CoV-2 infection, negative results should be treated as presumptive negative and a new specimen should be tested with alternative PCR molecular test. Invalid: Please collect a new specimen for repeat patient testing if clinically indicated. Lab Interpretation Normal (test code = 83623-6) [facility]2020-08-14 14:36:00 Test Item Value Reference Range Interpretation Comments SARS-CoV-2 Rapid ID NOW Not Detected Not Detected (test code = 71959-9) VIRGEN (test code = VIRGEN) ID NOW COVID-19 Assay is an isothermal nucleic acid amplification test intended for the qualitative detection of nucleic acid from SARS-CoV-2 viral RNA in nasopharyngeal (PRIVATE BRANCH EXCHANGE OPERATOR) specimens. It is used under Emergency Use Authorization (EUA) by FDA. The limit of detection (LOD) of the assay is 125 Genome Equivalents/mL. A positive result is indicative of the presence of SARS-CoV-2 RNA. ?Clinical correlation with patient history and other diagnostic information is necessary to determine patient infection status. A negative (Not Detected) result does not preclude SARS-CoV-2 infection. In patients with clinical symptoms and other tests that are consistent with SARS-CoV-2 infection, negative results should be treated as presumptive negative and a new specimen should be tested with alternative PCR molecular test. Invalid: Please collect a new specimen for repeat patient testing if clinically indicated. Lab Interpretation Normal (test code = 51127-0) [facility] [id number] 13:53:00 Test Item Value Reference Range Interpretation Comments POCT PREG (test code = 1605) Negative On board controls acceptable with C Yes Line (test code = 3574) POCT PREG LOT # (test code = 3575) POCT PREG TEST DATE (test code = 3576) Lab Interpretation (test code = Normal 55935-0) [facility] [id number] 13:53:00 Test Item Value Reference Range Interpretation Comments POCT PREG (test code = 1605) Negative On board controls acceptable with C Yes Line (test code = 3574) POCT PREG LOT # (test code = 3575) POCT PREG TEST DATE (test code = 3576) Lab Interpretation (test code = Normal 73279-5) [facility] [id number] 13:53:00 Test Item Value Reference Range Interpretation Comments POCT PREG (test code = 1605) Negative On board controls acceptable with C Yes Line (test code = 3574) POCT PREG LOT # (test code = 3575) POCT PREG TEST DATE (test code = 3576) Lab Interpretation (test code = Normal 74586-0) [facility]
[2022-02-28 16:43] LABS: Urine Blood Trace-intact (Negative); Urine Glucose Negative (Negative); Urine Protein Negative (Negative); Urine Specific Gravity 1.015 (1.005-1.030)
[2022-02-28 16:54] LABS: Urine Bacteria >50 /HPF (<20); Urine RBC <5 /HPF (NONE SEEN)
[2022-02-28] MEDS ORDERED: CEFTRIAXONE 1000 MG/VIAL ONE (17:39)
[2022-02-28] MEDS ORDERED: NA CHLORIDE 0.9% 100 ML IV ONE (17:40)
[2022-02-28] MEDS ORDERED: ONDANSETRON 4 MG/2 ML VIAL ONE (17:44)
[2022-02-28 18:03] LABS: Absolute Lymphocytes (CBC) 0.9 K/uL (0.7-4.9); Hematocrit 41.2 % (36.0-45.0); Lymphocytes % 7.1 % (15.3-44.8); MPV 8.8 fL (7.6-11.3); RBC Red Blood Cell Count 4.66 M/uL (3.86-4.86)
--- NOTE | 2022-02-28 18:14 | RAD REPORT ---
EXAM DESCRIPTION: CTAbdomen Pelvis W Contrast - 02/28/2022 6:01 pm CLINICAL HISTORY: ABD PAIN COMPARISON: CT ABD PELVIS W CONTRAST dated 03/28/2015 TECHNIQUE: CT of the abdomen and pelvis was performed. All CT scans are performed using dose optimization technique as appropriate and may include automated exposure control or mA/KV adjustment according to patient size. FINDINGS: Lower chest: No acute abnormality. Liver: No acute abnormality or suspicious lesions. Biliary: No biliary ductal dilatation. Stomach: No significant focal abnormality. Duodenum: No significant focal abnormality. Pancreas: No significant abnormality. Spleen: No significant abnormality. Adrenal: No suspicious lesions. Kidney/ureter: No hydronephrosis. No renal calculi. Faint striated nephrogram. No abscess Retroperitoneum: No retroperitoneal adenopathy. Vascular: No aneurysm. Bowel: No significant focal abnormality. Normal appendix. Peritoneum: No ascites or free air. Bladder: Grossly unremarkable. Reproductive: No adnexal masses. Bones: No acute fracture. Other: n/a IMPRESSION: Faint bilateral renal striations could reflect pyelonephritis. No abscess or hydronephro sis.
[2022-02-28 18:16] LABS: ALT/SGPT 13 U/L (12-78); AST/SGOT 12 U/L (15-37); Albumin 3.8 g/dL (3.4-5.0); Alkaline Phosphatase 85 U/L (45-117); BUN Blood Urea Nitrogen 6 mg/dL (7-18); Bicarbonate 25 mmol/L (21-32); Bilirubin Total 0.6 mg/dL (0.2-1.0); Glucose Level 97 mg/dL (74-106); Lipase 94 U/L (73-393); Potassium 3.5 mmol/L (3.5-5.1); Protein, Total 7.9 g/dL (6.4-8.2); Sodium Level 137 mmol/L (136-145)
--- NOTE | 2022-02-28 18:28 | ER ---
Nurse's Notes [facility] Name: Miller Ferguson Age: 32 yrs Sex: Female : 1990 Arrival Date: 02/28/2022 Time: 14:08 Bed 4 Private MD: Diagnosis: Pyelonephritis acute Presentation: 02/28 14:12 Chief complaint: Patient states: R lower back pain for 2 days. Foul smelling urine, but ll1 no dysuria. Bright red blood in stool for 2 days. No fever. No N/V/D. Coronavirus screen: Vaccine status: Patient reports being unvaccinated. Client denies travel out of the [place] in the last 14 days. At this time, the client does not indicate any symptoms associated with coronavirus-19. Ebola Screen: Patient denies travel to an Ebola-affected area in the 21 days before illness onset. Initial Sepsis Screen: Does the patient meet any 2 criteria? No. Patient's initial sepsis screen is negative. Does the patient have a suspected source of infection? Yes: Dysuria/Frequency/Urgency/UTI. Risk Assessment: Do you want to hurt yourself or someone else? Patient reports no desire to harm self or others. Onset of symptoms was February 27, 2022. 14:12 Method Of Arrival: Ambulatory ll1 14:12 Acuity: ADELITA 3 ll1 Triage Assessment: 14:17 General: Appears in no apparent distress. Behavior is calm, cooperative, appropriate ll1 for age. Pain: Complains of pain in R lower back Quality of pain is described as aching. GI: Reports bloody stool. : Reports foul smelling urine. Historical: - Allergies: 14:14 Lamisil; ll1 14:14 terbinafine HCl; ll1 - PMHx: 14:14 cyst removed from ovary; ll1 - PSHx: 14:14 section; ll1 - Immunization history:: Client reports having NOT received the Covid vaccine. Flu vaccine is not up to date. - Social history:: Smoking status: Patient denies any tobacco usage or history of. Screenin:55 Abuse screen: Denies threats or abuse. Nutritional screening: No deficits noted. vg1 Tuberculosis screening: No symptoms or risk factors identified. Fall Risk No fall in past 12 months (0 pts). No secondary diagnosis (0 pts). IV access (20 points). Ambulatory Aid- None/Bed Rest/Nurse Assist (0 pts). Gait- Normal/Bed Rest/Wheelchair (0 pts) Mental Status- Oriented to own ability (0 pts). Total Duarte Fall Scale indicates No Risk (0-24 pts). Assessment: 17:52 General: Appears in no apparent distress. uncomfortable, Behavior is calm, cooperative. vg1 Pain: Complains of pain in right lower quadrant and lower back Pain currently is 10 out of 10 on a pain scale. Pain began 1 day ago. Neuro: Level of Consciousness is awake, alert, obeys commands, Oriented to person, place, time, situation. Cardiovascular: Patient's skin is warm and dry. Respiratory: Airway is patent Respiratory effort is even, unlabored. GI: Abdomen is flat, Last BM was February 27, 2022. Reports rectal bleeding, bloody stool, nausea, since yesterday. : Denies burning with urination, urinary frequency. EENT: No signs and/or symptoms were reported regarding the EENT system. Derm: Skin is intact, is healthy with good turgor. Musculoskeletal: Circulation, motion, and sensation intact. 18:52 Reassessment: Patient appears in no apparent distress at this time. No changes from vg1 previously documented assessment. Patient and/or family updated on plan of care and expected duration. Pain level reassessed. Patient is alert, oriented x 3, equal unlabored respirations, skin warm/dry/pink. Vital Signs: 14:12 BP 120 / 71; Pulse 88; Resp 16; Temp 98.4; Pulse Ox 100% ; Weight 60.78 kg; Height 5 ll1 ft. 2 in. (157.48 cm); Pain 8/10; 15:30 BP 127 / 85; Pulse 78; Resp 16; Pulse Ox 100% ; vg1 16:30 BP 106 / 82; Pulse 70; Resp 15; Pulse Ox 98% on R/A; vg1 17:30 BP 94 / 76; Pulse 90; Resp 16; Pulse Ox 99% on R/A; vg1 18:30 BP 98 / 63; Pulse 78; Resp 15; Pulse Ox 100% ; vg1 14:12 Body Mass Index 24.51 (60.78 kg, 157.48 cm) ll1 ED Course: 14:08 Patient arrived in ED. rg4 14:14 Triage completed. ll1 14:16 Arm band placed on. ll1 14:18 Kendall Parham NP is PHCP. pm1 14:18 Roel Baires MD is Attending Physician. pm1 16:44 Urine Microscopic Only Sent. ll1 17:26 Patient placed in an exam room, on a stretcher. ss 17:28 Kelsie Richards, RN is Primary Nurse. vg1 17:45 Initial lab(s) drawn, by me, sent to lab. Inserted saline lock: 20 gauge in right vg1 antecubital area, using aseptic technique. Blood collected. 17:55 Patient has correct armband on for positive identification. Placed in gown. Bed in low vg1 position. Call light in reach. Side rails up X 1. 18:02 CT Abd/Pelvis - IV Contrast Only In Process Unspecified. EDMS 19:06 No provider procedures requiring assistance completed. IV discontinued, intact, vg1 bleeding controlled, No redness/swelling at site. Pressure dressing applied. Administered Medications: 17:48 Drug: Zofran (Ondansetron) 4 mg Route: IVP; Site: right antecubital; vg1 18:55 Follow up: Response: No adverse reaction; Marked relief of symptoms vg1 18:10 Drug: Rocephin (cefTRIAXone) 1 grams Route: IV; Rate: calculated rate; Site: right vg1 antecubital; 18:55 Follow up: IV Status: Completed infusion vg1 18:58 Drug: morphine 4 mg Route: IVP; Site: right antecubital; vg1 19:05 Follow up: Response: No adverse reaction; Medication administered at discharge. vg1 Outcome: 18:28 Discharge ordered by . pm1 19:05 Discharged to home ambulatory, with family. vg1 19:05 Condition: good 19:05 Discharge instructions given to patient, Instructed on discharge instructions, follow up and referral plans. medication usage, Demonstrated understanding of instructions, follow-up care, medications, Prescriptions given X 2. 19:06 Patient left the ED. vg1 Addendum: 03/04/2022 08:38 Addendum: Culture Results: Positive urine culture. No further action required. Bacteria i w sensitive to prescribed antibiotic. Signatures: Dispatcher [employer] EDNC Yoly Copeland RN RN Linda Pitt RN RN Kendall Parham, AUTO CLUB SAFETY PROGRAM COORDINATOR AUTO CLUB SAFETY PROGRAM COORDINATOR pm1 Dariana Richards rg4 Kelsie Richards, RN RN vg1 Ernie Barclay RN RN ll1 Corrections: (The following items were deleted from the chart) 02/28 14:16 14:14 PMHx: None; ll1 ll1
--- NOTE | 2022-02-28 18:29 | EDPHYS ---
Physician Documentation [facility] Name: Miller Ferguson Age: 32 yrs Sex: Female : 1990 Arrival Date: 02/28/2022 Time: 14:08 Bed 4 Private MD: ED Physician Roel Baires HPI: 02/28 14:21 This 32 yrs old Female presents to ER via Ambulatory with complaints of Low pm1 Back Pain, Bloody Stools. 14:21 The patient presents with pain that is acute, with no known mechanism of injury. The pm1 symptoms are located in the low back. The pain does not radiate. The problem was sustained from unknown cause. 14:21 Onset: The symptoms/episode began/occurred 2 day(s) ago. Modifying factors: The patient pm1 symptoms are alleviated by nothing, the patient symptoms are aggravated by nothing. Associated signs and symptoms: Pertinent positives: Bright red blood with bowel movement, wiping. Foul-smelling urine, Pertinent negatives: dysuria, fever. Severity of symptoms: in the emergency department the symptoms are actually worse. The patient has not experienced similar symptoms in the past. The patient has not recently seen a physician. Historical: - Allergies: 14:14 Lamisil; ll1 14:14 terbinafine HCl; ll1 - PMHx: 14:14 cyst removed from ovary; ll1 - PSHx: 14:14 section; ll1 - Immunization history:: Client reports having NOT received the Covid vaccine. Flu vaccine is not up to date. - Social history:: Smoking status: Patient denies any tobacco usage or history of. ROS: 14:21 Constitutional: Negative for fever, chills, and weight loss, Cardiovascular: Negative pm1 for chest pain, palpitations, and edema, Respiratory: Negative for shortness of breath, cough, wheezing, and pleuritic chest pain. 14:21 : Negative for injury, bleeding, discharge, and swelling, MS/Extremity: Negative for injury and deformity, Skin: Negative for injury, rash, and discoloration. 14:21 Neuro: Negative for headache, weakness, numbness, tingling, and seizure. 14:21 Abdomen/GI: Positive for rectal bleeding, Negative for abdominal pain, nausea, vomiting, and diarrhea, constipation. 14:21 Back: Positive for of the left low back and right low back, pain. 14:21 All other systems are negative. Exam: 14:21 Constitutional: This is a well developed, well nourished patient who is awake, alert, pm1 and in no acute distress. Head/Face: Normocephalic, atraumatic. 14:21 Skin: Warm, dry with normal turgor. Normal color with no rashes, no lesions, and no evidence of cellulitis. MS/ Extremity: Pulses equal, no cyanosis. Neurovascular intact. Full, normal range of motion. 14:21 Eyes: Exam is negative for acute changes, Periorbital structures: appear normal, Extraocular movements: no acute changes, Conjunctiva: no acute changes, no injection. 14:21 ENT: Exam is negative for acute changes, Mouth: no acute changes, Lips: normal, moist, Oral mucosa: normal, pink and intact, moist. 14:21 Cardiovascular: Exam negative for acute changes, Rate: normal, Rhythm: regular, Pulses: no pulse deficits are appreciated, Heart sounds: normal. 14:21 Respiratory: Exam negative for acute changes, respiratory distress, shortness of breath, Breath sounds: are clear throughout. 14:21 Abdomen/GI: Inspection: abdomen appears normal, Palpation: abdomen is soft and non-tender, in all quadrants. 14:21 Back: pain, that is mild, of the left low back and right low back. 14:21 Neuro: Exam negative for acute changes, Orientation: is normal, Mentation: is normal, Motor: moves all fours, Gait: is steady, at a normal pace, without difficulty. Vital Signs: 14:12 BP 120 / 71; Pulse 88; Resp 16; Temp 98.4; Pulse Ox 100% ; Weight 60.78 kg; Height 5 ll1 ft. 2 in. (157.48 cm); Pain 8/10; 15:30 BP 127 / 85; Pulse 78; Resp 16; Pulse Ox 100% ; vg1 16:30 BP 106 / 82; Pulse 70; Resp 15; Pulse Ox 98% on R/A; vg1 17:30 BP 94 / 76; Pulse 90; Resp 16; Pulse Ox 99% on R/A; vg1 18:30 BP 98 / 63; Pulse 78; Resp 15; Pulse Ox 100% ; vg1 14:12 Body Mass Index 24.51 (60.78 kg, 157.48 cm) ll1 MDM: 15:17 Patient medically screened. pm1 18:22 ED course: Patient evaluation of her bright red rectal bleeding. Patient deferred and pm1 informed her that this bright red is present with wiping possibly it is likely a hemorrhoid. Educated patient on labs and CT findings or pyelonephritis. 18:27 Data reviewed: vital signs. Data interpreted: Pulse oximetry: on room air is 100 %. pm1 Interpretation: normal. Counseling: I had a detailed discussion with the patient and/or guardian regarding: the historical points, exam findings, and any diagnostic results supporting the discharge/admit diagnosis, lab results, radiology results, the need for outpatient follow up, to return to the emergency department if symptoms worsen or persist or if there are any questions or concerns that arise at home. 02/28 14:19 Order name: CBC with Diff pm1 02/28 14:19 Order name: CMP; Complete Time: 18:19 pm1 02/28 14:19 Order name: Lipase; Complete Time: 18:19 pm1 02/28 14:19 Order name: Urine Microscopic Only; Complete Time: 17:07 pm1 02/28 16:43 Order name: Urine Dipstick-Ancillary; Complete Time: 16:53 EDDC 02/28 16:57 Order name: Urine Culture [facility] 02/28 14:19 Order name: Urine Dipstick-Ancillary (obtain specimen); Complete Time: 16:44 pm1 02/28 14:19 Order name: Urine Test (obtain specimen); Complete Time: 16:44 pm1 02/28 14:19 Order name: CT Abd/Pelvis - IV Contrast Only; Complete Time: 18:19 pm1 02/28 14:19 Order name: IV Saline Lock; Complete Time: 17:52 pm1 02/28 14:19 Order name: Labs collected and sent; Complete Time: 17:52 pm1 Administered Medications: 17:48 Drug: Zofran (Ondansetron) 4 mg Route: IVP; Site: right antecubital; vg1 18:55 Follow up: Response: No adverse reaction; Marked relief of symptoms vg1 18:10 Drug: Rocephin (cefTRIAXone) 1 grams Route: IV; Rate: calculated rate; Site: right vg1 antecubital; 18:55 Follow up: IV Status: Completed infusion vg1 18:58 Drug: morphine 4 mg Route: IVP; Site: right antecubital; vg1 19:05 Follow up: Response: No adverse reaction; Medication administered at discharge. vg1 Disposition Summary: 02/28/22 18:28 Discharge Ordered Location: Home pm1 Problem: new pm1 Symptoms: have improved pm1 Condition: Stable pm1 Diagnosis - Pyelonephritis acute pm1 Followup: pm1 - With: Emergency Department - When: As needed - Reason: Worsening of condition Followup: pm1 - With: Private Physician - When: 2 - 3 days - Reason: Recheck today's complaints, Continuance of care, Re-evaluation by your physician Discharge Instructions: - Discharge Summary Sheet pm1 - Pyelonephritis, Adult pm1 Forms: - Medication Reconciliation Form pm1 - Thank You Letter pm1 - Antibiotic Education pm1 - Prescription Opioid Use pm1 Prescriptions: - Tylenol-Codeine #3 300 mg-30 mg Oral - take 2 tablet by ORAL route every 6 hours As needed; 20 tablet; Refills: 0, pm1 Product Selection Permitted - Cipro 500 mg Oral Tablet - take 1 tablet by ORAL route every 12 hours for 10 days; 20 tablet; Refills: 0, pm1 Product Selection Permitted Addendum: 03/04/2022 18:37 Co-signature as Attending Physician, Roel Baires MD I agree with the assessment and c cruz plan of care. Signatures: Dispatcher [employer] Roel Asher MD MD cha Marinas, Patrick, PROGRAMMER OPERATOR NUMERICAL CONTROL PROGRAMMER OPERATOR NUMERICAL CONTROL pm1 Kelsie Richards RN RN 1 Ernie Barclay RN RN 1 Corrections: (The following items were deleted from the chart) 02/28 14:16 14:14 PMHx: None; ll1 ll1
[2022-02-28] MEDS ORDERED: MORPHINE 4 MG/ML SYR ONE (19:00)
[2022-02-28 19:40] LABS: Blood Morphology Comment NOT SEEN (NOT SEEN); Platelet Estimate ADEQ; White Blood Cell Scan OK (OK)
[2022-02-28 19:52] VITALS: TEMP 98.4
[2022-02-28 19:58] VITALS: BP 98/63; O2SAT 100
== END 2022-02-28 19:06 | disposition home or self-care (01) ==
LOC: ER 14:06
DX: N10 Acute pyelonephritis (principal); K62.5 Hemorrhage of anus and rectum; Z88.8 Allergy status to other drugs, medicaments and biological substances
CPT/HCPCS: 36415; 74177; 80053; 81003; 81015; 83690; 85025; 87077; 87086; 87088; 87186; 96365; 96375; 99284; J2405; Q9967

== ENCOUNTER 2022-12-08 12:08 | Emergency (ER) | payer SELFPAY ==
--- NOTE | 2022-12-08 12:21 | ER ---
Nurse's Notes [facility] Name: Miller Ferguson Age: 32 yrs Sex: Female : 1990 Arrival Date: 12/08/2022 Time: 12:10 Bed Waiting Private MD: Diagnosis: Unspecified conjunctivitis Presentation: 12/08 12:19 Chief complaint: Patient states: she has been having green discharge from the eyes, ap3 with matting and itching for approx 2 days. Coronavirus screen: At this time, the client does not indicate any symptoms associated with coronavirus-19. Ebola Screen: No symptoms or risks identified at this time. Initial Sepsis Screen: Does the patient meet any 2 criteria? No. Patient's initial sepsis screen is negative. Does the patient have a suspected source of infection? No. Patient's initial sepsis screen is negative. Risk Assessment: Do you want to hurt yourself or someone else? Patient reports no desire to harm self or others. Onset of symptoms was December 06, 2022. 12:19 Method Of Arrival: Ambulatory ap3 12:19 Acuity: ADELITA 4 ap3 Triage Assessment: 12:22 General: Appears in no apparent distress. Behavior is calm, cooperative. Pain: ap3 Complains of pain in right eye and left eye. Neuro: Level of Consciousness is awake, alert, obeys commands, Oriented to person, place, time, situation. Cardiovascular: Patient's skin is warm and dry. Respiratory: Airway is patent Respiratory effort is even, unlabored. AUTOMATIC TRANSMISSION MECHANIC: 12:22 LMP N/A - Irregular menses ap3 Historical: - Allergies: 12:21 Lamisil; ap3 12:21 terbinafine HCl; ap3 - Home Meds: 12:21 None [Active]; ap3 - PMHx: 12:21 cyst removed from ovary; ap3 - PSHx: 12:21 section; ap3 - Immunization history:: Client reports having NOT received the Covid vaccine. Flu vaccine is up to date. - Social history:: Smoking status: Patient denies any tobacco usage or history of. Screenin:22 [facility] ED Fall Risk Assessment (Adult) History of falling in the last 3 months, ap3 including since admission No falls in past 3 months (0 pts). Abuse screen: Denies threats or abuse. Nutritional screening: No deficits noted. Tuberculosis screening: No symptoms or risk factors identified. Vital Signs: 12:19 Pulse 66; Temp 98.5; Pulse Ox 100% ; Weight 67.13 kg; Height 5 ft. 2 in. (157.48 cm); ap3 12:22 BP 108 / 76; ap3 12:19 Body Mass Index 27.07 (67.13 kg, 157.48 cm) ap3 ED Course: 12:10 Patient arrived in ED. rg4 12:11 Altagracia Gonzalez FNP-C is [facility]. kb 12:11 Antonio Washburn MD is Attending Physician. kb 12:21 Triage completed. ap3 12:22 Arm band placed on right wrist. ap3 12:22 Patient has correct armband on for positive identification. ap3 12:22 No provider procedures requiring assistance completed. Patient did not have IV access ap3 during this emergency room visit. Administered Medications: No medications were administered Medication: 12:22 VIS not applicable for this client. ap3 Outcome: 12:21 Discharge ordered by . kb 12:28 Discharged to home ambulatory. ap3 12:28 Condition: good 12:28 Discharge instructions given to patient, Instructed on discharge instructions, follow up and referral plans. medication usage, Demonstrated understanding of instructions, follow-up care, medications, Prescriptions given X 1. 12:29 Patient left the ED. ap3 Signatures: Altagracia Gonzalez FNP-C FNP-Ckb Garcia, Rubi rg4 Jeni Kurtz, RN RN ap3
--- NOTE | 2022-12-08 12:21 | EDPHYS ---
Physician Documentation [facility] Name: Miller Ferguson Age: 32 yrs Sex: Female : 1990 Arrival Date: 12/08/2022 Time: 12:10 Bed Waiting Private MD: ED Physician Antonio Washburn HPI: 12/08 17:41 This 32 yrs old Female presents to ER via Ambulatory with complaints of Eye kb Problem. 17:41 The patient is experiencing matting or discharge, The patient sustained None. to both kb eyes, caused by an unknown mechanism. Onset: The symptoms/episode began/occurred 2 day(s) ago. Duration: the symptoms are continuous. Aggravated by nothing. Alleviated by nothing. Associated signs and symptoms: Pertinent positives: None. Patient does not utilize any form of vision correction. Severity of symptoms: At their worst the symptoms were mild in the emergency department the symptoms are unchanged. The patient has not experienced similar symptoms in the past. The patient has not recently seen a physician. Pt reports matting, itching, and green discharge from both eyes for 2 days. CLINICAL SUPPORT TECH: 12:22 LMP N/A - Irregular menses ap3 Historical: - Allergies: 12:21 Lamisil; ap3 12:21 terbinafine HCl; ap3 - Home Meds: 12:21 None [Active]; ap3 - PMHx: 12:21 cyst removed from ovary; ap3 - PSHx: 12:21 section; ap3 - Immunization history:: Client reports having NOT received the Covid vaccine. Flu vaccine is up to date. - Social history:: Smoking status: Patient denies any tobacco usage or history of. ROS: 17:41 Constitutional: Negative for fever, chills, and weight loss. kb 17:41 Eyes: Positive for discharge, itching, matting. 17:41 All other systems are negative. Exam: 17:41 Constitutional: This is a well developed, well nourished patient who is awake, alert, kb and in no acute distress. Head/Face: Normocephalic, atraumatic. Eyes: Pupils equal round and reactive to light, extra-ocular motions intact. Lids and lashes normal. Conjunctiva and sclera are non-icteric and not injected. Periorbital areas with no swelling, redness, or edema. ENT: Moist Mucous membranes Cardiovascular: Regular rate and rhythm with a normal S1 and S2. No gallops, murmurs, or rubs. No pulse deficits. Respiratory: Respirations even and unlabored. No increased work of breathing. Talking in full sentences Abdomen/GI: Soft, non-tender. No distention Skin: Warm, dry with normal turgor. Normal color. MS/ Extremity: Pulses equal, no cyanosis. Neurovascular intact. Full, normal range of motion. Neuro: Awake and alert, GCS 15, oriented to person, place, time, and situation. Moves all extremities. Normal gait. Vital Signs: 12:19 Pulse 66; Temp 98.5; Pulse Ox 100% ; Weight 67.13 kg; Height 5 ft. 2 in. (157.48 cm); ap3 12:22 BP 108 / 76; ap3 12:19 Body Mass Index 27.07 (67.13 kg, 157.48 cm) ap3 MDM: 12:21 Patient medically screened. kb 17:13 Data reviewed: vital signs, nurses notes. kb 17:40 Differential diagnosis: Corneal abrasion of Foreign body in Counseling: I had a kb detailed discussion with the patient and/or guardian regarding: the historical points, exam findings, and any diagnostic results supporting the discharge/admit diagnosis, the need for outpatient follow up, a family practitioner, to return to the emergency department if symptoms worsen or persist or if there are any questions or concerns that arise at home. 17:42 I considered the following discharge prescriptions or medication management in the emergency department I discussed and recommended Over The Counter medications. Administered Medications: No medications were administered Disposition Summary: 12/08/22 12:21 Discharge Ordered Location: Home Condition: Stable Diagnosis - Unspecified conjunctivitis Followup: kb - With: Emergency Department - When: As needed - Reason: Worsening of condition Followup: kb - With: Private Physician - When: 2 - 3 days - Reason: Recheck today's complaints, Continuance of care, Re-evaluation by your physician Discharge Instructions: - Discharge Summary Sheet kb - Bacterial Conjunctivitis, Adult, [id number] kb Forms: - Medication Reconciliation Form kb - Thank You Letter kb - Antibiotic Education kb - Prescription Opioid Use Prescriptions: - Erythromycin 5 mg/gram (0.5 %) Ophthalmic Ointment - apply 1 centimeter by OPHTHALMIC route 2-3 times daily for 7 days; 1 tube; kb Refills: 0, Product Selection Permitted Signatures: Altagracia Gonzalez, ANELC LICENSED DIRECT ENTRY MIDWIFE-Jeni Mohr, RN RN ap3
[2022-12-08 12:38] VITALS: TEMP 98.5; O2SAT 100
[2022-12-08 12:39] VITALS: BP 108/76
== END 2022-12-08 12:29 | disposition home or self-care (01) ==
LOC: ER 12:08
DX: H10.9 Unspecified conjunctivitis (principal); Z88.8 Allergy status to other drugs, medicaments and biological substances
CPT/HCPCS: 99281

== ENCOUNTER 2023-03-21 16:44 | Emergency (ER) | payer OTHER ==
[2023-03-21] MEDS ORDERED: ONDANSETRON 4 MG/2 ML VIAL ONE (17:41)
[2023-03-21] MEDS ORDERED: KETOROLAC 30 MG/ML INJ ONE (17:41)
[2023-03-21] MEDS ORDERED: NA CHLORIDE 0.9% 1,000 ML ONE (17:41)
--- NOTE | 2023-03-21 18:37 | RAD REPORT ---
EXAM DESCRIPTION: US - Transvaginal Study Probe - 03/21/2023 6:05 pm CLINICAL HISTORY: PAIN COMPARISON: PELVIC COMPLETE dated 03/28/2015; OB Complete dated 02/26/2016 TECHNIQUE: Sonographic grayscale and color flow images of the pelvis were obtained through transva ginal and transabdominal approach. FINDINGS: The uterus is normal in size, measuring 6.2 centimeter in long axis. Uterus is retroverted . No focal myometrial lesion. 1 centimeter rounded hypoechoic region in the cervix. The endometrial stripe measures 8 mm, normal. Endometrial cavity contains trace amount of fluid. Both ovaries are normal in size, shape and echotexture. The right ovary measures 1.8 x 2.1 x 2.6 vivian timeter. The left ovary measures 1.8 x 2.1 x 1.6 centimeter. No ovarian or parovarian lesions, both ovaries demonstrate normal-appearing peripheral foci. No adnexal masses. Normal Doppler blood flow was demonstrated to both ovaries. No significant pelvic ascites. IMPRESSION: Retroverted uterus. Trace fluid within the endometrial cavity. Endometrium is not abnormally thickened. 1 centimeter hypoechoic region in the cervix. Please correlate with biopsy results.
[2023-03-21 18:54] LABS: Specific Gravity 1.008 (1.005-1.030); Urine Bacteria 20-50 /HPF (<20); Urine Bilirubin NEGATIVE (Negative); Urine Blood 3+ (OVER) (Negative); Urine Clarity Clear (Clear); Urine Color Colorless (Yellow); Urine Glucose NEGATIVE (Negative); Urine Mucus Slight /HPF (None Seen); Urine Protein NEGATIVE (Negative); Urine Urobilinogen Normal (Normal); Urine pH 6.5 (5.0-7.0)
[2023-03-21 19:00] LABS: Specific Gravity 1.008 (1.005-1.030)
[2023-03-21 19:02] LABS: Absolute Lymphocytes (CBC) 2.6 K/uL (0.7-4.9); Lymphocytes % 33.4 % (15.3-44.8); MCV 88.5 fL (80-100); MPV 8.7 fL (7.6-11.3); RBC Red Blood Cell Count 4.75 M/uL (3.86-4.86)
[2023-03-21 19:06] LABS: Bilirubin Total 0.3 mg/dL (0.2-1.0); Potassium 3.6 mEq/L (3.5-5.1); Protein, Total 8.2 g/dL (6.4-8.2)
[2023-03-21] MEDS ORDERED: CEFTRIAXONE 1000 MG/VIAL ONE (19:30)
[2023-03-21] MEDS ORDERED: NA CHLORIDE 0.9% 50 ML ONE (19:31)
--- NOTE | 2023-03-21 20:06 | RAD REPORT ---
EXAM DESCRIPTION: CT - Abdomen Pelvis W Contrast - 03/21/2023 7:37 pm CLINICAL HISTORY: ABD PAIN COMPARISON: Abdomen Pelvis W Contrast dated 02/28/2022; CT ABD PELVIS W CONTRAST dated 03/28/2015 TECHNIQUE: Thin cut axial CT imaging of the abdomen and pelvis was performed following intravenous a dministration of 100 mL Isovue 300. Multiplanar reformats were generated and reviewed. All CT scans are performed using dose optimization technique as appropriate and may include automated exposure control or mA/KV adjustment according to patient size. FINDINGS: No suspicious findings in the lung bases. The liver, spleen, and pancreas show no suspicious findings. Gallbladder and biliary tree are also wi thout suspicious finding. Symmetric renal function is seen with no hydronephrosis or suspicious renal mass. No dilated bowel loops or bowel wall thickening. No free air, free fluid or inflammatory stranding. N o hernia, mass or bulky lymphadenopathy. The urinary bladder is suboptimally distended limiting evalu ation, without significant finding. Uterus is retroverted. No suspicious bony findings. Left superior pubic ramus right focus, suggestive of bone island, stable . IMPRESSION: No acute intra-abdominal process. Incidental findings as above.
--- NOTE | 2023-03-21 20:08 | ER ---
Nurse's Notes [facility] Name: Miller Ferguson Age: 33 yrs Sex: Female : 1990 Arrival Date: 03/21/2023 Time: 16:44 Bed 15 Private MD: Diagnosis: Abdominal tenderness;Pelvic and perineal pain-SP COLPOSCOPY;UTI/ Urinary tract infection, site not specified Presentation: 03/21 17:02 Chief complaint: Patient states: "Last I got a colposcopy in [place] at [address], they told me there would be painful and discharge. But this morning I started feeling sharp pains in my pelves, bloody/brown discharge, right side of stomach, and back. It's gotten worse throughout the day.". Coronavirus screen: At this time, the client does not indicate any symptoms associated with coronavirus-19. Ebola Screen: No symptoms or risks identified at this time. Initial Sepsis Screen: Does the patient meet any 2 criteria? No. Patient's initial sepsis screen is negative. Does the patient have a suspected source of infection? No. Patient's initial sepsis screen is negative. Risk Assessment: Do you want to hurt yourself or someone else? Patient reports no desire to harm self or others. Onset of symptoms was March 21, 2023. 17:02 Method Of Arrival: Ambulatory [facility] 17:02 Acuity: ADELITA 3 9 Triage Assessment: 17:05 General: Appears uncomfortable, Behavior is cooperative. Pain: Complains of pain in 9 pelvis Pain radiates to RLQ and right side of back Pain currently is 10 out of 10 on a pain scale. Quality of pain is described as throbbing, Pain began suddenly. Neuro: Level of Consciousness is awake, alert, obeys commands, Oriented to person, place, time, situation, Appropriate for age. Cardiovascular: Patient's skin is warm and dry. GI: Abdomen is flat, Bowel sounds present X 4 quads. Abd is soft Abdomen is tender to palpation in suprapubic area and right lower quadrant. :. Derm: Skin is pink, warm \\T\\ dry. Musculoskeletal: Range of motion: intact in all extremities. 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 - Social history:: Smoking status: Patient denies any tobacco usage or history of. Screenin:[facility] ED Fall Risk Assessment (Adult) Score/Fall Risk Level 0 - 2 = Low Risk. Abuse eh3 screen: Denies threats or abuse. Denies injuries from another. Nutritional screening: No deficits noted. Tuberculosis screening: No symptoms or risk factors identified. Assessment: 17:06 Reassessment: see triage assessment. mb9 18:00 General: Appears in no apparent distress. uncomfortable, Behavior is calm, cooperative, eh3 appropriate for age. Pain: Complains of pain in right upper quadrant and right lower quadrant and suprapubic area. Neuro: Level of Consciousness is awake, alert, obeys commands, Oriented to person, place, time, situation. Cardiovascular: Capillary refill < 3 seconds Patient's skin is warm and dry. Respiratory: Airway is patent Respiratory effort is even, unlabored, Respiratory pattern is regular, symmetrical. GI: Abdomen is round non-distended. : Reports vaginal bleeding that is spotty, due to recent vaginal biopsy. EENT: No signs and/or symptoms were reported regarding the EENT system. Derm: Skin is intact, is healthy with good turgor, Skin is pink, warm \\T\\ dry. Musculoskeletal: Circulation, motion, and sensation intact. 18:30 Reassessment: Patient appears in no apparent distress at this time. Patient and/or eh3 family updated on plan of care and expected duration. Pain level reassessed. Patient is alert, oriented x 3, equal unlabored respirations, skin warm/dry/pink. 19:30 Reassessment: Patient appears in no apparent distress at this time. Patient and/or eh3 family updated on plan of care and expected duration. Pain level reassessed. Patient is alert, oriented x 3, equal unlabored respirations, skin warm/dry/pink. Vital Signs: 17:02 BP 111 / 86; Pulse 86; Resp 18; Temp 98.4; Pulse Ox 100% ; Weight 68.49 kg; Height 5 9 ft. 2 in. ; Pain 10/10; 18:30 BP 103 / 81; Pulse 71; Resp 18; Pulse Ox 100% on R/A; eh3 19:30 BP 94 / 81; Pulse 68; Resp 18; Pulse Ox 100% on R/A; eh3 17:02 Body Mass Index 27.62 (68.49 kg, 157.48 cm) 9 17:02 Pain Scale: Adult 9 ED Course: 16:46 Patient arrived in ED. rg4 16:47 Roel Baires MD is Attending Physician. [facility] 17:04 Triage completed. 9 17:04 Arm band placed on. 9 17:05 No provider procedures requiring assistance completed. 9 17:33 Radiology exam delayed due to lab results not completed at this time. (BUN/Creatinine) jg10 test not completed at this time. IV insertion attempt and/or patient not having appropriate IV at this time. 18:00 Patient has correct armband on for positive identification. Bed in low position. Call eh3 light in reach. Side rails up X2. Pulse ox on. NIBP on. Door closed. Noise minimized. Lights dimmed. Warm blanket given. 18:07 US Transvaginal Study (Probe) In Process Unspecified. EDMS 18:30 Inserted saline lock: 20 gauge in left antecubital area, using aseptic technique. Blood eh3 collected. 19:37 CT Abd/Pelvis - IV Contrast Only In Process Unspecified. EDMS 20:45 IV discontinued, intact, bleeding controlled, No redness/swelling at site. Pressure eh3 dressing applied. Administered Medications: 17:11 CANCELLED (Duplicate Order): morphine IVP or IV 4 mg IVP once over 4 mins [facility] 18:30 Drug: NS 0.9% IV 1000 ml Route: IV; Rate: 1 bolus; Site: left antecubital; eh3 20:00 Follow up: IV Status: Completed infusion; IV Intake: 1000ml 3 18:30 Drug: TORadol - Ketorolac IVP 15 mg Route: IVP; Site: left antecubital; eh3 20:00 Follow up: Response: No adverse reaction 3 18:30 Drug: Ondansetron IVP 4 mg Route: IVP; Site: left antecubital; eh3 20:00 Follow up: Response: No adverse reaction 3 20:00 Drug: Rocephin IV 1 grams Route: IV; Rate: per protocol; Site: left antecubital; 3 20:45 Follow up: Response: No adverse reaction; IV Status: Completed infusion; IV Intake: [id number] Medication: 20:45 VIS not applicable for this client. eh3 Intake: 20:00 IV: 1000ml; Total: 1000ml. eh3 20:45 IV: 50ml; Total: 1050ml. 3 Outcome: 20:07 Discharge ordered by . eugene 20:45 Discharged to home ambulatory. 3 20:45 Condition: stable 20:45 Discharge instructions given to patient, Instructed on discharge instructions, follow up and referral plans. medication usage, Demonstrated understanding of instructions, follow-up care, medications, Prescriptions given X 4. 20:59 Patient left the ED. 3 Signatures: Dispatcher [employer] EDMS Roel Baires MD MD cha Garcia, Rubi rg4 Carmen Deutsch RN RN eh3 Mary Burt, CANDELARIA RN Chante Linares Mary Beth RN RN mb9 Corrections: (The following items were deleted from the chart) 17:05 17:02 Chief complaint: Patient states: "Last I got a colposcopy, they told me mb9 there would be painful and discharge. But this morning I started feeling sharp pains in my pelves, bloody/brown discharge, right side of stomach, and back. It's gotten worse throughout the day." mb9 19:21 19:00 Reassessment: Patient appears in no apparent distress at this time. Patient 3 and/or family updated on plan of care and expected duration. Pain level reassessed. Patient is alert, oriented x 3, equal unlabored respirations, skin warm/dry/pink. 3 21:06 17:31 Mary Burt, RN is Primary Nurse. kc6 3
--- NOTE | 2023-03-21 20:08 | EDPHYS ---
Physician Documentation [facility] Name: Miller Ferguson Age: 33 yrs Sex: Female : 1990 Arrival Date: 03/21/2023 Time: 16:44 Bed 15 Private MD: ED Physician Roel Baires HPI: 03/21 17:12 This 33 yrs old Female presents to ER via Ambulatory with complaints of eugene Abdominal Pain, Back Pain. 17:12 The patient presents with pain that is acute, with no known mechanism of injury. The eugene symptoms are located in the low back. 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 - Social history:: Smoking status: Patient denies any tobacco usage or history of. ROS: 17:12 Constitutional: Negative for fever, chills, and weight loss, Eyes: Negative for injury, eugene pain, redness, and discharge, ENT: Negative for injury, pain, and discharge, Neck: Negative for injury, pain, and swelling, Cardiovascular: Negative for chest pain, palpitations, and edema, Respiratory: Negative for shortness of breath, cough, wheezing, and pleuritic chest pain, Back: Negative for injury and pain, : Negative for injury, bleeding, discharge, and swelling, MS/Extremity: Negative for injury and deformity, Skin: Negative for injury, rash, and discoloration, Neuro: Negative for headache, weakness, numbness, tingling, and seizure, Psych: Negative for depression, anxiety, suicide ideation, homicidal ideation, and hallucinations, Allergy/Immunology: Negative for hives, rash, and allergies, Endocrine: Negative for neck swelling, polydipsia, polyuria, polyphagia, and marked weight changes, Hematologic/Lymphatic: Negative for swollen nodes, abnormal bleeding, and unusual bruising. 17:12 Abdomen/GI: Positive for abdominal pain, of the right upper quadrant and right lower quadrant. Exam: 17:12 Constitutional: This is a well developed, well nourished patient who is awake, alert, eugene and in no acute distress. Head/Face: Normocephalic, atraumatic. Eyes: Pupils equal round and reactive to light, extra-ocular motions intact. Lids and lashes normal. Conjunctiva and sclera are non-icteric and not injected. Cornea within normal limits. Periorbital areas with no swelling, redness, or edema. ENT: Nares patent. No nasal discharge, no septal abnormalities noted. Tympanic membranes are normal and external auditory canals are clear. Oropharynx with no redness, swelling, or masses, exudates, or evidence of obstruction, uvula midline. Mucous membranes moist. Neck: Trachea midline, no thyromegaly or masses palpated, and no cervical lymphadenopathy. Supple, full range of motion without nuchal rigidity, or vertebral point tenderness. No Meningismus. Chest/axilla: Normal chest wall appearance and motion. Nontender with no deformity. No lesions are appreciated. Cardiovascular: Regular rate and rhythm with a normal S1 and S2. No gallops, murmurs, or rubs. Normal PMI, no JVD. No pulse deficits. Respiratory: Lungs have equal breath sounds bilaterally, clear to auscultation and percussion. No rales, rhonchi or wheezes noted. No increased work of breathing, no retractions or nasal flaring. Back: No spinal tenderness. No costovertebral tenderness. Full range of motion. Skin: Warm, dry with normal turgor. Normal color with no rashes, no lesions, and no evidence of cellulitis. MS/ Extremity: Pulses equal, no cyanosis. Neurovascular intact. Full, normal range of motion. Neuro: Awake and alert, GCS 15, oriented to person, place, time, and situation. Cranial nerves II-XII grossly intact. Motor strength 5/5 in all extremities. Sensory grossly intact. Cerebellar exam normal. Normal gait. Psych: Awake, alert, with orientation to person, place and time. Behavior, mood, and affect are within normal limits. 17:12 Abdomen/GI: Inspection: abdomen appears normal, Bowel sounds: normal, Palpation: mild abdominal tenderness, moderate abdominal tenderness, in the right upper quadrant and right lower quadrant, Liver: no appreciated palpable abnormalities, Hernia: not appreciated. 17:12 Back: Exam negative for acute changes, CVA tenderness, decreased ROM, deformity, ecchymosis injury, kyphosis, muscle spasm, pain at rest, painful ROM, scoliosis. Vital Signs: 17:02 BP 111 / 86; Pulse 86; Resp 18; Temp 98.4; Pulse Ox 100% ; Weight 68.49 kg; Height 5 mb9 ft. 2 in. ; Pain 10/10; 18:30 BP 103 / 81; Pulse 71; Resp 18; Pulse Ox 100% on R/A; eh3 19:30 BP 94 / 81; Pulse 68; Resp 18; Pulse Ox 100% on R/A; eh3 17:02 Body Mass Index 27.62 (68.49 kg, 157.48 cm) mb9 17:02 Pain Scale: Adult mb9 MDM: 16:47 Patient medically screened. [facility] 17:15 Differential diagnosis: dysfunctional uterine bleeding, dysmenorrhea, nonspecific eugene abdominal pain, ovarian cyst, Ureterolithiasis pelvic inflammatory disease, uterine fibroids, urinary tract infection. Data reviewed: vital signs, nurses notes, lab test result(s), radiologic studies, CT scan, ultrasound. Consideration of Admission/Observation Escalation of care including admission/observation considered. I considered the following discharge prescriptions or medication management in the emergency department Medications were administered in the Emergency Department. See MAR. Test considered but Not performed: MRI: no mri abd/ pelvis. Historians other than the Patient: Family Member: mom, informed. Care significantly affected by the following chronic conditions: ovarian cyst. Counseling: I had a detailed discussion with the patient and/or guardian regarding: the historical points, exam findings, and any diagnostic results supporting the discharge/admit diagnosis, lab results, radiology results. 03/21 17:10 Order name: CBC with Diff; Complete Time: 19:19 [facility] 03/21 17:10 Order name: CMP; Complete Time: 19:19 [facility] 03/21 17:10 Order name: Lipase; Complete Time: 19:19 [facility] 03/21 17:10 Order name: Test, Urine; Complete Time: 19:19 [facility] 03/21 17:10 Order name: Urinalysis w/ reflexes; Complete Time: 18:59 [facility] 03/21 17:10 Order name: CT Abd/Pelvis - IV Contrast Only [facility] 03/21 17:12 Order name: US Transvaginal Study (Probe); Complete Time: 18:48 [facility] 03/21 17:10 Order name: IV Saline Lock; Complete Time: 18:47 [facility] 03/21 17:10 Order name: Labs collected and sent; Complete Time: 18:47 [facility] Administered Medications: 17:11 CANCELLED (Duplicate Order): morphine IVP or IV 4 mg IVP once over 4 mins [facility] 18:30 Drug: NS 0.9% IV 1000 ml Route: IV; Rate: 1 bolus; Site: left antecubital; 3 20:00 Follow up: IV Status: Completed infusion; IV Intake: 1000ml [facility] 18:30 Drug: TORadol - Ketorolac IVP 15 mg Route: IVP; Site: left antecubital; 3 20:00 Follow up: Response: No adverse reaction [facility] 18:30 Drug: Ondansetron IVP 4 mg Route: IVP; Site: left antecubital; 3 20:00 Follow up: Response: No adverse reaction 3 20:00 Drug: Rocephin IV 1 grams Route: IV; Rate: per protocol; Site: left antecubital; 3 20:45 Follow up: Response: No adverse reaction; IV Status: Completed infusion; IV Intake: [id number] Disposition Summary: 03/21/23 20:07 Discharge Ordered Location: Home [facility] Problem: new [facility] Symptoms: have improved [facility] Condition: Stable [facility] Diagnosis - Abdominal tenderness eugene - Pelvic and perineal pain - SP COLPOSCOPY eugene - UTI/ Urinary tract infection, site not specified [facility] Followup: [facility] - With: Private Physician - When: 2 - 3 days - Reason: Recheck today's complaints, Continuance of care, Re-evaluation by your physician Discharge Instructions: - Discharge Summary Sheet eugene - Abdominal Pain, Adult eugene - Urinary Tract Infection, Adult eugene - Pelvic Pain, Female, [id number] eugene - Abdominal Pain, Adult, [id number] [facility] Forms: - Medication Reconciliation Form [facility] - Thank You Letter [facility] - Antibiotic Education [facility] - Prescription Opioid Use [facility] Prescriptions: - Ibuprofen 600 mg Oral Tablet - take 1 tablet by ORAL route every 6 hours As needed take with food; 30 tablet; [facility] Refills: 0, Product Selection Permitted - Zofran 4 mg Oral Tablet - take 1 tablet by ORAL route every 12 hours As needed; 20 tablet; Refills: 0, [facility] Product Selection Permitted - Bactrim DS 800-160 mg Oral Tablet - take 1 tablet by ORAL route every 12 hours for 7 days; 14 tablet; Refills: 0, eugene Product Selection Permitted - dicyclomine 20 mg Oral Tablet - take 1 tablet by ORAL route 4 times per day; 28 tablet; Refills: 0, Product eugene Selection Permitted Signatures: Dispatcher [employer] Roel Asher MD MD cha Hall, Erin, RN RN eh3 Malia, Roberta Wong RN RN mb9 Corrections: (The following items were deleted from the chart) 17:11 17:10 morphine IVP or IV 4 mg IVP once over 4 mins ordered. eugene knight
[2023-03-21 21:30] VITALS: O2SAT 100
[2023-03-21 21:31] VITALS: TEMP 98.4
[2023-03-21 21:33] VITALS: BP 94/81
== END 2023-03-21 20:59 | disposition home or self-care (01) ==
LOC: ER 16:44
DX: N39.0 Urinary tract infection, site not specified (principal); R10.2 Pelvic and perineal pain; Z98.890 Other specified postprocedural states; Z88.8 Allergy status to other drugs, medicaments and biological substances
CPT/HCPCS: 96365; 96361; 85025; 81001; 36415; 81025; 83690; 80053; 74177; 76830; 96375; 99284; Q9967; J2405; J7030; J0696

== ENCOUNTER 2023-04-01 16:06 | Emergency (ER) | payer OTHER ==
[2023-04-01] MEDS ORDERED: METOCLOPRAMIDE 10 MG/2mL INJ ONE (16:31)
[2023-04-01] MEDS ORDERED: DIPHENHYDRAMINE 50 MG/ML VIAL ONE (16:31)
[2023-04-01] MEDS ORDERED: KETOROLAC 30 MG/ML INJ ONE (16:31)
[2023-04-01] MEDS ORDERED: NA CHLORIDE 0.9% 1,000 ML ONE (16:31)
--- NOTE | 2023-04-01 17:32 | RAD REPORT ---
EXAM DESCRIPTION: CT - [id number] - 04/01/2023 5:26 pm CLINICAL HISTORY: Trauma, head and neck injury. HEADACHE COMPARISON: <Comparisons> TECHNIQUE: Axial 5 mm thick images of the head were obtained. Axial 2 mm thick images of the cervical spine were obtained with sagittal and coronal reconstruction images generated and reviewed. All CT scans are performed using dose optimization technique as appropriate and may include automated exposure control or mA/KV adjustment according to patient size. FINDINGS: CT HEAD WITHOUT CONTRAST: No acute hemorrhage, hydrocephalus or extra-axial collection is identified.No areas of brain edema or midline shift. The paranasal sinuses and mastoids are clear.The calvarium is intact. CT CERVICAL SPINE WITHOUT CONTRAST: No fracture or subluxation.No prevertebral soft tissues swelling is identified. IMPRESSION: No acute intracranial or cervical spine findings.
--- NOTE | 2023-04-01 17:51 | EDPHYS ---
Physician Documentation [facility] Name: Miller Ferguson Age: 33 yrs Sex: Female : 1990 Arrival Date: 04/01/2023 Time: 16:06 Bed 5 Private MD: ED Physician Antonio Washburn HPI: 04/01 16:47 This 33 yrs old Female presents to ER via Ambulatory with complaints of neck kb Pain, Headache. 16:47 The patient complains of pain to the right side of head. The patient describes the kb headache as constant. Onset: The symptoms/episode began/occurred today, at 02:00. Associated signs and symptoms: Pertinent positives: right neck pain, Pertinent negatives: fever. Severity of symptoms: At its worst the pain was moderate, in the emergency department the pain is unchanged. Headache History: The patient has had previous headaches. The symptoms are alleviated by nothing. the symptoms are aggravated by nothing. The patient has experienced similar episodes in the past. The patient has not recently seen a physician. Pt reports she woke up at 0200 with neck pain and headache. States this happens about once a month. Reports similar headaches without the neck pain once per week. Requests CT scan because she was supposed to get one a couple of years ago and didn't. Historical: - Allergies: 16:16 terbinafine HCl; hb 16:16 Lamisil; hb - Home Meds: 16:16 None [Active]; hb - PMHx: 16:16 cyst removed from ovary; hb - PSHx: 16:16 section; hb - Immunization history:: Adult Immunizations up to date. - Social history:: Smoking status: Reported history of juuling and/or vaping. ROS: 16:46 Constitutional: Negative for fever, chills, and weight loss. kb 16:46 Neck: Positive for pain with movement, pain at rest, tenderness. 16:46 Neuro: Positive for headache. 16:46 All other systems are negative. Exam: 16:46 Constitutional: This is a well developed, well nourished patient who is awake, alert, kb and in no acute distress. Head/Face: Normocephalic, atraumatic. Eyes: Pupils equal round and reactive to light, extra-ocular motions intact. Lids and lashes normal. Conjunctiva and sclera are non-icteric and not injected. Cornea within normal limits. Periorbital areas with no swelling, redness, or edema. ENT: Moist Mucous membranes Cardiovascular: Regular rate and rhythm with a normal S1 and S2. No gallops, murmurs, or rubs. No pulse deficits. Respiratory: Respirations even and unlabored. No increased work of breathing. Talking in full sentences Skin: Warm, dry with normal turgor. Normal color. MS/ Extremity: Pulses equal, no cyanosis. Neurovascular intact. Full, normal range of motion. Neuro: Awake and alert, GCS 15, oriented to person, place, time, and situation. Moves all extremities. Normal gait. 16:46 Neck: External neck: tenderness, that is mild, that is moderate, of the right posterior aspect of neck, C-spine: appears grossly normal. Vital Signs: 16:14 BP 109 / 83; Pulse 87; Resp 16; Temp 97.6(TE); Pulse Ox 100% ; Weight 68.49 kg; Height hb 5 ft. 2 in. ; Pain 9/10; 17:00 BP 110 / 83; Pulse 71; Resp 16; Pulse Ox 100% ; bp 18:00 BP 94 / 65; Pulse 66; Resp 16; Pulse Ox 100% ; bp 16:14 Body Mass Index 27.62 (68.49 kg, 157.48 cm) hb 16:14 Pain Scale: Adult hb [place] Coma Score: 17:50 Eye Response: spontaneous(4). Motor Response: obeys commands(6). Verbal Response: kb oriented(5). Total: 15. MDM: 16:08 Patient medically screened. kb 17:49 Data reviewed: vital signs, nurses notes. kb 17:50 Differential diagnosis: cluster headache, migraine, neoplasm, cervical radiculopathy, kb torticollis. Counseling: I had a detailed discussion with the patient and/or guardian regarding: the historical points, exam findings, and any diagnostic results supporting the discharge/admit diagnosis, radiology results, the need for outpatient follow up, a family practitioner, a neurologist, to return to the emergency department if symptoms worsen or persist or if there are any questions or concerns that arise at home. Response to treatment: the patient's symptoms have resolved after treatment. 04/01 16:14 Order name: CT Head C Spine; Complete Time: 17:37 kb 04/01 16:14 Order name: IV Start; Complete Time: 16:40 kb Administered Medications: 16:40 Drug: NS 0.9% IV 1000 ml Route: IV; Rate: 1000 ml; Site: left antecubital; bp 18:19 Follow up: IV Status: Completed infusion; IV Intake: 1000ml bp 16:40 Drug: Ketorolac IVP 15 mg Route: IVP; Site: left antecubital; bp 18:19 Follow up: Response: No adverse reaction bp 16:40 Drug: metoCLOPramide IVP 10 mg Route: IVP; Site: left antecubital; bp 18:18 Follow up: Response: No adverse reaction bp 16:40 Drug: diphenhydrAMINE IVP 12.5 mg Route: IVP; Site: left antecubital; bp 18:18 Follow up: Response: No adverse reaction bp Disposition Summary: 04/01/23 17:51 Discharge Ordered Location: Home kb Condition: Stable kb Diagnosis - Headache kb - Radiculopathy, cervical region kb Followup: kb - With: Emergency Department - When: As needed - Reason: Worsening of condition Followup: kb - With: Private Physician - When: 2 - 3 days - Reason: Recheck today's complaints, Continuance of care, Re-evaluation by your physician Discharge Instructions: - Discharge Summary Sheet kb - General Headache Without Cause, [id number] kb - Cervical Radiculopathy, [id number] kb Forms: - Medication Reconciliation Form kb - Thank You Letter kb - Antibiotic Education kb - Prescription Opioid Use kb Prescriptions: - Diclofenac Sodium 75 mg Oral tablet,delayed release (DR/EC) - take 1 tablet by ORAL route 2 times per day As needed; 30 tablet; Refills: 0, kb Product Selection Permitted Signatures: Dispatcher [employer] Altagracia Ludwig, ARMAAN-C CAMPAIGN CONSULTANT-Sharon Taylor, RN RN Devin Mcclelland, RN RN bp Corrections: (The following items were deleted from the chart) 16:49 16:47 This 33 yrs old Female presents to ER via Ambulatory with complaints of kb Nose Pain, Headache. kb
--- NOTE | 2023-04-01 17:51 | ER ---
Nurse's Notes [facility] Name: Miller Ferguson Age: 33 yrs Sex: Female : 1990 Arrival Date: 04/01/2023 Time: 16:06 Bed 5 Private MD: Diagnosis: Headache;Radiculopathy, cervical region Presentation: 04/01 16:14 Chief complaint: Right sided neck pain since 0200 today. Reports similar episodes hb once/month and headache once/week for the last few months. Coronavirus screen: At this time, the client does not indicate any symptoms associated with coronavirus-19. Ebola Screen: No symptoms or risks identified at this time. Initial Sepsis Screen: Does the patient meet any 2 criteria? No. Patient's initial sepsis screen is negative. Does the patient have a suspected source of infection? No. Patient's initial sepsis screen is negative. Risk Assessment: Do you want to hurt yourself or someone else? Patient reports no desire to harm self or others. Onset of symptoms was April 01, 2023. 16:14 Method Of Arrival: Ambulatory hb 16:14 Acuity: ADELITA 3 hb Triage Assessment: 16:15 Headache History: The patient has had previous headaches and this one is similar to bp previous episodes. General: Appears in no apparent distress. uncomfortable, Behavior is calm, cooperative, appropriate for age. Pain: Complains of pain in right side of head and right posterior aspect of neck Pain currently is 6 out of 10 on a pain scale. Pain began 1 day ago. Also complains of no other associated symptoms. EENT: No deficits noted. Neuro: Level of Consciousness is awake, alert, obeys commands, Oriented to Appropriate for age. Cardiovascular: No deficits noted. Respiratory: No deficits noted. GI: No signs and/or symptoms were reported involving the gastrointestinal system. : No signs and/or symptoms were reported regarding the genitourinary system. Derm: No deficits noted. Musculoskeletal: No deficits noted. Historical: - Allergies: 16:16 terbinafine HCl; hb 16:16 Lamisil; hb - Home Meds: 16:16 None [Active]; hb - PMHx: 16:16 cyst removed from ovary; hb - PSHx: 16:16 section; hb - Immunization history:: Adult Immunizations up to date. - Social history:: Smoking status: Reported history of juuling and/or vaping. Screenin:10 [facility] ED Fall Risk Assessment (Adult) History of falling in the last 3 months, bp including since admission No falls in past 3 months (0 pts). Abuse screen: Denies threats or abuse. Denies injuries from another. Nutritional screening: No deficits noted. Tuberculosis screening: No symptoms or risk factors identified. Assessment: 16:15 General: SEE TRIAGE NOTE. bp Vital Signs: 16:14 BP 109 / 83; Pulse 87; Resp 16; Temp 97.6(TE); Pulse Ox 100% ; Weight 68.49 kg; Height hb 5 ft. 2 in. ; Pain 9/10; 17:00 BP 110 / 83; Pulse 71; Resp 16; Pulse Ox 100% ; bp 18:00 BP 94 / 65; Pulse 66; Resp 16; Pulse Ox 100% ; bp 16:14 Body Mass Index 27.62 (68.49 kg, 157.48 cm) hb 16:14 Pain Scale: Adult hb [place] Coma Score: 17:50 Eye Response: spontaneous(4). Motor Response: obeys commands(6). Verbal Response: kb oriented(5). Total: 15. ED Course: 16:07 Patient arrived in ED. ts1 16:08 Altagracia Gonzalez FNP-C [facility]. kb 16:08 Antonio Washburn MD is Attending Physician. kb 16:16 Triage completed. hb 16:16 Arm band placed on. hb 16:22 Devin Cuellar, RN is Primary Nurse. bp 16:41 Inserted saline lock: 22 gauge in left antecubital area, using aseptic technique. bp 17:10 Patient has correct armband on for positive identification. Bed in low position. Call bp light in reach. Side rails up X2. 17:27 CT Head C Spine In Process Unspecified. EDMS 18:20 No provider procedures requiring assistance completed. IV discontinued, intact, bp bleeding controlled, No redness/swelling at site. Pressure dressing applied. Administered Medications: 16:40 Drug: NS 0.9% IV 1000 ml Route: IV; Rate: 1000 ml; Site: left antecubital; bp 18:19 Follow up: IV Status: Completed infusion; IV Intake: 1000ml bp 16:40 Drug: Ketorolac IVP 15 mg Route: IVP; Site: left antecubital; bp 18:19 Follow up: Response: No adverse reaction bp 16:40 Drug: metoCLOPramide IVP 10 mg Route: IVP; Site: left antecubital; bp 18:18 Follow up: Response: No adverse reaction bp 16:40 Drug: diphenhydrAMINE IVP 12.5 mg Route: IVP; Site: left antecubital; bp 18:18 Follow up: Response: No adverse reaction bp Intake: 18:19 IV: 1000ml; Total: 1000ml. bp Outcome: 17:51 Discharge ordered by . kb 18:21 Discharged to home ambulatory. bp 18:21 Condition: stable 18:21 Discharge instructions given to patient, Instructed on discharge instructions, follow up and referral plans. medication usage, Demonstrated understanding of instructions, follow-up care, medications, Prescriptions given X 1. 18:21 Patient left the ED. bp Signatures: Dispatcher [employer] EDMS Altagracia Gonzalez, Sharon Campos RN RN Devin Mcclelland RN RN bp [place], FIDELINA PAS ts1 Corrections: (The following items were deleted from the chart) 16:16 16:14 BP 148 / 88; Pulse 87bpm; Resp 16bpm; Pulse Ox 100%; Temp 97.6F Temporal; 68.49 hb kg; Height 5 ft. 2 in.; BMI: 27.6; Pain 9/10, Adult; hb
[2023-04-01 18:38] VITALS: TEMP 97.6; O2SAT 100
[2023-04-01 18:41] VITALS: BP 94/65
== END 2023-04-01 18:21 | disposition home or self-care (01) ==
LOC: ER 16:06
DX: M54.12 Radiculopathy, cervical region (principal); Z88.8 Allergy status to other drugs, medicaments and biological substances
CPT/HCPCS: 96361; 70450; 72125; 96375; 96374; 99284; J2765; J1200; J7030

== ENCOUNTER 2024-05-07 21:40 | Emergency (ER) | payer OTHER ==
--- OUTSIDE RECORDS SUMMARY | 2024-05-07 21:44 | XMS REPORT | Continuity of Care Document ---
Author Name Unknown Address [address] [place] [address] [facility] thconnect Address [address] [facility] [place] [address] Care Team Providers Care Dental Service Chief Name Role Phone Ramana Brown Primary Care Physician [phone] Ramana Brown Attending Clinician Unavailable ARIELLE JAMES Attending Clinician Unavailable JOSÉ MIGUEL WICK Attending Clinician JOSÉ MIGUEL Godoy Attending Clinician Laura spears [email or web address]_Kadiyala_S Attending Clinician Unavailstephanie Mendez Claudia CADE Attending Clinician + Eliza Alicia Attending Clinician [phone] ELIZA WINTER Attending Clinician Unavailab le Doctor Unassigned, [place] Attending Clinician U navailable [facility], [facility] Attending Clinician CLAUDIA Mckinnon Attending Clinician Unavail able CHRIS HAYES Attending Clinician Unavailable CASSY MCCALL Attending Clinician Unavailab Matthew Torres DO Attending Clinician [phone] Garrett [employer] C[employer] WORKER, Tita Attending Clinician [phone] Loc TONEYP, Cassy Treadwell Attending Clinician + [phone] Res-Colpo/Leep, [facility] Attending Clinician Un available Jerome Tinajero MD Attending Clinician [phone] [email or web address]_S Admitting Clinician Unavaila ble Payers Payer Name Policy Type Policy Number Effective Date Expirati on Date Source [place] [employer] [id number] 2023 00:00:00 [place] [id number] 2022 00:00:00 Problems Condition Name Condition Details Condition Category Status Onset Date Resolution Date Last Treatment Date Treating Clinician Comments Source Papanicola ou smear of cervix with atypical squamous cells cannot exclude high grade squamous intraepith elial lesion (ASC-H) Papanicola ou smear of cervix with atypical squamous cells cannot exclude high grade squamous intraepith elial lesion (ASC-H) Disease Active 5- 00:00: 00 [facility] Papanicola ou smear of cervix with low grade squamous intraepith elial lesion (LGSIL) Papanicola ou smear of cervix with low grade squamous intraepith elial lesion (LGSIL) Disease Active 5- 00:00: 00 Overview: Formattin g of this note might be different from the original. No SHIRA noted on colposcop y bx. Needs repeat co-testin g in 12 months (07/2023) . [facility] HGSIL (high grade squamous intraepith elial lesion) on Pap smear of cervix HGSIL (high grade squamous intraepith elial lesion) on Pap smear of cervix Disease Active 8- 00:00: 00 Overview: Formattin g of this note might be different from the original. +[id number] LEEP [facility] Trichomona l vulvovagin itis Trichomona l vulvovagin itis Disease Active 8-12 00:00: 00 [facility] Bacterial vaginosis Bacterial vaginosis Disease Active 8-12 00:00: 00 [facility] Other general counseling and advice for contracept ese management Other general counseling and advice for contracept ese management Disease Active 8-10 00:00: 00 [facility] History of tubal ligation History of tubal ligation Disease Active 8-10 00:00: 00 [facility] Tobacco use disorder Tobacco use disorder Disease Active 8-10 00:00: 00 [facility] Over weight Over weight Disease Active 8 00:00: 00 [facility] Allergies, Adverse Reactions, Alerts Allergy Name Allergy Type Status Severity Reaction(s) Onset Date Inactive Date Treating Clinician Comments Source NO KNOWN ALLERGIE S Drug Class Active [facility] Social History Social Habit Start Date Stop Date Quantity Comments Source History of tobacco use Cigarette Smoker [facility] Tobacco use and exposure 2024-04-04 00:00:00 2024-04-04 00:00:00 Smokeless tobacco non-user [facility] Alcoholic beverage intake 2024-04-04 00:00:00 2024-04-04 00:00:00 Ex-drinker (finding) [facility] Alcohol intake 2024-03-19 00:00:00 2024-03-19 00:00:00 Ex-drinker (finding) [facility] History of Social function 2024-03-19 00:00:00 2024-03-19 00:00:00 [facility] Exposure to SARS-CoV-2 (event) 2023-03-07 00:00:00 2023-03-17 10:21:00 Not sure [facility] Cigarettes smoked current (pack per day) - Reported 2022-08-18 00:00:00 2022-08-18 00:00:00 [facility] Sex assigned at 1990 00:00:00 1990 00:00:00 [facility] Smoking Status Start Date Stop Date Source Unknown if ever smoked [facility] Ex-smoker 2024-04-04 00:00:00 2024-04-04 00:00:00 [facility] Occasional tobacco smoker 2020-06-30 00:00:00 [facility] Medications Ordered Medication Name Filled Medication Name Start Date Stop Date Current Medication? Ordering Clinician Indication Dosage Frequency Signature (SIG) Comments Components Source metroNIDAZO LE 500 mg tablet 03-30 00:00: 00 04-07 04:59 :00 Yes [id number] 500mg Take 1 tablet by mouth in the morning and 1 tablet in the evening. Do all this for 7 days. [facility] chlorhexidi ne 0.12 % mouthwash 2019-11 00:00: 03-17 00:00 :00 No [id number] 15mL Swish and spit out 15 mL 2 (two) times daily. [facility] methylPREDN ISolone (MEDROL, NITO,) 4 mg tablets 2019-11 00:00: 03-17 00:00 :00 No [id number] Take by mouth SEE-INSTRU CTIONS. follow package directions [facility] acetaminoph en-codeine (TYLENOL-CO DEINE #3) 300-30 mg tablet 2019-11 00:00: 03-17 00:00 :00 No [id number] 1{tbl} Take 1 tablet by mouth every 4 (four) hours as needed for Pain (scale 7-10). Indication s: acute pain [facility] ondansetron 4 mg disintegrat ing tablet 2019-11 00:00: 03-17 00:00 :00 No [id number] 4mg Take 1 tablet by mouth every 8 (eight) hours as needed for Nausea and Vomiting (N/V). [facility] clindamycin 150 mg capsule 2019-11 00:00: 00 11-01 05:59 :00 No [id number] 300mg Take 2 capsules by mouth 4 (four) times daily for 7 days. [facility] ibuprofen 200 mg tablet 08-14 00:00: 00 08-18 04:59 :00 No [id number] 600mg Take 3 tablets by mouth every 6 (six) hours as needed for Pain (scale 4-6) for up to 3 days. [facility] metroNIDAZO LE 500 mg tablet 07-11 00:00: 00 07-11 00:00 :00 No [id number] 2000mg Take 4 tablets by mouth once now for 1 dose. [facility] metroNIDAZO LE 500 mg tablet 07-02 00:00: 00 07-03 04:59 :00 No [id number] 2000mg Take 4 tablets by mouth once now for 1 dose. [facility] No known medications [facility] No [facility]ilo [facility] No known medications No [facility] No known medications No [facility] No known [facility] No Un shilo [facility] No known [facility] No Un shilo [facility] No known medications No Un shilo [facility] No known medications No Un shilo [facility] Immunizations Ordered Immunization Name Filled Immunization Name Date Status Comments Source HPV9 2023-02-15 00:00:00 Completed [facility] HPV9 2023-02-15 00:00:00 Completed [facility] HPV9 2023-02-15 00:00:00 Completed [facility] HPV9 2023-02-15 00:00:00 Completed [facility] HPV9 2023-02-15 00:00:00 Completed [facility] HPV9 2023-02-15 00:00:00 Completed [facility] HPV9 2023-02-15 00:00:00 Completed [facility] HPV9 2023-02-15 00:00:00 Completed [facility] HPV9 2023-02-15 00:00:00 Completed [facility] HPV9 2023-02-15 00:00:00 Completed [facility] HPV9 2022-09-17 00:00:00 Completed [facility] HPV9 2022-09-17 00:00:00 Completed [facility] HPV9 2022-09-17 00:00:00 Completed [facility] HPV9 2022-09-17 00:00:00 Completed [facility] HPV9 2022-09-17 00:00:00 Completed [facility] HPV9 2022-09-17 00:00:00 Completed [facility] HPV9 2022-09-17 00:00:00 Completed [facility] HPV9 2022-09-17 00:00:00 Completed [facility] HPV9 2022-09-17 00:00:00 Completed [facility] HPV9 2022-09-17 00:00:00 Completed [facility] HPV9 2022-09-17 00:00:00 Completed [facility] HPV9 2022-09-17 00:00:00 Completed [facility] HPV9 2022-09-17 00:00:00 Completed [facility] HPV9 2022-09-17 00:00:00 Completed [facility] HPV9 2022-08-18 00:00:00 Completed [facility] HPV9 2022-08-18 00:00:00 Completed [facility] HPV9 2022-08-18 00:00:00 Completed [facility] HPV9 2022-08-18 00:00:00 Completed [facility] HPV9 2022-08-18 00:00:00 Completed [facility] HPV9 2022-08-18 00:00:00 Completed [facility] HPV9 2022-08-18 00:00:00 Completed [facility] HPV9 2022-08-18 00:00:00 Completed [facility] HPV9 2022-08-18 00:00:00 Completed [facility] HPV9 2022-08-18 00:00:00 Completed [facility] HPV9 2022-08-18 00:00:00 Completed [facility] HPV9 2022-08-18 00:00:00 Completed [facility] HPV9 2022-08-18 00:00:00 Completed [facility] HPV9 2022-08-18 00:00:00 Completed [facility] HPV9 2022-08-18 00:00:00 Completed [facility] HPV9 2022-08-18 00:00:00 Completed [facility] HPV9 2022-08-18 00:00:00 Completed [facility] HPV9 2022-08-18 00:00:00 Completed [facility] HPV9 2022-08-18 00:00:00 Completed [facility] HPV9 Unknown Completed [facility] HPV9 Unknown Completed [facility] HPV9 Unknown Completed [facility] HPV9 Unknown Completed [facility] HPV9 Unknown Completed [facility] HPV9 Unknown Completed [facility] HPV9 Unknown Completed [facility] HPV9 Unknown Completed [facility] HPV9 Unknown Completed [facility] HPV9 Unknown Completed [facility] HPV9 Unknown Completed [facility] HPV9 Unknown Completed [facility] HPV9 Unknown Completed [facility] HPV9 Unknown Completed [facility] HPV9 Unknown Completed [facility] HPV9 Unknown Completed [facility] HPV9 Unknown Completed [facility] HPV9 Unknown Completed [facility] Vital Signs Vital Name Observation Time Observation Value Comments S ource Systolic blood pressure 2024-04-04 20:26:00 110 mm[Hg] [facility] Diastolic blood pressure 2024-04-04 20:26:00 73 mm[Hg] [facility] Heart rate 2024-04-04 20:26:00 78 /min [facility] Respiratory rate 2024-04-04 20:26:00 18 /min [facility] Body height 2024-04-04 20:26:00 157.5 cm [facility] Body weight 2024-04-04 20:26:00 71.215 kg [facility] BMI 2024-04-04 20:26:00 28.72 kg/m2 [facility] Systolic blood pressure 2024-03-19 15:03:00 106 mm[Hg] [facility] Diastolic blood pressure 2024-03-19 15:03:00 73 mm[Hg] [facility] Heart rate 2024-03-19 15:03:00 76 /min [facility] Respiratory rate 2024-03-19 15:03:00 18 /min [facility] Body height 2024-03-19 15:03:00 157.5 cm [facility] Body weight 2024-03-19 15:03:00 71.215 kg [facility] 2024-03-19 15:03:00 28.72 kg/m2 [facility] Systolic blood pressure 2023-03-17 15:21:00 114 mm[Hg] [place] [facility] Diastolic blood pressure 2023-03-17 15:21:00 78 mm[Hg] [facility] Heart rate 2023-03-17 15:21:00 82 /min [facility] Body temperature 2023-03-17 15:21:00 36.5 Peggy [facility] Respiratory rate 2023-03-17 15:21:00 18 /min [facility] Body height 2023-03-17 15:21:00 157.5 cm [facility] Body weight 2023-03-17 15:21:00 68.635 kg [facility] BMI 2023-03-17 15:21:00 27.68 kg/m2 [facility] Body temperature 2023-02-15 13:21:00 36.61 Peggy [facility] Respiratory rate 2023-02-15 13:21:00 18 /min [facility] Body height 2023-02-15 13:21:00 157.5 cm [facility] Body weight 2023-02-15 13:21:00 70.58 kg [facility] BMI 2023-02-15 13:21:00 28.46 kg/m2 [facility] Systolic blood pressure 2022-09-17 13:43:00 117 mm[Hg] [place] [facility] Diastolic blood pressure 2022-09-17 13:43:00 74 mm[Hg] [place] [facility] Heart rate 2022-09-17 13:43:00 83 /min [facility] Body temperature 2022-09-17 13:43:00 36.67 Peggy [facility] Respiratory rate 2022-09-17 13:43:00 20 /min [facility] Body weight 2022-09-17 13:43:00 67.495 kg [facility] BMI 2022-09-17 13:43:00 27.22 kg/m2 [facility] Systolic blood pressure 2022-08-18 19:31:00 129 mm[Hg] [facility] Diastolic blood pressure 2022-08-18 19:31:00 87 mm[Hg] [facility] Heart rate 2022-08-18 19:31:00 77 /min [facility] Body temperature 2022-08-18 19:31:00 36.72 Peggy [facility] Respiratory rate 2022-08-18 19:31:00 18 /min [facility] Body height 2022-08-18 19:31:00 157.5 cm [facility] Body weight 2022-08-18 19:31:00 67.302 kg [facility] BMI 2022-08-18 19:31:00 27.14 kg/m2 [facility] Systolic blood pressure 2020-10-24 17:27:00 119 mm[Hg] [facility] Diastolic blood pressure 2020-10-24 17:27:00 80 mm[Hg] [facility] Heart rate 2020-10-24 17:25:00 87 /min [facility] Body temperature 2020-10-24 17:25:00 36.56 Peggy [facility] Respiratory rate 2020-10-24 17:25:00 18 /min [facility] Body weight 2020-10-24 17:25:00 72.576 kg [facility] BMI 2020-10-24 17:25:00 29.26 kg/m2 [facility] Oxygen saturation in Arterial blood by Pulse oximetry 2020-10-24 17:25:00 100 /min [facility] Systolic blood pressure 2020-09-11 18:38:00 109 mm[Hg] [facility] Diastolic blood pressure 2020-09-11 18:38:00 79 mm[Hg] [facility] Heart rate 2020-09-11 18:38:00 80 /min [facility] Body temperature 2020-09-11 18:38:00 37.11 Peggy [facility] Respiratory rate 2020-09-11 18:38:00 16 /min [facility] Body height 2020-09-11 18:38:00 157.5 cm [facility] 2020-09-11 18:38:00 73.12 kg [facility] BMI 2020-09-11 18:38:00 29.48 kg/m2 [facility] Systolic blood pressure 2020-09-11 18:38:00 109 mm[Hg] [facility] Diastolic blood pressure 2020-09-11 18:38:00 79 mm[Hg] [facility] Heart rate 2020-09-11 18:38:00 80 /min [facility] Body temperature 2020-09-11 18:38:00 37.11 Peggy [facility] Respiratory rate 2020-09-11 18:38:00 16 /min [facility] Body height 2020-09-11 18:38:00 157.5 cm [facility] Body weight 2020-09-11 18:38:00 73.12 kg [facility] BMI 2020-09-11 18:38:00 29.48 kg/m2 [facility] Systolic blood pressure 2020-08-14 13:50:00 115 mm[Hg] [facility] Diastolic blood pressure 2020-08-14 13:50:00 64 mm[Hg] [facility] Heart rate 2020-08-14 13:50:00 82 /min [facility] Body temperature 2020-08-14 13:50:00 36.72 Peggy [facility] Respiratory rate 2020-08-14 13:50:00 18 /min [facility] Body height 2020-08-14 13:50:00 157.5 cm [facility] Body weight 2020-08-14 13:50:00 72.802 kg [facility] BMI 2020-08-14 13:50:00 29.36 kg/m2 [facility] Systolic blood pressure 2020-06-30 19:54:00 99 mm[Hg] [facility] Diastolic blood pressure 2020-06-30 19:54:00 70 mm[Hg] [facility] Heart rate 2020-06-30 19:54:00 76 /min [facility] Body temperature 2020-06-30 19:54:00 37.17 Peggy [facility] Respiratory rate 2020-06-30 19:54:00 16 /min [facility] Body height 2020-06-30 19:54:00 160 cm [facility] Body weight 2020-06-30 19:54:00 73.143 kg [facility] BMI 2020-06-30 19:54:00 28.56 kg/m2 [facility] Procedures Procedure Date / Time Performed Performing Clinician Source POCT TEST 2024-04-04 00:00:00 Arielle James [facility] POCT TEST 2023-03-17 15:24:00 Alfonso Winter [facility] DISCLOSURE AND CONSENT, MEDICAL AND SURGICAL PROCEDURES 2023-03-17 05:01:00 Doctor Unassigned, Tyndall [facility] GARDASIL 9 (HPV 9V) VACCINE 2023-02-15 13:23:58 Claudia Mendez [facility] PATIENT FINANCIAL POLICY 2023-02-15 13:12:13 Doctor Unassigned, Tyndall [facility] GARDASIL 9 (HPV 9V) VACCINE 2022-09-17 13:51:40 Claudia Mendez [facility] GARDASIL 9 (HPV 9V) VACCINE 2022-08-18 19:53:58 Claudia Mendez [facility] ASSIGNMENT OF BENEFITS 2022-08-18 18:52:51 Docto r Unassigned, Tyndall [facility] CA I&D MOUTH/TONG INTRA,SUBMANDIBULAR 2020-10-24 17:58:00 Matthew Rivera [facility] NOTICE OF PRIVACY PRACTICES 2020-10-24 16:55:13 Doctor Unassigned, Tyndall [facility] CONSENT/REFUSAL FOR DIAGNOSIS AND TREATMENT 2020-10-24 16:54:59 Doctor Unassigned, Tyndall [facility] SURGICAL PATHOLOGY EXAM 2020-08-14 17:08:00 Deanna Garrett [facility] COVID-19 (ID NOW RAPID TESTING) 2020-08-14 13:49:00 Teresa Garrett [facility] POCT TEST 2020-08-14 00:00:00 Teresa Garrett [facility] BCCS-RELATED DOCUMENTATION 2020-08-08 05:01:00 Doctor Unassigned, Tyndall [facility] ASSIGNMENT OF BENEFITS 2020-06-30 19:23:29 Docto r Unassigned, Tyndall [facility] Encounters Start Date/Time End Date/Time Encounter Type Admission Type Attending [facility] Facility Care Department Encounter ID Source 2024-04-06 14:13:00 Out[facility] [id number] [facility] 2024-04-02 10:17:00 Outpatient Brown, [facility] [id number] [facility] 2024-02-27 10:32:00 Outpatient Brown, [facility] [id number] [facility] 2023-10-10 11:21:00 Outpatient Brown, [facility] STL[facility] [id number] [facility] 2023-09-16 08:26:00 Outpatient Brown, Ramana [facility] STL[facility] [id number] [facility] 2023-09-14 13:54:00 Outpatient Brown, Ramana [facility] STL[facility] [id number] [facility] 2023-05-09 07:57:00 Outpatient Brown, Ramana [facility] STL[facility] [id number] [facility] 2023-04-19 15:57:01 Outpatient Brown, Ramana [facility] [id number] [facility] 2023-02-07 07:55:01 Outpatient Brown, [facility] STL[facility] [id number] [facility] 2023-01-26 09:34:03 [facility] [id number] [facility] 2021-09-19 09:16:00 Emergency [facility] [id number] [facility] 2024-05-28 15:30:00 2024-05-28 15:30:00 Outpatient R VALE-PAM S, JOSÉ MIGUEL VALE-PAM S, JOSÉ MIGUEL [facility] [id number] [facility] 2024-04-12 00:00:00 2024-05-04 14:48:00 Telephone [facility] 1..840.114 [id number] [facility] 2024-04-04 15:30:00 2024-04-04 15:57:38 Outpatient R ARIELLE [facility] [id number] [facility] 2024-04-04 15:30:00 2024-04-04 15:57:38 Office Visit Arielle James [facility] 1..840.114 [id number] [facility] 2024-03-30 00:00:00 2024-03-30 11:57:36 Refill Arielle James [facility] 1..840.114 [id number] [facility] 2024-03-19 10:00:00 2024-03-19 10:17:55 Outpatient R ARIELLE [facility] [id number] [facility] 2024-03-19 10:00:00 2024-03-19 10:17:55 Office Visit Arielle James [facility] 1..840.114 350.1.13.10 [id number] [facility] 2023-09-22 08:30:00 2023-09-22 08:30:00 Outpatient R VALE-PAM S, JOSÉ MIGUEL VALE-PAM S, JOSÉ MIGUEL [facility] [id number] [facility] 2023-09-21 00:00:00 2023-09-21 00:00:00 Outpatient GC_GCBZW_Ka diyala_S [facility] [id number] [facility] 2023-03-22 00:00:00 2023-03-22 00:00:00 Telephone Claudia Mendez [facility] SPECIALIST [facility] 1..114 350.1.13.10 [id number] [facility] 2023-03-21 00:00:00 2023-03-21 00:00:00 Telephone Eliza Winter [facility] CLAIM SPECIALIST [facility] 1..114 350.1.13.10 [id number] [facility] 2023-03-17 11:00:00 2023-03-17 11:25:46 Outpatient R ELIZA [facility] [id number] [facility] 2023-03-17 11:00:00 2023-03-17 11:25:46 Office Visit Eliza Winter [facility] CLAIM SPECIALIST [facility] ..114 350.1.13.10 [id number] [id number] [facility] 2023-03-17 00:00:00 2023-03-17 00:00:00 Orders Only Doctor Unassigned, [place]dall [facility] ..114 350.1.13.10 4.2.7.2.686 [id number] [id number] [facility] 2023-02-24 10:15:00 2023-02-24 10:15:00 Outpatient [facility] [id number] [facility] 2023-02-15 08:30:00 2023-02-15 08:45:00 Nurse Visit Visit, Ang-Rm[facility] Nurse Claudia Mendez [facility] CLAIM SPECIALIST [facility] & CHILD [facility] 1..840.114 350.1.13.10 4.2.7.2.686 [id number] 107 [id number] [facility] 2023-02-15 08:30:00 2023-02-15 08:30:00 [facility] [id number] [facility] 2023-02-15 08:30:00 2023-02-15 08:30:00 Outpatient R [facility]UDIA [facility] [id number] [facility] 2023-02-15 00:00:00 2023-02-15 00:00:00 Orders Only Doctor Unassigned, Tyndall [facility] .840.114 350.1.13.10 4.2.7.2.686 [id number] [id number] [facility] 2023-01-18 00:00:00 2023-01-18 00:00:00 Telephone Eliza Winter [facility] CLAIM SPECIALIST [facility] CHILD [facility] 1..840.114 350.1.13.10 4.2.7.2.686 [id number] [facility] 2022-11-04 08:30:00 2022-11-04 08:30:00 Outpatient [facility]A [facility] [id number] [facility] 2022-11-04 00:00:00 2022-11-04 00:00:00 Telephone Eliza Winter [facility] CLAIM SPECIALIST [facility] 1..840.114 350.1.13.10 4.2.7.2.686 [id number] [facility] 2022-09-22 10:00:00 2022-09-22 10:00:00 [facility]patient [facility] [id number] [facility] 2022-09-17 09:00:00 2022-09-17 09:00:00 [facility] CLAIM SPECIALIST [facility] & CHILD [facility] 1..840.114 350.1.13.10 4.2.7.2.686 [id number] 107 [id number] [facility] 2022-09-17 09:00:00 2022-09-17 08:50:56 Outpatient R CLAUDIA MENDEZ [facility] [id number] [facility] 2022-09-15 00:00:00 2022-09-15 00:00:00 Telephone Claudia Mendez [facility] CLAIM SPECIALIST [facility] CHILD [facility] ..840.114 350.1.13.10 4.2.7.2.686 [id number] 107 [id number] [facility] 2022-08-26 00:00:00 2022-08-26 00:00:00 Telephone Claudai Mendez [facility] CLAIM SPECIALIST [facility] CHILD [facility] 1..840.114 350.1.13.10 4.2.7.2.686 [id number] 107 [id number] [facility] 2022-08-18 14:30:00 2022-08-18 15:23:06 Outpatient R CLAUDIA MENDEZ [facility] [id number] [facility] 2022-08-18 14:30:00 2022-08-18 15:23:06 Office Visit Claudia Mendez [facility] CLAIM SPECIALIST [facility] & CHILD [facility] 1..840.114 350.1.13.10 4.2.7.2.686 [id number] 107 [id number] [facility] 2022-08-18 00:00:00 2022-08-18 00:00:00 Orders Only Doctor Unassigned, Tyndall [facility] 1.2840.114 350.1.13.10 4.2.7.2.686 [id number] [id number] [facility] 2022-02-15 08:30:00 2022-02-15 08:30:00 [facility] [id number] [facility] 2021-02-17 10:15:00 2021-02-17 10:15:00 Outpatient R CASSY [facility] [id number] [facility] 2020-10-24 11:27:00 2020-10-24 12:28:00 Emergency Matthew Rivera [facility] 1..114 350.1.13.10 4.2.7.2.686 [id number] [facility] 2020-09-22 00:00:00 2020-09-22 00:00:00 Case Management [facility] 1.0.114 350.1.13.10 4.2.7.2.686 [id number] 113 [id number] 2020-09-22 00:00:00 2020-09-22 00:00:00 Case Management [facility] 1.20.114 350.1.13.10 4.2.7.2.686 [id number] 113 [id number] [facility] 2020-09-11 13:31:39 2020-09-11 13:46:39 Office Visit Cassy Mccall [facility] CLAIM SPECIALIST [facility] 1.2840.114 350.1.13.10 4.2.7.2.686 [id number] 107 [id number] 2020-09-11 13:31:39 2020-09-11 13:46:39 Office Visit Cassy Mccall [facility] CLAIM SPECIALIST [facility]ILD [facility] 1.840.114 350.1.13.10 4.2.7.2.686 [id number] [facility] 2020-09-11 13:15:00 2020-09-11 13:15:00 Outpatient R CASSY [facility] [id number] [facility] 2020-08-14 08:30:54 2020-09-05 10:31:26 Office Visit Res-Colpo/L eep, [facility] Jerome Tinajero [facility] 1..114 350.1.13.10 4.2.7.2.686 [id number] 113 [id number] [facility] 2020-08-29 00:00:00 2020-08-29 00:00:00 Telephone Claudia Mendez [facility] CLAIM SPECIALIST [facility] 1.84.114 350.1.13.10 4.2.7.2.686 [id number] 107 [id number] [facility] 2020-08-20 00:00:00 2020-08-20 00:00:00 Patient Secure Msg Doctor Unassigned, Tyndall [facility] 1.114 350.1.13.10 4.2.7.2.686 [id number] [facility] 2020-08-14 10:00:00 2020-08-14 10:00:00 [facility]patient [facility] [id number] [facility] 2020-08-13 00:00:00 2020-08-13 00:00:00 Patient Secure Msg Doctor Unassigned, Tyndall [facility] 1..114 350.1.13.10 4.2.7.2.686 [id number] [facility] 2020-08-08 14:30:00 2020-08-08 14:30:00 Outpatient R AKINSIPE, CLAUDIA [facility] [id number] [facility] 2020-08-08 10:00:00 2020-08-08 10:00:00 Outpatient [facility] [id number] [facility] 2020-08-08 00:00:00 2020-08-08 00:00:00 Orders Only Doctor Unassigned, Tyndall [facility] 1.2840.114 350.1.13.10 4.2.7.2.686 [id number] [facility] 2020-07-14 00:00:00 2020-07-14 00:00:00 Patient Secure Msg Doctor Unassigned, Tyndall [facility] CLAIM SPECIALIST [facility] & CHILD [facility] 1.2840.114 350.1.13.10 4.2.7.2.686 [id number] 107 [id number] [facility] 2020-07-11 00:00:00 2020-07-11 00:00:00 Telephone Claudia Mendez [facility] CLAIM SPECIALIST [facility] & CHILD [facility] 1.840.114 350.1.13.10 4.2.7.2.686 [id number] 107 [id number] [facility] 2020-07-02 00:00:00 2020-07-02 00:00:00 Patient Secure Msg Doctor Unassigned, Tyndall [facility] CLAIM SPECIALIST [facility] CHILD [facility] 1.2840.114 350.1.13.10 4.2.7.2.686 [id number] 107 [id number] [facility] 2020-07-02 00:00:00 2020-07-02 00:00:00 Telephone Claudia eMndez [facility] CLAIM SPECIALIST [facility] & CHILD [facility] 1.2840.114 350.1.13.10 4.2.7.2.686 [id number] 107 [id number] [facility] 2020-07-02 00:00:00 2020-07-02 00:00:00 Telephone Claudia Mendez [facility] CLAIM SPECIALIST [facility] 1.2.840.114 350.1.13.10 4.2.7.2.686 [id number] 107 [id number] [facility] 2020-06-30 14:34:13 2020-06-30 16:28:45 Office Visit Claudia Mendez [facility] CLAIM SPECIALIST [facility] & CHILD [facility] 1.2.840.114 350.1.13.10 4.2.7.2.686 [id number] 107 [id number] [facility] 2020-06-30 14:45:00 2020-06-30 14:45:00 Outpatient R [facility] [id number] [facility] 2020-06-30 00:00:00 2020-06-30 00:00:00 Orders Only Doctor Unassigned, Tyndall [facility] 1.2.840.114 350.1.13.10 4.2.7.2.686 [id number] [facility] Results Test Description Test Time Test Comments Results Result Co mments Source [facility] [id number] 20:28:00* Test Item Value Reference Range Interpretation Comme nts POCT PREG (test code = 1605) Negative On board controls acceptable with C Line (test code = 3574) Yes POCT PREG LOT # (test code = 3575) POCT PREG TEST DATE ( test code = 3576) [facility] [id number] 15:24:00* Test Item Value Reference Range Interpretation Comme nts POCT PREG (test code = 1605) Negative On board controls acceptable with C Line (test code = 3574) Yes POCT PREG LOT # (test code = 3575) POCT PREG TEST DATE ( test code = 3576) [facility] [id number] 15:24:00* Test Item Value Reference Range Interpretation Comme nts POCT PREG (test code = 1605) Negative On board controls acceptable with C Line (test code = 3574) Yes POCT PREG LOT # (test code = 3575) POCT PREG TEST DATE ( test code = 3576) [id number] 15:24:00* Test Item Value Reference Range Interpretation Comme [facility] POCT PREG (test code = 1605) Negative On board controls acceptable with C Line (test code = 3574) Yes POCT PREG LOT # (test code = 3575) POCT PREG TEST DATE ( test code = 3576) [facility] [id number] 17:58:00 Matthew Rivera, DO ? ? 10/24/2020 12:04 PMIncision and DrainagePerformed by: Matthew Rivera DOAuthorized by: Matthew Rivera DO Consent: ?Consent obtained: ?Verbal ?Consent given by: ?Patient ?Risks discussed: ?Bleeding, incomplete drainage, infection and pain ?Alternatives discussed: ?No treatme ntLocation: ?Type: ?Abscess ?Location: ?Mouth ?Mouth location: ?Submandibular [...] management: ?Probed and deloculated ?Drainage: ?Purulent ?Drainage amou nt: ?Moderate ?Wound treatment: ?Wound left open ?Packing materials: ?NonePost- procedure details: ?Patient tolerance of procedure: ?Tolerated well, no immediate complicationsUnSt. Luke's Baptist HospitalSURGICAL PATHOLOGY EXAM 2020-08-19 20:38:00* Test Item Value Reference Range Interpretation Comme [facility] Case Report (test code = 3229481257) Surgical Pathology ?Case: [id number] ? Authorizing Provider: ?Teresa Garrett, WHCNP ? ? Collected: ? 08/14/2020 1208 ?Ordering Location: ? ? [facility] ?Received: ?08/14/2020 1326 ? [facility] ?Pathologist: ? Stacie Muro MD ? Specimens: ? A) - ENDOCERVICAL ? B) - CERVIX, LEEP ? Final Diagnosis (test code = 9105523872) [id number] uZzEwMzNcZnRuYmpcdWMxIH ldvpOrKFmdd1StL8WcRcQmG FxhbnNpXGRlZmxhbmcxMDMz DIB6lvSpPKBmOTvdOOQaAOm vUa4uuHWxiBjfCfPqBPLwp6 uqyxALrlvliPc7j2edJPBxN wH3jEUdSWaiL7ytapMgsYGn MPEaCEz5vR84HGNsiK5xqCQ sIDtccmVkMFxncmVlbjBcYm a7XETfE5iyQFVgJBBzA0TsX S7rCKWpVii6JPI8OHD3oKsz n2D5iNEsnZXlqYawWzNwKlM jRLHMt6KdPUh0uCmqT8MsBW YoGuI9nVMpDYEjPEegRSWwI EQdlwP8jY78EJedifK5gKYj c7Moz28df878fL2ubQOiRII 3YURdWAEhhTZkTMHeNZS7QF IroEBpB2oeHOgbDI0tnzelA EU9XOmbBAOxbBlwFZbnTYMl HkKbnFCeLOExhWblIHkio11 4EUV8NrAuSH7uZ7Gjm9L1wN 9maXRcZGVmdGFiNzIwXGZvc o3eoOEgUMpum1SwSEM8ssU3 lUVozQHnMSIuOM56Xesmd1G zWmmeWBX7KZCpohBrv8Vws1 plMzNiiiGgG3tyO7HnVTYoD KBuYXQaPrFzlzHzp0Nwv4Nm wSTdiLr2p4shUCOrNSRivBz qd0tnVUO4ZFNdK1K8lLYxk4 yzYUqxDWHpgZY1loEcWZVbp WYeN2DlyH9lOPyiSK4jwdr2 e1zwGsKlSC9ftemil5tzROb mLSRvNSZ5GjTuOXTqu6Pzvl qaQhVkx0IoxDUpXZbpI02qc 809AYKiwjEyC5gjcCKkojrc bGFpblxmMFxmczIyXHFsXHB sYWluXGYwXGZzMjJccGxhaW 7hTdXoXuHdNVuzJW2gBNLxD 9pxoQDxGQQgRUQqC2diRsDz vJ0dvJweLRgyumUhSOGtxyI WVqWDXjRFF7JCSznEXLGJLT YWDESNI4T7TXSrbmApZCFvL N3kWgGZD01YKqVVFM3LCHOP WosVSoHHDeAMK3CTGgvSRQa lF9cTQwQEDTNYHWOBKYYHIE oENW9xgWCuOZPdfcPJNaWHM NXONPfaFQkXQ6HxSUuOSXGV L369DAMzasqfjH5kLqYcpVh tWpCgjEfirR8uXaHmYySdMt xwbGFpblxmMVxmczIwXGxhb ggmOZRzKUyfB6cbDyCoULCo uLpxUJnuh1TbBRIhWERcLfI mUSXnPL9lHz0AREbvNYqHQX HBNmPYQRNRFRKODW6YLiDCV lRSQUVQSVRIRUxJQUwgTEVT GE7IPFwOJK6yGPveUPrJNTE qZqVSW4yLZ5LHGORCQnnhDF YiETEmUWCcXWoFVO6NUEIZN ExPVyBHUkFERSBEWVNQTEFT SUEgKENJTiBJKVxwYXJccGF yZFxwbGFpblxmMFxmczIyXH BsYWluXGYxXGZzMjBcbGFuZ zEwMzNcaGljaFxmMVxkYmNo FJOyRKmoS6hgUpBvMyWgGPG fTCEmQKYEL8eIDDOMIWWAJM EFZzACO0vSOEOvoCSfWXRkO CAtIExPVyBHUkFERSBEWVNQ VMPMTIVsQSJQL4WWDRJPLUR BCMMvIYUVM5QSItLCD9JTEB CIU2EBGDrUGtXCIXWAIT1qQ HBhciAgICAgLSBBRERJVElP TkFMIExFVkVMUyBFWEFNSU5 FRFxwYXJccGFyXHFsXHBsYW xgXAErKWYbZtVanYvdfQ8hL jFcZnMyMiBYaWFvdGFuZyBE dSwgTUQgXHBsYWluXGYxXGZ zMjBcbGFuZzEwMzNcaGljaF lyZXquMbVgMHIlZCzkP8lgI oIqVnKrUBdqQFImnHxgtL6n NxDwMcVsWmHWoaq6nqZBjW8 vnB5eyYNzUWWLD1ptERTtFP Sqx7y1UCUswKJxKBRvRPqsv iwgTUQgIDkvMjkvMjAyMCAg RbfxSgLIEFjiBEG4e0hbnEV xXHNzdGVjZjIyMDAwXGFuc2 lcZGVmbGFuZzEwMzNcZnRuY jkbgQMhNKGnNnDuc0fnd686 iDEub8pqHFBoYnF1uIXjFIP reWujlem0bYwgLqOgMHGrg7 lzcyBcZmNoYXJzZXQwIEFya AKrK323VGYmOPtuv5qig2No HPLmdTQvv1G9YRYEJUerOoL uR385r2tpv2udlyRymCO5TG QrNRS9EXfohkTutiA3OLrqq BGvAtB7XKtmeqRuKWgenxWx uoQeJwe3DRNwL342FVH3tSh ga1zaTPX9AYVfYFLrLivaCo 7osJMpQ394GFFkQFKOGHQsn Ru2WEQpknWquaIydYGJb237 S166p9nrQCMucqWumUnMzyu ld7snO715FFWizARdpiKdOs LjKJWwqFAozGR1JLGeEV5aa luuHHybZPyoKRFrsvK0IMFs cHHvI3QoRGMnVD7bjragBCU 2VSlaNIVaALQ2PmSqQDFzm2 Mawrj4CgNlij8svv95XES1a 5BjgVtbOEP6DVG6VnRxEy1z cELdQVNnZF4lWtFklGMoLJT blf41oDjpJTmitpJxuH5bSn MvTVKqcFErKUTiDV8hpVQpI DLbbZ8rvvcwFNRcBbBikeph QTIbxKgnagYwMz3qmHcaSUU 7LOtxH2cggR2hYoX6JSguD3 qkkC2iSNz3APvizHC2DOAue L8aEE2zcsket3gjAJfyZRdb QTQvtbJ2feM4XUWofWSwX1E dxY9tKJMtXF2fanjid0ufBC M0PGazUDMnVQY9PoAeNYGpl 6Iihge0FmEkx2IflGDtIBto R43uf952VNQrofChZ8ksgSY hokdftLLdfklkMPzzltQ8ZE FsXHBsYWluXGYxXGZzMjBcb GFuZzEwMzNcaGljaFxmMVxk MkKiPIMwCHlxX4jqRjRpA6P jBZJbNaZmzGTaKTfavBK9KR XcFKWjc05kxOg4XLCgojygu 5AqDLSkhTLnsROosR1twhOk k1crCVGhBHVtVZFsV7BdEFA 1eRYdGZHhgSDpwZU2EU0ntd PiFD0qRBDvJlaiwlPyvHKcm uLhEZQcAPhll2exNS4qDWVa kHjkxL7nvYK1AQLxe4gdnMY qhXJod6rio6OrdkYrBQlfFK ReJDhoVGYtNJWrRB5bOQXkv LGiqyRrn9Q6UpfowAXuozpp RxtgmkM7IUvpdlmzUFNrVCj sA3npOlSvXMSnoHmaLvjjn8 NoXGYyXGZzMjhccGFyfX0= Clinical Information (test code = [id number]) Clinical History: 30 year-old with HGSIL Gross Description (test code = 1263776726) i6koaQHjWDNzgZItUcAuAAX eCSQqa7yyBLMwfUYvYjObCh NcZnRuYmpcdWMxXGRlZmYwe 7sux675ySGqy9lmCGYtZzT6 dELfZRVcpVAsJ141GLUhCFc wi9jif3DhGTMzdULmd9A5ET IFdrbhwPh0bXkxY23hp4A8M hsfJ5rzNPBuMYhzZJAbETmu hYQlROW6BKYqBWP3IEqmbbK kllJ3LHmvjDGxXyA8LLj6b7 pnaPetTLNaHDU6f3gmNLcqr iZhDR6jyv9hzKo4s8tmojOv UAWzWGLjrAAFUVCeD2PcgCm rCf9xeFo2wBucHbjxTTY4Hf u4AZ8bfj83pmh6xNxtSYXhu minYaN6ZUrtMIAkrmxiWGs1 KUcsPCFpsCZpYPLqvZHiY4Q gPYhlVZ9rizs1JdKfUI4qpb gzECekOCGmFBX2FrBdVPDkj 9GnirxaGdPpmg1wmx43LIS7 p7PyiHkiGAB0IMX7IrRxAz1 rcDVxEDLsRV1yDaXpkBYoXM Afiz17nJafLByhceJkvH7zA eVuABNapMHkQIWbKG9xpCOf MISlnW4imfpaFJQlWlXgbpy hFWLdsSgmccUrGs4hoHdsMZ D3TMblL6iqnK7jBpL4ZEvxT 7disD5bPQm7XDkkfVG1WPCq uZ7bSB0qnqtby6twKYT6VRv bVTHdmzU6syQoRRWkvUGnC7 EujQ97PbLwwHHjG3SxqZ7mH AnhLWKjzfh5IxUgHj2yrSFt yEM8KQflXwemSKmgIMSfybH vbnRccGduZGVjXHBsYWluXH BgCXyoWEUpJORzGnOuk0ZhK SYku3wqBpPxu2wzxLa0PEtw bFxwbGFpblxmMFxmczIwXHB vQZwuUBDpQJVrQrHfW5PpX7 zvRF9bJNRxueTuXWBguDGyC ZVotvRvq1XvSRgxavKlFHKn sYyyZYQ1lUSzHPDvFJXdRQW eRR97ODTpVEmsLVGwAJSlQm UmvYanNUkjTFx0MgniuSRkn lxmMVxmczIwIHMgbmFtZSwg EYnqxsMaOuNcYBDrphOyU5T jgndqLDlvzIdtnG4yVwZrSt NsPEb4JYLkCAJfLru0ZPVwO WluXGYxXGZzMjAgIGFuZCBj h81wwFC3yjOdPiJvlxAjN3i wKWxzqRZpb9NobKXujXfqmI DtiTEyl5ZzhBXkjDRfaZMoA IQdbqwlkCXbfO4zlWWbyNFs LGf4vEYxPGHxCnPwgGwcn2O uIDOaUIihXL34uhKwNG0bUJ fzFE4rVDuqHO8uHOUnDIjoS PEiL4NqI6N0EAyjJMJaHBIq uVNmcG5qyoFzyaShwGv2AEH hNTP1jZYonLnrKJPvBiqyoJ E1ITBbThPspuAyTH15hITlu Jklg3EeoVs5dMArVGddDJMz dN3lbX8nHZPpSZCpnjiaFGB kXHBsYWluXGYwXGZzMjBccG uojI1fYgIvBuHbEBQLiFPug R6fsyJXIExxPNTnN8SrmsVb RIpbXRMsgf5ekVmlWVfnBaA eTLLlt7p5dQK3tKXyrYJ0uC OhmEhnHT0vaDMkJLTAPH66n WJlciwgIkxFRVAiIGFuZCBj k68tgOX9yzTqNdYaoqQ4mb4 ksUFyoTIpYEFeda0dtN5pBL 7mOD6bLPVYXLQUEBSpSZUiz WVuICgxLjUgeCAxLjIgeCAw VyLuC77cSsMeUOjgJMLjhE0 dUDB3vPgtnKNqgYKwNXXjTH ZilxIxcDasuyM7kBKxNYHtS KVnR3ZepAOlP2ZidVoszEkt K5NfEAAybCZrbGhwKHAyumS nJL84FGZcDKvzWQUfAZ7hjJ YlVT2eTHHqQSVniQUxqC9cw wSfrgPhrLFgfhvbNIX8YYZp MC5fSEQmC8hmjUOxKIAdpbJ lvJQnemSfgZBamPkmh4XkdA quclUoOFEdBEKoxeHeaKC5T I8hdUrcxxgreQ5wa9qrvn76 ytYjdGIup0DnDiEoOHIwBAZ PjYUkWXhwJZPmKJKwy306MM rkQXEafLQtKS4hcZKmZRh2p GFyIHBpbmstdGFuIExFRVAg AiApV22wetUcNHJrYZY0ZPV jYDH4BKZfScEahLciJXMaCY UafAFbsI0nmxQvheAmeqPmv tOjpBAwtoPxl2EwuWHwjEsg gQb9XAT7Tb9ixVVhCBVtrvO nVVnlEUhbDAHrWUY5MeiyZC HwlGHcYIaquiIFm8HaZjosC IAtJvz8MPYiMPLuUO7nRCW5 oYHddDZeHZVeB7Cmk88jrIU wL8lmTwahOFQfMjolS0ywOT UuG9NjK3QcrqkbMHhmabHvN PM4eL2aHW1gwxtqwe4wlCAg WWXgvcQDOCE4qN9hEVBpJNV 0OMRrseBEUY3NCrqkBUWDgz UgcXVhZHJhbnQsIHJhZGlhb St8URCxJ9Bdd60zPBgiLI69 bBHaeDugfCVcNKNzEME3LtZ vZS6sLWVsaYBzqyVoqFnevi YnxHEdgMyly5BcoVddkkJfA CBlbnRpcmVseVxwYXIgQjUt OaC9UFOCenJtxGMdZIAyjhJ sEHVpOJvstOg4VBBwZ3Efr9 6zUDekID65mZKjeLcfcAMuL DB5GTB1SxVFHYTIRRIfCJiw OU64AWEdESIpQYtdlBKxZDP 0aH3kVJRtUWXwpQllWCb2QG BhclxwYXIgSnVsaWUgTWNJb VyqkcE8VNRUHIngbXGcbnlr MVxmczIwXGxhbmcxMDMzXGh nW6rzNwIrZXOjnRhlMOhyx1 DpEUNqCLCbZPywpeReLWG4m GVyXHBhclxwbGFpblxmMVxm czIwXHBhclxwbGFpblxmMVx mczIyXGxhbmcxMDMzXGhpY2 glEwNeVUNyrRkwYAzat0VmZ GYxXGNmMVxmczIyXHBhclxw GEZnxAvquG8yElQpWdHsYVa nVU8uZOHvV4xpmHEdEIMcGZ AoR9hoTgJrrE8ruCojNJnzW jFcZnMyMFxiXHBhclxwbGFp blxmMVxmczIwXGxhbmcxMDM cDNkfT5cmHfGoIBIryMyiCX tyy8MtAPCwACDrNXzcpwZwD NT2sCCeQROnnhyhsYancRMe blxmMFxmczIwXHBsYWluXGY xXGZzMjBccGFyfQ== Embedded Images (test code = 8712981726) [facility]2020-08-14 14:36:00* Test Item Value Reference Range Interpretation Comme nts SARS-CoV-2 Rapid ID NOW (test code = 87838-7) Not Detected Not Detected VIRGEN (test code = VIRGEN) ID NOW COVID-19 As say is an isothermal nucleic acid amplification test intended for the qualitative detection of nucleic acid from SARS-CoV-2 viral RNA in nasopharyngeal ([employer]IP[employer]) specimens. It is used under Emergency Use [...] patient testing if clinically indicated. Lab Interpretation (test code = 75918-3) [facility]2020[facility]14 14:36:00* Test Item Value Reference Range Interpretation Comme nts SARS-CoV-2 Rapid ID NOW (test code = 45741-3) Not Detected Not Detected VIRGEN (test code = VIRGEN) ID NOW COVID-19 As say is an isothermal nucleic acid amplification test intended for the qualitative detection of nucleic acid from SARS-CoV-2 viral RNA in nasopharyngeal (SHIPFIT[employer] HEL[employer]) specimens. It is used under Emergency Use [...] patient testing if clinically indicated. Lab Interpretation (test code = 21623-1) [facility]2020-08-14 14:36:00* Test Item Value Reference Range Interpretation Comme nts SARS-CoV-2 Rapid ID NOW (test code = 71476-0) Not Detected Not Detected VIRGEN (test code = VIRGEN) ID NOW COVID-19 As say is an isothermal nucleic acid amplification test intended for the qualitative detection of nucleic acid from SARS-CoV-2 viral RNA in nasopharyngeal (SHIPFITTER HELPER) specimens. It is used under Emergency Use [...] patient testing if clinically indicated. Lab Interpretation (test code = 64830-8) Normal [facility] [id number] 13:53:00* Test Item Value Reference Range Interpretation Comme nts POCT PREG (test code = 1605) Negative On board controls acceptable with C Line (test code = 3574) Yes POCT PREG LOT # (test code = 3575) POCT PREG TEST DATE ( test code = 3576) Lab Interpretation (test cod e = 38103-2) [facility] [id number] 13:53:00* Test Item Value Reference Range Interpretation Comme nts POCT PREG (test code = 1605) Negative On board controls acceptable with C Line (test code = 3574) Yes POCT PREG LOT # (test code = 3575) POCT PREG TEST DATE ( test code = 3576) Lab Interpretation (test cod e = 15619-3) [facility] [id number] 13:53:00* Test Item Value Reference Range Interpretation Comme nts POCT PREG (test code = 1605) Negative On board controls acceptable with C Line (test code = 3574) Yes POCT PREG LOT # (test code = 3575) POCT PREG TEST DATE ( test code = 3576) Lab Interpretation (test cod e = 12721-9) Normal [facility] Notes Date/Time Note Provider Source 2024-04-12 10:56:26 6085-21-04M87:56:26F ormatting of this note might be different from the original.Looks like you sent this to the wrong provider. 83381-1Lxmrnrsrt encounter XcktFY4657-13-02N41:56:41Telep phyllis encounter NoteTXT1.2.840.991474.1.13.104 .2.7.2.835566|[id number] lable for patient psbf85144-5PfewWHMRVUQQHWHAbjo atted C-CDA narrative textOG-OBSTETRICS & GYNECOLOGY STAFFOG-OBSTETRICS & GYNECOLOGY STAFF[address]TX[address] 223289QFVHYYRVMBXTHOFAJTCQBW56 13-04-23T10:56:411.2.840.63061 0.1.72.3.15|1.2.840.410343.1.1 3.104.2.7.2.727879_[id number] OG-OBSTETRICS & GYNECOLOGY STAFF [facility] 2024-04-12 10:43:22 3252-05-02R14:43:22F ormatting of this note might be different from the original.Fax from [facility] office scanned into chart 01585-4Sdyehfcbr encounter DgbqUR8941-55-84V40:46:14Telep phyllis encounter NoteTXT1.2.840.184195.1.13.104 .2.7.2.333795|[id number] lable for patient qzma74978-6DjeuUSONYNNSOTLTzin atted C-CDA narrative [id number] [address] [place]TXTX[address] 802278JLIELJKNKEFTKPOJWSQMFJ83 13-04-23T10:46:141.2.840.91291 0.1.72.3.15|1.2.840.100542.1.1 3.104.2.7.2.727879_[id number] Roberta Cee [facility] 2024-03-30 11:56:50 2692-31-52Z14:56:50F ormatting of this note might be different from the original.[place] [address]-0Qrbfiuhzl encounter KdypPG9708-31-07X59:57:36Telep phyllis encounter NoteTXT1.2.840.563225.1.13.104 .2.7.2.102755|[id number] lable for patient nggp06296-4ZayzRWNCWQSUZCCCbab atted C-CDA narrative text[address] WxauAtaopgttgOecvbaopmILOU0348 780881QDLHIMEQKDLEGFADSTMVKE79 13-04-10:57:361.2.840.68124 0.1.72.3.15|1.2.840.174606.1.1 3.104.2.7.2.727879_[id number] [facility]"
[2024-05-07] MEDS ORDERED: NA CHLORIDE 0.9% 1,000 ML ONE (23:00)
[2024-05-07] MEDS ORDERED: KETOROLAC 30 MG/ML INJ ONE (23:00)
[2024-05-07 23:04] LABS: SARS-CoV-2 Antigen CONTROL BLUE LINE VIS/BG OK; SARS-CoV-2 Antigen Rapid Res Negative (Negative)
[2024-05-07] MEDS ORDERED: CEFTRIAXONE 1000 MG/VIAL ONE (23:10)
--- NOTE | 2024-05-07 23:31 | EDPHYS ---
Physician Documentation [facility] Name: Miller Ferguson Age: 34 yrs Sex: Female : 1990 Arrival Date: 05/07/2024 Time: 21:40 Bed 18 Private MD: ED Physician Cristobal Og HPI: 05/07 23:12 This 34 yrs old Female presents to ER via EMS with complaints of Fever. sb4 23:12 fever, sore throat began this evening. no known sick contacts. no GI symptoms. denies sb4 cough, chest pain, sob. 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 - Infectious Disease History:: Denies. - Social history:: Smoking status: Patient denies any tobacco usage or history of. ROS: 23:12 Cardiovascular: Negative for chest pain, palpitations, and edema, sb4 23:12 Constitutional: Positive for chills, fever, malaise, 23:12 ENT: Positive for sore throat, 23:12 All other systems are negative, Exam: 23:12 Head/Face: Normocephalic, atraumatic. Eyes: Extra-ocular motions intact. Periorbital sb4 areas with no swelling, redness, or edema. 23:12 Respiratory: Lungs have equal breath sounds bilaterally, clear to auscultation and percussion. No rales, rhonchi or wheezes noted. No increased work of breathing, no retractions or nasal flaring. 23:12 Constitutional: The patient appears alert, awake, obviously ill, uncomfortable, 23:12 ENT: Posterior pharynx: Tonsils: bilaterally enlarged, with erythema, 23:12 Cardiovascular: Rate: tachycardic, Rhythm: regular, 23:12 Skin: Appearance: Temperature: warm, Vital Signs: 22:23 BP 114 / 74; Pulse 114; Resp 18 S; Temp 100.5(O); Pulse Ox 99% on R/A; Weight 72.57 kg as6 (R); Height 5 ft. 2 in. (R); Pain 10/10; 23:39 BP 107 / 70; Pulse 89; Resp 16; Temp 99.2(O); Pulse Ox 96% on R/A; kd3 22:23 Body Mass Index 29.26 (72.57 kg, 157.48 cm) as6 22:23 Pain Scale: Adult as6 MDM: 22:25 Patient medically screened. sb4 23:30 Data reviewed: vital signs, nurses notes, lab test result(s), and as a result, I will sb4 discharge patient. Counseling: I had a detailed discussion with the patient and/or guardian regarding the historical points, exam findings, and any diagnostic results supporting the discharge/admit diagnosis, lab results, to return to the emergency department if symptoms worsen or persist or if there are any questions or concerns that arise at home. 05/07 22:29 Order name: SARS RAPID; Complete Time: 23:05 sb4 05/07 22:29 Order name: Flu; Complete Time: 23:22 sb4 05/07 22:29 Order name: Strep; Complete Time: 23:02 sb4 05/07 22:29 Order name: IV Start; Complete Time: 22:59 sb4 Administered Medications: 23:06 Drug: NS 0.9% IV 1000 ml IV at 1 bolus Per protocol; 1000 mL bolus Route: IV; Rate: 1 kd3 bolus; Site: left antecubital; 23:40 Follow up: IV Status: Completed infusion; IV Intake: 700ml kd3 23:06 Drug: Ketorolac IVP 30 mg IVP once Route: IVP; Site: left antecubital; kd3 23:40 Follow up: Response: No adverse reaction; Pain is decreased kd3 23:13 Drug: Rocephin IV 1 grams IV at calculated rate once; Given slow IV push per pharmacy kd3 instructions Route: IV; Rate: calculated rate; Site: left antecubital; 23:40 Follow up: IV Status: Completed infusion kd3 Disposition: 05/08 20:30 Co-signature as Attending Physician, Cristobal Og MD I agree with the assessment sp4 and plan of care. I reviewed the patient's care provided by the Advanced Practice Provider and agree with the diagnosis and treatment plan. Disposition Summary: 05/07/24 23:30 Discharge Ordered Notes: Location: Home sb4 Problem: new sb4 Symptoms: have improved sb4 Condition: Stable sb4 Diagnosis - Streptococcal pharyngitis sb4 Followup: sb4 - With: Emergency Department - When: As needed - Reason: Trouble breathing, Worsening of condition Discharge Instructions: - Discharge Summary Sheet sb4 - Strep Throat, Adult, [id number] sb4 Forms: - Antibiotic Education sb4 - Patient Portal Instructions sb4 - Leadership Thank You Letter sb4 Prescriptions: - Amoxicillin 875 mg Oral Tablet - take 1 tablet ORAL route every 12 hours for 10 days; 20 tablet; Refills: 0, sb4 Product Selection Permitted Signatures: Dispatcher [employer] Rad Cole RN RN as6 Dorita Jack RN RN kd3 Rosetta Means, PAAsaC PASami sb4 Cristobal Og MD MD sp4
--- NOTE | 2024-05-07 23:31 | ER ---
Nurse's Notes [facility] Name: Miller Ferguson Age: 34 yrs Sex: Female : 1990 Arrival Date: 05/07/2024 Time: 21:40 Bed 18 Private MD: Diagnosis: Streptococcal pharyngitis Presentation: 05/07 22:23 Chief complaint: Patient states: fever and generalized not feeling well today. as6 Coronavirus screen: At this time, the client does not indicate any symptoms associated with coronavirus-19. Ebola Screen: No symptoms or risks identified at this time. Initial Sepsis Screen: Does the patient meet any 2 criteria? No. Patient's initial sepsis screen is negative. Does the patient have a suspected source of infection? No. Patient's initial sepsis screen is negative. Risk Assessment: Do you want to hurt yourself or someone else? Patient reports no desire to harm self or others. Onset of symptoms was May 07, 2024. 22:23 Method Of Arrival: EMS: [facility] as6 22:23 Acuity: ADELITA 4 as6 Triage Assessment: 22:25 General: Appears uncomfortable, ill, Behavior is cooperative, restless. Pain: Complains as6 of pain in head. 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 - Infectious Disease History:: Denies. - Social history:: Smoking status: Patient denies any tobacco usage or history of. Screenin:08 [facility] ED Fall Risk Assessment (Adult) History of falling in the last 3 months, kd3 including since admission No falls in past 3 months (0 pts) Confusion or Disorientation No (0 pts) Intoxicated or Sedated No (0 pts) Impaired Gait No (0 pts) Mobility Assist Device Used No (0 pt) Altered Elimination No (0 pt) Score/Fall Risk Level 0 - 2 = Low Risk Oriented to surroundings. Abuse screen: Denies threats or abuse. Denies injuries from another. Nutritional screening: No deficits noted. Tuberculosis screening: No symptoms or risk factors identified. Assessment: 23:07 General: Appears uncomfortable, Behavior is calm, cooperative. General: Pt reports kd3 generalized body aches. Pt administered fluids and ketorolac for pain. Pt had been administered 1000 mg of Tylenol in route from EMS for fever. . Neuro: Level of Consciousness is awake, alert, obeys commands, Oriented to person, place, time, situation. Cardiovascular: Patient's skin is warm and dry. Respiratory: Airway is patent Trachea midline Respiratory effort is even, unlabored, Respiratory pattern is regular, symmetrical. 23:39 Reassessment: Patient and/or family updated on plan of care and expected duration. Pain kd3 level reassessed. Patient is alert, oriented x 3, equal unlabored respirations, skin warm/dry/pink. Patient denies pain at this time. Patient states feeling better. Patient states symptoms have improved. Vital Signs: 22:23 BP 114 / 74; Pulse 114; Resp 18 S; Temp 100.5(O); Pulse Ox 99% on R/A; Weight 72.57 kg as6 (R); Height 5 ft. 2 in. (R); Pain 10/10; 23:39 BP 107 / 70; Pulse 89; Resp 16; Temp 99.2(O); Pulse Ox 96% on R/A; kd3 22:23 Body Mass Index 29.26 (72.57 kg, 157.48 cm) as6 22:23 Pain Scale: Adult as6 ED Course: 22:01 Patient arrived in ED. gm2 22:04 Rosetta Means PA-C [facility]. sb4 22:04 Cristobal Og MD is Attending Physician. sb4 22:24 Triage completed. as6 22:25 Arm band placed on. as6 22:58 Dorita Jack, CANDELARIA is Primary Nurse. kd3 22:59 Inserted saline lock: 20 gauge in left antecubital area, using aseptic technique. bc6 23:08 Patient has correct armband on for positive identification. Provided Education on: kd3 fluids/ medications . Client placed on continuous cardiac and pulse oximetry monitoring. NIBP monitoring applied. 23:39 No provider procedures requiring assistance completed. IV discontinued, intact, kd3 bleeding controlled, No redness/swelling at site. Pressure dressing applied. Administered Medications: 23:06 Drug: NS 0.9% IV 1000 ml IV at 1 bolus Per protocol; 1000 mL bolus Route: IV; Rate: 1 kd3 bolus; Site: left antecubital; 23:40 Follow up: IV Status: Completed infusion; IV Intake: 700ml kd3 23:06 Drug: Ketorolac IVP 30 mg IVP once Route: IVP; Site: left antecubital; kd3 23:40 Follow up: Response: No adverse reaction; Pain is decreased kd3 23:13 Drug: Rocephin IV 1 grams IV at calculated rate once; Given slow IV push per pharmacy kd3 instructions Route: IV; Rate: calculated rate; Site: left antecubital; 23:40 Follow up: IV Status: Completed infusion kd3 Medication: 23:08 VIS not applicable for this client. kd3 Intake: 23:40 IV: 700ml; Total: 700ml. kd3 Outcome: 23:30 Discharge ordered by MD. sb4 23:39 Discharged to home ambulatory, kd3 23:39 Condition: stable 23:39 Discharge instructions given to patient, Instructed on discharge instructions, follow up and referral plans. Demonstrated understanding of instructions, follow-up care, medications, Prescriptions given X 1, 23:40 Patient left the ED. kd3 Signatures: Rad Hargrove RN RN as6 Dorita Jack RN RN kd3 Rosetta Means PA-C PASami sb4 Hoda Mascorro bc6 Liliam Parry gm2
[2024-05-08] VITALS: BP 107/70; TEMP 99.2; O2SAT 96
== END 2024-05-07 23:40 | disposition home or self-care (01) ==
LOC: ER 21:40
DX: J02.0 Streptococcal pharyngitis (principal); Z11.52 Encounter for screening for COVID-19
CPT/HCPCS: 96365; 36415; 87081; 87804 ×2; 96375; 99284; 87811; J7030; J0696

== ENCOUNTER 2024-12-30 15:53 | Emergency (ER) | payer OTHER ==
--- OUTSIDE RECORDS SUMMARY | 2024-12-30 15:57 | XMS REPORT | Continuity of Care Document ---
Author Name Unknown Address [address] [facility] [place] [address] [facility] Address [address] [facility] [address] [place] [address] Care Team Providers Care Directory Compiler Name Role Phone EDA BROWN Primary Care Physician Unavailab Eda Phillips Attending Clinician Unavailable ARIELLE JAMES Attending Clinician Unavailable Arielle James DNP Attending Clinician [phone] Doctor Unassigned, [place] Attending Clinician U JOSÉ MIGUEL Brooks Attending Clinician JOSÉ MIGUEL Godoy Attending Clinician Laura spears Doctor Unassigned, [place] Attending Clinician U navailinna GC_GCBZW_Kadiyala_S Attending Clinician UnavailClaudia Srinivasan Attending Clinician + Eliza Alicia Attending Clinician [phone] ELIZA WINTER Attending Clinician Unavailab Adonis [facility] Nurse Attending Clinician CLAUDIA Mckinnon Attending Clinician Unavail able CHRIS HAYES Attending Clinician Unavailable CASSY MCCALL Attending Clinician Unavailab juan j RiveraMatthew dong DO Attending Clinician [phone] Tita Ro Attending Clinician [phone] Cassy Ashley Attending Clinician + [phone] [facility] Attending Clinician Un available Jerome Tinajero MD Attending Clinician [phone] JULIA RAMOS Admitting Clinician Unavailabl e [email or web address]_Kadiyala_S Admitting Clinician Unavaila ble Payers Payer Name Policy Type Policy Number Effective Date Expirati on Date Source [place] [employer] [id number] 2023 00:00:00 [place] [id number] 2022 00:00:00 Problems Condition Name Condition Details Condition Category Status Onset Date Resolution Date Last Treatment Date Treating Clinician Comments Source Papanicola ou smear of cervix with atypical squamous cells cannot exclude high grade squamous intraepith elial lesion (ASC-H) Papanicola ou smear of cervix with atypical squamous cells cannot exclude high grade squamous intraepith elial lesion (ASC-H) Disease Active 5- 00:00: 00 [facility] Trichomona l vulvovagin itis Trichomona l vulvovagin itis Disease Active 0 8-12 00:00: 00 [facility] Bacterial vaginosis Bacterial vaginosis Disease Active 0 8-12 00:00: 00 [facility] History of tubal ligation History of tubal ligation Disease Active 2020-0 8-10 00:00: 00 [facility] Tobacco use disorder Tobacco use disorder Disease Active 2020-0 8-10 00:00: 00 [facility] Over weight Over weight Disease Active 0 8-10 00:00: 00 [facility] Papanicola ou smear of cervix with low grade squamous intraepith elial lesion (LGSIL) Papanicola ou smear of cervix with low grade squamous intraepith elial lesion (LGSIL) Disease Resolve d 5- 00:00: 00 2024-04-04 00:00:00 2024-04-04 16:51:29 Overview: Formattin g of this note might be different from the original. No SHIRA noted on colposcop y bx. Needs repeat co-testin g in 12 months (07/2023) . [facility] HGSIL (high grade squamous intraepith elial lesion) on Pap smear of cervix HGSIL (high grade squamous intraepith elial lesion) on Pap smear of cervix Disease Resolve d 2019-0 8-21 00:00: 00 2024-04-04 00:00:00 2024-04-04 16:51:27 Overview: Formattin g of this note might be different from the original. [id number] LEEP [facility] Other general counseling and advice for contracept ese management Other general counseling and advice for contracept ese management Disease Resolve d 8-10 00:00: 00 2024-04-04 00:00:00 2024-04-04 16:51:22 [facility] Allergies, Adverse Reactions, Alerts Allergy Name Allergy Type Status Severity Reaction(s) Onset Date Inactive Date Treating Clinician Comments Source NO KNOWN ALLERGIE S Drug Class Active [facility] Social History Social Habit Start Date Stop Date Quantity Comments Source History of tobacco use Cigarette Smoker [facility] Alcoholic beverage intake 2024-10-15 00:00:00 2024-10-15 00:00:00 Ex-drinker (finding) [facility] Tobacco use and exposure 2024-04-04 00:00:00 2024-04-04 00:00:00 Smokeless tobacco non-user [facility] Alcohol intake 2024-03-19 00:00:00 2024-03-19 00:00:00 Ex-drinker (finding) [facility] History of Social function 2024-03-19 00:00:00 2024-03-19 00:00:00 [facility] Exposure to SARS-CoV-2 (event) 2023-03-07 00:00:00 2023-03-17 10:21:00 Not sure [facility] Cigarettes smoked current (pack per day) - Reported 2022-08-18 00:00:00 2022-08-18 00:00:00 [facility] Sex assigned at 1990 00:00:00 1990 00:00:00 [facility] Smoking Status Start Date Stop Date Source Unknown if ever smoked [facility] Ex-smoker 2024-04-04 00:00:00 2024-04-04 00:00:00 [facility] Occasional tobacco smoker 2020-06-30 00:00:00 [facility] Medications Ordered Medication Name Filled Medication Name Start Date Stop Date Current Medication? Ordering Clinician Indication Dosage Frequency Signature (SIG) Comments Components Source metroNIDAZO LE 500 mg tablet 03-30 00:00: 00 04-07 04:59 :00 No [id number] 500mg Take 1 tablet by mouth in the morning and 1 tablet in the evening. Do all this for 7 days. [facility] chlorhexidi ne 0.12 % mouthwash 2019-11 00:00: 03-17 00:00 :00 No [id number] 15mL Swish and spit out 15 mL 2 (two) times daily. [facility] methylPREDN ISolone (MEDROL, NITO,) 4 mg tablets 2019-11 00:00: 00 03-17 00:00 :00 No [id number] Take by mouth SEE-INSTRU CTIONS. follow package directions [facility] acetaminoph en-codeine (TYLENOL-CO DEINE #3) 300-30 mg tablet 2019-11 00:00: 03-17 00:00 :00 No [id number] 1{tbl} Take 1 tablet by mouth every 4 (four) hours as needed for Pain (scale 7-10). Indication s: acute pain [facility] ondansetron 4 mg disintegrat ing tablet 2019-11 00:00: 00 03-17 00:00 :00 No [id number] 4mg Take 1 tablet by mouth every 8 (eight) hours as needed for Nausea and Vomiting (N/V). [facility] clindamycin 150 mg capsule 2020-1 2-04 00:00: 00 11-01 05:59 :00 No [id number] 300mg Take 2 capsules by mouth 4 (four) times daily for 7 days. [facility] ibuprofen 200 mg tablet 08-14 00:00: 00 08-18 04:59 :00 No [id number] 600mg Take 3 tablets by mouth every 6 (six) hours as needed for Pain (scale 4-6) for up to 3 days. [facility] metroNIDAZO LE 500 mg tablet 07-11 00:00: 00 07-11 00:00 :00 No [id number] 2000mg Take 4 tablets by mouth once now for 1 dose. [facility] metroNIDAZO LE 500 mg tablet 07-02 00:00: 00 07-03 04:59 :00 No [id number] 2000mg Take 4 tablets by mouth once now for 1 dose. [facility] No known medications [facility] known medications [facility] known [facility] No known [facility] No known medications No Un shilo ity [facility] No known medications No Un shilo [facility] No known medications No Un shilo [facility] Immunizations Ordered Immunization Name Filled Immunization Name Date Status Comments Source [facility] 2024-05-27 00:00:00 Completed [facility] HPV9 2024-04-12 00:00:00 Completed [facility] 2024-04-04 15:30:00 Completed [facility] 2024-03-30 00:00:00 Completed [facility] 2024-03-19 10:00:00 Completed [facility] HPV9 2023-02-15 00:00:00 Completed [facility] HPV9 2023-02-15 00:00:00 Completed [facility] HPV9 2023-02-15 00:00:00 Completed [facility] 2023-02-15 00:00:00 Completed [facility] 2023-02-15 00:00:00 Completed [facility] HPV9 2023-02-15 00:00:00 Completed [facility] HPV9 2022-09-17 00:00:00 Completed [facility] HPV9 2022-09-17 00:00:00 Completed [facility] HPV9 2022-09-17 00:00:00 Completed [facility] HPV9 2022-09-17 00:00:00 Completed [facility] HPV9 2022-09-17 00:00:00 Completed [facility] HPV9 2022-09-17 00:00:00 Completed [facility] HPV9 2022-09-17 00:00:00 Completed [facility] HPV9 2022-09-17 00:00:00 Completed [facility] HPV9 2022-09-17 00:00:00 Completed [facility] HPV9 2022-09-17 00:00:00 Completed [facility] HPV9 2022-08-18 00:00:00 Completed [facility] HPV9 2022-08-18 00:00:00 Completed [facility] HPV9 2022-08-18 00:00:00 Completed [facility] HPV9 2022-08-18 00:00:00 Completed [facility] HPV9 2022-08-18 00:00:00 Completed [facility] HPV9 2022-08-18 00:00:00 Completed [facility] HPV9 2022-08-18 00:00:00 Completed [facility] HPV9 2022-08-18 00:00:00 Completed [facility] HPV9 2022-08-18 00:00:00 Completed [facility] HPV9 2022-08-18 00:00:00 Completed [facility] HPV9 2022-08-18 00:00:00 Completed [facility] HPV9 2022-08-18 00:00:00 Completed [facility] Vital Signs Vital Name Observation Time Observation Value Comments S ource Systolic blood pressure 2024-10-15 15:21:00 103 mm[Hg] [facility] Diastolic blood pressure 2024-10-15 15:21:00 71 mm[Hg] [facility] Heart rate 2024-10-15 15:21:00 93 /min [facility] temperature 2024-10-15 15:21:00 36.78 Peggy [facility] Respiratory rate 2024-10-15 15:21:00 16 /min [facility] Body height 2024-10-15 15:21:00 157.5 cm [facility] weight 2024-10-15 15:21:00 75.342 kg [facility] BMI 2024-10-15 15:21:00 30.38 kg/m2 [facility] Systolic blood pressure 2024-04-04 20:26:00 110 mm[Hg] [facility] Diastolic blood pressure 2024-04-04 20:26:00 73 mm[Hg] [facility] Heart rate 2024-04-04 20:26:00 78 /min Unive [facility] Respiratory rate 2024-04-04 20:26:00 18 /min [facility] Body height 2024-04-04 20:26:00 157.5 [facility] 2024-04-04 20:26:00 71.215 kg [facility] BMI 2024-04-04 20:26:00 28.72 kg/m2 [facility] Systolic blood pressure 2024-03-19 15:03:00 106 mm[Hg] [facility] Diastolic blood pressure 2024-03-19 15:03:00 73 mm[Hg] [facility] Heart rate 2024-03-19 15:03:00 76 /min Unive [facility] Respiratory rate 2024-03-19 15:03:00 18 /min [facility] Body height 2024-03-19 15:03:00 157.5 [facility] 2024-03-19 15:03:00 71.215 [facility] 2024-03-19 15:03:00 28.72 kg/m2 [facility] Systolic blood pressure 2023-03-17 15:21:00 114 mm[Hg] [facility] Diastolic blood pressure 2023-03-17 15:21:00 78 mm[Hg] [facility] Heart rate 2023-03-17 15:21:00 82 /min Unive [facility] Body temperature 2023-03-17 15:21:00 36.5 Peggy [facility] Respiratory rate 2023-03-17 15:21:00 18 /min [facility] Body height 2023-03-17 15:21:00 157.5 cm [facility] Body weight 2023-03-17 15:21:00 68.635 kg [facility] BMI 2023-03-17 15:21:00 27.68 kg/m2 [facility] Body temperature 2023-02-15 13:21:00 36.61 Peggy [facility] Respiratory rate 2023-02-15 13:21:00 18 /min [facility] Body height 2023-02-15 13:21:00 157.5 cm [facility] Body weight 2023-02-15 13:21:00 70.58 kg [facility] BMI 2023-02-15 13:21:00 28.46 kg/m2 [facility] Systolic blood pressure 2022-09-17 13:43:00 117 mm[Hg] [facility] Diastolic blood pressure 2022-09-17 13:43:00 74 mm[Hg] [facility] Heart rate 2022-09-17 13:43:00 83 /min [facility] Body temperature 2022-09-17 13:43:00 36.67 Peggy [facility] Respiratory rate 2022-09-17 13:43:00 20 /min [facility] Body weight 2022-09-17 13:43:00 67.495 kg [facility] BMI 2022-09-17 13:43:00 27.22 kg/m2 [facility] Systolic blood pressure 2022-08-18 19:31:00 129 mm[Hg] [facility] Diastolic blood pressure 2022-08-18 19:31:00 87 mm[Hg] [facility] Heart rate 2022-08-18 19:31:00 77 /min Unive [facility] Body temperature 2022-08-18 19:31:00 36.72 Peggy [facility] Respiratory rate 2022-08-18 19:31:00 18 /min [facility] Body height 2022-08-18 19:31:00 157.5 cm [facility] Body weight 2022-08-18 19:31:00 67.302 kg [facility] BMI 2022-08-18 19:31:00 27.14 kg/m2 [facility] Systolic blood pressure 2020-10-24 17:27:00 119 mm[Hg] [facility] Diastolic blood pressure 2020-10-24 17:27:00 80 mm[Hg] [facility] Heart rate 2020-10-24 17:25:00 87 /min Unive [facility] Body temperature 2020-10-24 17:25:00 36.56 Peggy [facility] Respiratory rate 2020-10-24 17:25:00 18 /min [facility] Body weight 2020-10-24 17:25:00 72.576 kg [facility] BMI 2020-10-24 17:25:00 29.26 kg/m2 [facility] Oxygen saturation in Arterial blood by Pulse oximetry 2020-10-24 17:25:00 100 /min [facility] Systolic blood pressure 2020-09-11 18:38:00 109 mm[Hg] [facility] Diastolic blood pressure 2020-09-11 18:38:00 79 mm[Hg] [facility] Heart rate 2020-09-11 18:38:00 80 /min Unive [facility] Body temperature 2020-09-11 18:38:00 37.11 Peggy [facility] Respiratory rate 2020-09-11 18:38:00 16 /min [facility] Body height 2020-09-11 18:38:00 157.5 cm [facility] Body weight 2020-09-11 18:38:00 73.12 kg [facility] BMI 2020-09-11 18:38:00 29.48 kg/m2 [facility] Systolic blood pressure 2020-09-11 18:38:00 109 mm[Hg] [facility] Diastolic blood pressure 2020-09-11 18:38:00 79 mm[Hg] [facility] Heart rate 2020-09-11 18:38:00 80 /min [facility] temperature 2020-09-11 18:38:00 37.11 Peggy [facility] Respiratory rate 2020-09-11 18:38:00 16 /min [facility] Body height 2020-09-11 18:38:00 157.5 cm [facility] Body weight 2020-09-11 18:38:00 73.12 kg [facility] BMI 2020-09-11 18:38:00 29.48 kg/m2 [facility] Systolic blood pressure 2020-08-14 13:50:00 115 mm[Hg] [facility] Diastolic blood pressure 2020-08-14 13:50:00 64 mm[Hg] [facility] Heart rate 2020-08-14 13:50:00 82 /min [facility] Body temperature 2020-08-14 13:50:00 36.72 Peggy [facility] Respiratory rate 2020-08-14 13:50:00 18 /min [facility] Body height 2020-08-14 13:50:00 157.5 cm [facility] Body weight 2020-08-14 13:50:00 72.802 kg [facility] BMI 2020-08-14 13:50:00 29.36 kg/m2 [facility] Systolic blood pressure 2020-06-30 19:54:00 99 mm[Hg] [facility] Diastolic blood pressure 2020-06-30 19:54:00 70 mm[Hg] [facility] Heart rate 2020-06-30 19:54:00 76 /min [facility] Body temperature 2020-06-30 19:54:00 37.17 Peggy [facility] Respiratory rate 2020-06-30 19:54:00 16 /min [facility] Body height 2020-06-30 19:54:00 160 cm [facility] Body weight 2020-06-30 19:54:00 73.143 kg [facility] BMI 2020-06-30 19:54:00 28.56 kg/m2 [facility] Procedures Procedure Date / Time Performed Performing Clinician Source POCT TEST 2024-04-04 00:00:00 Arielle James [facility] POCT TEST 2023-03-17 15:24:00 Alfonso Winter [facility] DISCLOSURE AND CONSENT, MEDICAL AND SURGICAL PROCEDURES 2023-03-17 05:01:00 Doctor Unassigned, [place] [facility] GARDASIL 9 (HPV 9V) VACCINE 2023-02-15 13:23:58 Claudia Mendez [facility] PATIENT FINANCIAL POLICY 2023-02-15 13:12:13 Doctor Unassigned, [place] [facility] GARDASIL 9 (HPV 9V) VACCINE 2022-09-17 13:51:40 Claudia Mendez [facility] GARDASIL 9 (HPV 9V) VACCINE 2022-08-18 19:53:58 Claudia Mendez [facility] ASSIGNMENT OF BENEFITS 2022-08-18 18:52:51 Docto r Unassigned, [place] [facility] [place] I&D MOUTH/TONG INTRA,SUBMANDIBULAR 2020-10-24 17:58:00 Matthew Rivera [facility] NOTICE OF PRIVACY PRACTICES 2020-10-24 16:55:13 Doctor Unassigned, [place] [facility] CONSENT/REFUSAL FOR DIAGNOSIS AND TREATMENT 2020-10-24 16:54:59 Doctor Unassigned, [place] [facility] SURGICAL PATHOLOGY EXAM 2020-08-14 17:08:00 Deanna Garrett [facility] COVID-19 (ID NOW RAPID TESTING) 2020-08-14 13:49:00 Teresa Garrett [facility] POCT TEST 2020-08-14 00:00:00 Teresa Garrett [facility] BCCS-RELATED DOCUMENTATION 2020-08-08 05:01:00 Doctor Unassigned, [place] [facility] ASSIGNMENT OF BENEFITS 2020-06-30 19:23:29 Docto r Unassigned, [place] [facility] Encounters Start Date/Time End Date/Time Encounter Type Admission Type Attending [facility] Care Facility Care Department Encounter ID Source 2024-12-18 14:11:01 Outpatient Brown, [facility] CLS [id number] [facility] 2024-10-04 10:25:00 Outpatient Brown, Eda [facility] [id number] [facility] 2024-09-24 10:09:00 Outpatient Brown, Eda [facility] [id number] [facility] 2024-05-10 13:24:00 Outpatient Brown, Eda [facility] STLMLC [id number] [facility] 2024-04-06 14:13:00 Outpatient Brown, Eda [facility] STL[facility]C [id number] [facility] 2024-04-02 10:17:00 Outpatient Brown, Eda [facility] STLMLC [id number] [facility] 2024-02-27 10:32:00 Outpatient Brown, [facility] ST[facility] STLMLC [id number] [facility] 2023-10-10 11:21:00 Outpatient Brown, [facility] ST[facility] STLMLC [id number] [facility] 2023-09-16 08:26:00 Outpatient Brown, [facility] ST[facility] STLMLC [id number] [facility] 2023-09-14 13:54:00 Outpatient Brown, Eda [facility] STLMLC [id number] [facility] 2023-05-09 07:57:00 Outpatient Brown, [facility] ST[facility] STLMLC [id number] [facility] 2023-04-19 15:57:01 [facility] [id number] [facility] 2023-02-07 07:55:01 [facility] [id number] [facility] 2023-01-26 09:34:03 [facility] [id number] [facility] 2021-09-19 09:16:00 Emergency [facility] [id number] [facility] 2024-10-15 09:30:00 2024-10-15 09:32:24 Outpatient R ARIELLE JAMES [facility] [id number] [facility] 2024-10-15 09:30:00 2024-10-15 09:32:24 Office Visit Arielle James [facility] 1.840.114 350.1.13.10 4.2.7.2.686 [id number] [facility] 2024-05-27 00:00:00 2024-06-30 18:22:34 Patient Secure Msg Doctor Unassigned, [place] Doctor Unassigned, [place] [facility] 1..840.114 350.1.13.10 4.2.7.2.686 [id number] [facility] 2024-05-28 15:30:00 2024-05-28 15:30:00 Outpatient R VALE-PAM S, JOSÉ MIGUEL VALE-PAM S, JOSÉ MIGUEL [facility] [id number] [facility] 2024-04-11 00:00:00 2024-05-12 18:17:40 Patient Secure Msg Doctor Unassigned, [place] [facility] 1..840.114 350.1.13.10 4.2.7.2.686 [id number] [facility] 2024-04-12 00:00:00 2024-05-04 14:48:00 Telephone José Miguel [place] [facility] 1.2.840.114 350.1.13.10 4.2.7.2.686 [id number] [facility] 2024-04-04 15:30:00 2024-04-04 15:57:38 Outpatient R ARIELLE JAMES [facility] [id number] [facility] 2024-04-04 15:30:00 2024-04-04 15:57:38 Office Visit Arielle James [facility] 1.2.840.114 350.1.13.10 4.2.7.2.686 [id number] [facility] 2024-03-30 00:00:00 2024-03-30 11:57:36 Refill Arielle James [facility] 1.2.840.114 350.1.13.10 4.2.7.2.686 [id number] [facility] 2024-03-19 10:00:00 2024-03-19 10:17:55 Outpatient R ARIELLE JAMES [facility] [id number] [facility] 2024-03-19 10:00:00 2024-03-19 10:17:55 Office Visit Arielle James [facility] 1.2.840.114 350.1.13.10 4.2.7.2.686 [id number] [facility] 2023-09-22 08:30:00 2023-09-22 08:30:00 Outpatient R CALEB Swartz, JOSÉ MIGUEL GARCIA [facility] [id number] [facility] 2023-09-21 00:00:00 2023-09-21 00:00:00 Outpatient GC_GCBZW_Ka diyala_S [facility] [id number] [facility] 2023-03-22 00:00:00 2023-03-22 00:00:00 Telephone Claudia Mendez [facility] GE[facility] CHIEF [facility] CHILD [facility] 1.2.840.114 350.1.13.10 4.2.7.2.686 [id number] [facility] 2023-03-21 00:00:00 2023-03-21 00:00:00 Telephone Eliza Winter [facility] GEOPHYSICAL LABORATORY CHIEF [facility] & CHILD [facility] 1.840.114 350.1.13.10 4.2.7.2.686 [id number] [facility] 2023-03-17 11:00:00 2023-03-17 11:25:46 Outpatient ELIZA CARLSON [facility] [id number] [facility] 2023-03-17 11:00:00 2023-03-17 11:25:46 Office Visit Eliza Winter [facility] 1.840.114 350.1.13.10 4.2.7.2.686 [id number] [facility] 2023-03-17 00:00:00 2023-03-17 00:00:00 Orders Only Doctor Unassigned, [place] [facility] 1.840.114 350.1.13.10 4.2.7.2.686 [id number] [facility] 2023-02-24 10:15:00 2023-02-24 10:15:00 Outpatient ELIZA CARLSON [facility] [id number] [facility] 2023-02-15 08:30:00 2023-02-15 08:45:00 Nurse Visit Visit, Adonis-Rmchp Nurse Claudia Mendez [facility] 1.2.840.114 350.1.13.10 4.2.7.2.686 [id number] [facility] 2023-02-15 08:30:00 2023-02-15 08:30:00 Outpatient R [facility] [id number] [facility] 2023-02-15 08:30:00 2023-02-15 08:30:00 Outpatient R CLAUDIA MENDEZ [facility] [id number] [facility] [facility]:00:00 2023-02-15 00:00:00 Orders Only Doctor Unassigned, [facility] 1.2.840.114 350.1.13.10 4.2.7.2.686 [id number] [facility] 2023-01-18 00:00:00 2023-01-18 00:00:00 Telephone Eliza Winter [facility] GEOPHYSICAL LABORATORY CHIEF [facility] MATERNAL & CHILD [facility] 1..840.114 350.1.13.10 4.2.7.2.686 [id number] [facility] 2022-11-04 08:30:00 2022-11-04 08:30:00 Outpatient R ELIZA WINTER [facility] [id number] [facility] 2022-11-04 00:00:00 2022-11-04 00:00:00 Telephone Eliza Winter [facility] GEOPHYSICAL LABORATORY CHIEF [facility] MATERNAL & CHILD [facility] 1..840.114 350.1.13.10 4.2.7.2.686 [id number] [facility] 2022-09-22 10:00:00 2022-09-22 10:00:00 Outpatient R [facility] [id number] [facility] 2022-09-17 09:00:00 2022-09-17 09:00:00 [facility]endez [facility] GEOPHYSICAL LABORATORY CHIEF [facility] & CHILD [facility] 1.2840.114 350.1.13.10 4.2.7.2.686 [id number] 107 [id number] [facility] 2022-09-17 09:00:00 2022-09-17 08:50:56 Outpatient R CLAUDIA MENDEZ [facility] [id number] [facility] 2022-09-15 00:00:00 2022-09-15 00:00:00 Telephone Claudia Mendez [facility] GEOPHYSICAL LABORATORY CHIEF [facility] CHILD [facility] 1.0.114 350.1.13.10 4.2.7.2.686 [id number] 107 [id number] [facility] 2022-08-26 00:00:00 2022-08-26 00:00:00 Telephone Claudia Mendez [facility] GEOPHYSICAL LABORATORY CHIEF [facility] CHILD [facility] 1.0.114 350.1.13.10 4.2.7.2.686 [id number] 107 [id number] [facility] 2022-08-18 14:30:00 2022-08-18 15:23:06 Outpatient R CLAUDIA MENDEZ [facility] [id number] [facility] 2022-08-18 14:30:00 2022-08-18 15:23:06 Office Visit Claudia Mendez [facility] GEOPHYSICAL LABORATORY CHIEF [facility] & CHILD [facility] 1.0.114 350.1.13.10 4.2.7.2.686 [id number] 107 [id number] [facility] 2022-08-18 00:00:00 2022-08-18 00:00:00 Orders Only Doctor Unassigned, [facility] 1.840.114 350.1.13.10 4.2.7.2.686 [id number] [facility] 2022-02-15 08:30:00 2022-02-15 08:30:00 Outpatient R [facility] [id number] [facility] 2021-02-17 10:15:00 2021-02-17 10:15:00 Outpatient R CASSY MCCALL [facility] [id number] [facility] 2020-10-24 11:27:00 2020-10-24 12:28:00 Emergency [facility] 1.2.840.114 350.1.13.10 4.2.7.2.686 [id number] [facility] 2020-09-22 00:00:00 2020-09-22 00:00:[address] [facility] 1.2.840.114 350.1.13.10 4.2.7.2.686 [id number] 113 [id number] [facility] 2020-09-22 00:00:00 2020-09-22 00:00:[address] [facility] 1.2.840.114 350.1.13.10 4.2.7.2.686 [id number] 2020-09-11 13:31:39 2020-09-11 13:46:39 Office Visit Wendy Mccallbasilio [facility]YS[facility]AT[facility] CHIEF [facility] & CHILD [facility] 1.2.840.114 350.1.13.10 4.2.7.2.686 [id number] 107 [id number] [facility] 2020-09-11 13:31:39 2020-09-11 13:46:39 Office Visit Mccall, Rosbasilio [facility] GE[facility]HYSICAL [facility]ORAT[facility] CHIEF [facility] & CHILD [facility] 1.2.840.114 350.1.13.10 4.2.7.2.686 [id number] 2020-09-11 13:15:00 2020-09-11 13:15:00 Outpatient R MCCALL, CASSY [facility] [id number] [facility] 2020-08-14 08:30:54 2020-09-05 10:31:26 Office Visit Res-Colpo/L eep, [facility] TinajeroJerome parekh [facility] 1.114 350.1.13.10 4.2.7.2.686 [id number] 113 [id number] [facility] 2020-08-29 00:00:00 2020-08-29 00:00:00 Telephone Claudia Mendez [facility] GEOPHYSICAL LABORATORY CHIEF [facility] MATERNAL & CHILD [facility] 1.114 350.1.13.10 4.2.7.2.686 [id number] [facility] 2020-08-20 00:00:00 2020-08-20 00:00:00 Patient Secure Msg Doctor Unassigned, [facility] 1.114 350.1.13.10 4.2.7.2.686 [id number] [facility] 2020-08-14 10:00:00 2020-08-14 10:00:00 Outpatient R [facility] [id number] [facility] 2020-08-13 00:00:00 2020-08-13 00:00:00 Patient Secure Msg Doctor Unassigned, [facility] 1.114 350.1.13.10 4.2.7.2.686 [id number] [facility] 2020-08-08 14:30:00 2020-08-08 14:30:00 Outpatient R CLAUDIA MENDEZ [facility] [id number] [facility] 2020-08-08 10:00:00 2020-08-08 10:00:00 Outpatient R [facility] [id number] [facility] 2020-08-08 00:00:00 2020-08-08 00:00:00 Orders Only Doctor Unassigned, [facility] 1.2.840.114 350.1.13.10 4.2.7.2.686 [id number] [facility] 2020-07-14 00:00:00 2020-07-14 00:00:00 Patient Secure Msg Doctor Unassigned, [place] GEOPHYSICAL LABORATORY CHIEF [facility] & CHILD [facility] 1.2840.114 350.1.13.10 4.2.7.2.686 [id number] 107 [id number] [facility] 2020-07-11 00:00:00 2020-07-11 00:00:00 Telephone Claudia Mendez [facility] GEOPHYSICAL LABORATORY CHIEF [facility] CHILD [facility] 1.2840.114 350.1.13.10 4.2.7.2.686 [id number] [facility] 2020-07-02 00:00:00 2020-07-02 00:00:00 Patient Secure Msg Doctor Unassigned, [place] GEOPHYSICAL LABORATORY CHIEF [facility] CHILD [facility] 1.2840.114 350.1.13.10 4.2.7.2.686 [id number] [facility] 2020-07-02 00:00:00 2020-07-02 00:00:00 Telephone Claudia Mendez [facility] GEOPHYSICAL LABORATORY CHIEF [facility] CHILD [facility] 1.2840.114 350.1.13.10 4.2.7.2.686 [id number] 107 [id number] [facility] 2020-07-02 00:00:00 2020-07-02 00:00:00 Telephone Claudia Mendez [facility] GEOPHYSICAL LABORATORY CHIEF [facility] CHILD [facility] 1.2840.114 350.1.13.10 4.2.7.2.686 [id number] 107 [id number] [facility] 2020-06-30 14:34:13 2020-06-30 16:28:45 Office Visit Claudia Mendez [facility] GEOPHYSICAL LABORATORY CHIEF [facility] & CHILD [facility] 1.2.840.114 350.1.13.10 4.2.7.2.686 [id number] 107 [id number] [facility] 2020-06-30 14:45:00 2020-06-30 14:45:00 Outpatient R CLAUDIA MENDEZ [facility] [id number] [facility] 2020-06-30 00:00:00 2020-06-30 00:00:00 Orders Only Doctor Unassigned, [facility] 1..840.114 350.1.13.10 4.2.7.2.686 [id number] [facility] Results Test Description Test Time Test Comments Results Result Co mments Source [facility] [id number] 20:28:00* Test Item Value Reference Range Interpretation Comme nts POCT PREG (test code = 1605) Negative On board controls acceptable with C Line (test code = 3574) Yes POCT PREG LOT # (test code = 3575) POCT PREG TEST DATE ( test code = 3576) [id number] 15:24:00* Test Item Value Reference Range Interpretation Comme nts POCT PREG (test code = 1605) Negative On board controls acceptable with C Line (test code = 3574) Yes POCT PREG LOT # (test code = 3575) POCT PREG TEST DATE ( test code = 3576) [id number] 15:24:00* Test Item Value Reference Range Interpretation Comme nts POCT PREG (test code = 1605) Negative On board controls acceptable with C Line (test code = 3574) Yes POCT PREG LOT # (test code = 3575) POCT PREG TEST DATE ( test code = 3576) [facility] [id number] 15:24:00* Test Item Value Reference Range Interpretation Comme nts POCT PREG (test code = 1605) Negative On board controls acceptable with C Line (test code = 3574) Yes POCT PREG LOT # (test code = 3575) POCT PREG TEST DATE ( test code = 3576) [facility] [id number] 17:58:00 Matthew Rivera, DO ? ? 10/24/2020 [...] tolerance of procedure: ?Tolerated well, no immediate complicationsUnH[facility]SURGICAL PATHOLOGY EXAM 2020-08-19 20:38:00* Test Item Value Reference Range Interpretation Comme nts Case Report (test code = 0476959614) Surgical Pathology ?Case: [id number] ? Authorizing Provider: ?Teresa Garrett WHCNP ? ? Collected: ? 08/14/2020 1208 ?Ordering Location: ? ? [facility] ?Received: ?08/14/2020 1326 ? [facility] ?Pathologist: ? Stacie Muro MD ? Specimens: ? A) - ENDOCERVICAL ? B) - CERVIX, LEEP ? Final Diagnosis (test code = 7297429119) x0dmdZTkSXKnh1kySXRyaLI uZzEwMzNcZnRuYmpcdWMxIH aefpBnDHgoh5PqE6GgSlFhV FxhbnNpXGRlZmxhbmcxMDMz LSJ0utHaTGEsFPqxBJVdYJz mYh5kiSRwqLfyYtRvUDRxh3 kalaBDdwvhfCl4i0klIYMnF eF1vNIwFRmuG1vvcgXqyMDf NANcBWx8lW94ENGtfH8dfTH sIDtccmVkMFxncmVlbjBcYm b0BQYuE6ngCDOlIOGrH9HlN K8tOAKmZxj0TXX4YZY9oKms l2T8hMCogKCwyNjuLyCoLvI lTLCTq0CiRBv4aLmfY4CcCM RoHcU2zUVwQNEbMJxoPPOpW EBngnG2yN56TLsbbpC8aCYn q1Vtf86yo904gN5jnXZvTOX 3YJKeHPSzzTNuITSjNXC7DS UsbUObV7skGPeqBJ8ramodF IK7HIyrOAZubNjxCPokMEJg ZuZwaIFuLEZziLicBGusi54 6KTA6PgPaQU5cL1Wjf0P9wU 9maXRcZGVmdGFiNzIwXGZvc j9qjSYoZOvdn5AuUVU9whJ3 aENyaBGyXGJpCR58Efinh8L rUowfCZD5BTRcaqNar9Dwk9 qyLgDludQiV1jsX7GyLWTvJ ABhLHPxWaHrqpLls0Xpo5Ib tUBwrNd5t7lkJFPkCRNvfMd nf5fuHHL7QZJoB7K5lMFax0 shCTecDMFxrNT6aoSuIPFng YXdV4JwsU5hNTznSW9hjll8 x8hvQmTsIM8sxzqpc5xbXHk hJHRaWER2MiUiAREht8Ppkh maWdWrw4JpvPRbJTbeY50pd 717NSBloyUzZ0smaGEhzptj bGFpblxmMFxmczIyXHFsXHB sYWluXGYwXGZzMjJccGxhaW 0wShVeMiHsNDvfKS5iXENjY 1hggZFrPEOoFDVsY5obRbRz mP9kfZzhOAkgugOhKLKiovX EVaDVBoWCQ2YWSclOJKKRPQ OLSFTLM5Q7LBCgrjOmJYNsK V4bVpBMK33MLgAFOA9XYGRY YmfWWcJPGvUWA8USGvzTBHi mQ5uCEbDTKJYDZZRCKRUFJQ mOMT0dqXGlZKOsjjYDLdTCV WMOZYdeCKaRE8KfDLpQZKBB K233VVQqsejtkI4zDjGgxTl cLkIzjIdgsW2yAqNcPjNwAw xwbGFpblxmMVxmczIwXGxhb knmEKBhFUlmX9qyQsRrHEFx nNkmEZzyt1ScSVJkQKYlMvZ qLFOjIM3mPr0TEAnlQAjCEK XTAjRUPSMHOHFJWM1NWjIVF lRSQUVQSVRIRUxJQUwgTEVT LR2OJTbRBC7aHPpeWQkIMCR mHrFMF8dZE0ZSNEVBLqstAB DvKRUmVUTvEDvHHK1KQHXKF ExPVyBHUkFERSBEWVNQTEFT SUEgKENJTiBJKVxwYXJccGF yZFxwbGFpblxmMFxmczIyXH BsYWluXGYxXGZzMjBcbGFuZ zEwMzNcaGljaFxmMVxkYmNo HGQmFOwvF1ovGxIgAjQzKBG tMKRpFBSHW8bYRXAHHTFUMO QFZgVBR7dPXWBfmJLaDEXkP CAtIExPVyBHUkFERSBEWVNQ RGSNBTWxNNBQO4CNFJACQOR XFVLgBBFVD5TXIpSYY7YUNL UTY7APXVzKVfJMLHTFHI8rK HBhciAgICAgLSBBRERJVElP TkFMIExFVkVMUyBFWEFNSU5 FRFxwYXJccGFyXHFsXHBsYW fxIIWpMKScHsBhaEhheF4zJ jFcZnMyMiBYaWFvdGFuZyBE dSwgTUQgXHBsYWluXGYxXGZ zMjBcbGFuZzEwMzNcaGljaF bfRPcbZgOhBVQfWRsvH4chL vRhCuJzJBriHGXudOwnaK9i OoUvSrQgKyLYeyl0mxDNhE7 upX1ucINoQZTDN2zhQJJkFY Yvk5r4LRRiaOVzRVVwBSzqy iwgTUQgIDkvMjkvMjAyMCAg FhwgOsKZYRhuEPL4t1pbtKW xXHNzdGVjZjIyMDAwXGFuc2 lcZGVmbGFuZzEwMzNcZnRuY wmooRMwGBCuFaPoy4fwl677 mXHza4ylYELqBpU3oHScXRS laLgjsba5xQijCzJqRZYzu4 lzcyBcZmNoYXJzZXQwIEFya DWhU197WKYwICuku2cmi0Hg HQIsxCHzc7R3YCEMOErpKjO uN279v5qhi9nydxUdnNX1WX WnMDT6ZRodrwMqcwL1MKujr DUdDnD2UKyruaQlIVhaujTx ciQxHme9ATXfN062ISI1qHr qj4orMIX3YIUwETSnKhzjFx 9qjHAmL104HQUjSCNKCJThi Nj0DTGqqmMpxhPvdNMJd991 I050r6ijVJWxjjDerNmIjkz kv9faS652NNLmfUUdqsYmYj SzYPJhdLTpzDE6QTPuCF0da wolRYazQTgaOVIpxtC3PIHg hYSpE4IjANMrFR1snqybTMV 6NGybRETaUMM0BrWsACItg7 Mnhqy0KuXfdt0scu95TCO0t 3MjdMzrAIX4TBS6EzOyWc9s bSMzGVUhFP4dGxRnvEHwLKA lhw83aMleZUespbCxzV4zAf RlTSKytGWyCIKuXC2zcVAfB NIzxZ2vyestTDRiKeWiwbpy ERGeaRcwaoGhIv6aqFyuABQ 5HKeiH6tobR2zZtA5AHilJ8 nvpE2nJPa9UNyiiGI8HPDgk K5vTJ0qubjwu3bkGUzxYSim WNWugzF2psF6ATStpLThA3Q eoA8oIGOyER3zexdnn2dwRU E0FPmhIYCtTCE3QrDhLCIvr 7Qydtu3SrBia6OycXKsNEri E09wf559HDWbweBbF9urnXS rudzrxRAmsvfcWImitcZ6XJ FsXHBsYWluXGYxXGZzMjBcb GFuZzEwMzNcaGljaFxmMVxk AcYgTRWbISaxD4xrFxUbN5P kZHJmNgVwjVLlUTbaqWP7PQ AiEZEmr68nvRa3MMMeocduq 2CjZLUsdRCnqGWpvE0vgnTv n1zwZYAhMSWgWZHmQ2QqEMJ 0lFFdRNOevGWztAH6AF4hch FfRW0cCCPmCijoogNusSWom sVpRXSbTHysh1guJY5zQBHi vQqjzA3gnCO1JRFxf3pjaQJ nkKXtd2wym9DklwZzFMnnWN CpHNglKDCyXGLgZH7pPZSib QDohoZxu9D4UcxpoADqkebz FrrwvyE5QPftwkipBEWvBYq xQ6cvPsBfZJFixLdtKebqj1 NoXGYyXGZzMjhccGFyfX0= Clinical Information (test code = 2561952161) Clinical History: 30 year-old with HGSIL Gross Description (test code = 9633158814) o9bgkMIaPSJonTPqDsSfURR lTMMfj1meKIRfcFKmApCbCy NcZnRuYmpcdWMxXGRlZmYwe 1sfx776tFWuy9nyFEOcVpJ4 xCNjKLOjsFDuV709UKPlQQb eg0zcg5YeFKAurYPig8L7HU DXhflbrIb4wQloY67ck0N4T rytC9ylQYTnKUlpMUMoNVaq gRJpXLZ7DXSgULI7PKzyuxP cgvJ0GIlzlPSxPrX6HOn3f3 xmrJuaTOTsMYA8n5xhRFfdq wDzZC0bti9uhLf0x8rgbgWt JQZsVQIfeQCNLMNyT0CudCt lAa3myIg5vCtwBhjhCEU8Gu x0ZH3whb31blq9sOscYFYap vqsBlA2BNjrWSQzoaivTWb9 RRyxJFBguLTnINHjtVXtM6H mAPmvXN7bqel7TpIhRV1kgb mzMLjeDXHlSFT9WpXrTUYrh 9TqkjkqAqLrnm0hby48HXT5 e3FayTauNYO2WFG0TkIoOd1 vmSWcEQGdCR0xAdNhxMWeKM Balw48hYiuTXtyncQebJ4gV jRcKOSqmPSiVEAnPP7mvPOx JOTneK6gwkzeRNFeKvCzczx tEODheGepvwAyQx3lzGzhVK H4QTmeZ7ehvL9sGeQ0VRxtU 1fmkJ4uRKx2YQoseLW9YSQt vR5eQF0kojrsu6svLSS0FJj yUXVhvjH8daIfECFyaNNhD9 WpxH78HjBknWHrO1NzcW0uK VruEHWjfok4ZqWzQd6qhYPv nKB6HMweTzwdAGamBPGozhK vbnRccGduZGVjXHBsYWluXH JfGCchQGRoLFYyAkVsm4AyV ZMac0elCcRjw1wnqEk3KFuf bFxwbGFpblxmMFxmczIwXHB mLJysCKRlQVAhQyHoC3NcK3 uqQB8rDWHzgnXnTDZscTPtG YBydrNnz1MdOEdibeEqKSOb rPqtBSY2pTIoVYBnYNLiNHT kPI61KJLmCJaqJGFvOUJhWb LsmMnrHSwpTZd1HmtbgQObr lxmMVxmczIwIHMgbmFtZSwg IMneerUxMkXbTYJjryEnE2Z dnageEJoreFbarZ5iEyUwIn OnVMl8WYJjGIGlPyg6NTQkF WluXGYxXGZzMjAgIGFuZCBj l49lkFP1paNdVdMcqyHmT0k cOGiqgUBfj5PxnGAisSfxaS BufPZaz7UrcMTmwOXngHZuJ ZQssefidKJvnA8ruQRwxUUg ZYk0aZUaZILcCaYvnNnlj1J jGFMaDPweNY25jfBuOT7bWL sbKR8yAOetPA2uMVXhKZjxK NDsK0RgC5G7IBmeYBKgFBUo lBMwqM2ivcAqnpAknRd0UDI oJNS4sPPblBnmEDYdRnhooG B4FOXqYuJlejQfEO86sPKcx Xzyi8UauFp4vSVfNQivZVKi zP2opY8gTPRpZIPacsmtLTS kXHBsYWluXGYwXGZzMjBccG otxA0iIuJvIyKzPHGDpNSfa A1zueZWJUagFNOjQ9PfefTa WEheDJCqjl4jfHpwOIgbOjA zTVDwa4k2aHD3iBTckAR8eF BzsHvcKF6tnEBeLRRESE81u WJlciwgIkxFRVAiIGFuZCBj n48pbDC0cvMjMrLwcrW6ug3 kwFKzzCEiIYNlhy0sdQ8rCJ 6iGG9nPNAFRRRRYVHuBUDoq WVuICgxLjUgeCAxLjIgeCAw QzXfW73xYfQkLLtvZCWkkS3 dTEG8uHgrqKDsbJJlFZBmTP NetiUnuYslfnD2qWPyGZBhF LAqA5FocIEfJ7NsvBuroVhg Z3XmNNAfgQCheMnjWGRmfeV vOX95IWHrFEwxTVAtCL3ivT VdIR5zPNChVNMlrJOqfO9sn rStyqVizEHmbknmXFE8JBOt KV1yIJGiX1iqiCFuHZRmnwT elVVjnxMayCHbgNptc8OszZ qwahFbFMUfRBPpqpGerWW9M L8lnTeeojepvH0dx8kaji40 gzSgmMRmh4TyBwFsPDXmSTV HmDHiIVdbTGEnWPHxb936IU mzVVPgsHIuSU4jaDFlGZa1w GFyIHBpbmstdGFuIExFRVAg OcTaO63jfjTqVMVeDNL4IMA xFGI6RDPfHpKpmZvvYFOgQJ MgvKXxyO0alcLiovBiklEqw fXxuJEwveGgz4QqeBQnoZzs rSk6PYT2Yx4plURbURDdkeR xNBghSFfqNPBlRTK3ItvwSM FapDJwEJecwsEBi3SoRuqfK KKfCab5FUJvDBLzBD4nLHK1 gGEagVDrZBZtC7Uha01loNU aW2gyNuozWEZeVbehC7xfWV AjI2DnO2FasextBUwyxtYfW KM9iZ5wVA4hvapidr6nbRZz UOWkerCLFAX3aP0kEKEhJGR 5PVImzpNIGJ8PTegqCISStw UgcXVhZHJhbnQsIHJhZGlhb He7GLQsJ6Sda41bCJbyDY86 bHSkpJdlqFWkCWKwPXB0LdF iLM5vVLIeuYIdprYqnDuvhy RqdURjoPnnp4GpxXydfrVlQ CBlbnRpcmVseVxwYXIgQjUt IzX8LFMTywSxcWUwAPPmhwS gEYMsFMpauDa9HFPjV4Imx6 2zOTvwHL99gLHglPugeQTeV TB5GIH1UyFFQMCLWVOtTZqq ZT11SZBsZUMfXYxodGGuXSE 4cX8jOQToHXKdnQzhKWl0MK BhclxwYXIgSnVsaWUgTWNJb AmksiS7BXSUUYfsdRUrnzrp MVxmczIwXGxhbmcxMDMzXGh jA4aeThPdDJZziSlxGWuqf6 IjJXZmWHQmCArnjxSgZTU3r GVyXHBhclxwbGFpblxmMVxm czIwXHBhclxwbGFpblxmMVx mczIyXGxhbmcxMDMzXGhpY2 ddMePqZDOetMqxZMucd8UwM GYxXGNmMVxmczIyXHBhclxw TTWogLfwuX4pXtLoEvEyUHv yUW4uHKCmT6fclCSjOCSaVW WoR9udCpAqvE0gqWgzDMjzG jFcZnMyMFxiXHBhclxwbGFp blxmMVxmczIwXGxhbmcxMDM kHZovP5rbYoFeBZWorJosHU uym9EiQMBmIWLrIFmbcaVuE HY2eCEnYMKyqfvwcAxoqYHq blxmMFxmczIwXHBsYWluXGY xXGZzMjBccGFyfQ== Embedded Images (test code = 5509660623) [facility]ID [facility]2020-08-14 14:36:00* Test Item Value Reference Range Interpretation Comme nts SARS-CoV-2 Rapid ID NOW (test code = 41426-4) Not Detected Not Detected VIRGEN (test code = VIRGEN) ID NOW COVID-19 As say is an isothermal nucleic acid amplification test intended for the qualitative detection of nucleic acid from SARS-CoV-2 viral RNA in nasopharyngeal ([employer] OF OFFICIATING) specimens. It is used under Emergency Use [...] clinically indicated. Lab Interpretation (test code = 48119-1) [facility]2020-[facility]14 14:36:00* Test Item Value Reference Range Interpretation Comme [facility] SARS-CoV-2 Rapid ID NOW (test code = 62783-1) Not Detected Not Detected VIRGEN (test code = VIRGEN) ID NOW COVID-19 As say is an isothermal nucleic acid amplification test intended for the qualitative detection of nucleic acid from SARS-CoV-2 viral RNA in nasopharyngeal ([employer] OF OFF[employer]IATING) specimens. It is used under Emergency Use Authorization (EUA) by [facility]. The limit of detection (LOD) of the [...] clinically indicated. Lab Interpretation (test code = 74200-1) Normal [facility]-19 (ID NOW RAPID TESTING)2020-08-14 14:36:00* Test Item Value Reference Range Interpretation Comme [facility] SARS-CoV-2 Rapid ID NOW (test code = 87501-7) Not Detected Not Detected VIRGEN (test code = VIRGEN) ID NOW COVID-19 As say is an isothermal nucleic acid amplification test intended for the qualitative detection of nucleic acid from SARS-CoV-2 viral RNA in nasopharyngeal ([employer]IATING) specimens. It is used under Emergency Use [...] clinically indicated. Lab Interpretation (test code = 22556-1) Normal [facility] [id number] 13:53:00* Test Item Value Reference Range Interpretation Comme nts POCT PREG (test code = 1605) Negative On board controls acceptable with C Line (test code = 3574) Yes POCT PREG LOT # (test code = 3575) POCT PREG TEST DATE ( test code = 3576) Lab Interpretation (test cod e = 38325-7) [facility] [id number] 13:53:00* Test Item Value Reference Range Interpretation Comme nts POCT PREG (test code = 1605) Negative On board controls acceptable with C Line (test code = 3574) Yes POCT PREG LOT # (test code = 3575) POCT PREG TEST DATE ( test code = 3576) Lab Interpretation (test cod e = 36254-5) [facility] [id number] 13:53:00* Test Item Value Reference Range Interpretation Comme nts POCT PREG (test code = 1605) Negative On board controls acceptable with C Line (test code = 3574) Yes POCT PREG LOT # (test code = 3575) POCT PREG TEST DATE ( test code = 3576) Lab Interpretation (test cod e = 39670-2) [facility]
[2024-12-30] MEDS ORDERED: ONDANSETRON 4 MG/2 ML VIAL ONE (18:16)
[2024-12-30] MEDS ORDERED: MORPHINE 4 MG/ML SYR ONE (18:16)
[2024-12-30] MEDS ORDERED: KETOROLAC 30 MG/ML INJ ONE (18:16)
[2024-12-30 18:44] LABS: Absolute Basophils 0.1 K/uL (0-0.5); Absolute Lymphocytes (CBC) 1.1 K/uL (0.7-4.9); Absolute Monocytes 0.3 K/uL (0.1-1.3); Absolute Neutrophil 8.5 K/uL (1.8-8.0); Basophils % 0.7 % (0-1.3); Eosinophils % 0.2 % (0-4.4); Hemoglobin 15.2 g/dL (12.0-15.0); Lymphocytes % 11.3 % (15.3-44.8); MCH 30.3 pg (27.0-35.0); MCHC 33.8 g/dL (32.0-36.0); MCV 89.6 fL (80-100); MPV 8.6 fL (7.6-11.3); Monocytes % 3.3 % (3.3-12.3); Neutrophils % 84.5 % (41.7-73.7); Nucleated Red Blood Cells % 0.1 % (0-0); Platelets 339 thou/uL (152-406); RBC Red Blood Cell Count 5.03 M/uL (3.86-4.86); Red Cell Distribution Width 13.4 % (12.1-15.2)
[2024-12-30 19:03] LABS: Anion Gap 8.4 mEq/L (5.0-15.0); Potassium 3.4 mEq/L (3.5-5.1)
--- NOTE | 2024-12-30 19:46 | RAD REPORT ---
EXAM: CT brain without contrast HISTORY: HEADACHE COMPARISON: None TECHNIQUE: Multiple contiguous axial images were obtained and a CT of the brain without contrast. Sag ittal and coronal reformats were performed. One or more of the following dose reduction techniques were used: Automated exposure control, adjust ment of the mA and/or kV according to patient size, and/or iterative reconstruction. FINDINGS: No evidence of hydrocephalus, intracranial hemorrhage, or extra-axial fluid collection. The brain is normal in morphology. No evidence of midline shift or areas of brain edema. The calvarium is intact. The visualized paranasal sinuses and mastoid air cells are essentially clear . IMPRESSION: No evidence of acute intracranial abnormality.
--- NOTE | 2024-12-30 19:50 | EDPHYS ---
Physician Documentation [facility] Name: Miller Ferguson Age: 34 yrs Sex: Female : 1990 Arrival Date: 12/30/2024 Time: 15:53 Bed 14 Private MD: ED Physician Kirill Aranda HPI: 12/30 17:44 This 34 yrs old Female presents to ER via Ambulatory with complaints of Neck rn Pain, <24hrs Old, Headache, Vomiting. 17:44 The patient or guardian complains of pain. 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 Onset: The symptoms/episode began/occurred 2 month(s) ago. Associated signs and symptoms: Pertinent positives: headache, nausea, vomiting, Pertinent negatives: fever, bladder incontinence, bowel incontinence, tingling, weakness. The pain does not radiate. Modifying factors: The symptoms are alleviated by nothing. the symptoms are aggravated by nothing. Severity of symptoms: At their worst the symptoms were moderate, in the emergency department the symptoms are unchanged. The patient has experienced similar episodes in the past. Patient reports has been having headaches and neck pain for at least 2 months. Has seen orthopedics and her PCP, had an MRI as outpatient and results were negative. No fever or chills. No trauma. Reports 2 concussions as a child but nothing recent. Has been treated with muscle relaxers but only temporarily helps. No focal neurological deficit. Reports has had tubal ligation and not .. 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 - Infectious Disease History:: Denies. - Family history:: not pertinent. - Hospitalizations: : No recent hospitalization is reported. - Social history:: Smoking status: unknown. ROS: 17:44 Constitutional: Negative for fever, chills, and weight loss, Neck: Positive for neck rn pain Cardiovascular: Negative for chest pain, palpitations, and edema, Respiratory: Negative for shortness of breath, cough, wheezing, and pleuritic chest pain, Abdomen/GI: Positive for nausea, negative for abdominal pain Back: Negative for injury and pain, MS/Extremity: Negative for injury and deformity, Skin: Negative for injury, rash, and discoloration, Neuro: Positive for headache, negative for focal weakness or numbness. No seizure. Exam: 17:44 Constitutional: This is a well developed, well nourished patient who is awake, alert, rn and in no acute distress. Head/Face: Normocephalic, atraumatic. Neck: No midline cervical tenderness. No neck masses or crepitus. No meningismus. Full range of motion Cardiovascular: Regular rate and rhythm . No pulse deficits. Respiratory: No increased work of breathing, no retractions or nasal flaring. Abdomen/GI: Soft, non-tender Neuro: Awake and alert, GCS 15 Vital Signs: 16:12 BP 125 / 83; Pulse 88; Resp 16; Temp 98.3(O); Pulse Ox 100% on R/A; Weight 74.84 kg; ss Height 5 ft. 2 in. ; Pain 10/10; 19:05 BP 108 / 74; Pulse 68; Resp 18; Pulse Ox 100% on R/A; Pain 2/10; rg5 16:12 Body Mass Index 30.18 (74.84 kg, 157.48 cm) ss 16:12 Pain Scale: Adult ss 19:05 Pain Scale: Adult rg5 MDM: 16:08 Medical Screening Exam initiated rn 19:46 Data reviewed: vital signs, nurses notes, lab test result(s), radiologic studies, CT eugene scan. Consideration of Admission/Observation Escalation of care including admission/observation considered. I considered the following discharge prescriptions or medication management in the emergency department Medications were administered in the Emergency Department. See MAR. Independent interpretation of the following test(s) in the Emergency Department CT Scan: My interpretation is ct head, ct angio neck. Historians other than the Patient: Spouse/Significant Other: spouse well informed. Care significantly affected by the following chronic conditions: ovarian cyst. 12/30 16:19 Order name: CBC with Diff; Complete Time: 19:03 rn 12/30 16:19 Order name: Basic Metabolic Panel; Complete Time: 19:03 rn 12/30 16:19 Order name: CT Head Brain wo Cont rn 12/30 16:39 Order name: Neck Angio EDMS 12/30 16:19 Order name: IV Start; Complete Time: 18:28 rn Administered Medications: 18:28 Drug: morphine IVP or IV 4 mg IVP once over 4 mins Route: IVP; Infused Over: 4 mins; kc6 Site: left antecubital; 19:26 Follow up: Response: No adverse reaction rg5 18:29 Drug: Ketorolac IVP 15 mg IVP once Route: IVP; Site: left antecubital; kc6 19:26 Follow up: Response: No adverse reaction rg5 18:29 Drug: Ondansetron IVP 4 mg IVP once; over 2 minutes Route: IVP; Site: left antecubital; kc6 19:26 Follow up: Response: No adverse reaction rg5 Disposition Summary: 12/30/24 19:50 Discharge Ordered Notes: Location: Home eugene Problem: new eugene Symptoms: have improved eugene Condition: Stable eugene Diagnosis - Strain of muscle, fascia and tendon at neck level, initial encounter eugene - Headache eugene Followup: eugene - With: Private Physician - When: 2 - 3 days - Reason: Recheck today's complaints, Continuance of care, Re-evaluation by your physician Followup: eugene - With: Isaiah Lyn MD - When: 2 - 3 days - Reason: Recheck today's complaints, Continuance of care, Re-evaluation by your physician Discharge Instructions: - Discharge Summary Sheet eugene - General Headache Without Cause eugene - General Headache Without Cause, [id number] eugene Forms: - Medication Reconciliation Form eugene - Antibiotic Education eugene - Prescription Opioid Use eugene - Patient Portal Instructions eugene - Leadership Thank You Letter [facility] Prescriptions: - diclofenac sodium 50 mg Oral tablet, delayed release (enteric coated) - take 1 tablet ORAL route every 8 hours as needed for pain; 21 tablet; Refills: eugene 0, Product Selection Permitted - ondansetron 4 mg Oral Tablet,disintegrating - take 1 tablet ORAL route every 6-8 hours for 5 days; 20 tablet; Refills: 0, eugene Product Selection Permitted - methocarbamol 750 mg Oral tablet - take 1 tablet ORAL route 4 times per day; 30 tablet; Refills: 0, Product eugene Selection Permitted Signatures: Dispatcher [employer] Roel Asher MD MD cha Nieto, Roman, MD MD rn Blanchard, Shelby, RN RN ss Campbell, Kaitlyn, RN RN kc6 Teo Simpson RN rg5 Corrections: (The following items were deleted from the chart) 16:39 16:19 Soft Tissue Neck W/Contr+CT.RAD.BRZ ordered. EDMS EDMS
--- NOTE | 2024-12-30 19:50 | ER ---
Nurse's Notes [facility] Name: Miller Ferguson Age: 34 yrs Sex: Female : 1990 Arrival Date: 12/30/2024 Time: 15:53 Bed 14 Private MD: Diagnosis: Strain of muscle, fascia and tendon at neck level, initial encounter;Headache Presentation: 12/30 16:12 Chief complaint: Patient states: Neck pain and headaches x months. Pt reports she is ss waiting on MRI results. Coronavirus screen: Client denies travel out of the [place] in the last 14 days. Ebola Screen: Patient denies exposure to infectious person. Patient denies travel to an Ebola-affected area in the 21 days before illness onset. Initial Sepsis Screen: Does the patient meet any 2 criteria? No. Patient's initial sepsis screen is negative. Does the patient have a suspected source of infection? No. Patient's initial sepsis screen is negative. Risk Assessment: Do you want to hurt yourself or someone else? Patient reports no desire to harm self or others. Onset of symptoms is unknown. 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 - Infectious Disease History:: Denies. - Family history:: not pertinent. - Hospitalizations: : No recent hospitalization is reported. - Social history:: Smoking status: unknown. Screenin:29 [facility] ED Fall Risk Assessment (Adult) History of falling in the last 3 months, kc6 including since admission No falls in past 3 months (0 pts) Confusion or Disorientation No (0 pts) Intoxicated or Sedated No (0 pts) Impaired Gait No (0 pts) Mobility Assist Device Used No (0 pt) Altered Elimination No (0 pt) Score/Fall Risk Level 0 - 2 = Low Risk Oriented to surroundings, Maintained a safe environment, Educated pt \T\ family on fall prevention, incl call for assistance when getting out of bed. Abuse screen: Denies threats or abuse. Denies injuries from another. Nutritional screening: No deficits noted. Tuberculosis screening: No symptoms or risk factors identified. Assessment: 18:29 General: Appears in no apparent distress. uncomfortable, well groomed, well developed, kc6 Behavior is calm, cooperative, appropriate for age. Pain: Complains of pain in cervical spine. Neuro: Level of Consciousness is awake, alert, obeys commands, Oriented to person, place, time, situation, Appropriate for age. Cardiovascular: Capillary refill < 3 seconds. Respiratory: Airway is patent Trachea midline Respiratory effort is even, unlabored, Respiratory pattern is regular, symmetrical. GI: Abdomen is flat, non-distended, Bowel sounds present X 4 quads. Abd is soft and non tender X 4 quads. Reports nausea, vomiting, Patient currently denies abdominal pain, diarrhea. : No signs and/or symptoms were reported regarding the genitourinary system. EENT: No signs and/or symptoms were reported regarding the EENT system. Derm: No signs and/or symptoms reported regarding the dermatologic system. Skin is intact, is healthy with good turgor, Skin is pink, warm \T\ dry. Musculoskeletal: No signs and/or symptoms reported regarding the musculoskeletal system. Circulation, motion, and sensation intact. Range of motion: intact in all extremities. 19:05 Reassessment: Patient and/or family updated on plan of care and expected duration. Pain rg5 level reassessed. Patient is alert, oriented x 3, equal unlabored respirations, skin warm/dry/pink. Patient states feeling better. 19:05 General: Appears in no apparent distress. comfortable, Behavior is calm, cooperative, rg5 appropriate for age. Pain: Complains of pain in base of the skull Quality of pain is described as aching. Neuro: Level of Consciousness is awake, alert, obeys commands, Oriented to person, place, time. Cardiovascular: Capillary refill < 3 seconds Patient's skin is warm and dry. Respiratory: Airway is patent Trachea midline Respiratory effort is even, unlabored, Respiratory pattern is regular, symmetrical. GI: No signs and/or symptoms were reported involving the gastrointestinal system. : No signs and/or symptoms were reported regarding the genitourinary system. EENT: No deficits noted. Derm: Skin is intact, Skin is dry, Skin is normal. Musculoskeletal: Circulation, motion, and sensation intact. Range of motion: intact in all extremities. Vital Signs: 16:12 BP 125 / 83; Pulse 88; Resp 16; Temp 98.3(O); Pulse Ox 100% on R/A; Weight 74.84 kg; ss Height 5 ft. 2 in. ; Pain 10/10; 19:05 BP 108 / 74; Pulse 68; Resp 18; Pulse Ox 100% on R/A; Pain 2/10; rg5 16:12 Body Mass Index 30.18 (74.84 kg, 157.48 cm) ss 16:12 Pain Scale: Adult ss 19:05 Pain Scale: Adult rg5 ED Course: 15:56 Patient arrived in ED. im 16:08 Kirill Aranda MD is Attending Physician. rn 16:13 Triage completed. ss 16:13 Arm band placed on right wrist. ss 17:16 Radiology exam delayed due to IV insertion attempt and/or patient not having sm9 appropriate IV at this time. 17:57 Mary Burt RN is Primary Nurse. kc6 18:28 Radiology exam delayed due to IV insertion attempt and/or patient not having mw3 appropriate IV at this time. 18:29 Patient has correct armband on for positive identification. Bed in low position. Call kc6 light in reach. Side rails up X 1. Adult w/ patient. Pulse ox on. NIBP on. Door closed. Noise minimized. Lights dimmed. Pillow given. 18:29 Inserted saline lock: 22 gauge in left antecubital area, using aseptic technique. Blood kc6 collected. Flushed with 10 mL NS. Patient maintains SpO2 saturation greater than 95% on room air. 19:05 No provider procedures requiring assistance completed. rg5 19:16 Report given to CANDELARIA Ojeda. kc6 19:41 CT Head Brain wo Cont In Process Unspecified. EDMS 19:42 Neck Angio In Process Unspecified. EDMS 19:49 Isaiah Lyn MD is Referral Physician. eugene 20:08 IV discontinued, bleeding controlled, No redness/swelling at site. Pressure dressing rg5 applied. 20:09 Provided Education on: post er care. rg5 Administered Medications: 18:28 Drug: morphine IVP or IV 4 mg IVP once over 4 mins Route: IVP; Infused Over: 4 mins; kc6 Site: left antecubital; 19:26 Follow up: Response: No adverse reaction rg5 18:29 Drug: Ketorolac IVP 15 mg IVP once Route: IVP; Site: left antecubital; kc6 19:26 Follow up: Response: No adverse reaction rg5 18:29 Drug: Ondansetron IVP 4 mg IVP once; over 2 minutes Route: IVP; Site: left antecubital; kc6 19:26 Follow up: Response: No adverse reaction rg5 Medication: 19:05 VIS not applicable for this client. rg5 Outcome: 19:50 Discharge ordered by . eugene 20:08 Discharged to home ambulatory, rg5 20:08 Condition: stable 20:08 Discharge instructions given to patient, family, Instructed on discharge instructions, follow up and referral plans. Demonstrated understanding of instructions, follow-up care, medications, Prescriptions given X 3, 20:09 Patient left the ED. rg5 Signatures: Dispatcher [employer] EDMS Roel Baires MD MD cha Nieto, Roman, MD MD rn Blanchard, Shelby, RN RN ss Willis, Michelle mw3 Mary Burt RN RN kc6 Francoise Montes Sarah 9 Teo Simpson RN RN rg5
--- NOTE | 2024-12-30 19:53 | RAD REPORT ---
EXAMINATION: CTA NECK CLINICAL INDICATION: right neck pain, has had tubal ligation TECHNIQUE: Axial CT images were obtained from the aortic arch to the skull base after intravenous con trast utilizing angiographic protocol with 3D post-processing (maximum intensity projection images, volume rendered images and/or shaded surface rendered images). One or more of the following dose redu ction techniques were used: Automated exposure control, adjustment of the mA and/or kV according to patient size, and/or iterative reconstruction. Unless otherwise specified, incidental findings do not require dedicated imaging follow-up. COMPARISON: No prior exam. FINDINGS: AORTA: The imaged aortic arch is normal. CCA: The common carotid arteries are patent and normal in caliber. ICA/ECA: Bilateral internal and external carotid arteries are patent. There is no significant interna l carotid artery stenosis. VERTEBRAL: The cervical vertebral arteries are patent. The vertebral arteries are codominant. SOFT TISSUE: No significant neck soft tissue abnormalities. The visualized lung apices are clear. 3D images confirm these findings. IMPRESSION: No significant flow abnormality of the neck vessels is identified. NASCET criteria used. Mild 0-49% stenosis Moderate 50-69% stenosis Severe 70-99% stenosis
[2024-12-30 20:34] VITALS: TEMP 98.3; O2SAT 100
[2024-12-30 20:35] VITALS: BP 108/74
== END 2024-12-30 20:09 | disposition home or self-care (01) ==
LOC: ER 15:53
DX: S16.1XXA Strain of muscle, fascia and tendon at neck level, initial encounter (principal); R51.9 Headache, unspecified
CPT/HCPCS: 85025; 80048; 36415; 70450; 70498; 96375; 96374; 99284; Q9967; J2405

== ENCOUNTER 2025-01-04 10:18 | Emergency (ER) | payer OTHER ==
--- OUTSIDE RECORDS SUMMARY | 2025-01-04 10:22 | XMS REPORT | Continuity of Care Document ---
Author Name Unknown Address [address] [facility] [place] [address] [facility] Address [address] [facility] [address] [place] [address] Care Team Providers Care Wheel Press Clerk Name Role Phone EDA BROWN Primary Care Physician Unavailab Eda Phillips Attending Clinician Unavailable ARIELLE JAMES Attending Clinician Unavailable Arielle James DNP Attending Clinician [phone] Doctor Unassigned, [place] Attending Clinician U JOSÉ MIGUEL Brooks Attending Clinician JOSÉ MIGUEL Godoy Attending Clinician Laura spears Doctor Unassigned, [place] Attending Clinician U navailinna GC_GCBZW_Kadiyala_S Attending Clinician UnavailClaudia Srinivasan Attending Clinician + Eliza Alicia Attending Clinician [phone] ELIZA WINTER Attending Clinician Unavailab Adonis [facility] Nurse Attending Clinician CLAUDIA Mckninon Attending Clinician Unavail able CHRIS HAYES Attending Clinician Unavailable CASSY MCCALL Attending Clinician Unavailab juan j RiveraMatthew dong DO Attending Clinician [phone] Tita Ro Attending Clinician [phone] Cassy Ashley Attending Clinician + [phone] [facility], [facility] Attending Clinician Un available Jerome Tinajero MD Attending Clinician [phone] JULIA RAMOS Admitting Clinician Unavailabl e [email or web address]_Kadiyala_S Admitting Clinician Unavaila ble Payers Payer Name Policy Type Policy Number Effective Date Expirati on Date Source [place] [facility] [id number] 2023 00:00:00 [place] [id number] 2022 00:00:00 Problems Condition Name Condition Details Condition Category Status Onset Date Resolution Date Last Treatment Date Treating Clinician Comments Source Papanicola ou smear of cervix with atypical squamous cells cannot exclude high grade squamous intraepith elial lesion (ASC-H) Papanicola ou smear of cervix with atypical squamous cells cannot exclude high grade squamous intraepith elial lesion (ASC-H) Disease Active 5- 00:00: 00 [facility] Trichomona l vulvovagin itis Trichomona l vulvovagin itis Disease Active 0 8-12 00:00: 00 [facility] Bacterial vaginosis Bacterial vaginosis Disease Active 0 8-12 00:00: 00 [facility] History of tubal ligation History of tubal ligation Disease Active 2020-0 8-10 00:00: 00 [facility] Tobacco use disorder Tobacco use disorder Disease Active 2020-0 8-10 00:00: 00 [facility] Over weight Over weight Disease Active 0 8-10 00:00: 00 [facility] Papanicola ou smear of cervix with [...] co-testin g in 12 months (07/2023) . [facility] HGSIL (high grade squamous intraepith elial lesion) on Pap smear of cervix HGSIL (high grade squamous intraepith elial lesion) on Pap smear of cervix Disease Resolve d 2019-0 8-21 00:00: 00 2024-04-04 00:00:00 2024-04-04 16:51:27 Overview: Formattin g of this note might be different from the original. +[id number] LEEP [facility] Other general counseling and advice for contracept ese management Other general counseling and advice for contracept ese management Disease Resolve d 8-10 00:00: 00 2024-04-04 00:00:00 2024-04-04 16:51:22 [facility] Allergies, Adverse Reactions, Alerts Allergy Name Allergy Type Status Severity Reaction(s) Onset Date Inactive Date Treating Clinician Comments Source NO KNOWN ALLERGIE S Drug Class Active [facility] Social History Social Habit Start Date Stop Date Quantity Comments Source History of tobacco use Cigarette Smoker [facility] Alcoholic beverage intake 2024-10-15 00:00:00 2024-10-15 00:00:00 Ex-drinker (finding) [facility] Tobacco use and exposure 2024-04-04 00:00:00 2024-04-04 00:00:00 Smokeless tobacco non-user [facility] Alcohol intake 2024-03-19 00:00:00 2024-03-19 00:00:00 Ex-drinker (finding) [facility] History of Social function 2024-03-19 00:00:00 2024-03-19 00:00:00 [facility] Exposure to SARS-CoV-2 (event) 2023-03-07 00:00:00 2023-03-17 10:21:00 Not sure [facility] Cigarettes smoked current (pack per day) - Reported 2022-08-18 00:00:00 2022-08-18 00:00:00 [facility] Sex assigned at 1990 00:00:00 1990 00:00:00 [facility] Smoking Status Start Date Stop Date Source Unknown if ever smoked [facility] Ex-smoker 2024-04-04 00:00:00 2024-04-04 00:00:00 [facility] Occasional tobacco smoker 2020-06-30 00:00:00 [facility] Medications Ordered Medication Name Filled Medication Name Start Date Stop Date Current Medication? Ordering Clinician Indication Dosage Frequency Signature (SIG) Comments Components Source metroNIDAZO LE 500 mg tablet 03-30 00:00: 00 04-07 04:59 :00 No [id number] 500mg Take 1 tablet by mouth in the morning and 1 tablet in the evening. Do all this for 7 days. [facility] chlorhexidi ne 0.12 % mouthwash 2019-11 00:00: 03-17 00:00 :00 No [id number] 15mL Swish and spit out 15 mL 2 (two) times daily. [facility] methylPREDN ISolone (MEDROL, NITO,) 4 mg tablets 2019-11 00:00: 00 03-17 00:00 :00 No [id number] Take by mouth SEE-INSTRU CTIONS. follow package directions [facility] acetaminoph en-codeine (TYLENOL-CO DEINE #3) 300-30 mg tablet 2019-11 00:00: 03-17 00:00 :00 No [id number] 1{tbl} Take 1 tablet by mouth every 4 (four) hours as needed for Pain (scale 7-10). Indication s: acute pain [facility] ondansetron 4 mg disintegrat ing tablet 2019-11 00:00: 00 03-17 00:00 :00 No [id number] 4mg Take 1 tablet by mouth every 8 (eight) hours as needed for Nausea and Vomiting (N/V). [facility] clindamycin 150 mg capsule 2020-1 2-04 00:00: 00 11-01 05:59 :00 No [id number] 300mg Take 2 capsules by mouth 4 (four) times daily for 7 days. [facility] ibuprofen 200 mg tablet 08-14 00:00: 00 08-18 04:59 :00 No [id number] 600mg Take 3 tablets by mouth every 6 (six) hours as needed for Pain (scale 4-6) for up to 3 days. [facility] metroNIDAZO LE 500 mg tablet 07-11 00:00: 00 07-11 00:00 :00 No [id number] 2000mg Take 4 tablets by mouth once now for 1 dose. [facility] metroNIDAZO LE 500 mg tablet 07-02 00:00: 00 07-03 04:59 :00 No [id number] 2000mg Take 4 tablets by mouth once now for 1 dose. [facility] No known medications No [facility] No [facility] No known [facility] No [facility] No known [facility] No [facility] No known [facility] No [facility] No known [facility] No Un shilo ity [facility] No known medications No Un shilo [facility] No known medications No Un shilo [facility] Immunizations Ordered Immunization Name Filled Immunization Name Date Status Comments Source [facility] 2024-05-27 00:00:00 Completed [facility] HPV9 2024-04-12 00:00:00 Completed [facility] 2024-04-04 15:30:00 Completed [facility] 2024-03-30 00:00:00 Completed [facility] 2024-03-19 10:00:00 Completed [facility] HPV9 2023-02-15 00:00:00 Completed [facility] HPV9 2023-02-15 00:00:00 Completed [facility] HPV9 2023-02-15 00:00:00 Completed [facility] 2023-02-15 00:00:00 Completed [facility] 2023-02-15 00:00:00 Completed [facility] HPV9 2023-02-15 00:00:00 Completed [facility] HPV9 2022-09-17 00:00:00 Completed [facility] HPV9 2022-09-17 00:00:00 Completed [facility] HPV9 2022-09-17 00:00:00 Completed [facility] HPV9 2022-09-17 00:00:00 Completed [facility] HPV9 2022-09-17 00:00:00 Completed [facility] HPV9 2022-09-17 00:00:00 Completed [facility] HPV9 2022-09-17 00:00:00 Completed [facility] HPV9 2022-09-17 00:00:00 Completed [facility] HPV9 2022-09-17 00:00:00 Completed [facility] HPV9 2022-09-17 00:00:00 Completed [facility] HPV9 2022-08-18 00:00:00 Completed [facility] HPV9 2022-08-18 00:00:00 Completed [facility] HPV9 2022-08-18 00:00:00 Completed [facility] HPV9 2022-08-18 00:00:00 Completed [facility] HPV9 2022-08-18 00:00:00 Completed [facility] HPV9 2022-08-18 00:00:00 Completed [facility] HPV9 2022-08-18 00:00:00 Completed [facility] HPV9 2022-08-18 00:00:00 Completed [facility] HPV9 2022-08-18 00:00:00 Completed [facility] HPV9 2022-08-18 00:00:00 Completed [facility] HPV9 2022-08-18 00:00:00 Completed [facility] HPV9 2022-08-18 00:00:00 Completed [facility] Vital Signs Vital Name Observation Time Observation Value Comments S ource Systolic blood pressure 2024-10-15 15:21:00 103 mm[Hg] [facility] Diastolic blood pressure 2024-10-15 15:21:00 71 mm[Hg] [facility] Heart rate 2024-10-15 15:21:00 93 /[facility] Body temperature 2024-10-15 15:21:00 36.78 Peggy [facility] Respiratory rate 2024-10-15 15:21:00 16 /min [facility] Body height 2024-10-15 15:21:00 157.5 cm [facility] Body weight 2024-10-15 15:21:00 75.342 kg [facility] BMI 2024-10-15 15:21:00 30.38 kg/m2 [facility] Systolic blood pressure 2024-04-04 20:26:00 110 mm[Hg] [facility] Diastolic blood pressure 2024-04-04 20:26:00 73 mm[Hg] [facility] Heart rate 2024-04-04 20:26:00 78 /min Unive [facility] Respiratory rate 2024-04-04 20:26:00 18 /min [facility] Body height 2024-04-04 20:26:00 157.5 cm [facility] Body weight 2024-04-04 20:26:00 71.215 kg [facility] BMI 2024-04-04 20:26:00 28.72 kg/m2 [facility] Systolic blood pressure 2024-03-19 15:03:00 106 mm[Hg] [facility] Diastolic blood pressure 2024-03-19 15:03:00 73 mm[Hg] [facility] Heart rate 2024-03-19 15:03:00 76 /min Unive [facility] Respiratory rate 2024-03-19 15:03:00 18 /min [facility] Body height 2024-03-19 15:03:00 157.5 cm [facility] Body weight 2024-03-19 15:03:00 71.215 [facility] BMI 2024-03-19 15:03:00 28.72 kg/m2 [facility] Systolic blood pressure 2023-03-17 15:21:00 114 mm[Hg] [facility] Diastolic blood pressure 2023-03-17 15:21:00 78 mm[Hg] [facility] Heart rate 2023-03-17 15:21:00 82 /min Unive [facility] Body temperature 2023-03-17 15:21:00 36.5 Peggy [facility] Respiratory rate 2023-03-17 15:21:00 18 /min [facility] Body height 2023-03-17 15:21:00 157.5 cm [facility] Body weight 2023-03-17 15:21:00 68.635 kg [facility] BMI 2023-03-17 15:21:00 27.68 kg/m2 [facility] Body temperature 2023-02-15 13:21:00 36.61 Peggy [facility] Respiratory rate 2023-02-15 13:21:00 18 /min [facility] Body height 2023-02-15 13:21:00 157.5 cm [facility] Body weight 2023-02-15 13:21:00 70.58 kg [facility] BMI 2023-02-15 13:21:00 28.46 kg/m2 [facility] Systolic blood pressure 2022-09-17 13:43:00 117 mm[Hg] [facility] Diastolic blood pressure 2022-09-17 13:43:00 74 mm[Hg] [facility] Heart rate 2022-09-17 13:43:00 83 /min [facility] Body temperature 2022-09-17 13:43:00 36.67 Peggy [facility] Respiratory rate 2022-09-17 13:43:00 20 /min [facility] Body weight 2022-09-17 13:43:00 67.495 kg [facility] BMI 2022-09-17 13:43:00 27.22 kg/m2 [facility] Systolic blood pressure 2022-08-18 19:31:00 129 mm[Hg] [facility] Diastolic blood pressure 2022-08-18 19:31:00 87 mm[Hg] [facility] Heart rate 2022-08-18 19:31:00 77 /min Unive [facility] Body temperature 2022-08-18 19:31:00 36.72 Peggy [facility] Respiratory rate 2022-08-18 19:31:00 18 /min [facility] Body height 2022-08-18 19:31:00 157.5 cm [facility] Body weight 2022-08-18 19:31:00 67.302 kg [facility] BMI 2022-08-18 19:31:00 27.14 kg/m2 [facility] Systolic blood pressure 2020-10-24 17:27:00 119 mm[Hg] [facility] Diastolic blood pressure 2020-10-24 17:27:00 80 mm[Hg] [facility] Heart rate 2020-10-24 17:25:00 87 /min Unive [facility] Body temperature 2020-10-24 17:25:00 36.56 Peggy [facility] Respiratory rate 2020-10-24 17:25:00 18 /min [facility] Body weight 2020-10-24 17:25:00 72.576 kg [facility] BMI 2020-10-24 17:25:00 29.26 kg/m2 [facility] Oxygen saturation in Arterial blood by Pulse oximetry 2020-10-24 17:25:00 100 /min [facility] Systolic blood pressure 2020-09-11 18:38:00 109 mm[Hg] [facility] Diastolic blood pressure 2020-09-11 18:38:00 79 mm[Hg] [facility] Heart rate 2020-09-11 18:38:00 80 /min Unive [facility] Body temperature 2020-09-11 18:38:00 37.11 Peggy [facility] Respiratory rate 2020-09-11 18:38:00 16 /min [facility] Body height 2020-09-11 18:38:00 157.5 cm [facility] Body weight 2020-09-11 18:38:00 73.12 kg [facility] BMI 2020-09-11 18:38:00 29.48 kg/m2 [facility] Systolic blood pressure 2020-09-11 18:38:00 109 mm[Hg] [facility] Diastolic blood pressure 2020-09-11 18:38:00 79 mm[Hg] [facility] Heart rate 2020-09-11 18:38:00 80 /min [facility] Body temperature 2020-09-11 18:38:00 37.11 Peggy [facility] Respiratory rate 2020-09-11 18:38:00 16 /min [facility] Body height 2020-09-11 18:38:00 157.5 cm [facility] Body weight 2020-09-11 18:38:00 73.12 kg [facility] BMI 2020-09-11 18:38:00 29.48 kg/m2 [facility] Systolic blood pressure 2020-08-14 13:50:00 115 mm[Hg] [facility] Diastolic blood pressure 2020-08-14 13:50:00 64 mm[Hg] [facility] Heart rate 2020-08-14 13:50:00 82 /min [facility] Body temperature 2020-08-14 13:50:00 36.72 Peggy [facility] Respiratory rate 2020-08-14 13:50:00 18 /min [facility] Body height 2020-08-14 13:50:00 157.5 cm [facility] Body weight 2020-08-14 13:50:00 72.802 kg [facility] BMI 2020-08-14 13:50:00 29.36 kg/m2 [facility] Systolic blood pressure 2020-06-30 19:54:00 99 mm[Hg] [facility] Diastolic blood pressure 2020-06-30 19:54:00 70 mm[Hg] [facility] Heart rate 2020-06-30 19:54:00 76 /min [facility] Body temperature 2020-06-30 19:54:00 37.17 Peggy [facility] Respiratory rate 2020-06-30 19:54:00 16 /min [facility] Body height 2020-06-30 19:54:00 160 cm [facility] Body weight 2020-06-30 19:54:00 73.143 kg [facility] BMI 2020-06-30 19:54:00 28.56 kg/m2 [facility] Procedures Procedure Date / Time Performed Performing Clinician Source POCT TEST 2024-04-04 00:00:00 Arielle James [facility] POCT TEST 2023-03-17 15:24:00 Alfonso Winter [facility] DISCLOSURE AND CONSENT, MEDICAL AND SURGICAL PROCEDURES 2023-03-17 05:01:00 Doctor Unassigned, [place] [facility] GARDASIL 9 (HPV 9V) VACCINE 2023-02-15 13:23:58 Claudia Mendez [facility] PATIENT FINANCIAL POLICY 2023-02-15 13:12:13 Doctor Unassigned, [place] [facility] GARDASIL 9 (HPV 9V) VACCINE 2022-09-17 13:51:40 Claudia Mendez [facility] GARDASIL 9 (HPV 9V) VACCINE 2022-08-18 19:53:58 Claudia Mendez [facility] ASSIGNMENT OF BENEFITS 2022-08-18 18:52:51 Docto r Unassigned, [place] [facility] IN I&D MOUTH/TONG INTRA,SUBMANDIBULAR 2020-10-24 17:58:00 Matthew Rivera [facility] NOTICE OF PRIVACY PRACTICES 2020-10-24 16:55:13 Doctor Unassigned, [place] [facility] CONSENT/REFUSAL FOR DIAGNOSIS AND TREATMENT 2020-10-24 16:54:59 Doctor Unassigned, [place] [facility] SURGICAL PATHOLOGY EXAM 2020-08-14 17:08:00 Deanna Garrett [facility] COVID-19 (ID NOW RAPID TESTING) 2020-08-14 13:49:00 Teresa Garrett [facility] POCT TEST 2020-08-14 00:00:00 Teresa Garrett [facility] BCCS-RELATED DOCUMENTATION 2020-08-08 05:01:00 Doctor Unassigned, [place] [facility] ASSIGNMENT OF BENEFITS 2020-06-30 19:23:29 Docto r Unassigned, [place] [facility] Encounters Start Date/Time End Date/Time Encounter Type Admission Type Attending [facility] Care Facility Care Department Encounter ID Source 2024-12-18 14:11:01 Outpatient Brown, [facility] CLS [id number] [facility] 2024-10-04 10:25:00 Outpatient Brown, Eda [facility] [id number] [facility] 2024-09-24 10:09:00 Outpatient Brown, Eda [facility] [id number] [facility] 2024-05-10 13:24:00 Outpatient Brown, Eda [facility] STLMLC [id number] [facility] 2024-04-06 14:13:00 Outpatient Brown, Eda [facility] STLMLC [id number] [facility] 2024-04-02 10:17:00 Outpatient Brown, Eda [facility] STLMLC [id number] [facility] 2024-02-27 10:32:00 Outpatient Brown, [facility] STLMLC [id number] [facility] 2023-10-10 11:21:00 Outpatient Brown, [facility] STLMLC [id number] [facility] 2023-09-16 08:26:00 Outpatient Brown, [facility] STLMLC [id number] [facility] 2023-09-14 13:54:00 Outpatient Brown, Eda [facility] STLMLC [id number] [facility] 2023-05-09 07:57:00 Outpatient Brown, [facility] STLMLC [id number] [facility] 2023-04-19 15:57:01 [id number] 2023-02-07 07:55:01 [facility] [id number] [facility] 2023-01-26 09:34:03 [facility] [id number] [facility] 2021-09-19 09:16:00 Emergency [facility] [id number] [facility] 2024-10-15 09:30:00 2024-10-15 09:32:24 Outpatient R ARIELLE JAMES [facility] [id number] [facility] 2024-10-15 09:30:00 2024-10-15 09:32:24 Office Visit Arielle James [facility] 1.840.114 350.1.13.10 4.2.7.2.686 [id number] [facility] 2024-05-27 00:00:00 2024-06-30 18:22:34 Patient Secure Msg Doctor Unassigned, [place] Doctor Unassigned, [place] [facility] 1..840.114 350.1.13.10 4.2.7.2.686 [id number] [facility] 2024-05-28 15:30:00 2024-05-28 15:30:00 Outpatient R VALE-PAM S, JOSÉ MIGUEL VALE-PAM S, JOSÉ MIGUEL [facility] [id number] [facility] 2024-04-11 00:00:00 2024-05-12 18:17:40 Patient Secure Msg Doctor Unassigned, [place] [facility] 1..840.114 350.1.13.10 4.2.7.2.686 [id number] [facility] 2024-04-12 00:00:00 2024-05-04 14:48:00 Telephone José Miguel [place] [facility] 1.2.840.114 350.1.13.10 4.2.7.2.686 [id number] [facility] 2024-04-04 15:30:00 2024-04-04 15:57:38 Outpatient R ARIELLE JAMES [facility] [id number] [facility] 2024-04-04 15:30:00 2024-04-04 15:57:38 Office Visit Arielle James [facility] 1.2.840.114 350.1.13.10 4.2.7.2.686 [id number] [facility] 2024-03-30 00:00:00 2024-03-30 11:57:36 Refill Arielle James [facility] 1.2.840.114 350.1.13.10 4.2.7.2.686 [id number] [facility] 2024-03-19 10:00:00 2024-03-19 10:17:55 Outpatient R ARIELLE JAMES [facility] [id number] [facility] 2024-03-19 10:00:00 2024-03-19 10:17:55 Office Visit Arielle James [facility] 1.2.840.114 350.1.13.10 4.2.7.2.686 [id number] [facility] 2023-09-22 08:30:00 2023-09-22 08:30:00 Outpatient R CALEB Swartz, JOSÉ MIGUEL GARCIA [facility] [id number] [facility] 2023-09-21 00:00:00 2023-09-21 00:00:00 Outpatient GC_GCBZW_Ka diyala_S [facility] [id number] [facility] 2023-03-22 00:00:00 2023-03-22 00:00:00 Telephone Claudia Mendez 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 & CHILD [facility] 1.2.840.114 350.1.13.10 4.2.7.2.686 [id number] [facility] 2023-03-21 00:00:00 2023-03-21 00:00:00 Telephone Eliza Winter 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 1.840.114 350.1.13.10 4.2.7.2.686 [id number] [facility] 2023-03-17 11:00:00 2023-03-17 11:25:46 Outpatient ELIZA CARLSON [facility] [id number] [facility] 2023-03-17 11:00:00 2023-03-17 11:25:46 Office Visit Eliza Winter [facility] 1.840.114 350.1.13.10 4.2.7.2.686 [id number] [facility] 2023-03-17 00:00:00 2023-03-17 00:00:00 Orders Only Doctor Unassigned, [place] [facility] 1.840.114 350.1.13.10 4.2.7.2.686 [id number] [facility] 2023-02-24 10:15:00 2023-02-24 10:15:00 Outpatient ELIZA CARLSON [facility] [id number] [facility] 2023-02-15 08:30:00 2023-02-15 08:45:00 Nurse Visit Visit, Adonis-Rmchp Nurse Claudia Mendez [facility] 1.2.840.114 350.1.13.10 4.2.7.2.686 [id number] [facility] 2023-02-15 08:30:00 2023-02-15 08:30:00 Outpatient R [facility] [id number] [facility] 2023-02-15 08:30:00 2023-02-15 08:30:00 Outpatient R CLAUDIA MENDEZ [facility] [id number] [facility] 2023-02-15 00:00:00 2023-02-15 00:00:00 Orders Only Doctor Unassigned, [place] [facility] 1.2.840.114 350.1.13.10 4.2.7.2.686 [id number] [facility] 2023-01-18 00:00:00 2023-01-18 00:00:00 Telephone Eliza Winter [employer] ASSISTANT [facility]ER[facility] 1..840.114 350.1.13.10 4.2.7.2.686 [id number] [facility] 2022-11-04 08:30:00 2022-11-04 08:30:00 Outpatient R ELIZA WINTER [facility] [id number] [facility] 2022-11-04 00:00:00 2022-11-04 00:00:00 Telephone Eliza Winter [employer] ASSISTANT [facility] 1..840.114 350.1.13.10 4.2.7.2.686 [id number] [facility] 2022-09-22 10:00:00 2022-09-22 10:00:00 Outpatient R [facility] [id number] [facility] 2022-09-17 09:00:00 2022-09-17 09:00:00 Nurse Visit Visit, [facility] Nurse Claudia Mendez 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 & CHILD [facility] 1.2840.114 350.1.13.10 4.2.7.2.686 [id number] [facility] 2022-09-17 09:00:00 2022-09-17 08:50:56 Outpatient R CLAUDIA MENDEZ [facility] [id number] [facility] 2022-09-15 00:00:00 2022-09-15 00:00:00 Telephone Claudia Mendez [employer] TE[employer]ER ASSISTANT [facility] CHILD [facility] 1.0.114 350.1.13.10 4.2.7.2.686 [id number] [facility] 2022-08-26 00:00:00 2022-08-26 00:00:00 Telephone Claudia Mendez [employer] ASSISTANT [facility] CHILD [facility] 1.0.114 350.1.13.10 4.2.7.2.686 [id number] [facility] 2022-08-18 14:30:00 2022-08-18 15:23:06 Outpatient R CLAUDIA MENDEZ [facility] [id number] [facility] 2022-08-18 14:30:00 2022-08-18 15:23:06 Office Visit Claudia Mendez 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 & CHILD [facility] 1.0.114 350.1.13.10 4.2.7.2.686 [id number] [facility] 2022-08-18 00:00:00 2022-08-18 00:00:00 Orders Only Doctor Unassigned, [place] [facility] 1.840.114 350.1.13.10 4.2.7.2.686 [id number] [facility] 2022-02-15 08:30:00 2022-02-15 08:30:00 Outpatient R [facility] [id number] [facility] 2021-02-17 10:15:00 2021-02-17 10:15:00 Outpatient R CASSY MCCALL [facility] [id number] [facility] 2020-10-24 11:27:00 2020-10-24 12:28:00 Emergency [facility] 1.2.840.114 350.1.13.10 4.2.7.2.686 [id number] [facility] 2020-09-22 00:00:00 2020-09-22 00:00:00 Case Management [facility] 1.2.840.114 350.1.13.10 4.2.7.2.686 [id number] [facility] 2020-09-22 00:00:00 2020-09-22 00:00:00 Case Management [facility] 1.2.840.114 350.1.13.10 4.2.7.2.686 [id number] 2020-09-11 13:31:39 2020-09-11 13:46:39 Office Visit Wendy Mccallbasilio [facility] 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 & CHILD [facility] 1.2.840.114 350.1.13.10 4.2.7.2.686 [id number] 2020-09-11 13:15:00 2020-09-11 13:15:00 Outpatient R MCCALL, CASSY [facility] [id number] [facility] 2020-08-14 08:30:54 2020-09-05 10:31:26 Office Visit Res-Colpo/L eep, [facility] TinajeroJerome parekh [facility] 1.114 350.1.13.10 4.2.7.2.686 [id number] [facility] 2020-08-29 00:00:00 2020-08-29 00:00:00 Telephone Claudia Mendez [employer] TE[employer]ER ASSISTANT [facility] MATERNAL & [facility]ILD [facility] 1.114 350.1.13.10 4.2.7.2.686 [id number] [facility] 2020-08-20 00:00:00 2020-08-20 00:00:00 Patient Secure Msg Doctor Unassigned, [place] [facility] 1.114 350.1.13.10 4.2.7.2.686 [id number] [facility] 2020-08-14 10:00:00 2020-08-14 10:00:00 Outpatient R [facility] [id number] [facility] 2020-08-13 00:00:00 2020-08-13 00:00:00 Patient Secure Msg Doctor Unassigned, [place] [facility] 1.114 350.1.13.10 4.2.7.2.686 [id number] [facility] 2020-08-08 14:30:00 2020-08-08 14:30:00 Outpatient R CLAUDIA MENDEZ [facility] [id number] [facility] 2020-08-08 10:00:00 2020-08-08 10:00:00 Outpatient R [facility] [id number] [facility] 2020-08-08 00:00:00 2020-08-08 00:00:00 Orders Only Doctor Unassigned, [place] [facility] 1.2.840.114 350.1.13.10 4.2.7.2.686 [id number] [facility] 2020-07-14 00:00:00 2020-07-14 00:00:00 Patient Secure Msg Doctor Unassigned, [place] 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 & CHILD [facility] 1.2840.114 350.1.13.10 4.2.7.2.686 [id number] [facility] 2020-07-11 00:00:00 2020-07-11 00:00:00 Telephone Claudia Mendez R[employer] TE[employer]ER ASSISTANT [facility] CHILD [facility] 1.2840.114 350.1.13.10 4.2.7.2.686 [id number] [facility] 2020-07-02 00:00:00 2020-07-02 00:00:00 Patient Secure Msg Doctor Unassigned, [place] [employer] TE[employer]ER ASSISTANT [facility] CHILD [facility] 1.2840.114 350.1.13.10 4.2.7.2.686 [id number] [facility] 2020-07-02 00:00:00 2020-07-02 00:00:00 Telephone Claudia Mendez R[employer] TEACHER ASSISTANT [facility] CHILD [facility] 1.2840.114 350.1.13.10 4.2.7.2.686 [id number] [facility] 2020-07-02 00:00:00 2020-07-02 00:00:00 Telephone Claudia Mendez R[employer] TE[employer]ER ASSISTANT [facility] CHILD [facility] 1.2840.114 350.1.13.10 4.2.7.2.686 [id number] [facility] 2020-06-30 14:34:13 2020-06-30 16:28:45 Office Visit Claudia Mendez RUST 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 & CHILD [facility] 1.2.840.114 350.1.13.10 4.2.7.2.686 [id number] [facility] 2020-06-30 14:45:00 2020-06-30 14:45:00 Outpatient R CLAUDIA MENDEZ [facility] [id number] [facility] 2020-06-30 00:00:00 2020-06-30 00:00:00 Orders Only Doctor Unassigned, [place] [facility] 1..840.114 350.1.13.10 4.2.7.2.686 [id number] [facility] Results Test Description Test Time Test Comments Results Result Co mments Source [facility] [id number] 20:28:00* Test Item Value Reference Range Interpretation Comme nts POCT PREG (test code = 1605) Negative On board controls acceptable with C Line (test code = 3574) Yes POCT PREG LOT # (test code = 3575) POCT PREG TEST DATE ( test code = 3576) [id number] 15:24:00* Test Item Value Reference Range Interpretation Comme nts POCT PREG (test code = 1605) Negative On board controls acceptable with C Line (test code = 3574) Yes POCT PREG LOT # (test code = 3575) POCT PREG TEST DATE ( test code = 3576) [facility] [id number] 15:24:00* Test Item Value Reference Range Interpretation Comme nts POCT PREG (test code = 1605) Negative On board controls acceptable with C Line (test code = 3574) Yes POCT PREG LOT # (test code = 3575) POCT PREG TEST DATE ( test code = 3576) [facility] [id number] 15:24:00* Test Item Value Reference Range Interpretation Comme nts POCT PREG (test code = 1605) Negative On board controls acceptable with C Line (test code = 3574) Yes POCT PREG LOT # (test code = 3575) POCT PREG TEST DATE ( test code = 3576) [facility] [id number] 17:58:00 Matthew Rivera, DO ? ? 10/24/2020 [...] tolerance of procedure: ?Tolerated well, no immediate complicationsUnEl [facility]AM 2020-08-19 20:38:00* Test Item Value Reference Range Interpretation Comme nts Case Report (test code = 3924922359) Surgical Pathology ?Case: [id number] ? Authorizing Provider: ?Teresa Garrett WHCNP ? ? Collected: ? 08/14/2020 1208 ?Ordering Location: ? ? [facility] ?Received: ?08/14/2020 1326 ? [facility] ?Pathologist: ? Stacie Muro MD ? Specimens: ? A) - ENDOCERVICAL ? B) - CERVIX, LEEP ? Final Diagnosis (test code = 5002180492) m5lbnYPiTOFis4vsNKGdbSS uZzEwMzNcZnRuYmpcdWMxIH qqtnXlSZjcn9ReP1AjYtUxW FxhbnNpXGRlZmxhbmcxMDMz ABB8bpCpNWMnYOkkZMKwAYx vYy9epCMctMojRsVjCDCvr3 peoiNHosienGo5k5lpZLTxW xJ9iSZmDDozW3fkrnJzcNQu RGKjYKk0fF60LTTanZ2giXO sIDtccmVkMFxncmVlbjBcYm n1PMVpG3zjXXDfSCIwJ2TiM H9hDFBaVfa0RVF3TAY6mUnk q6S8eMVmbKKjaDhzSgRhHsV sYMEPh6BvZFs8oDgjB4InIV OkUgA9nOKrKDJpAXkbCYImK TUhriX7dS97SPvrzxM9tEHz y7Cyv59zz520iU0cnUHyJLC 8GVQgFTEcwUOuPQWdSRT7CZ PxcYItK9edHGlyVM9tpngoD GJ9EYbyFZKyqYubSLsxEMJz IrVnyPFpRNIrgLgqRJwnt89 9MRS7SwFtJT3sY1Ftq3G9kI 9maXRcZGVmdGFiNzIwXGZvc a9kfYTkBDgiu2VkRYP8tgV7 oVOisBFhDXToWQ02Ffkel9F sLiczYNC8TASlxhBsp5Mhu6 qyKdOeiuJiG2oqF9NpYSVzY HNuUSIeByKgewQfj7Ang3Ho oGKxqFy4m2nhZHDyCHCpaYn el8skQCB9OLQaV2R6rTFsl8 tqWXwhNHCgqQN8byNgOQKsk RLaH1SvrO8gKAvbIP6uzxy9 w5okZxDjDC3pjpwql0tcJSz iPUVdDQO8QbIlLRPrp8Ehvj gtDcUms4PaaFKzFXhvA21yk 074HKKitdIxU1xtnOEvbfax bGFpblxmMFxmczIyXHFsXHB sYWluXGYwXGZzMjJccGxhaW 2mRaAqObTxFXvaDK8pSXGwU 6etuAVrGPNgPJRqU1zpVhQi qF3frMxhXOgvhwXhISJkrtW QYrOWAtQUC8LBUuyFBOVIOD UFDZIXR3A0MVJuvmWiRVOfH D3wXrWOJ20TCxEEBU5UXBQB SvbXGnVCRjOMJ8LDVstIEYn jF7uGQlJVDDQVKYCRWIFPIQ mFEB0vgWEeOCIgyzZROjAZT BLFPIflXDmAR8MvRXdFSPJU G364PALelywolS7uLeIjrBo yGiVymTygtW9sVbCcLeKsMf xwbGFpblxmMVxmczIwXGxhb qjnWBEnBQmyO0wlZgLpQREg hBhcCWnfq7AiEZKoPLGgZkW hYEXqNF7kSf2DQLgxBKfFNR DBGpINHCJMLSCQVK7QDkDPA lRSQUVQSVRIRUxJQUwgTEVT PW1QHBlTOK6zOJslKNlPIGF mZlOTR8hWD2EVLCLWIsskBQ AzMVKiZJZxDWzOVS9VFMIMH ExPVyBHUkFERSBEWVNQTEFT SUEgKENJTiBJKVxwYXJccGF yZFxwbGFpblxmMFxmczIyXH BsYWluXGYxXGZzMjBcbGFuZ zEwMzNcaGljaFxmMVxkYmNo APPpACgyS0exQvPzQhMfHJI aSXBpACGYT2tEFJNNJVOTFD NCHuVTV6aUSIPzwFZmEEBoI CAtIExPVyBHUkFERSBEWVNQ OYDQSODxIMYAT3CKHAVWCHR EIPVnPXDNW5OLWaSTM2JTYF ZQU8ILUJbOUxIKWVILQL9vT HBhciAgICAgLSBBRERJVElP TkFMIExFVkVMUyBFWEFNSU5 FRFxwYXJccGFyXHFsXHBsYW feMWLoPJZpNcNfdViuwQ2cW jFcZnMyMiBYaWFvdGFuZyBE dSwgTUQgXHBsYWluXGYxXGZ zMjBcbGFuZzEwMzNcaGljaF otMRbkVvObANDsSCwcR7ymX xQtUlIwOJriOMVwhWklhD6n ZhZiDtOkAcMCino4osNZiU3 alP2zfYTfHIOCO0hpUNRfEN Ake0b5ITRmsBJkJOTaIUrsi iwgTUQgIDkvMjkvMjAyMCAg SmbgSdHNNTsvPRG5y6ceaWN xXHNzdGVjZjIyMDAwXGFuc2 lcZGVmbGFuZzEwMzNcZnRuY xtcnSMfDKVwQeUnp6zah468 tCYyt6jmMRJlHaF3zFVxSLX cgKtucfi6dEwcQnHxIDQug1 lzcyBcZmNoYXJzZXQwIEFya LHbM168BZHqRAiux3ebc6Ih MGAvbVKhd4Y2RFHFTRutWuY dI854t7xqt6cmugRvwLW0WM EsLCB1TCghqaVnyeO3GNnph ZVdRoC5CFnotcOrQQvuieIc hkWtYcp6QWEtL177EBP6cVy yr1zsPCX2EXVcPLMxBbfaAv 5dkFBgN382HHXsGZEHVOWqn Wi3EPKeavUglmDcuXRMa954 Y116i9upMNRhkrAndCvEthv cz7joO534WQBqtDMdwbJjRz LlFFBraXCtePL9NZTjCO7mr vkgDPikXIuvSRMqvlP5YEXg sPCuH4MeWTHzAZ1xcaqxHVC 8ZUhpVUQkTFS7ToJvAUEle3 Pvlds8BfNdbq4chj21XYB3r 2AgdIpjOAT0SJI5YaDgAy8q wAIhZYUhPE4rPdMsrHGuFWF wtb83kEbwRWkzjgUxhU0jFr JxLTYsmWZsIGVfUD9baAQkV TUbrN2rzvplRAZlUqDlygib WKHfcGbuapPbFi8fyMwxYML 9UChsU6xtlD1kMcJ4SLryR0 wjsT5mVQm0YYnrkBM2PFIft Y9eGY4fowbaq5nlBXtsAYis FHPwlgW7qkP9VLPveQQmR8J cxY2pNPIdBU8izomjm2vhHN D4YXkxMZMqTWX2NlGjBCLfs 0Gceyv7VpAbe2PvpTIaCIpg J37zo731BBZuogItK3qiwLL bdfljlZOrxosdQCohwnO5GD FsXHBsYWluXGYxXGZzMjBcb GFuZzEwMzNcaGljaFxmMVxk KjWlBVVkEWzpD8qsAlHkH9D aVHIqEwZhyXFgBYjbsJW7WC RfTJWoe92rnFx0MFAqazkin 5ZqTYOojKKlpFEseA7geqEu i5woIJXrHESpGYTuD6ZtIRQ 2xISnKBLvwMNvlPU2AK4miq TuKU1zHXZtSdfsjaCypTLev vWkNQLkMOpmd7acTD2gMPNm gAxelX8fjPA9XCGok5ywqBZ lxNOoc0dlo4WzxpZjUZhcXN UjKAnbAMPfLBHuPZ6aHIBfy UVwbdYxj3V5HfqozFCmagha VhffjlG7FCzclqrmGXCqJLf xR5bsQtGeBNZdmNywInnao5 NoXGYyXGZzMjhccGFyfX0= Clinical Information (test code = 5592703405) Clinical History: 30 year-old with HGSIL Gross Description (test code = 2828163301) f7dokHPtMVBkbGJwYbWzBME vIAPbb7buBQGzhVXqGfTfYy NcZnRuYmpcdWMxXGRlZmYwe 5mnd448rVFyz8mvKYFhIbK8 cMAdJGXmwGEaY565QCZsPAd ep9yal1MoJVYrfMMyc5C4DL YTlbcfxLh6tKcfE97jy8Z6U ulsA8xhWYRcOBioLDSjEFng pYRrXVP0FKFiHYJ5QCtyhrR emxN2BYskpUZvDwB1LBd1o3 ogaRcrBJRlLDZ3s6noWIojl yKvNV8jvy8juNx0l1ukypUv ABRiKTMgnNTKVVYuR9QakGo rKw1edVo8qWpjEdgxHQJ8Rb q2RU7wwl73ova7nMghBOTsf zufBkX0XSkaEKRynzliFWh3 ZCgxQGPfyUWuSHBcmGWvN5C pKKqqTD4roua8LbDtQU9asz hdLWszIGTvUWD7QrSbQEEbe 9LtmjjeWeDwqo4vso65RJC9 p2NsbNnhSBA6EBE9OuMjRy9 hbKOwIAXaKH8fKbWpvRXfSB Rfoe94iZzcKMnlfzFacO6gO tHyPOVihDIdREPjXD0vcJZp HVIqpI8iajitGIZqCbLvqms vZKUfmOykqzLoKo9xxZsbHP K1FWzpJ0ohsZ1eHbE3ZYueB 5lymS8xDKd2NJecvKQ6ARYy xC0jVW0xhjcqh0trDYQ7RAh gBMPuvwB9edZpLACopCYuS8 SjcO22MgDlbIXpV9SwrN1wD PynASWfrgh0HeEgXi7bfCKa vCU9YUksAdyuSRkyWQHvusE vbnRccGduZGVjXHBsYWluXH MyXZwzUHXfBBJtZaFub3JrS KNpo0kzYwCfi7dnaBg9ZPan bFxwbGFpblxmMFxmczIwXHB iUPdaXSFzXUNmMdYgK1YsK4 pnEO5oSXSyrfMyDWOeiCIlV DNsqyUqj4PcTNedfhSjBGYn tBbzVNY1wCEgXRViTQHfKUN sUD20BVMsMTfkLQQbKJLaAn StdPfrIBfzJSk9GwckwWFne lxmMVxmczIwIHMgbmFtZSwg WWmawoLeBnTdRBCndxRnT0X wtbggCIhkuMlrwW4zUlGjAk DmWUy6TZDpWIZlDyj0DSVnG WluXGYxXGZzMjAgIGFuZCBj q07kjAN4qcFmVfYcyqAiB7j rIWntqPPye5VipQYabTbguY AmyJTvl7XdqAPhoCIepXJwJ HSttnhdqTNweT5ngTAgvMBz TEc4dTWyPGVbZaErgEcyl8P cKPMzCSvbVS04qjOtEG1xXT rkZU8bYNwlSK7lVJRmEFkgU EFvA1VbU2T1OTsqLDQeSOIv hYYrgV3jayWdnyQzfSa4KUO cCHS5aOUpgRsnAPSvDvhqrE S1KHWfUwUlncKuSU26pKBtc Tsbi8TrfOj9lHKbICghGBIb vI2miN0fSZCmVWWncltkGAA kXHBsYWluXGYwXGZzMjBccG mstR8tMzTtHwUxTDSStGWuf O6aavVRAWmsLRVzC9EfpzEr HKiaFVZmgy4pfKfwCFtbMhN wQTVrl1o9eTU7qDCmfZV4xM QkuMffTB9fvELhRJEJAJ82z WJlciwgIkxFRVAiIGFuZCBj o91kePA6fjQzZaLmnnC9zq8 jcWLkvPEgULCzdi6auZ0lDU 4iER1pZRBVQSIUAJWhELRke WVuICgxLjUgeCAxLjIgeCAw ElAyL55aFnIgDZtfCKKpvM3 fKMW1kPhkfWFqzTSnCCUsKK TxquNwjQulgiJ2kGFmIFBfC YXkI7WezHVsR7AseEuwzTdv S9HnLDHuwXXvhOajZPAfzdZ fMV27KLGoMJhqQFKsXH3zlC BbLL4uHAYxCKVlpNGhaM2gp hZogvHbjAAqwxeuOGW9ZCJc OL3oMJZiB1teoRRtZTHitlG ewXPlclCgbJSogPfvo9TsxH pofuLzOSAiRCDuooMuePD4C F3pzSqfnfomaN3uu9kmdi42 rgIbdKAca8ZzSrOfRRPhCZR OrOMiRKzfCLUbLUSte635OQ ybCZTpmHNjKO1lsARhEQg5l GFyIHBpbmstdGFuIExFRVAg LdRcL75cpdEdDXXqLXN5KZI zWZG8TPZyHoAbnMiuARBpPF YjtOAlyN6iazLzctCftyFlj eYtpKBmfjLsy1PmjXQqdHnh uOq5FVP8Ks1vhPPiXZFnbtR bNVduRYdoWXJlORT0VfvlRG YqnEErCYrejnDYr7MoKighF PUiGmy7XFOzQVDvUZ5nWGK4 sLIdhUHvEVMaP6Pru15wcXA dJ6zjSbhyJESnZnofM9ukDC JrS4HnW4DhseatSNadhsCoV SM2aK9yIA7oygtkqa6svPMy PXDsgvOVYDT3nE4yDVBqKIK 6CHLspwLPWX1FMqkxSZKXsi UgcXVhZHJhbnQsIHJhZGlhb Ve0NFRqW4Itn09zDJgiBM84 wDOzxTcaaWJfMMXrSCD2RpY zGJ4lIKDfdFVhgjZkkOncdj DsgEMseRifx9DhhXzyknVuM CBlbnRpcmVseVxwYXIgQjUt MtD3QDLOpzMqzEFnXZYzokQ gSRWuYRtsoTa8IIEvJ7Dkr2 8pHQpaYA73dNWmtAmmyNTvK NV5NWF3QqZNGROQGZVpCXab UK76VBCyUVGkHWhesMYrBYT 3lJ4hXOZfGLXaiPwjTTe3RA BhclxwYXIgSnVsaWUgTWNJb WuuryH0RKOLFTdexZNbjxcn MVxmczIwXGxhbmcxMDMzXGh qA4pxDoCwNNGpvKooPMazo3 WzXJDoHDIgFViwgaLqJCN3n GVyXHBhclxwbGFpblxmMVxm czIwXHBhclxwbGFpblxmMVx mczIyXGxhbmcxMDMzXGhpY2 cuVlCxUYXurLmrZOydx9UxG GYxXGNmMVxmczIyXHBhclxw KEIgyVztfV3wBpGfOeTiSNk bIE3pXMLuV0ntrVRmJREmLY AzQ1jbTsRsgI2glRtwOTgjK jFcZnMyMFxiXHBhclxwbGFp blxmMVxmczIwXGxhbmcxMDM uSXcoA6cqCzJaPMZtdJrfRN med4JhONSxQGQcILtwraRaJ LG5jPBmLCAcuthvfJjroALy blxmMFxmczIwXHBsYWluXGY xXGZzMjBccGFyfQ== Embedded Images (test code = [id number]) [facility]ID [facility]ING[facility]2020-08-14 14:36:00* Test Item Value Reference Range Interpretation Comme nts SARS-CoV-2 Rapid ID NOW (test code = 21663-9) Not Detected Not Detected VIRGEN (test code = VIRGEN) ID NOW COVID-19 As say is an isothermal nucleic acid amplification test intended for the qualitative detection of nucleic acid from SARS-CoV-2 viral RNA in nasopharyngeal ([employer]IOR [employer]GY [employer]NAGER) specimens. It is used under Emergency Use [...] clinically indicated. Lab Interpretation (test code = 87365-1) [facility]2020-08-14 14:36:00* Test Item Value Reference Range Interpretation Comme [facility] SARS-CoV-2 Rapid ID NOW (test code = 87212-1) Not Detected Not Detected VIRGEN (test code = VIRGEN) ID NOW COVID-19 As say is an isothermal nucleic acid amplification test intended for the qualitative detection of nucleic acid from SARS-CoV-2 viral RNA in nasopharyngeal (SENIOR STRATEGY MANAGER) specimens. It is used under Emergency Use Authorization (EUA) by [facility]. The limit of detection (LOD) of the [...] clinically indicated. Lab Interpretation (test code = 01472-8) Normal [facility]-19 (ID NOW RAPID TESTING)2020-08-14 14:36:00* Test Item Value Reference Range Interpretation Comme [facility] SARS-CoV-2 Rapid ID NOW (test code = 81856-6) Not Detected Not Detected VIRGEN (test code = VIRGEN) ID NOW COVID-19 As say is an isothermal nucleic acid amplification test intended for the qualitative detection of nucleic acid from SARS-CoV-2 viral RNA in nasopharyngeal (SENIOR STRATEGY MANAGER) specimens. It is used under Emergency Use [...] clinically indicated. Lab Interpretation (test code = 39818-8) Normal [facility] [id number] 13:53:00* Test Item Value Reference Range Interpretation Comme nts POCT PREG (test code = 1605) Negative On board controls acceptable with C Line (test code = 3574) Yes POCT PREG LOT # (test code = 3575) POCT PREG TEST DATE ( test code = 3576) Lab Interpretation (test cod e = 69753-7) Normal [facility] [id number] 13:53:00* Test Item Value Reference Range Interpretation Comme nts POCT PREG (test code = 1605) Negative On board controls acceptable with C Line (test code = 3574) Yes POCT PREG LOT # (test code = 3575) POCT PREG TEST DATE ( test code = 3576) Lab Interpretation (test cod e = 07957-5) Normal [facility] [id number] 13:53:00* Test Item Value Reference Range Interpretation Comme nts POCT PREG (test code = 1605) Negative On board controls acceptable with C Line (test code = 3574) Yes POCT PREG LOT # (test code = 3575) POCT PREG TEST DATE ( test code = 3576) Lab Interpretation (test cod e = 00713-7) Normal [facility] Notes Date/Time Note Provider Source 2024-04-12 10:56:26 Looks like you sent this to the wrong provider. [facility] 2024-04-12 10:43:22 Fax from Lani Platt office scanned into chart Roberta Cee [facility] 2024-03-30 11:56:50 Rx sent to pharmacy for BV Tx. [facility]
[2025-01-04] MEDS ORDERED: FAMOTIDINE 20 MG/2 ML VIAL IV ONE (10:47)
[2025-01-04] MEDS ORDERED: BISACODYL 10 MG RECTAL SUPP ONE (10:47)
[2025-01-04] MEDS ORDERED: NA CHLORIDE 0.9% 1,000 ML ONE ×2 (10:47→14:06)
[2025-01-04] MEDS ORDERED: ONDANSETRON 4 MG/2 ML VIAL ONE ×2 (10:47→11:56)
[2025-01-04] MEDS ORDERED: LACTULOSE 20 GM/30 ML UCUP ONE (10:48)
[2025-01-04 10:52] LABS: Absolute Basophils 0.1 K/uL (0-0.5); Absolute Lymphocytes (CBC) 1.4 K/uL (0.7-4.9); Absolute Monocytes 0.5 K/uL (0.1-1.3); Absolute Neutrophil 8.3 K/uL (1.8-8.0); Basophils % 0.8 % (0-1.3); Eosinophils % 0.3 % (0-4.4); Hematocrit 43.7 % (36.0-45.0); Hemoglobin 14.5 g/dL (12.0-15.0); Lymphocytes % 13.6 % (15.3-44.8); MCHC 33.3 g/dL (32.0-36.0); MCV 90.2 fL (80-100); MPV 8.4 fL (7.6-11.3); Monocytes % 4.6 % (3.3-12.3); Neutrophils % 80.7 % (41.7-73.7); Nucleated Red Blood Cells % 0.1 % (0-0); Platelets 319 thou/uL (152-406); RBC Red Blood Cell Count 4.84 M/uL (3.86-4.86); Red Cell Distribution Width 13.1 % (12.1-15.2)
[2025-01-04 11:13] LABS: Albumin 3.5 g/dL (3.4-5.0); Albumin/Globulin Ratio 0.9 (1.1-1.8); Anion Gap 8.7 mEq/L (5.0-15.0); Bilirubin Total 0.4 mg/dL (0.2-1.0); Globulin 3.7 g/dL (2.3-3.5); Potassium 3.7 mEq/L (3.5-5.1); Protein, Total 7.2 g/dL (6.4-8.2)
[2025-01-04 11:22] LABS: Specific Gravity 1.009 (1.005-1.030)
[2025-01-04 11:32] LABS: Specific Gravity 1.009 (1.005-1.030); Sqamous Epithelial <5 /HPF (None Seen); Urine Bacteria None Seen /HPF (<20); Urine Bilirubin NEGATIVE (Negative); Urine Blood Negative (Negative); Urine Clarity Turbid (Clear); Urine Color Colorless (Yellow); Urine Culture Reflex Order NOT NEEDED; Urine Glucose NEGATIVE (Negative); Urine Ketones NEGATIVE (Negative); Urine Microscopic Reflex YN ORDER UMIC; Urine Nitrite NEGATIVE (Negative); Urine Protein NEGATIVE (Negative); Urine RBC <5 /HPF (None Seen); Urine Urobilinogen Normal (Normal); Urine WBC <5 /HPF (<5)
--- NOTE | 2025-01-04 13:25 | RAD REPORT ---
EXAMINATION: CT ABDOMEN AND PELVIS WITH CONTRAST CLINICAL INDICATION: Abdominal pain TECHNIQUE: CT abdomen and pelvis was performed, after the administration of 100 cc Isovue-300.. Sagit sagar and coronal reconstructions were obtained. One or more of the following dose reduction techniques were used: Automated exposure control, adjustment of the mA and kV according to patient si ze, and iterative reconstruction. Unless otherwise specified, incidental findings do not require dedicated imaging follow-up. [id number]. Oral contrast was not given which limits evaluation of bowel and appendix. COMPARISON: 2022 FINDINGS: Liver, spleen, pancreas, adrenals and kidneys appear unremarkable No evidence of diverticulitis. An abnormal appendix is not seen. 3.5 cm left ovarian cyst without significant fluid. No follow-up imaging recommended. Small umbilical hernia : IMPRESSION: 3.5 cm left ovarian cyst without significant free fluid
--- NOTE | 2025-01-04 13:26 | EDPHYS ---
Physician Documentation [facility] Name: Miller Ferguson Age: 34 yrs Sex: Female : 1990 Arrival Date: 01/04/2025 Time: 10:18 Bed 19 Private MD: CHRISTOPHER Physician Roel Baires HPI: 01/04 11:55 This 34 yrs old Female presents to ER via Ambulatory with complaints of eugene Vomiting, Constipation, Bloody Stools. 11:55 The patient presents to the emergency department with nausea, vomiting, that is eugene intermittent. Onset: The symptoms/episode began/occurred 3 day(s) ago. Possible causes: unknown. The symptoms are aggravated by nothing. The symptoms are alleviated by nothing. Associated signs and symptoms: The patient has no apparent associated signs or symptoms. Severity of symptoms: At their worst the symptoms were moderate in the emergency department the symptoms are unchanged. The patient has not experienced similar symptoms in the past. Historical: - Allergies: 10:35 Lamisil; aa5 10:35 terbinafine HCl; aa5 - Home Meds: 10:35 None [Active]; aa5 - PMHx: 14:14 cyst removed from ovary; kj2 - PSHx: 10:35 section; Right ovarian cyst removed; Tubal ligation; aa5 - Immunization history:: Adult Immunizations unknown. - Infectious Disease History:: Denies. - Social history:: Smoking status: Patient denies any tobacco usage or history of. ROS: 11:56 Constitutional: Negative for fever, chills, and weight loss, Eyes: Negative for injury, eugene pain, redness, and discharge, ENT: Negative for injury, pain, and discharge, Neck: Negative for injury, pain, and swelling, Cardiovascular: Negative for chest pain, palpitations, and edema, Respiratory: Negative for shortness of breath, cough, wheezing, and pleuritic chest pain, Back: Negative for injury and pain, : Negative for injury, bleeding, discharge, and swelling, MS/Extremity: Negative for injury and deformity, Skin: Negative for injury, rash, and discoloration, Neuro: Negative for headache, weakness, numbness, tingling, and seizure, Psych: Negative for depression, anxiety, suicide ideation, homicidal ideation, and hallucinations, Allergy/Immunology: Negative for hives, rash, and allergies, Endocrine: Negative for neck swelling, polydipsia, polyuria, polyphagia, and marked weight changes, Hematologic/Lymphatic: Negative for swollen nodes, abnormal bleeding, and unusual bruising, 11:56 Abdomen/GI: Positive for abdominal pain, constipation, abdominal cramps, of the right lower quadrant and left lower quadrant, Exam: 11:56 Constitutional: This is a well developed, well nourished patient who is awake, alert, eugene and in no acute distress. Head/Face: Normocephalic, atraumatic. Eyes: Pupils equal round and reactive to light, extra-ocular motions intact. Lids and lashes normal. Conjunctiva and sclera are non-icteric and not injected. Cornea within normal limits. Periorbital areas with no swelling, redness, or edema. ENT: Nares patent. No nasal discharge, no septal abnormalities noted. Tympanic membranes are normal and external auditory canals are clear. Oropharynx with no redness, swelling, or masses, exudates, or evidence of obstruction, uvula midline. Mucous membranes moist. Neck: Trachea midline, no thyromegaly or masses palpated, and no cervical lymphadenopathy. Supple, full range of motion without nuchal rigidity, or vertebral point tenderness. No Meningismus. Chest/axilla: Normal chest wall appearance and motion. Nontender with no deformity. No lesions are appreciated. Cardiovascular: Regular rate and rhythm with a normal S1 and S2. No gallops, murmurs, or rubs. Normal PMI, no JVD. No pulse deficits. Respiratory: Lungs have equal breath sounds bilaterally, clear to auscultation and percussion. No rales, rhonchi or wheezes noted. No increased work of breathing, no retractions or nasal flaring. Back: No spinal tenderness. No costovertebral tenderness. Full range of motion. Skin: Warm, dry with normal turgor. Normal color with no rashes, no lesions, and no evidence of cellulitis. MS/ Extremity: Pulses equal, no cyanosis. Neurovascular intact. Full, normal range of motion., bilateral aka Neuro: Awake and alert, GCS 15, oriented to person, place, time, and situation. Cranial nerves II-XII grossly intact. Motor strength 5/5 in all extremities. Sensory grossly intact. Cerebellar exam normal. Normal gait. 11:56 Abdomen/GI: Inspection: abdomen appears normal, Bowel sounds: normal, Palpation: moderate abdominal tenderness, in the right lower quadrant and left lower quadrant, Liver: no appreciated palpable abnormalities, Hernia: not appreciated, Vital Signs: 10:35 BP 98 / 65; Pulse 90; Resp 18 S; Temp 97.8(TE); Pulse Ox 100% on R/A; aa5 12:00 BP 114 / 74; Pulse 88; Resp 19 S; Pulse Ox 99% on R/A; aa5 14:13 BP 116 / 78; Pulse 72; Resp 18; Temp 98.2; Pulse Ox 100% on R/A; kj2 14:51 BP 101 / 75; Pulse 88; Resp 18; Temp 98; Pulse Ox 100% ; kj2 MDM: 10:21 Medical Screening Exam initiated eugene 11:58 Differential diagnosis: Nonspecific abd pain, gastritis, pancreatitis, appendicitis, eugene diverticulitis, viral gastroenteritis, gastroenteritis, diverticulitis, hemorrhoids, varices, bowel obstruction, diverticulitis, Ureterolithiasis, urinary tract infection. Data reviewed: vital signs, nurses notes, lab test result(s), radiologic studies. Consideration of Admission/Observation Escalation of care including admission/observation considered. I considered the following discharge prescriptions or medication management in the emergency department Medications were administered in the Emergency Department. See MAR. Independent interpretation of the following test(s) in the Emergency Department CT Scan: My interpretation is CT AB/ PEL WO. Test considered but Not performed: Ultrasound NO ABD US. Historians other than the Patient: PT WELL INFORMED. Care significantly affected by the following chronic conditions: NONE. Counseling: I had a detailed discussion with the patient and/or guardian regarding the historical points, exam findings, and any diagnostic results supporting the discharge/admit diagnosis, lab results, radiology results, the need for outpatient follow up, for definitive care, a family practitioner, a pipe coremaker. 01/04 10: Order name: CBC with Diff; Complete Time: 11: [facility] 01/04 10: Order name: CMP; Complete Time: :01/04 10: Order name: Lipase; Complete Time: :01/04 10:26 Order name: Test, Urine; Complete Time: 11:01/04 10:26 Order name: Urinalysis w/ reflexes; Complete Time: 12:01/04 10:26 Order name: CT Abd/Pelvis - PO and IV Contrast; Complete Time: 13:25 [facility] 01/04 10:26 Order name: IV Saline Lock; Complete Time: 10:45 [facility] 01/04 10:26 Order name: Labs collected and sent; Complete Time: 10:45 [facility] Administered Medications: 10:57 Drug: Famotidine IVP 20 mg IVP once; dilute with 10 mL 0.9% NaCl; give over 2 minutes aa5 Route: IVP; Site: left antecubital; 11:10 Follow up: Response: No adverse reaction aa5 10:57 Drug: Ondansetron IVP 4 mg IVP once; over 2 minutes Route: IVP; Site: left antecubital; aa5 11:10 Follow up: Response: No adverse reaction aa5 10:57 Drug: NS 0.9% IV 1000 ml IV at 1 bolus Per protocol; to be given as a bolus over 60 aa5 minutes Route: IV; Rate: 1 bolus; Site: left antecubital; 10:57 Drug: Lactulose PO 30 grams 45 ml PO once Volume: 45 ml; Route: PO; aa5 11:30 Follow up: Response: No adverse reaction aa5 12:07 Drug: Ondansetron IVP 4 mg IVP once; over 2 minutes Route: IVP; Site: left antecubital; aa5 14:53 Follow up: Response: No adverse reaction kj2 14:12 Not Given (Patient Refused): dulcolaxsuppository 10 mg MD once kj2 14:12 Not Given (Duplicate Order): [id number] mg IVP once kj2 14:12 Drug: NS 0.9% IV 1000 ml IV at 1000 ml once; to be given as a bolus over 60 minutes kj2 Route: IV; Rate: 1000 ml; Site: left antecubital; 14:53 Follow up: IV Status: Completed infusion; IV Intake: 500ml kj2 14:12 Drug: Promethazine IVP 12.5 mg IVP once Route: IVP; Site: left antecubital; kj2 14:53 Follow up: Response: No adverse reaction kj2 Disposition Summary: 01/04/25 13:26 Discharge Ordered Notes: Location: Home eugene Problem: new eugene Symptoms: have improved eugene Condition: Stable eugene Diagnosis - Vomiting eugene - GI Bleed/ Gastrointestinal hemorrhage, unspecified - LOWER , STABLE eugene - Constipation, unspecified eugene - Other ovarian cysts eugene Followup: eugene - With: Private Physician - When: 2 - 3 days - Reason: Recheck today's complaints, Continuance of care, Re-evaluation by your physician Followup: eugene - With: Yariel Redman MD - When: 2 - 3 days - Reason: Recheck today's complaints, Re-evaluation by your physician Discharge Instructions: - Discharge Summary Sheet eugene - Constipation, Adult eugene - Gastrointestinal Bleeding eugene - Ovarian Cyst eugene - Rectal Bleeding eugene - Constipation, Adult, [id number] eugene - Gastrointestinal Bleeding, [id number] eugene - Lower Gastrointestinal Bleeding eugene Forms: - Medication Reconciliation Form eugene - Antibiotic Education eugene - Prescription Opioid Use eugene - Patient Portal Instructions [facility] - Leadership Thank You Letter [facility] Prescriptions: - Dulcolax (bisacodyl) 10 mg Rectal suppository - insert 1 suppository RECTAL route daily for 5 days; 5 suppository; Refills: 0, [facility] Product Selection Permitted - ondansetron 4 mg Oral Tablet,disintegrating - take 1 tablet ORAL route every 6-8 hours for 5 days as needed for nausea and eugene vomiting; 20 tablet; Refills: 0, Product Selection Permitted - Lactulose 10 gram/15 mL Oral Solution - take 30 milliliters ORAL route once daily; 300 milliliter; Refills: 0, Product eugene Selection Permitted - promethazine 25 mg Oral tablet - take 1 tablet ORAL route every 6 hours As needed prn intractable nausea/ eugene vomiting; 20 tablet; Refills: 0, Product Selection Permitted - dicyclomine 20 mg Oral tablet - take 1 tablet ORAL route 4 times per day; 28 tablet; Refills: 0, Product eugene Selection Permitted Signatures: Dispatcher [employer] EDMS Roel Baires MD MD cha Calderon, Audri RN RN aa5 Jimena Weinberg, RN RN kj2 Corrections: (The following items were deleted from the chart) 10:27 10:27 CBC+H.LAB.BRZ ordered. EDMS EDMS 10:27 10:27 COMPREHENSIVE METABOLIC PANEL+C.LAB.BRZ ordered. EDMS EDMS 10:27 10:27 LIPASE+C.LAB.BRZ ordered. EDMS EDMS 10:27 10:27 Test, Urine+UC.LAB.BRZ ordered. EDMS EDMS 10:27 10:27 Urinalysis+U.LAB.BRZ ordered. EDMS EDMS 10: 10:27 Abdomen Pelvis W Con+CT.RAD.BRZ ordered. EDMS EDMS 14:14 10:35 PMHx: None; aa5 kj2
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
[2025-01-04] MEDS ORDERED: PROMETHAZINE INJ 25 MG/ML AMP ONE (14:06)
[2025-01-04 15:15] VITALS: O2SAT 100
[2025-01-04 15:21] VITALS: BP 101/75; TEMP 98
== END 2025-01-04 14:54 | disposition home or self-care (01) ==
LOC: ER 10:18
DX: R11.10 Vomiting, unspecified (principal); K92.2 Gastrointestinal hemorrhage, unspecified; K59.00 Constipation, unspecified; N83.299 Other ovarian cyst, unspecified side
CPT/HCPCS: 96361; 85025; 81001; 36415; 81025; 83690; 80053; 74177; 96375; 96374; 99284; Q9967; J2550; J2405 ×2; J7030 ×2